=== PATIENT | female | born 1950 | race African-American/Black ===

== ENCOUNTER 2024-06-26 08:04 | Inpatient (IN) | payer OTHER ==
[~2024-06-26] VITALS: Ht 157.5 cm; Wt 49.3 kg
[2024-06-26 08:41] VITALS: PULSE 104; RESP 20; O2SAT 100
--- NOTE | 2024-06-26 09:20 | ED.PDOC ---
GI ASSESSMENT HPI Comments 74 year old female accompanied by brother presents to the ED with chief complaint of nausea and vomiting. Patient reports that she has been experiencing nausea and vomiting for the past 2-3 weeks, noticing associated weight loss, lips being drying, and stomach grumbling. Patient relays that she is unable to keep anything down, even ice chips. Patient states this all started after she had tasted food at a restaurant about 2-3 weeks ago. Patient denies any abdominal pain, body ache, fever, chills, dizziness, headache, or diarrhea, Chief Complaint: Nausea/Vomiting Time Seen by MD: 09:14 Primary Care Provider: NONE Reviewed Notes: Nurses Notes, Medications, Allergies Allergies: Coded Allergies: NO KNOWN ALLERGIES (Unverified , 06/26/24) Information Source: Patient Mode of Arrival: Ambulatory Timing: Weeks Duration: Since onset Prehospital treatment: None Vomitus: Watery Stool: Normal Severity: Moderate Recent: None Recent Hx of: None Pain Location: None Modifying Factors: Nothing Associated sign and symptoms: Nausea, Vomiting Past Medical History PAST MEDICAL HISTORY: HTN Surgical History: Hysterectomy [employer] History: Denies all [employer] Hx Family History Family History: Reviewed,noncontributory to illness Social History Smoker: Non-Smoker Alcohol: Denies ETOH Use Drugs: Denies Drug Use Lives In: Home Constitutional: denies: chills, diaphoresis, fatigue, fever, malaise, sweats, weakness, others EENTM: reports: voice changes (dry lips); denies: blurred vision, double vision, ear bleeding, ear discharge, ear drainage, ear pain, ear ringing, eye pain, eye redness, hearing loss, mouth pain, mouth swelling, nasal discharge, nose bleeding, nose congestion, nose pain, photophobia, tearing, throat pain, throat swelling, others Respiratory: denies: cough, hemoptysis, orthopnea, SOB at rest, shortness of br eath, SOB with excertion, stridor, wheezing, others Cardiovascular: denies: chest pain, dizzy spells, diaphoresis, Dyspnea on exertion, edema, irregular heart beat, left arm pain, lightheadedness, palpitations, PND, syncope, others Gastrointestinal: reports: nausea, vomiting, others (weight loss); denies: abdomen distended, abdominal pain, blood streaked bowels, constipated, diarrhea, dysphagia, difficulty swallowing, hematemesis, melena, poor appetite, poor fluid intake, rectal bleeding, rectal pain Genitourinary: denies: abnormal vagina bleeding, burning, dyspareunia, dysuria, flank pain, frequency, hematuria, incontinence, pain, , vagina discharge, urgency, others Neurological: denies: dizziness, fainting, headache, left sided numbness, left sided weakness, numbness, paresthesia, pre-existing deficit, right sided numbness, right sided weakness, seizure, speech problems, tingling, tremors, weakness, others Musculoskeletal: denies: back pain, gout, joint pain, joint swelling, muscle pain, muscle stiffness, neck pain, others Integumetry: denies: bruises, change in color, change in hair/nails, dryness, laceration, lesions, lumps, rash, wounds, others Allergic/Immunocompromised: denies: Difficulty Healing, Frequent Infections, Hives, Itching, others Hematologic/Lymphatic: denies: anemia, blood clots, easy bleeding, easy bruising, swollen glands, others Endocrine: reports: excessive thirst; denies: excessive hunger, excessive sweating, excessive urination, flushing, intolerance to cold, intolerance to heat, unexplained weight gain, unexplained weight loss, others Psychiatric: denies: anxiety, bipolar disorder, depression, hopeless, panic disorder, schizophrenia, sleepless, suicidal, others All Other Systems: Reviewed and Negative Physical Exam General Appearance: No Apparent Distress, Thin, Other (Cachectic) HEENT: Normal ENT Inspection, PERRL/EOMI Neck: Full Range of Motion, Non-Tender, Normal, Normal Inspection Respiratory: Chest Non-Tender, Lungs Clear, No Accessory Muscle Use, No Respiratory Distress, Normal Breath Sounds Cardiovascular: No Edema, No JVD, No Murmur, No Gallop, Normal Peripheral Pulses, Regular Rate/Rhythm Breast Exam: Deferred Gastrointestinal: No Organomegaly, Non Tender, No Pulsatile Mass, Normal Bowel Sounds, Soft Genitalia: Deferred Pelvic: Deferred Rectal: Deferred Extremities: No calf tenderness, Normal capillary refill, Normal inspection, Normal range of motion, Non-tender, Other (2+ pitting edema noted to bilateral lower extremities) Musculoskeletal : Apperance: Normal Neurologic: Alert, No Motor Deficits, Normal Affect, Normal Mood, No Sensory Deficits Cerebellar Function: Normal Reflexes: Normal Skin: Dry, Normal Color, Warm Lymphatic: No Adenopathy Was a procedure done? Was a procedure done?: No GI differential Dx Differential Diagnosis: UTI, Dehydration, Diabetes/ DKA, Food Poisoning, Hypovolemia, Malnutrition, Anemia X-Ray, Labs, Meds, VS Vital Signs Date Time Temp Pulse Resp B/P (MAP) Pulse Ox O2 Delivery O2 Flow Rate FiO2 06/26/24 10:30 74 14 140/47 (78) 100 06/26/24 08:41 104 20 100 Nasal Cannula* 1 24 06/26/24 08:41 97.4 104 20 154/69 (97) 100 97.4 06/26/24 08:28 97.6 111 18 159/93 (115) 98 Lab Test 06/26/24 09:15 Range/Units White Blood Count 5.6 4.4-10.8 10^3/uL Red Blood Count 4.14 4.0-5.20 10^6/uL Hemoglobin 7.7 L 12.2-16.2 g/dL Hematocrit 26.9 L 36.0-46.0 % Mean Corpuscular Volume 64.9 L 80.0-100.0 fL Mean Corpuscular Hemoglobin 18.6 L 28.0-32.0 pg Mean Corpuscular Hemoglobin Concent 28.6 L 32.0-36.0 g/dL Red Cell Distribution Width 26.8 H 11.8-14.3 % Platelet Count 283 140-450 10^3/uL Mean Platelet Volume 8.3 6.9-10.8 fL Neutrophils (%) (Auto) 86.8 H 37.0-80.0 % Lymphocytes (%) (Auto) 6.1 L 10.0-50.0 % Monocytes (%) (Auto) 6.3 0.0-12.0 % Eosinophils (%) (Auto) 0.1 0.0-7.0 % Basophils (%) (Auto) 0.7 0.0-2.0 % Neutrophils # (Auto) 4.8 1.6-8.6 10 ^3/uL Lymphocytes # (Auto) 0.3 L 0.4-5.4 10 ^3/uL Monocytes # (Auto) 0.3 0-1.3 10 ^3/uL Eosinophils # (Auto) 0 0-0.8 10 ^3/uL Basophils # (Auto) 0 0-0.2 10 ^3/uL Nucleated Red Blood Cells 0.6 % Platelet Estimate Adequate Hypochromasia (manual) Moderate Anisocytosis (manual) Slight Microcytosis Moderate Sodium Level 148 H 136-145 mmol/L Potassium Level 3.5 3.5-5.1 mmol/L Chloride Level 108 H 98-107 mmol/L Carbon Dioxide Level 24 20-31 mmol/L Anion Gap 16 H 5-15 Blood Urea Nitrogen 39 H 9-23 mg/dL Creatinine 1.83 H 0.550-1.02 mg/dL Glomerular Filtration Rate Calc 28 >90 mL/min BUN/Creatinine Ratio 21.3 H 10.0-20.0 Serum Glucose 110 H 74-106 mg/dL Calcium Level 11.2 H 8.7-10.4 mg/dL Total Bilirubin 0.6 0.2-1.0 mg/dL Aspartate Amino Transferase (AST) 22 13-40 U/L Alanine Aminotransferase (ALT) < 9 7-40 U/L Alkaline Phosphatase 73 46-116 U/L Total Protein 8.2 5.7-8.2 g/dL Albumin 4.4 3.2-4.8 g/dL Current Medications Medications (Trade) Dose Ordered Sig/Mayela Route Start Time Stop Time Status Last Admin Sodium Chloride 1,000 ml @ 1,000 mls/hr Q1H ONCE IV 06/26/24 08:45 06/26/24 09:44 DC 06/26/24 09:51 Ondansetron HCl (Zofran) 4 mg ONCE ONCE IV 06/26/24 08:45 06/26/24 08:46 DC 06/26/24 09:51 CT Abd/Pel: FINDINGS: Evaluation of the abdominal viscera is limited without intravenous contrast. There is a small atrophic left kidney with several renal cysts. There is compensatory hypertrophy of the right kidney which demonstrates no evidence of nephrolithiasis or hydronephrosis. There is a thickened left adrenal gland likely related to hyperplasia. The right adrenal gland appears within normal limits. There is a subcentimeter cyst in the dome of the liver. The gallbladder, pancreas, and spleen appear within normal limits. There is no gross evidence of abdominal lymphadenopathy. There is no free fluid or free air. The stomach grossly appears unremarkable. The small bowel loops demonstrate no rmal caliber. There is moderate air distention of the proximal colon to the level of the distal left transverse colon. There is hyperdense barium contents intermixed with stool and air seen throughout the colon to the level of the rectum. Calcified atherosclerotic changes in the abdominal aorta. The IVC appears within normal limits. The bladder appears unremarkable. The uterus is surgically absent. There is no gross evidence of a pelvic mass or lymphadenopathy. There is no free fluid collection. Lung bases are clear. There is no acute osseous abnormality. IMPRESSION: 1. There is moderate air distention of the proximal colon to the level of the distal left transverse colon. There are no dilated small bowel loops. There is hyperdense barium contents intermixed with stool and air seen throughout the colon to the level of the rectum. The bowel gas pattern is nonspecific. If there is concern for colonic obstruction consider further evaluation with barium enema. 2. Small atrophic left kidney. 3. Thickened left adrenal gland likely related to hyperplasia. 74-year-old female presents here with vomiting. She states she has been unable to keep anything down and has had a significant weight loss for the last few weeks. She states previously were of size 16 now wears a size 12. Patient was immediately evaluated by myself in triage. She was found to be tachycardic at 113 .. At this time blood work has been done which demonstrates significant abnormalities including severe anemia of 7.7, hypernatremia at 1:48 a.m. and evidence of acute kidney injury. Suspect likely dehydration from the vomiting. Source of vomiting still unclear. CT abdomen pelvis has been done which demonstrates some air distention in the colon however no acute pathology was found. Patient has been given Zofran in the ER. As well as IV fluids. At this time I have consulted medical team for admission. Images Reviewed?: Images reviewed and evaluated by me Time of 1ST Reevaluation: 10:14 Reevaluation 1ST: Improved Patient Education/Counseling: Diagnosis, Treatment Family Education/Counseling: Diagnosis, Treatment Departure 1 Departure Time of Disposition: 11:00 Impression: Primary Impression: Severe anemia Additional Impressions: Hypernatremia ROZINA (acute kidney injury) Vomiting Qualified Codes: R11.2 - Nausea with vomiting, unspecified Dehydration Disposition: ADMITTED INPATIENT Admit to: [facility] Condition: Fair Critical Care Note Critical Care Time?: No Stability Stability form required: No Heart Score Heart Score: Heart Score Response (Comments) Value History N/A 0 EKG N/A 0 Age N/A 0 Risk Factors N/A 0 Troponin N/A 0 Total 0 I personally scribed for TAMMI KELLEY MD ([email or web address]) on 06/26/24 at 09:20. Electronically submitted by Lico Jones ([email or web address]). I personally scribed for TAMMI KELLEY MD ([email or web address]) on 06/26/24 at 10:55. Electronically submitted by Lico Jones ([email or web address]). TAMMI KELLEY MD Jun 26, 2024 09:20
--- NOTE | 2024-06-26 09:23 | DVH ---
CT ABDOMEN AND PELVIS WITHOUT CONTRAST CLINICAL HISTORY: vomiting, ro mass TECHNIQUE: Multidetector CT of the abdomen was performed from lung bases to pubic symphysis. Imaging was performed without IV contrast. Axial, coronal and sagittal multiplanar reformats were obtained fr om the axial data set by the technologist. Radiation optimization: All CT scans at this facility use at least one of these dose optimization jennifer hniques: automated exposure control mA and/or kV adjustment per patient size (includes targeted exam s where dose is matched to clinical indication) or iterative reconstruction. Radiation Dose Information: CT Dose: CTDI volume is 5 mGy. Dose-length product is 215 mGy*cm Comparison: None FINDINGS: Evaluation of the abdominal viscera is limited without intravenous contrast. There is a small atrophic left kidney with several renal cysts. There is compensatory hypertrophy of the right kidney which demonstrates no evidence of nephrolithiasis or hydronephrosis. There is a thickened left adrenal gland likely related to hyperplasia. The right adrenal gland appear s within normal limits. There is a subcentimeter cyst in the dome of the liver. The gallbladder, pancreas, and spleen appear within normal limits. There is no gross evidence of abdominal lymphadenopathy. There is no free fluid or free air. The stomach grossly appears unremarkable. The small bowel loops demonstrate normal caliber. There is moderate air distention of the proximal colon to the level of the distal left transverse colon. There is hyperdense barium contents intermixed with stool and air seen throughout the colon to the level o f the rectum. Calcified atherosclerotic changes in the abdominal aorta. The IVC appears within normal limits. The bladder appears unremarkable. The uterus is surgically absent. There is no gross evidence of a p elvic mass or lymphadenopathy. There is no free fluid collection. Lung bases are clear. There is no acute osseous abnormality. IMPRESSION: 1. There is moderate air distention of the proximal colon to the level of the distal left transverse colon. There are no dilated small bowel loops. There is hyperdense barium contents intermixed with st ool and air seen throughout the colon to the level of the rectum. The bowel gas pattern is nonspecifi c. If there is concern for colonic obstruction consider further evaluation with barium enema. 2. Small atrophic left kidney. 3. Thickened left adrenal gland likely related to hyperplasia. HS:Y
[2024-06-26 09:37] LABS: Basophils # (auto) 0 10 ^3/uL (0-0.2); Basophils % (auto) 0.7 % (0.0-2.0); Eosinophils # (auto) 0 10 ^3/uL (0-0.8); Eosinophils % (auto) 0.1 % (0.0-7.0); Hematocrit 26.9 % (36.0-46.0); Hemoglobin 7.7 g/dL (12.2-16.2); Lymphocytes # (auto) 0.3 10 ^3/uL (0.4-5.4); Lymphocytes % (auto) 6.1 % (10.0-50.0); Mean Corpuscular Hemoglobin 18.6 pg (28.0-32.0); Mean Corpuscular Hgb Conc. 28.6 g/dL (32.0-36.0); Mean Corpuscular Volume 64.9 fL (80.0-100.0); Monocytes # (auto) 0.3 10 ^3/uL (0-1.3); Monocytes % (auto) 6.3 % (0.0-12.0); Neutrophils # (auto) 4.8 10 ^3/uL (1.6-8.6); Neutrophils % (auto) 86.8 % (37.0-80.0); Nucleated Red Blood Cells % 0.6 %; Platelet Count (auto) 283 10^3/uL (140-450); Red Blood Cells 4.14 10^6/uL (4.0-5.20); Red Cell Distribution Width 26.8 % (11.8-14.3); White Blood Cell 5.6 10^3/uL (4.4-10.8)
[2024-06-26 09:45] LABS: Albumin 4.4 g/dL (3.2-4.8); Alkaline Phosphatase 73 U/L (46-116); Anion Gap 16 (5-15); Aspartate Aminotransferase 22 U/L (13-40); BUN/Creatinine Ratio 21.3 (10.0-20.0); Blood Urea Nitrogen 39 mg/dL (9-23); Calcium 11.2 mg/dL (8.7-10.4); Carbon Dioxide 24 mmol/L (20-31); Chloride 108 mmol/L (98-107); Glucose 110 mg/dL (74-106); Potassium 3.5 mmol/L (3.5-5.1); Sodium 148 mmol/L (136-145)
[2024-06-26 09:46] LABS: Bilirubin, Total 0.6 mg/dL (0.2-1.0); Total Protein 8.2 g/dL (5.7-8.2)
[2024-06-26 09:51] LABS: Alanine Aminotransferase < 9 U/L (7-40)
[2024-06-26] MEDS: SODIUM CHLORIDE 0.9% 1,000 ML IV ONE (09:51)
[2024-06-26] MEDS: ONDANSETRON HCL 4 MG/2 ML VIAL IV ONE (09:51)
[2024-06-26 10:46] LABS: Anisocytosis Slight; Hypochromia Moderate; Platelet Estimate Adequate
--- NOTE | 2024-06-26 13:05 | DVHHP2 ---
History of Present Illness Reason for Visit: Nausea vomiting History of Present Illness 74-year-old female accompanied by brother presented to the ED with chief complaint nausea and vomiting. She reports having nausea and vomiting almost 2- 3 weeks, with associated weight, patient does not know how much. Patient states that she has not been able to keep any fluids or food down in the last week, and yesterday she was not even able to tolerate ice chips without having nausea, when she was vomiting she reports that it was bilious, no hematemesis. Patient states her symptoms started after she had taste did a spoon full of food at a restaurant about 2-3 weeks ago. Patient's last bowel movement was yesterday, she states it was soft and somewhat loose, no report of blood in stool. We will hydrate patient, keep her NPO and consult GI. Patient states she just moved to this area recently and has just chosen her new primary care provider, patient is a poor historian, uncertain what other medication she takes besides carvedilol. Patient does not have abdominal tenderness, no body aches or fever, chills, dizziness, headache, diarrhea. Past Medical History Hypertension Past Surgical History Hysterectomy Family History Reviewed noncontributory to the management of this case Smoke: No ALCOHOL: none Drugs: None Lives: with Family Review of Systems Constitutional: Yes: Malaise; No: Fever, Chills, Sweats, Weakness, Other Eyes: No: Pain, Vision change, Conjunctivae inflammation, Eyelid inflammation, Other, Redness ENT: No: Ear pain, Ear discharge, Nose pain, Nose discharge, Nose congestion, Mouth pain, Mouth swelling, Throat pain, Throat swelling, Other Respiratory: No: Cough, Dry, Shortness of breath, SOB with excertion, Wheezing, Hemoptysis, Pleuritic Pain, Sputum, Wheezing, Other Cardiovascular: No: Chest Pain, Palpitations, Orthopnea, Paroxysmal Noc. Dyspnea, Edema, Lt Headedness, Other Gastrointestinal: Nausea, Vomiting; No: Abdominal Pain, Diarrhea, Constipation, Melena, Hematochezia, Other Genitourinary: No Dysuria, No Frequency, No Incontinence, No Hematuria, No Retention, No Other Musculoskeletal: No: other, neck pain, shoulder pain, arm pain, back pain, hand pain, leg pain, foot pain Skin: No: Rash, Lesions, Jaundice, Bruising, Other Neurological: No: Weakness, Numbness, Incoordination, Change in speech, Confusion, Seizures, Other Allergies: Coded Allergies: NO KNOWN ALLERGIES (Unverified , 06/26/24) Medications Current Medications Medications Dose Ordered Sig/Mayela Route Start Time Stop Time Status Last Admin Dose Admin Metoclopramide HCl 5 mg Q6HP PRN IV 06/26/24 12:00 Morphine Sulfate 1 mg Q4HPRN PRN IV 06/26/24 12:00 Sodium Chloride 1,000 ml @ 125 mls/hr Q8H IV 06/26/24 12:00 Exam Vital Signs Vital Signs Date Time Temp Pulse Resp B/P (MAP) Pulse Ox O2 Delivery O2 Flow Rate FiO2 06/26/24 10:30 74 14 140/47 (78) 100 06/26/24 08:41 Nasal Cannula* 09 1106/26/24 08:41 97.4 97.4 General Appearance: Alert, Oriented X3, Cooperative, No acute distress HEENT: Atraumatic, PERRLA, EOMI, Mucous membr. moist/pink Respiratory: Clear to auscultation, Normal air movement Cardiovascular: Regular rate, Normal S1, Normal S2, No murmurs Abdominal: Normal bowel sounds, Soft, No tenderness, No hepatospenomegaly, No masses Extremities: No clubbing, No cyanosis, No edema, Normal pulses, No tenderness/swelling Skin: No rashes, No breakdown, No significant lesion Neuro: Normal gait, Normal speech, Strength at 5/5 X4 ext, Normal tone, Sensation intact, Cranial nerves 3-12 NL, Reflexes 2+ Psych/Mental Status: Mental status NL, Mood NL Labs/Xrays Labs, imaging and ED notes reviewed Labs Test 06/26/24 09:15 Range/Units White Blood Count 5.6 4.4-10.8 10^3/uL Red Blood Count 4.14 4.0-5.20 10^6/uL Hemoglobin 7.7 L 12.2-16.2 g/dL Hematocrit 26.9 L 36.0-46.0 % Mean Corpuscular Volume 64.9 L 80.0-100.0 fL Mean Corpuscular Hemoglobin 18.6 L 28.0-32.0 pg Mean Corpuscular Hemoglobin Concent 28.6 L 32.0-36.0 g/dL Red Cell Distribution Width 26.8 H 11.8-14.3 % Platelet Count 283 140-450 10^3/uL Mean Platelet Volume 8.3 6.9-10.8 fL Neutrophils (%) (Auto) 86.8 H 37.0-80.0 % Lymphocytes (%) (Auto) 6.1 L 10.0-50.0 % Monocytes (%) (Auto) 6.3 0.0-12.0 % Eosinophils (%) (Auto) 0.1 0.0-7.0 % Basophils (%) (Auto) 0.7 0.0-2.0 % Neutrophils # (Auto) 4.8 1.6-8.6 10 ^3/uL Lymphocytes # (Auto) 0.3 L 0.4-5.4 10 ^3/uL Monocytes # (Auto) 0.3 0-1.3 10 ^3/uL Eosinophils # (Auto) 0 0-0.8 10 ^3/uL Basophils # (Auto) 0 0-0.2 10 ^3/uL Nucleated Red Blood Cells 0.6 % Platelet Estimate Adequate Hypochromasia (manual) Moderate Anisocytosis (manual) Slight Microcytosis Moderate Sodium Level 148 H 136-145 mmol/L Potassium Level 3.5 3.5-5.1 mmol/L Chloride Level 108 H 98-107 mmol/L Carbon Dioxide Level 24 20-31 mmol/L Anion Gap 16 H 5-15 Blood Urea Nitrogen 39 H 9-23 mg/dL Creatinine 1.83 H 0.550-1.02 mg/dL Glomerular Filtration Rate Calc 28 >90 mL/min BUN/Creatinine Ratio 21.3 H 10.0-20.0 Serum Glucose 110 H 74-106 mg/dL Calcium Level 11.2 H 8.7-10.4 mg/dL Total Bilirubin 0.6 0.2-1.0 mg/dL Aspartate Amino Transferase (AST) 22 13-40 U/L Alanine Aminotransferase (ALT) < 9 7-40 U/L Alkaline Phosphatase 73 46-116 U/L Total Protein 8.2 5.7-8.2 g/dL Albumin 4.4 3.2-4.8 g/dL Assessment/Plan Assessment/Plan Nausea/vomiting, secondary to possible bowel obstruction Admit to medical/surgical CT abdomen/pelvis completed Consult GI IV fluids NPO Pain medications p.r.n. Reglan p.r.n.- patient states Zofran did not help ROZINA/small atrophic left kidney w/ renal cysts Consult nephrology for input/management Patient states no history of kidney disease Chronic hypertension Continue home medication FEN/PPX GI prophylaxis-Protonix VTE prophylaxis not indicated NPO for now IV fluids Plan discussed with: Patient My Orders Orders - CHELSEA BRONSON Procedure Category Date Status Time Covid19 Antigen Jennie LAB 06/26/24 Logged Rapid Influenza A&B LAB 06/26/24 Logged 11:28 * Gi Dvh Results Technician CONS 06/26/24 Transmitted 11:47 Admit ADMIT 06/26/24 Transmitted 11:49 Code Status CODE 06/26/24 Transmitted 11:49 Vital Signs ROLAND 06/26/24 In Process 11:49 Review Orders With ROLAND 06/26/24 In Process Adm. 11:49 Maintain Bed Rest ROLAND 06/26/24 In Process 11:49 Npo (Nothing By DIET 06/26/24 Transmitted Mouth) Diet Lunch Metoclopramide PHA 06/26/24 In Process Injection (Reglan 12:00 Notify Md Of Changes ROLAND 06/26/24 In Process From Base 11:49 Advance Directive ROLAND 06/26/24 In Process 11:49 Basic Metabolic Panel LAB 06/27/24 Verified 04:00 Complete Blood Count LAB 06/27/24 Verified 04:00 Patient Condition ORDERS 06/26/24 Transmitted 11:49 Allergies ROLAND 06/26/24 In Process 11:49 Morphine Sulfate PHA 06/26/24 In Process Injection 12:00 Sodium Chloride 0.9% PHA 06/26/24 In Process 12:00 Date of Service: Jun 26, 2024 Billing Provider: CHELSEA BRONSON Common Visit Codes: [id number] INP/OBS CARE (HIGH) CHELSEA BRONSON Jun 26, 2024 13:05
[2024-06-26] MEDS: SODIUM CHLORIDE 0.9% 1,000 ML IV SCH (13:34)
[2024-06-26 14:30] LABS: COVID19 ANTIGEN SOFIA FIA NEGATIVE (NEGATIVE); Rapid Influenza A Negative (Negative); Rapid Influenza B Negative (Negative)
--- NOTE | 2024-06-26 16:36 | DVHINCON2 ---
Date of service: Jun 26, 2024 Referring Physician CHELSEA BRONSON Reason for Consultation Acute kidney injury History of Present Illness Patient is 74-year-old female with past medical history significant for hypertension is admitted for nausea and vomiting and abdominal pain for two three weeks. On admission patient found to have elevated BUN and creatinine nephrology is consulted for acute kidney injury Past Medical History Hypertension Past Surgical History Hysterectomy Allergies: Coded Allergies: NO KNOWN ALLERGIES (Unverified , 06/26/24) Current Medications Current Medications Medications (Trade) Dose Ordered Sig/Mayela Route PRN Reason Start Time Stop Time Status Last Admin Metoclopramide HCl (Reglan Injection) 5 mg Q6HP PRN IV NAUSEA / VOMITING 06/26/24 12:00 Morphine Sulfate 1 mg Q4HPRN PRN IV SEVERE PAIN (7-10 PAIN SCALE) 06/26/24 12:00 06/27/24 05:48 Sodium Chloride 1,000 ml @ 125 mls/hr Q8H IV 06/26/24 12:00 06/27/24 03:20 Hydralazine HCl (Apresoline Injection) 10 mg Q6HP PRN IV SBP>150 06/26/24 13:15 Review of Systems All 12 item review of systems reviewed with the patient nonsignificant except what is mentioned in the history of present illness H&P Exam Vital Signs/I&O Vital Sign Date Time Temp Pulse Resp B/P (MAP) Pulse Ox O2 Delivery O2 Flow Rate FiO2 06/27/24 08:35 98.0 80 17 145/71 (95) 100 98.0 06/26/24 20:00 Nasal Cannula* 1 24 Intake and Output 06/26/24 06/27/24 19:00 07:00 Intake Total 1437.5 ml Output Total 450 ml Balance 1437.5 ml -450 ml Intake IV Total 1437.5 ml Output Urine Total 450 ml Physical Exam Patient is awake appear ill Lungs clear to auscultation bilaterally Cardiac exam regular rate and rhythm Lab abdomen epigastric guarding normal Extremities no clubbing cyanosis or edema Neuro nonfocal Labs/Diagnostic Data Labs/Diagnostic Data Laboratory Tests Test 06/27/24 05:42 06/26/24 19:12 06/26/24 17:11 06/26/24 13:25 Range/Units White Blood Count 7.7 # 4.4-10.8 10^3/uL Red Blood Count 3.41 L 4.0-5.20 10^6/uL Hemoglobin 6.2 #*L 12.2-16.2 g/dL Hematocrit 22.7 #L 36.0-46.0 % Mean Corpuscular Volume 66.4 L 80.0-100.0 fL Mean Corpuscular Hemoglobin 18.3 L 28.0-32.0 pg Mean Corpuscular Hemoglobin Concent 27.5 L 32.0-36.0 g/dL Red Cell Distribution Width 27.1 H 11.8-14.3 % Platelet Count 215 140-450 10^3/uL Mean Platelet Volume 8.7 6.9-10.8 fL Neutrophils (%) (Auto) 87.5 H 37.0-80.0 % Lymphocytes (%) (Auto) 5.7 L 10.0-50.0 % Monocytes (%) (Auto) 6.1 0.0-12.0 % Eosinophils (%) (Auto) 0.3 0.0-7.0 % Basophils (%) (Auto) 0.4 0.0-2.0 % Neutrophils # (Auto) 6.7 1.6-8.6 10 ^3/uL Lymphocytes # (Auto) 0.4 0.4-5.4 10 ^3/uL Monocytes # (Auto) 0.5 0-1.3 10 ^3/uL Eosinophils # (Auto) 0 0-0.8 10 ^3/uL Basophils # (Auto) 0 0-0.2 10 ^3/uL Nucleated Red Blood Cells 0.3 % Sodium Level 152 H 136-145 mmol/L Potassium Level 3.2 L 3.5-5.1 mmol/L Chloride Level 119 #H 98-107 mmol/L Carbon Dioxide Level 21 20-31 mmol/L Anion Gap 12 5-15 Blood Urea Nitrogen 28 #H 9-23 mg/dL Creatinine 1.39 H 0.550-1.02 mg/dL Glomerular Filtration Rate Calc 40 >90 mL/min BUN/Creatinine Ratio 20.1 H 10.0-20.0 Serum Glucose 83 74-106 mg/dL Calcium Level 9.4 8.7-10.4 mg/dL Urine Color Yellow Yellow Urine Clarity Clear Clear Urine pH 5.0 5.0-9.0 Urine Specific [place] 1.020 1.001-1.035 Urine Protein 1+ H Negative Urine Ketones 1+ H Negative Urine Blood Negative Negative /uL Urine Nitrite Negative Negative Urine Bilirubin Negative Negative Urine Urobilinogen Normal Negative mg/dL Urine Leukocyte Esterase Negative Negative /uL Urine RBC 4 0 - 4 /hpf Urine WBC 1 0 - 5 /hpf Urine Squamous Epithelial Cells Few <5 /hpf Urine Bacteria None seen None Seen /hpf Urine Hyaline Casts Few 0 - 2 /lpf Urine Mucus Few None Seen Urine Creatinine 127.99 H 30.0-125.0 mg/dL Urine Protein/Creatinine Ratio 0.62 Urine Sodium 31 L 40-220 mmol/L Urine Glucose Normal Normal mg/dL Urine Total Protein 78.8 H 1-14 mg/dL Parathyroid Hormone (Intact) 58.3 18.4-80.1 pg/mL Influenza Type A Antigen Negative Negative Influenza Type B Antigen Negative Negative SARS-CoV-2 Antigen (Rapid) Negative NEGATIVE Test 06/26/24 09:15 Range/Units White Blood Count 5.6 4.4-10.8 10^3/uL Red Blood Count 4.14 4.0-5.20 10^6/uL Hemoglobin 7.7 L 12.2-16.2 g/dL Hematocrit 26.9 L 36.0-46.0 % Mean Corpuscular Volume 64.9 L 80.0-100.0 fL Mean Corpuscular Hemoglobin 18.6 L 28.0-32.0 pg Mean Corpuscular Hemoglobin Concent 28.6 L 32.0-36.0 g/dL Red Cell Distribution Width 26.8 H 11.8-14.3 % Platelet Count 283 140-450 10^3/uL Mean Platelet Volume 8.3 6.9-10.8 fL Neutrophils (%) (Auto) 86.8 H 37.0-80.0 % Lymphocytes (%) (Auto) 6.1 L 10.0-50.0 % Monocytes (%) (Auto) 6.3 0.0-12.0 % Eosinophils (%) (Auto) 0.1 0.0-7.0 % Basophils (%) (Auto) 0.7 0.0-2.0 % Neutrophils # (Auto) 4.8 1.6-8.6 10 ^3/uL Lymphocytes # (Auto) 0.3 L 0.4-5.4 10 ^3/uL Monocytes # (Auto) 0.3 0-1.3 10 ^3/uL Eosinophils # (Auto) 0 0-0.8 10 ^3/uL Basophils # (Auto) 0 0-0.2 10 ^3/uL Nucleated Red Blood Cells 0.6 % Platelet Estimate Adequate Hypochromasia (manual) Moderate Anisocytosis (manual) Slight Microcytosis Moderate Sodium Level 148 H 136-145 mmol/L Potassium Level 3.5 3.5-5.1 mmol/L Chloride Level 108 H 98-107 mmol/L Carbon Dioxide Level 24 20-31 mmol/L Anion Gap 16 H 5-15 Blood Urea Nitrogen 39 H 9-23 mg/dL Creatinine 1.83 H 0.550-1.02 mg/dL Glomerular Filtration Rate Calc 28 >90 mL/min BUN/Creatinine Ratio 21.3 H 10.0-20.0 Serum Glucose 110 H 74-106 mg/dL Uric Acid 19.3 H 3.1-7.8 mg/dL Calcium Level 11.2 H 8.7-10.4 mg/dL Phosphorus Level 4.2 2.4-5.1 mg/dL Magnesium Level 2.7 H 1.6-2.6 mg/dL Total Bilirubin 0.6 0.2-1.0 mg/dL Aspartate Amino Transferase (AST) 22 13-40 U/L Alanine Aminotransferase (ALT) < 9 7-40 U/L Alkaline Phosphatase 73 46-116 U/L B-Type Natriuretic Peptide 133.21 0-100 pg/mL Total Protein 8.2 5.7-8.2 g/dL Albumin 4.4 3.2-4.8 g/dL Amylase Level 110 30-118 U/L Vitamin D 25-Hydroxy 64.7 30.0-100 ng/mL Assessment Acute kidney injury superimposed Chronic Kidney Disease secondary hemodynamic mediated Abdominal pain Dehydration Hypertension Hypercalcemia, rule out malignant Hypernatremia microcytic anemia Recommendations Closely monitor fluid and electrolytes Avoid nephrotoxic medications Guerra catheter Strict I&Os Check urine electrolytes and urine protein excretion Check kidney ultrasound I agree with IV fluid hydration check P, PTH, vitamin D, ferritin and iron studies Blood pressure control GI consult We will continue to follow Patient seen and examined by myself. I discussed my plan of care with the patient and the primary nurse at the bedside I would like to thank Dr. Burris for the consult, will follow up Plan discussed with: Patient NETTIE GOODWIN MD Jun 26, 2024 16:36
--- NOTE | 2024-06-26 17:11 | DVH ---
EXAM: US KIDNEY INDICATION: 74 years old, Female; danial. TECHNIQUE: Multiple real-time sonographic images of the kidneys and bladder were obtained. COMPARISON: None Findings: Right kidney measures 9.7 cm with normal contours, increased echotexture, and normal cortical thickne ss. No evidence of hydronephrosis, calculi, cystic or solid lesions. Left kidney measures 6.6 cm with normal contours, increased echotexture, and normal cortical thicknes s. No evidence of hydronephrosis, calculi, cystic or solid lesions. Urinary bladder is unremarkable without evidence of abnormal wall thickening, mass, or calculi. Prevo id volume 181 mL. Postvoid volume was not obtained due to patient's inability to void. Impression: 1. Increased echogenicity of bilateral kidneys. Correlate for medical renal disease. 2. Left renal atrophy. 3. Unremarkable sonographic study of the urinary bladder.
[2024-06-26 17:27] LABS: Uric Acid 19.3 mg/dL (3.1-7.8)
[2024-06-26 18:04] VITALS: BP 142/67; PULSE 83; RESP 16; TEMP 98.1; O2SAT 98
[2024-06-26 18:24] LABS: Magnesium 2.7 mg/dL (1.6-2.6)
[2024-06-26 18:26] LABS: Phosphorus 4.2 mg/dL (2.4-5.1)
[2024-06-26 18:40] VITALS: PULSE 88; RESP 18; O2SAT 100
[2024-06-26 19:24] LABS: Urine Bacteria None Seen /hpf (None Seen)
[2024-06-26 19:51] LABS: Urine Blood Negative /uL (Negative); Urine Clarity Clear (Clear); Urine Color Yellow (Yellow); Urine Hyaline Cast FEW /lpf (0 - 2); Urine Mucus FEW (None Seen); Urine Protein, UAD 1+ (Negative); Urine Urobilinogen Normal (Negative); Urine WBC 1 /hpf (0 - 5)
[2024-06-26 19:55] LABS: Protein, Urine 78.8 mg/dL (1-14)
[2024-06-26 19:58] LABS: Creatinine, Urine 127.99 mg/dL (30.0-125.0); Urine Protein/Creatinine Ratio 0.62
[2024-06-26 20:00] LABS: Creatinine, Urine 125.34 mg/dL (30.0-125.0)
[2024-06-26 21:00] VITALS: BP 134/59; PULSE 89; RESP 18; TEMP 98; O2SAT 99
[2024-06-26] MEDS: MORPHINE SULFATE INJ 2 MG/ml SYRG IV PRN (22:04)
[2024-06-27] VITALS (11 sets, daily range): BP systolic 135–152; BP diastolic 52–78; PULSE 79–89; RESP 14–18; TEMP 97.5–98.5; O2SAT 99–100
[2024-06-27 06:34] LABS: Anion Gap 12 (5-15); Carbon Dioxide 21 mmol/L (20-31); Chloride 119 mmol/L (98-107); Potassium 3.2 mmol/L (3.5-5.1); Sodium 152 mmol/L (136-145)
[2024-06-27 06:35] LABS: Calcium 9.4 mg/dL (8.7-10.4)
[2024-06-27 06:39] LABS: Glucose 83 mg/dL (74-106)
[2024-06-27 06:40] LABS: BUN/Creatinine Ratio 20.1 (10.0-20.0)
[2024-06-27 06:42] LABS: Blood Urea Nitrogen 28 mg/dL (9-23)
[2024-06-27 07:31] LABS: Basophils # (auto) 0 10 ^3/uL (0-0.2); Basophils % (auto) 0.4 % (0.0-2.0); Eosinophils # (auto) 0 10 ^3/uL (0-0.8); Eosinophils % (auto) 0.3 % (0.0-7.0); Hematocrit 22.7 % (36.0-46.0); Lymphocytes # (auto) 0.4 10 ^3/uL (0.4-5.4); Lymphocytes % (auto) 5.7 % (10.0-50.0); Mean Corpuscular Hemoglobin 18.3 pg (28.0-32.0); Mean Corpuscular Hgb Conc. 27.5 g/dL (32.0-36.0); Mean Corpuscular Volume 66.4 fL (80.0-100.0); Monocytes # (auto) 0.5 10 ^3/uL (0-1.3); Monocytes % (auto) 6.1 % (0.0-12.0); Neutrophils # (auto) 6.7 10 ^3/uL (1.6-8.6); Neutrophils % (auto) 87.5 % (37.0-80.0); Nucleated Red Blood Cells % 0.3 %; Platelet Count (auto) 215 10^3/uL (140-450); Red Blood Cells 3.41 10^6/uL (4.0-5.20); Red Cell Distribution Width 27.1 % (11.8-14.3); White Blood Cell 7.7 10^3/uL (4.4-10.8)
[2024-06-27 07:39] LABS: Hemoglobin 6.2 g/dL (12.2-16.2)
[2024-06-27] MEDS ORDERED: POTASSIUM CHLORIDE 20 MEQ in D5W 5% 1,000 ML IV SCH (09:45)
--- NOTE | 2024-06-27 09:54 | DVHPN2 ---
Progress Note Date Seen: Jun 27, 2024 Medical Necessity Reason Pt with a Central, PICC or Fol: No Subjective Review of Systems: :Abnormal Other Systems: Patient seen and examined by myself today in follow-up Objective vital signs Vital Sign Date Time Temp Pulse Resp B/P (MAP) Pulse Ox O2 Delivery O2 Flow Rate FiO2 06/27/24 08:35 98.0 80 17 145/71 (95) 100 98.0 06/26/24 20:00 Nasal Cannula* 1 24 Total Intake and Output 06/26/24 06/26/24 06/27/24 15:00 23:00 07:00 Intake Total 1187.5 ml 250 ml Output Total 450 ml Balance 1187.5 ml 250 ml -450 ml medications Current Medications Medications Dose Ordered Sig/Mayela Route Start Time Stop Time Status Last Admin Dose Admin Metoclopramide HCl 5 mg Q6HP PRN IV 06/26/24 12:00 Morphine Sulfate 1 mg Q4HPRN PRN IV 06/26/24 12:00 06/27/24 05:48 Sodium Chloride 1,000 ml @ 125 mls/hr Q8H IV 06/26/24 12:00 06/27/24 03:20 Hydralazine HCl 10 mg Q6HP PRN IV 06/26/24 13:15 Examination: LUNGS:Normal, ABDOMEN:Abnormal, MSK:Normal laboratory and microbiology Laboratory Tests 06/27/24 05:42 Test 06/27/24 05:42 Range/Units Serum Glucose 83 74-106 mg/dL Problem List/Assessment/Plan Problem List/Assessment/Plan Acute kidney injury superimposed Chronic Kidney Disease secondary hemodynamic mediated Abdominal pain Dehydration Hypertension Hypercalcemia due to dehydration Hypernatremia due to dehydration Hypokalemia microcytic anemia Dropping hemoglobin GI bleeding Recommendations Kidney function is improving Increased urine output Guerra catheter Strict I&Os kidney ultrasound reported atrophic left kidney IVF D5W with 20 milliequivalent/liters of KCl at 100 cc/hour n Packed red blood cell transfusion p.r.n. Blood pressure control GI consult We will continue to follow Plan discussed with: Patient My Orders My Orders Orders - NETTIE GOODWIN MD Procedure Category Date Status Time Guerra Catheters ED NURSING 06/26/24 Transmitted Kidney US 06/26/24 Resulted 16:31 D5w 5% (Dextrose 5%) PHA 06/27/24 In Process W/Potassium Chlorid 09:45 NETTIE GOODWIN MD Jun 27, 2024 09:54
[2024-06-27] MEDS: POTASSIUM CHLORIDE 20 MEQ in D5W 5% 1,000 ML IV SCH (10:00)
[2024-06-27 10:34] LABS: Anisocytosis Slight; Hypochromia Marked; Platelet Estimate Adequate
[2024-06-27 10:35] LABS: Ovalocytes FEW
--- NOTE | 2024-06-27 16:08 | DVHPN2 ---
Subjective I am assuming the care of the patient from today onwards who was under the care of the hospitalist team. Patient is here for nausea and vomiting abdominal pain could not keep anything down for last 2-3 weeks. Reviewed: Care Plan Changes from previous H/P or p: No Changes Eyes: No Pain, No Vision change, No Conjunctivae inflammation, No Eyelid inflammation, No Other, No Redness ENT: No Ear pain, No Ear discharge, No Nose pain, No Nose discharge, No Nose congestion, No Mouth pain, No Mouth swelling, No Throat pain, No Throat swelling, No Other Cardiovascular: No Chest Pain, No Palpitations, No Orthopnea, No Paroxysmal Noc. Dyspnea, No Edema, No Lt Headedness, No Other Respiratory: No Cough, No Dry, No Shortness of breath, No SOB with excertion, No Wheezing, No Hemoptysis, No Pleuritic Pain, No Sputum, No Other Gastrointestinal: Nausea, Vomiting; No Abdominal Pain, No Diarrhea, No Constipation, No Melena, No Hematochezia, No Other Genitourinary: No Dysuria, No Frequency, No Incontinence, No Hematuria, No Retention, No Other Musculoskeletal: No other, No neck pain, No shoulder pain, No arm pain, No back pain, No hand pain, No leg pain, No foot pain Skin: No Rash, No Lesions, No Jaundice, No Bruising, No Other Objective Vitals Vital Signs Date Time Temp Pulse Resp B/P (MAP) Pulse Ox O2 Delivery O2 Flow Rate FiO2 06/27/24 11:55 98.5 80 16 141/65 (90) 100 98.5 06/26/24 20:00 Nasal Cannula* 1 24 Intake/Output Intake and Output 06/27/24 07:00 Intake Total 1437.5 ml Output Total 450 ml Balance 987.5 ml Intake IV Total 1437.5 ml Output Urine Total 450 ml Exam HEENT pupils are reactive Neck is supple CV is S1-S2 regular rate and rhythm Respiratory are clear GI positive bowel sound Extremity no edema [employer]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 Medications Current Medications Medications Dose Ordered Sig/Mayela Route Start Time Stop Time Status Last Admin Dose Admin Metoclopramide HCl 5 mg Q6HP PRN IV 06/26/24 12:00 Morphine Sulfate 1 mg Q4HPRN PRN IV 06/26/24 12:00 06/27/24 05:48 1 MG Hydralazine HCl 10 mg Q6HP PRN IV 06/26/24 13:15 Potassium Chloride 20 meq/ Dextrose 1,010 ml @ 100 mls/hr Q10H6M IV 06/27/24 10:00 Laboratory Results Laboratory Tests 06/27/24 05:42 Chemistry Test 06/27/24 05:42 Calcium Level 9.4 mg/dL (8.7-10.4) Urinalysis Test 06/26/24 19:12 Urine Color Yellow (Yellow) Urine Clarity Clear (Clear) Urine pH 5.0 (5.0-9.0) Urine Specific [place] 1.020 (1.001-1.035) Urine Protein 1+ (Negative) H Urine Ketones 1+ (Negative) H Urine Blood Negative /uL (Negative) Urine Nitrite Negative (Negative) Urine Bilirubin Negative (Negative) Urine Urobilinogen Normal mg/dL (Negative) Urine Leukocyte Esterase Negative /uL (Negative) Urine RBC 4 /hpf (0 - 4) Urine WBC 1 /hpf (0 - 5) Urine Squamous Epithelial Cells Few /hpf (<5) Urine Bacteria None seen /hpf (None Seen) Urine Hyaline Casts Few /lpf (0 - 2) Urine Mucus Few (None Seen) Urine Creatinine 127.99 mg/dL (30.0-125.0) H Urine Protein/Creatinine Ratio 0.62 Urine Sodium 31 mmol/L (40-220) L Urine Glucose Normal mg/dL (Normal) Urine Total Protein 78.8 mg/dL (1-14) H Assessment/Plan Assessment/Plan 74-year-old female who initially presented to the hospital with the abdominal pain nausea and vomiting, could not keep anything down for last 2-3 weeks found to have 1. Nausea and vomiting rule out colonic obstruction 2. Distention of the proximal colon to the level of distal transverse colon ileus versus obstruction 3. Microcytic anemia, -transfuse 1 unit of packed RBC -NPO, GI consultation Plan discussed with: Patient My Orders Orders - RACHEL ZELAYA MD Procedure Category Date Status Time Type And Screen BBK 06/27/24 In Process 10:32 Heparin Sodium PHA 06/27/24 Transmitted (Porcine) 22:00 Date of Service: Jun 27, 2024 Billing Provider: RACHEL ZELAYA MD Common Visit Codes: [id number] INP/OBS CARE(MOD) RACHEL ZELAYA MD Jun 27, 2024 16:08
[2024-06-27] MEDS: METOCLOPRAMIDE HCL 5MG/ml INJ 2ml VIAL IV PRN (20:37)
[2024-06-27] MEDS: HEPARIN SODIUM (PORCINE) 5000 UNITS/ML 1ML VIAL SC SCH (22:39)
[2024-06-28] MEDS: hydrALAZINE HCL 20 MG/ML VL IV PRN (00:54)
[2024-06-28 01:00] VITALS: BP 160/74; PULSE 91; RESP 17; TEMP 97.8; O2SAT 100
[2024-06-28 02:57] LABS: Hemoglobin 8.9 g/dL (12.2-16.2)
[2024-06-28 02:59] LABS: Hematocrit 29.7 % (36.0-46.0)
[2024-06-28 05:00] VITALS: BP 144/68; PULSE 83; RESP 17; TEMP 97.8; O2SAT 100
[2024-06-28 08:00] VITALS: BP 149/63; PULSE 84; RESP 18; TEMP 98.2; O2SAT 99
--- NOTE | 2024-06-28 10:02 | DVHPN2 ---
Progress Note Date Seen: Jun 28, 2024 Medical Necessity Reason Pt with a Central, PICC or Fol: No Subjective Patient reports: No new complaints Review of Systems: :Abnormal Other Systems: Patient seen and examined by myself in follow-up today patient remained with poor appetite unable to keep food down Objective vital signs Vital Sign Date Time Temp Pulse Resp B/P (MAP) Pulse Ox O2 Delivery O2 Flow Rate FiO2 06/28/24 08:30 Nasal Cannula* 09 1106/28/24 08:00 98.2 84 18 149/63 (91) 99 98.2 Total Intake and Output 06/27/24 06/27/24 06/28/24 15:00 23:00 07:00 Intake Total 600 ml 0 ml Output Total 550 ml 300 ml Balance 50 ml -300 ml medications Current Medications Medications Dose Ordered Sig/Mayela Route Start Time Stop Time Status Last Admin Dose Admin Metoclopramide HCl 5 mg Q6HP PRN IV 06/26/24 12:00 06/27/24 20:37 5 MG Morphine Sulfate 1 mg Q4HPRN PRN IV 06/26/24 12:00 06/27/24 05:48 1 MG Hydralazine HCl 10 mg Q6HP PRN IV 06/26/24 13:15 06/28/24 00:54 10 MG Potassium Chloride 20 meq/ Dextrose 1,010 ml @ 100 mls/hr Q10H6M IV 06/27/24 10:00 06/27/24 22:45 100 MLS/HR Heparin Sodium (Porcine) 5,000 units Q12HR SC 06/27/24 22:00 06/27/24 22:39 5,000 UNITS Examination: LUNGS:Normal, CVS:Normal, MSK:Normal laboratory and microbiology Laboratory Tests 06/28/24 02:28 06/27/24 05:42 Test 06/27/24 05:42 Range/Units Serum Glucose 83 74-106 mg/dL Problem List/Assessment/Plan Problem List/Assessment/Plan Acute kidney injury superimposed Chronic Kidney Disease secondary hemodynamic mediated Abdominal pain Dehydration Hypertension Hypercalcemia due to dehydration, resolved Hypernatremia due to dehydration Hypokalemia microcytic anemia Dropping hemoglobin GI bleeding Recommendations Kidney function is improving Increased urine output Guerra catheter Strict I&Os kidney ultrasound reported atrophic left kidney IVF D5W with 20 mEq/L of KCl at 100 cc/hour Packed red blood cell transfusion p.r.n. Blood pressure control GI consult We will continue to follow Plan discussed with: Patient My Orders My Orders Orders - NETTIE GOODWIN MD Procedure Category Date Status Time Comprehensive LAB 06/28/24 Transmitted Metabolic Panel 09:58 NETTIE GOODWIN MD Jun 28, 2024 10:02
[2024-06-28 11:55] LABS: Albumin 3.3 g/dL (3.2-4.8); Alkaline Phosphatase 63 U/L (46-116); Anion Gap 7 (5-15); Aspartate Aminotransferase 19 U/L (13-40); Bilirubin, Total 0.9 mg/dL (0.2-1.0); Blood Urea Nitrogen 23 mg/dL (9-23); Calcium 9.5 mg/dL (8.7-10.4); Carbon Dioxide 25 mmol/L (20-31); Chloride 117 mmol/L (98-107); Glucose 156 mg/dL (74-106); Potassium 3.2 mmol/L (3.5-5.1); Sodium 149 mmol/L (136-145); Total Protein 6.2 g/dL (5.7-8.2)
[2024-06-28 11:57] LABS: Alanine Aminotransferase < 9 U/L (7-40)
[2024-06-28 13:00] VITALS: BP 154/67; PULSE 77; RESP 18; TEMP 97.9; O2SAT 100
[2024-06-28] MEDS: FLEET ENEMA(ADULT) 135 ML PR ONE ×2 (14:15→17:05)
--- NOTE | 2024-06-28 15:25 | DVHPN2 ---
Subjective Patient is currently tolerating on ice chips and some clear liquid. Reviewed: Care Plan Changes from previous H/P or p: No Changes Eyes: No Pain, No Vision change, No Conjunctivae inflammation, No Eyelid inflammation, No Other, No Redness ENT: No Ear pain, No Ear discharge, No Nose pain, No Nose discharge, No Nose congestion, No Mouth pain, No Mouth swelling, No Throat pain, No Throat swelling, No Other Cardiovascular: No Chest Pain, No Palpitations, No Orthopnea, No Paroxysmal Noc. Dyspnea, No Edema, No Lt Headedness, No Other Respiratory: No Cough, No Dry, No Shortness of breath, No SOB with excertion, No Wheezing, No Hemoptysis, No Pleuritic Pain, No Sputum, No Other Gastrointestinal: Nausea, Vomiting; No Abdominal Pain, No Diarrhea, No Constipation, No Melena, No Hematochezia, No Other Genitourinary: No Dysuria, No Frequency, No Incontinence, No Hematuria, No Retention, No Other Musculoskeletal: No other, No neck pain, No shoulder pain, No arm pain, No back pain, No hand pain, No leg pain, No foot pain Skin: No Rash, No Lesions, No Jaundice, No Bruising, No Other Objective Vitals Vital Signs Date Time Temp Pulse Resp B/P (MAP) Pulse Ox O2 Delivery O2 Flow Rate FiO2 06/28/24 13:00 97.9 77 18 154/67 (96) 100 97.9 06/28/24 08:30 Nasal Cannula* 1 24 Intake/Output Intake and Output 06/28/24 07:00 Intake Total 600 ml Output Total 850 ml Balance -250 ml Intake Oral 0 ml Blood Product 300 ml Other 300 ml Output Urine Total 850 ml Exam HEENT pupils are reactive Neck is supple CV is S1-S2 regular rate and rhythm Respiratory are clear GI positive bowel sound 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 Medications Current Medications Medications Dose Ordered Sig/Mayela Route Start Time Stop Time Status Last Admin Dose Admin Metoclopramide HCl 5 mg Q6HP PRN IV 06/26/24 12:00 06/28/24 13:57 5 MG Morphine Sulfate 1 mg Q4HPRN PRN IV 06/26/24 12:00 06/27/24 05:48 1 MG Hydralazine HCl 10 mg Q6HP PRN IV 06/26/24 13:15 06/28/24 00:54 10 MG Potassium Chloride 20 meq/ Dextrose 1,010 ml @ 100 mls/hr Q10H6M IV 06/27/24 10:00 06/27/24 22:45 100 MLS/HR Heparin Sodium (Porcine) 5,000 units Q12HR SC 06/27/24 22:00 06/28/24 14:02 5,000 UNITS Laboratory Results Laboratory Tests 06/27/24 05:42 06/28/24 02:28 06/28/24 11:12 Chemistry Test 06/28/24 11:12 Albumin 3.3 g/dL (3.2-4.8) Calcium Level 9.5 mg/dL (8.7-10.4) Total Protein 6.2 g/dL (5.7-8.2) LFT Test 06/28/24 11:12 Alanine Aminotransferase (ALT) < 9 U/L (7-40) Alkaline Phosphatase 63 U/L (46-116) Aspartate Amino Transferase (AST) 19 U/L (13-40) Total Bilirubin 0.9 mg/dL (0.2-1.0) Urinalysis Test 06/26/24 19:12 Urine Color Yellow (Yellow) Urine Clarity Clear (Clear) Urine pH 5.0 (5.0-9.0) Urine Specific [place] 1.020 (1.001-1.035) Urine Protein 1+ (Negative) H Urine Ketones 1+ (Negative) H Urine Blood Negative /uL (Negative) Urine Nitrite Negative (Negative) Urine Bilirubin Negative (Negative) Urine Urobilinogen Normal mg/dL (Negative) Urine Leukocyte Esterase Negative /uL (Negative) Urine RBC 4 /hpf (0 - 4) Urine WBC 1 /hpf (0 - 5) Urine Squamous Epithelial Cells Few /hpf (<5) Urine Bacteria None seen /hpf (None Seen) Urine Hyaline Casts Few /lpf (0 - 2) Urine Mucus Few (None Seen) Urine Creatinine 127.99 mg/dL (30.0-125.0) H Urine Protein/Creatinine Ratio 0.62 Urine Sodium 31 mmol/L (40-220) L Urine Glucose Normal mg/dL (Normal) Urine Total Protein 78.8 mg/dL (1-14) H Assessment/Plan Assessment/Plan 74-year-old female who initially presented to the hospital with the abdominal pain nausea and vomiting, could not keep anything down for last 2-3 weeks found to have 1. Nausea and vomiting rule out colonic obstruction 2. Distention of the proximal colon to the level of distal transverse colon ileus versus obstruction 3. Microcytic anemia, 4. Hypokalemia -Gastrografin enema study pending, may start clear liquid if tolerates Follow up GI general surgery recommendation Replace potassium Plan discussed with: Patient My Orders Orders - RACHEL ZELAYA MD Procedure Category Date Status Time Heparin Sodium PHA 06/27/24 In Process (Porcine) 22:00 Clear Liq Diet DIET 06/27/24 Transmitted Dinner Date of Service: Jun 28, 2024 Billing Provider: RACHEL ZELAYA MD Common Visit Codes: [id number] INP/OBS CARE(MOD) RACHEL ZELAYA MD Jun 28, 2024 15:25
--- NOTE | 2024-06-28 15:45 | DVHINCON2 ---
Date of service: Jun 28, 2024 Referring Physician Cheyanne Villanueva Reason for Consultation N/V Abnormal finding GI Tract imaging History of Present Illness 74-year-old female accompanied by brother presented to the ED with chief complaint nausea and vomiting. She reports having nausea and vomiting almost 2- 3 weeks, with associated weight loss, patient does not know how much. Patient states that she has not been able to keep any fluids or food down in the last week, and yesterday she was not even able to tolerate ice chips without having nausea, when she was vomiting she reports that it was bilious, no hematemesis. Patient states her symptoms started after she had taste did a spoon full of food at a restaurant about 2-3 weeks ago. Patient's last bowel movement was yesterday, she states it was soft and somewhat loose, no report of blood in stool. We will hydrate patient, keep her NPO and consult GI. Patient states she just moved to this area recently and has just chosen her new primary care provider, patient is a poor historian, uncertain what other medication she takes besides carvedilol. Patient does not have abdominal tenderness, no body aches or fever, chills, dizziness, headache, diarrhea. Past Medical History Past Medical History Hypertension Past Surgical History Past Surgical History Hysterectomy Family History: Arthritis G8 MOTHER Diabetes mellitus G8 FATHER FH: breast cancer G8 MOTHER FHx: alcoholism G8 FATHER Hypertension G8 MOTHER Allergies: Coded Allergies: NO KNOWN ALLERGIES (Unverified , 06/26/24) Current Medications Current Medications Medications (Trade) Dose Ordered Sig/Mayela Route PRN Reason Start Time Stop Time Status Last Admin Heparin Sodium (Porcine) 5,000 units Q12HR SC 06/27/24 22:00 06/28/24 14:02 Potassium Chloride 100 ml @ 50 mls/hr Q2H IV 06/28/24 15:30 06/28/24 19:29 Vital Signs Vital Signs Date Time Temp Pulse Resp B/P (MAP) Pulse Ox O2 Delivery O2 Flow Rate FiO2 06/28/24 13:00 97.9 77 18 154/67 (96) 100 97.9 06/28/24 08:30 Nasal Cannula* 24 Physical Exam General Appearance: Alert, Oriented X3, Cooperative, No acute distress HEENT: Atraumatic, PERRLA, EOMI, Mucous membr. moist/pink Respiratory: Clear to auscultation, Normal air movement Cardiovascular: Regular rate, Normal S1, Normal S2, No murmurs Abdominal: Normal bowel sounds, Soft, No tenderness, No hepatospenomegaly, No masses Extremities: No clubbing, No cyanosis, No edema, Normal pulses, No tenderness/swelling Skin: No rashes, No breakdown, No significant lesion Neuro: Normal gait, Normal speech, Strength at 5/5 X4 ext, Normal tone, Sensation intact, Psych/Mental Status: Mental status NL, Mood NL Labs/Diagnostic Data Labs Test 06/28/24 11:12 06/28/24 02:28 06/27/24 05:42 06/26/24 19:12 Range/Units Sodium Level 149 H 136-145 mmol/L Potassium Level 3.2 L 3.5-5.1 mmol/L Chloride Level 117 H 98-107 mmol/L Carbon Dioxide Level 25 20-31 mmol/L Anion Gap 7 5-15 Blood Urea Nitrogen 23 9-23 mg/dL Creatinine 1.35 H 0.550-1.02 mg/dL Glomerular Filtration Rate Calc 41 >90 mL/min BUN/Creatinine Ratio 17.0 10.0-20.0 Serum Glucose 156 H 74-106 mg/dL Calcium Level 9.5 8.7-10.4 mg/dL Total Bilirubin 0.9 0.2-1.0 mg/dL Aspartate Amino Transferase (AST) 19 13-40 U/L Alanine Aminotransferase (ALT) < 9 7-40 U/L Alkaline Phosphatase 63 46-116 U/L Total Protein 6.2 5.7-8.2 g/dL Albumin 3.3 3.2-4.8 g/dL Hemoglobin 8.9 #L 12.2-16.2 g/dL Hematocrit 29.7 #L 36.0-46.0 % White Blood Count 7.7 # 4.4-10.8 10^3/uL Red Blood Count 3.41 L 4.0-5.20 10^6/uL Mean Corpuscular Volume 66.4 L 80.0-100.0 fL Mean Corpuscular Hemoglobin 18.3 L 28.0-32.0 pg Mean Corpuscular Hemoglobin Concent 27.5 L 32.0-36.0 g/dL Red Cell Distribution Width 27.1 H 11.8-14.3 % Platelet Count 215 140-450 10^3/uL Mean Platelet Volume 8.7 6.9-10.8 fL Neutrophils (%) (Auto) 87.5 H 37.0-80.0 % Lymphocytes (%) (Auto) 5.7 L 10.0-50.0 % Monocytes (%) (Auto) 6.1 0.0-12.0 % Eosinophils (%) (Auto) 0.3 0.0-7.0 % Basophils (%) (Auto) 0.4 0.0-2.0 % Neutrophils # (Auto) 6.7 1.6-8.6 10 ^3/uL Lymphocytes # (Auto) 0.4 0.4-5.4 10 ^3/uL Monocytes # (Auto) 0.5 0-1.3 10 ^3/uL Eosinophils # (Auto) 0 0-0.8 10 ^3/uL Basophils # (Auto) 0 0-0.2 10 ^3/uL Nucleated Red Blood Cells 0.3 % Platelet Estimate Adequate Hypochromasia (manual) Marked Anisocytosis (manual) Slight Microcytosis Moderate Ovalocytes Few Urine Color Yellow Yellow Urine Clarity Clear Clear Urine pH 5.0 5.0-9.0 Urine Specific [place] 1.020 1.001-1.035 Urine Protein 1+ H Negative Urine Ketones 1+ H Negative Urine Blood Negative Negative /uL Urine Nitrite Negative Negative Urine Bilirubin Negative Negative Urine Urobilinogen Normal Negative mg/dL Urine Leukocyte Esterase Negative Negative /uL Urine RBC 4 0 - 4 /hpf Urine WBC 1 0 - 5 /hpf Urine Squamous Epithelial Cells Few <5 /hpf Urine Bacteria None seen None Seen /hpf Urine Hyaline Casts Few 0 - 2 /lpf Urine Mucus Few None Seen Urine Creatinine 127.99 H 30.0-125.0 mg/dL Urine Protein/Creatinine Ratio 0.62 Urine Sodium 31 L 40-220 mmol/L Urine Glucose Normal Normal mg/dL Urine Total Protein 78.8 H 1-14 mg/dL Test 06/26/24 17:11 06/26/24 13:25 06/26/24 09:15 Range/Units Parathyroid Hormone (Intact) 58.3 18.4-80.1 pg/mL Influenza Type A Antigen Negative Negative Influenza Type B Antigen Negative Negative SARS-CoV-2 Antigen (Rapid) Negative NEGATIVE Uric Acid 19.3 H 3.1-7.8 mg/dL Phosphorus Level 4.2 2.4-5.1 mg/dL Magnesium Level 2.7 H 1.6-2.6 mg/dL B-Type Natriuretic Peptide 133.21 0-100 pg/mL Amylase Level 110 30-118 U/L Vitamin D 25-Hydroxy 64.7 30.0-100 ng/mL CT ABD PELVIS Impression: 1. Increased echogenicity of bilateral kidneys. Correlate for medical renal disease. 2. Left renal atrophy. 3. Unremarkable sonographic study of the urinary bladder. Problems(with codes): (1) Ileus (2) Obstipation (3) Severe anemia (4) Vomiting (5) Dehydration (6) Hypernatremia (7) ROZINA (acute kidney injury) Plan/Recommendation PLAN Fleets enema x1 Small-bowel Gastrografin series I suspect patient has constipation obstipation with some concrete barium like material which is subsequently leading to ileus However the patient does have iron-deficiency anemia and she has not had any pr ior colonoscopy or endoscopy Once the patient is able to move her bowels I will be able to bowel prep her and schedule her for the same Plan discussed with: Patient, Other (Nurse) ALMA BRYSON MD Jun 28, 2024 15:45
[2024-06-28 16:57] VITALS: BP 158/74; PULSE 76; RESP 20; TEMP 98.1; O2SAT 99
[2024-06-28] MEDS: POTASSIUM CHL 20MEQ/100ML 100 ML IV SCH (17:06)
[2024-06-28 21:00] VITALS: BP 152/74; PULSE 87; RESP 17; TEMP 97.8; O2SAT 100
[2024-06-29 01:00] VITALS: BP 161/79; PULSE 85; RESP 18; TEMP 98; O2SAT 100
[2024-06-29 05:00] VITALS: BP 167/78; PULSE 80; RESP 18; TEMP 98.2; O2SAT 100
[2024-06-29 05:23] LABS: Chloride 115 mmol/L (98-107); Potassium 3.2 mmol/L (3.5-5.1); Sodium 148 mmol/L (136-145)
[2024-06-29 05:24] LABS: Anion Gap 10 (5-15); Calcium 9.6 mg/dL (8.7-10.4); Carbon Dioxide 23 mmol/L (20-31); Hemoglobin 8.6 g/dL (12.2-16.2); White Blood Cell 8.6 10^3/uL (4.4-10.8)
[2024-06-29 05:27] LABS: Hematocrit 28.2 % (36.0-46.0); Mean Corpuscular Hemoglobin 20.4 pg (28.0-32.0); Mean Corpuscular Hgb Conc. 30.6 g/dL (32.0-36.0); Mean Corpuscular Volume 66.8 fL (80.0-100.0); Platelet Count (auto) 182 10^3/uL (140-450); Red Blood Cells 4.22 10^6/uL (4.0-5.20)
[2024-06-29 05:29] LABS: BUN/Creatinine Ratio 18.3 (10.0-20.0); Blood Urea Nitrogen 23 mg/dL (9-23); Glucose 121 mg/dL (74-106)
[2024-06-29 05:30] LABS: Magnesium 1.9 mg/dL (1.6-2.6)
[2024-06-29 05:31] LABS: Phosphorus 2.2 mg/dL (2.4-5.1)
[2024-06-29 05:41] LABS: Red Cell Distribution Width 27.2 % (11.8-14.3)
[2024-06-29 05:43] LABS: Band Neutrophils % (manual) 0; Basophils % (manual) 0 (0.0-2.0); Blast Cells 0; Eosinophils % (manual) 0 (0-7); Metamyelocytes % 0; Myelocytes % 0; Promyelocytes % 0; Reactive Lymphocytes 0
[2024-06-29 07:38] LABS: Anisocytosis Moderate; Lymphocytes % (manual) 6 (10.0-50.0); Monocytes % (manual) 3 (0-12); Ovalocytes FEW; Platelet Estimate Adequate; Target Cell FEW
[2024-06-29 07:39] LABS: Hypochromia Marked
[2024-06-29 08:54] VITALS: BP 158/83; PULSE 92; RESP 20; TEMP 97.6; O2SAT 98
[2024-06-29] MEDS: GASTROGRAFIN 120 ML SOL ONE (10:08)
[2024-06-29] MEDS: POTASSIUM CHLORIDE 20 MEQ in D5W 5% 1,000 ML IV SCH (11:30)
--- NOTE | 2024-06-29 11:34 | DVHPN2 ---
Progress Note - Dictate Date Seen: Jun 29, 2024 Medical Necessity Reason Pt with a Central, PICC or Fol: No The following are medically ne: Guerra Catheter vital signs Vital Sign Date Time Temp Pulse Resp B/P (MAP) Pulse Ox O2 Delivery O2 Flow Rate FiO2 06/29/24 08:54 97.6 92 20 158/83 (108) 98 97.6 06/28/24 20:00 Nasal Cannula* 1 24 Total Intake and Output 06/28/24 06/28/24 06/29/24 15:00 23:00 07:00 Intake Total 240 ml 150 ml Output Total 330 ml 300 ml Balance -90 ml -150 ml medications Current Medications Medications Dose Ordered Sig/Mayela Route Start Time Stop Time Status Last Admin Dose Admin Metoclopramide HCl 5 mg Q6HP PRN IV 06/26/24 12:00 06/28/24 13:57 5 MG Morphine Sulfate 1 mg Q4HPRN PRN IV 06/26/24 12:00 06/27/24 05:48 1 MG Hydralazine HCl 10 mg Q6HP PRN IV 06/26/24 13:15 06/28/24 00:54 10 MG Potassium Chloride 20 meq/ Dextrose 1,010 ml @ 100 mls/hr Q10H6M IV 06/27/24 10:00 06/28/24 21:27 100 MLS/HR Heparin Sodium (Porcine) 5,000 units Q12HR SC 06/27/24 22:00 06/28/24 21:12 5,000 UNITS laboratory and microbiology Laboratory Tests 06/29/24 04:47 Test 06/29/24 04:47 Range/Units Serum Glucose 121 H 74-106 mg/dL Assessment/Plan Acute kidney injury superimposed Chronic Kidney Disease secondary hemodynamic mediated Abdominal pain Dehydration Hypertension Hypercalcemia due to dehydration, resolved Hypernatremia due to dehydration Hypokalemia microcytic anemia Dropping hemoglobin GI bleeding Kidney function is improving Guerra catheter Strict I&Os kidney ultrasound reported atrophic left kidney IVF D5W with 20 mEq/L of KCl at 100 cc/hour --> reduce rate to 60cc/hr Blood pressure control GI consult Plan discussed with: Patient IQRA STEPHENS MD Jun 29, 2024 11:34
--- NOTE | 2024-06-29 16:23 | DVH ---
Procedure: XY SMALL BOWEL SERIES-W GASTROGRA Reason for study/Clinical History: r/o bowel obstruction Comparison Study: None available at time of dictation. Technique: Single contrast small bowel series performed. FINDINGS/IMPRESSION: Initial wire stretcher view of the abdomen and pelvis appears demonstrates no acute process. Contrast is not identified within the colon by 3 hours. Findings suggest small bowel obstruction.
--- NOTE | 2024-06-29 16:23 | DVHPN2 ---
Subjective Patient was currently NPO, small-bowel series is being done. Reviewed: Care Plan Changes from previous H/P or p: No Changes Eyes: No Pain, No Vision change, No Conjunctivae inflammation, No Eyelid inflammation, No Other, No Redness ENT: No Ear pain, No Ear discharge, No Nose pain, No Nose discharge, No Nose congestion, No Mouth pain, No Mouth swelling, No Throat pain, No Throat swelling, No Other Cardiovascular: No Chest Pain, No Palpitations, No Orthopnea, No Paroxysmal Noc. Dyspnea, No Edema, No Lt Headedness, No Other Respiratory: No Cough, No Dry, No Shortness of breath, No SOB with excertion, No Wheezing, No Hemoptysis, No Pleuritic Pain, No Sputum, No Other Gastrointestinal: Nausea, Vomiting; No Abdominal Pain, No Diarrhea, No Constipation, No Melena, No Hematochezia, No Other Genitourinary: No Dysuria, No Frequency, No Incontinence, No Hematuria, No Retention, No Other Musculoskeletal: No other, No neck pain, No shoulder pain, No arm pain, No back pain, No hand pain, No leg pain, No foot pain Skin: No Rash, No Lesions, No Jaundice, No Bruising, No Other Objective Vitals Vital Signs Date Time Temp Pulse Resp B/P (MAP) Pulse Ox O2 Delivery O2 Flow Rate FiO2 06/29/24 08:54 97.6 92 20 158/83 (108) 98 97.6 06/29/24 08:30 Nasal Cannula* 1 24 Intake/Output Intake and Output 06/29/24 07:00 Intake Total 390 ml Output Total 630 ml Balance -240 ml Intake Oral 390 ml Output Urine Total 600 ml Oral Regurgitation 30 ml Exam HEENT pupils are reactive Neck is supple CV is S1-S2 regular rate and rhythm Respiratory are clear GI positive bowel sound Extremity no edema FIG WASHER no motor deficit Medications Current Medications Medications Dose Ordered Sig/Mayela Route Start Time Stop Time Status Last Admin Dose Admin Metoclopramide HCl 5 mg Q6HP PRN IV 06/26/24 12:00 06/28/24 13:57 5 MG Morphine Sulfate 1 mg Q4HPRN PRN IV 06/26/24 12:00 06/27/24 05:48 1 MG Hydralazine HCl 10 mg Q6HP PRN IV 06/26/24 13:15 06/28/24 00:54 10 MG Heparin Sodium (Porcine) 5,000 units Q12HR SC 06/27/24 22:00 06/28/24 21:12 5,000 UNITS Potassium Chloride 20 meq/ Dextrose 1,010 ml @ 60 mls/hr [id number] IV 06/29/24 11:30 Laboratory Results Laboratory Tests 06/29/24 04:47 Chemistry Test 06/29/24 04:47 Calcium Level 9.6 mg/dL (8.7-10.4) Magnesium Level 1.9 mg/dL (1.6-2.6) Phosphorus Level 2.2 mg/dL (2.4-5.1) L Urinalysis Test 06/26/24 19:12 Urine Color Yellow (Yellow) Urine Clarity Clear (Clear) Urine pH 5.0 (5.0-9.0) Urine Specific [place] 1.020 (1.001-1.035) Urine Protein 1+ (Negative) H Urine Ketones 1+ (Negative) H Urine Blood Negative /uL (Negative) Urine Nitrite Negative (Negative) Urine Bilirubin Negative (Negative) Urine Urobilinogen Normal mg/dL (Negative) Urine Leukocyte Esterase Negative /uL (Negative) Urine RBC 4 /hpf (0 - 4) Urine WBC 1 /hpf (0 - 5) Urine Squamous Epithelial Cells Few /hpf (<5) Urine Bacteria None seen /hpf (None Seen) Urine Hyaline Casts Few /lpf (0 - 2) Urine Mucus Few (None Seen) Urine Creatinine 127.99 mg/dL (30.0-125.0) H Urine Protein/Creatinine Ratio 0.62 Urine Sodium 31 mmol/L (40-220) L Urine Glucose Normal mg/dL (Normal) Urine Total Protein 78.8 mg/dL (1-14) H Assessment/Plan Assessment/Plan 74-year-old female who initially presented to the hospital with the abdominal pain nausea and vomiting, could not keep anything down for last 2-3 weeks found to have 1. Nausea and vomiting rule out colonic obstruction 2. Distention of the proximal colon to the level of distal transverse colon ileus versus obstruction 3. Microcytic anemia, 4. Hypokalemia -Gastrografin enema study pending, keep NPO until then Follow up GI general surgery recommendation Replace potassium Plan discussed with: Patient Date of Service: Jun 29, 2024 Billing Provider: RACHEL ZELAYA MD Common Visit Codes: NOT BILLABLE RACHEL ZELAYA MD Jun 29, 2024 16:23
[2024-06-29 17:00] VITALS: BP 179/91; PULSE 85; RESP 18; TEMP 97.7; O2SAT 100
[2024-06-29] MEDS ORDERED: CLINIMIX PER PHARMACY 0 ML IV SCH (18:15)
--- NOTE | 2024-06-29 18:21 | DVHPN2 ---
Progress Note - Dictate Date Seen: Jun 29, 2024 Medical Necessity Reason Pt with a Central, PICC or Fol: No The following are medically ne: Guerra Catheter Subjective Pt has not had a bowel movement She is unable to tolerate clear liquids Recurrent N/V SBFT X ray possible SBO Elevated CEA level possible colonic malignancy vital signs Vital Sign Date Time Temp Pulse Resp B/P (MAP) Pulse Ox O2 Delivery O2 Flow Rate FiO2 06/29/24 17:00 97.7 85 18 179/91 (120) 100 97.7 06/29/24 08:30 Nasal Cannula* 1 24 Total Intake and Output 06/28/24 06/28/24 06/29/24 15:00 23:00 07:00 Intake Total 240 ml 150 ml Output Total 330 ml 300 ml Balance -90 ml -150 ml medications Current Medications Medications Dose Ordered Sig/Mayela Route Start Time Stop Time Status Last Admin Dose Admin Metoclopramide HCl 5 mg Q6HP PRN IV 06/26/24 12:00 06/28/24 13:57 5 MG Morphine Sulfate 1 mg Q4HPRN PRN IV 06/26/24 12:00 06/27/24 05:48 1 MG Hydralazine HCl 10 mg Q6HP PRN IV 06/26/24 13:15 06/28/24 00:54 10 MG Heparin Sodium (Porcine) 5,000 units Q12HR SC 06/27/24 22:00 06/28/24 21:12 5,000 UNITS Potassium Chloride 20 meq/ Dextrose 1,010 ml @ 60 mls/hr [id number] IV 06/29/24 11:30 objective General Appearance: Alert, Oriented X3, Cooperative, No acute distress HEENT: Atraumatic, PERRLA, EOMI, Mucous membr. moist/pink Respiratory: Clear to auscultation, Normal air movement Cardiovascular: Regular rate, Normal S1, Normal S2, No murmurs Abdominal: Normal bowel sounds, Soft, No tenderness, No hepatospenomegaly, No masses Extremities: No clubbing, No cyanosis, No edema, Normal pulses, No tenderness/swelling Skin: No rashes, No breakdown, No significant lesion Neuro: Normal gait, Normal speech, Strength at 5/5 X4 ext, Normal tone, Sensation intact, Psych/Mental Status: Mental status NL, Mood NL laboratory and microbiology Laboratory Tests 06/29/24 04:47 Test 06/29/24 04:47 Range/Units Serum Glucose 121 H 74-106 mg/dL Problems(with codes): (1) Bowel obstruction (2) Ileus (3) Obstipation (4) Severe anemia (5) ROZINA (acute kidney injury) (6) Vomiting (7) Dehydration Prognosis PLAN Pt does not have IV access Get midline IVF; IV Clinimix NGT to LIS Surgical consult Suspect possible malignancy; elevated CEA level;anemia May not be able to do colonoscopy due to obstruction; unable to drink prep at this time; no response to Fleets enema Plan discussed with: Other (Nurse) ALMA BRYSON MD Jun 29, 2024 18:21
[2024-06-29] MEDS ORDERED: DEXTROSE (50%) 50ML SYRG IV SCH (19:15)
[2024-06-29 20:00] VITALS: PULSE 96; RESP 17; O2SAT 100
[2024-06-29] MEDS ORDERED: AMINO ACID INFUSION IN D5W 1,000 ML IV SCH (20:00)
--- NOTE | 2024-06-29 21:09 | DVH ---
EXAM: XY CHEST XRAY 1 VIEW CLINICAL HISTORY: NG tube placement TECHNIQUE: Single AP view of the chest WID: COMPARISON: CT abdomen and pelvis from 06/26/2024 FINDINGS: Lines and tubes: NG tube in place with the tip projecting over the body of the stomach Chest: The heart size and pulmonary vasculature is within normal limits. Calcified plaque projects over the aortic arch. No pleural effusion, pneumothorax, or consolidation. The osseous structures are grossly intact. Contrast is seen in the stomach. Gas distention of upper a bdominal bowel loops IMPRESSION: 1. No acute cardiopulmonary abnormality. 2. NG tube in place with the tip projecting over the body of the stomach.
[2024-06-29 22:00] VITALS: BP 163/91; PULSE 96; RESP 17; TEMP 97.3; O2SAT 100
[2024-06-29] MEDS: POTASSIUM PHOSP 22MEQ(15MMOLE) in NS 100 ML IV ONE (22:06)
[2024-06-29] MEDS: AMINO ACID INFUSION IN D5W 1,000 ML IV SCH (22:06)
[2024-06-30] VITALS (8 sets, daily range): BP systolic 134–158; BP diastolic 78–93; PULSE 95–116; RESP 17–18; TEMP 96.5–98.5; O2SAT 95–100
[2024-06-30] MEDS: InsuLIN REG 1unit/0.01ml Soln (100units/ml) SC SCH
[2024-06-30] MEDS: ACCU-CHEK COMFORT CURVE STRIP VI SCH (00:11)
[2024-06-30 06:40] LABS: Hemoglobin 9.5 g/dL (12.2-16.2); White Blood Cell 9.6 10^3/uL (4.4-10.8)
[2024-06-30 06:43] LABS: Hematocrit 31.1 % (36.0-46.0); Mean Corpuscular Hemoglobin 20.6 pg (28.0-32.0); Mean Corpuscular Hgb Conc. 30.7 g/dL (32.0-36.0); Platelet Count (auto) 181 10^3/uL (140-450); Red Blood Cells 4.63 10^6/uL (4.0-5.20)
[2024-06-30 06:45] LABS: Anion Gap 10 (5-15); Calcium 9.8 mg/dL (8.7-10.4); Carbon Dioxide 21 mmol/L (20-31); Chloride 115 mmol/L (98-107); Potassium 3.8 mmol/L (3.5-5.1); Sodium 146 mmol/L (136-145)
[2024-06-30 06:50] LABS: Glucose 162 mg/dL (74-106)
[2024-06-30 06:51] LABS: BUN/Creatinine Ratio 21.8 (10.0-20.0); Blood Urea Nitrogen 29 mg/dL (9-23); Magnesium 1.9 mg/dL (1.6-2.6)
[2024-06-30 06:52] LABS: Red Cell Distribution Width 27.6 % (11.8-14.3)
[2024-06-30 06:53] LABS: Basophils % (manual) 0 (0.0-2.0); Blast Cells 0; Eosinophils % (manual) 0 (0-7); Metamyelocytes % 0; Monocytes % (manual) 0 (0-12); Myelocytes % 0; Phosphorus 3.2 mg/dL (2.4-5.1); Promyelocytes % 0; Reactive Lymphocytes 0
[2024-06-30 08:05] LABS: Anisocytosis Moderate; Band Neutrophils % (manual) 1; Hypochromia Marked; Lymphocytes % (manual) 14 (10.0-50.0); Platelet Estimate Adequate
[2024-06-30 08:06] LABS: Target Cell FEW
--- NOTE | 2024-06-30 10:27 | DVHPN2 ---
Progress Note - Dictate Date Seen: Jun 30, 2024 Medical Necessity Reason Pt with a Central, PICC or Fol: No The following are medically ne: Guerra Catheter vital signs Vital Sign Date Time Temp Pulse Resp B/P (MAP) Pulse Ox O2 Delivery O2 Flow Rate FiO2 06/30/24 05:00 97.3 113 17 150/81 (104) 100 97.3 06/29/24 20:00 Nasal Cannula* 1 24 Total Intake and Output 06/29/24 06/29/24 06/30/24 15:00 23:00 07:00 Intake Total 0 ml 1483 ml Output Total 200 ml 150 ml Balance -200 ml 1333 ml medications Current Medications Medications Dose Ordered Sig/Mayela Route Start Time Stop Time Status Last Admin Dose Admin Metoclopramide HCl 5 mg Q6HP PRN IV 06/26/24 12:00 06/28/24 13:57 5 MG Morphine Sulfate 1 mg Q4HPRN PRN IV 06/26/24 12:00 06/27/24 05:48 1 MG Hydralazine HCl 10 mg Q6HP PRN IV 06/26/24 13:15 06/30/24 01:24 10 MG Heparin Sodium (Porcine) 5,000 units Q12HR SC 06/27/24 22:00 06/29/24 22:09 5,000 UNITS Potassium Chloride 20 meq/ Dextrose 1,010 ml @ 60 mls/hr [id number] IV 06/29/24 11:30 06/30/24 06:31 60 MLS/HR Amino Acids 0 ml @ 0 mls/hr PER PHARMACY IV 06/29/24 18:15 Amino Acids 1,000 ml @ 42 mls/hr [id number] IV 06/29/24 20:00 Cancel Diagnostic Test (Pha) 1 strip Q6HR 06/30/24 00:00 06/30/24 06:21 1 STRIP Insulin Human Regular FOLLOW SLIDING SCALE Q6HR SC 06/30/24 00:00 06/30/24 06:22 2 UNITS Dextrose 50 ml UD IV 06/29/24 19:15 Amino Acids 1,000 ml @ 42 mls/hr [id number] IV 06/29/24 22:00 06/29/24 22:06 42 MLS/HR laboratory and microbiology Laboratory Tests 06/30/24 05:50 Test 06/30/24 05:50 Range/Units Serum Glucose 162 H 74-106 mg/dL Assessment/Plan Acute kidney injury superimposed Chronic Kidney Disease secondary hemodynamic mediated Abdominal pain Dehydration Hypertension Hypercalcemia due to dehydration, resolved Hypernatremia due to dehydration Hypokalemia microcytic anemia Dropping hemoglobin GI bleeding Kidney function is improving Guerra catheter Strict I&Os kidney ultrasound reported atrophic left kidney IVF D5W with 20 mEq/L of KCl at 100 cc/hour --> reduce rate to 60cc/hr Blood pressure control GI consult Plan discussed with: Patient IQRA STEPHENS MD Jun 30, 2024 10:27
--- NOTE | 2024-06-30 18:09 | DVHPN2 ---
Progress Note - Dictate Date Seen: Jun 30, 2024 Medical Necessity Reason Pt with a Central, PICC or Fol: No The following are medically ne: Guerra Catheter Subjective Pt has not had a bowel movement She is unable to tolerate clear liquids SBFT X ray possible SBO Elevated CEA level possible colonic malignancy NG tube was inserted last night and about two or 300 mL of bilious material came out. Patient still has not had a bowel movement vital signs Vital Sign Date Time Temp Pulse Resp B/P (MAP) Pulse Ox O2 Delivery O2 Flow Rate FiO2 06/30/24 13:00 98.0 112 17 150/86 (107) 95 98.0 06/30/24 08:00 Nasal Cannula* 2 28 Total Intake and Output 06/29/24 06/29/24 06/30/24 15:00 23:00 07:00 Intake Total 0 ml 1483 ml Output Total 200 ml 150 ml Balance -200 ml 1333 ml medications Current Medications Medications Dose Ordered Sig/Mayela Route Start Time Stop Time Status Last Admin Dose Admin Metoclopramide HCl 5 mg Q6HP PRN IV 06/26/24 12:00 06/28/24 13:57 5 MG Morphine Sulfate 1 mg Q4HPRN PRN IV 06/26/24 12:00 06/27/24 05:48 1 MG Hydralazine HCl 10 mg Q6HP PRN IV 06/26/24 13:15 06/30/24 01:24 10 MG Heparin Sodium (Porcine) 5,000 units Q12HR SC 06/27/24 22:00 06/30/24 10:30 5,000 UNITS Potassium Chloride 20 meq/ Dextrose 1,010 ml @ 60 mls/hr [id number] IV 06/29/24 11:30 06/30/24 06:31 60 MLS/HR Amino Acids 0 ml @ 0 mls/hr PER PHARMACY IV 06/29/24 18:15 Amino Acids 1,000 ml @ 42 mls/hr [id number] IV 06/29/24 20:00 Cancel Diagnostic Test (Pha) 1 strip Q6HR 06/30/24 00:00 06/30/24 12:18 1 STRIP Insulin Human Regular FOLLOW SLIDING SCALE Q6HR SC 06/30/24 00:00 06/30/24 12:18 2 UNITS Dextrose 50 ml UD IV 06/29/24 19:15 Amino Acids 1,000 ml @ 42 mls/hr [id number] IV 06/29/24 22:00 06/29/24 22:06 42 MLS/HR objective General Appearance: Alert, Oriented X3, Cooperative, No acute distress HEENT: Atraumatic, PERRLA, EOMI, Mucous membr. moist/pink Respiratory: Clear to auscultation, Normal air movement Cardiovascular: Regular rate, Normal S1, Normal S2, No murmurs Abdominal: Normal bowel sounds, Soft, No tenderness, No hepatospenomegaly, No masses Extremities: No clubbing, No cyanosis, No edema, Normal pulses, No tenderness/swelling Skin: No rashes, No breakdown, No significant lesion Neuro: Normal gait, Normal speech, Strength at 5/5 X4 ext, Normal tone, Sensation intact, Psych/Mental Status: Mental status NL, Mood NL laboratory and microbiology Laboratory Tests 06/30/24 05:50 Test 06/30/24 05:50 Range/Units Serum Glucose 162 H 74-106 mg/dL Problems(with codes): (1) Bowel obstruction (2) Ileus (3) Obstipation (4) Severe anemia (5) ROZINA (acute kidney injury) (6) Vomiting (7) Dehydration Prognosis PLAN PICC line IVF; IV Clinimix NGT to LIS Surgical consult pending; discussed with Dr Samuel Suspect possible malignancy; elevated CEA level;anemia May not be able to do colonoscopy due to obstruction; unable to drink prep at this time Patient will be given 2-3 tap water enemas over the next few hours I will schedule her for a sigmoidoscopy with possible biopsy to see if I could evaluate the distal transverse colon lesion as noted on CT scan Plan discussed with: Patient, Other (Nurse and Dr Samuel) ALMA BRYSON MD Jun 30, 2024 18:09
--- NOTE | 2024-06-30 19:03 | DVHPN2 ---
Subjective Patient was currently NPO, small-bowel series is consistent with small-bowel obstruction, elevated CEA highly suspicious for malignancy. Patient will be given tap water enemas and currently scheduled for sigmoidoscopy with biopsy tomorrow. Reviewed: Care Plan Changes from previous H/P or p: No Changes Eyes: No Pain, No Vision change, No Conjunctivae inflammation, No Eyelid inflammation, No Other, No Redness ENT: No Ear pain, No Ear discharge, No Nose pain, No Nose discharge, No Nose congestion, No Mouth pain, No Mouth swelling, No Throat pain, No Throat swelling, No Other Cardiovascular: No Chest Pain, No Palpitations, No Orthopnea, No Paroxysmal Noc. Dyspnea, No Edema, No Lt Headedness, No Other Respiratory: No Cough, No Dry, No Shortness of breath, No SOB with excertion, No Wheezing, No Hemoptysis, No Pleuritic Pain, No Sputum, No Other Gastrointestinal: Nausea, Vomiting; No Abdominal Pain, No Diarrhea, No Constipation, No Melena, No Hematochezia, No Other Genitourinary: No Dysuria, No Frequency, No Incontinence, No Hematuria, No Retention, No Other Musculoskeletal: No other, No neck pain, No shoulder pain, No arm pain, No back pain, No hand pain, No leg pain, No foot pain Skin: No Rash, No Lesions, No Jaundice, No Bruising, No Other Objective Vitals Vital Signs Date Time Temp Pulse Resp B/P (MAP) Pulse Ox O2 Delivery O2 Flow Rate FiO2 06/30/24 17:00 97.8 111 17 157/93 (114) 100 97.8 06/30/24 08:00 Nasal Cannula* 2 28 Intake/Output Intake and Output 06/30/24 07:00 Intake Total 1483 ml Output Total 350 ml Balance 1133 ml Intake Oral 0 ml IV Total 1483 ml Output Urine Total 350 ml Exam HEENT pupils are reactive Neck is supple CV is S1-S2 regular rate and rhythm Respiratory are clear GI positive bowel sound 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 Medications Current Medications Medications Dose Ordered Sig/Mayela Route Start Time Stop Time Status Last Admin Dose Admin Metoclopramide HCl 5 mg Q6HP PRN IV 06/26/24 12:00 06/28/24 13:57 5 MG Morphine Sulfate 1 mg Q4HPRN PRN IV 06/26/24 12:00 06/27/24 05:48 1 MG Hydralazine HCl 10 mg Q6HP PRN IV 06/26/24 13:15 06/30/24 01:24 10 MG Heparin Sodium (Porcine) 5,000 units Q12HR SC 06/27/24 22:00 06/30/24 10:30 5,000 UNITS Potassium Chloride 20 meq/ Dextrose 1,010 ml @ 60 mls/hr [id number] IV 06/29/24 11:30 06/30/24 06:31 60 MLS/HR Amino Acids 0 ml @ 0 mls/hr PER PHARMACY IV 06/29/24 18:15 Amino Acids 1,000 ml @ 42 mls/hr [id number] IV 06/29/24 20:00 Cancel Diagnostic Test (Pha) 1 strip Q6HR 06/30/24 00:00 06/30/24 18:14 1 STRIP Insulin Human Regular FOLLOW SLIDING SCALE Q6HR SC 06/30/24 00:00 06/30/24 18:15 2 UNITS Dextrose 50 ml UD IV 06/29/24 19:15 Amino Acids 1,000 ml @ 42 mls/hr [id number] IV 06/29/24 22:00 06/29/24 22:06 42 MLS/HR Laboratory Results Laboratory Tests 06/30/24 05:50 Chemistry Test 06/30/24 05:50 Calcium Level 9.8 mg/dL (8.7-10.4) Magnesium Level 1.9 mg/dL (1.6-2.6) Phosphorus Level 3.2 mg/dL (2.4-5.1) Urinalysis Test 06/26/24 19:12 Urine Color Yellow (Yellow) Urine Clarity Clear (Clear) Urine pH 5.0 (5.0-9.0) Urine Specific [place] 1.020 (1.001-1.035) Urine Protein 1+ (Negative) H Urine Ketones 1+ (Negative) H Urine Blood Negative /uL (Negative) Urine Nitrite Negative (Negative) Urine Bilirubin Negative (Negative) Urine Urobilinogen Normal mg/dL (Negative) Urine Leukocyte Esterase Negative /uL (Negative) Urine RBC 4 /hpf (0 - 4) Urine WBC 1 /hpf (0 - 5) Urine Squamous Epithelial Cells Few /hpf (<5) Urine Bacteria None seen /hpf (None Seen) Urine Hyaline Casts Few /lpf (0 - 2) Urine Mucus Few (None Seen) Urine Creatinine 127.99 mg/dL (30.0-125.0) H Urine Protein/Creatinine Ratio 0.62 Urine Sodium 31 mmol/L (40-220) L Urine Glucose Normal mg/dL (Normal) Urine Total Protein 78.8 mg/dL (1-14) H Assessment/Plan Assessment/Plan 74-year-old female who initially presented to the hospital with the abdominal pain nausea and vomiting, could not keep anything down for last 2-3 weeks found to have 1. Small-bowel obstruction 2. Distention of the proximal colon to the level of distal transverse colon ileus versus obstruction ruled out colon malignancy in the setting of elevated CEA level 3. Microcytic anemia, 4. Hypokalemia -Gastrografin series is consistent with bowel obstruction, scheduled for sigmoidoscopy with a biopsy tomorrow, keep NPO until then Follow up GI general surgery recommendation Plan discussed with: Patient Date of Service: Jun 30, 2024 Billing Provider: RACHEL ZELAYA MD Common Visit Codes: NOT BILLABLE RACHEL ZELAYA MD Jun 30, 2024 19:02
[2024-07-01] VITALS (8 sets, daily range): BP systolic 134–150; BP diastolic 74–91; PULSE 108–126; RESP 17–21; TEMP 97.4–98.4; O2SAT 100
[2024-07-01 06:49] LABS: Anion Gap 12 (5-15); Carbon Dioxide 20 mmol/L (20-31); Chloride 108 mmol/L (98-107); Potassium 4.8 mmol/L (3.5-5.1); Sodium 140 mmol/L (136-145)
[2024-07-01 06:51] LABS: Calcium 9.4 mg/dL (8.7-10.4)
[2024-07-01 06:56] LABS: BUN/Creatinine Ratio 31.6 (10.0-20.0); Glucose 144 mg/dL (74-106)
[2024-07-01 07:00] LABS: Blood Urea Nitrogen 42 mg/dL (9-23)
[2024-07-01 07:01] LABS: Magnesium 1.8 mg/dL (1.6-2.6)
[2024-07-01 07:03] LABS: Phosphorus 2.3 mg/dL (2.4-5.1)
[2024-07-01 08:26] LABS: INR 1.05 (0.9-1.15); Partial Thromboplastin Time 27.3 SEC (24.5-34.5); Prothrombin Time 11.1 sec (9.3-11.8)
[2024-07-01] MEDS: LIDOCAINE 1% (LOCAL ANESTH.) PF 5ml SDV ID ONE (11:22)
[2024-07-01] MEDS: SODIUM PHOSPHATES 24 MEQ in SODIUM CHL 0.9% 100 ML IV ONE (12:45)
[2024-07-01] MEDS ORDERED: PROPOFOL 10 MG/ML 20 ML IV ONE (12:49)
[2024-07-01] MEDS ORDERED: LIDOCAINE 1% INJ PF 5ML AMP ONE (12:49)
--- NOTE | 2024-07-01 12:52 | DVHINCON2 ---
Date of service: Jul 01, 2024 Family History: Arthritis G8 MOTHER Diabetes mellitus G8 FATHER FH: breast cancer G8 MOTHER FHx: alcoholism G8 FATHER Hypertension G8 MOTHER Allergies: Coded Allergies: NO KNOWN ALLERGIES (Unverified , 06/26/24) Current Medications Current Medications Medications (Trade) Dose Ordered Sig/Mayela Route PRN Reason Start Time Stop Time Status Last Admin Amino Acids 0 ml @ 0 mls/hr PER PHARMACY IV 07/01/24 22:00 Sodium Chloride (Saline Lock Ns) 10 ml QSHIFT@10,22 IV 07/01/24 22:00 Fat Emulsion Intravenous 50 ml/ Sodium Acetate 20 meq/Sodium Phosphate 20 meq/ Magnesium Sulfate 4 meq/ Multivitamins 10 ml/Chromium/ Copper/Manganese/ Zinc 1 ml/Amino Acids/Dextrose/ Purified Water 927 ml @ 38 mls/hr [id number] IV 07/01/24 22:00 07/02/24 22:23 Vital Signs Vital Signs Date Time Temp Pulse Resp B/P (MAP) Pulse Ox O2 Delivery O2 Flow Rate FiO2 07/01/24 09:00 98.2 114 18 142/88 (106) 100 98.2 07/01/24 08:00 Nasal Cannula* 2 28 Labs/Diagnostic Data Labs Test 07/01/24 06:09 07/01/24 05:54 06/30/24 05:50 06/29/24 04:47 Range/Units POC Glucose 135 H 70-106 mg/dl Prothrombin Time 11.1 9.3-11.8 sec Prothrombin Time INR 1.05 0.9-1.15 Activated Partial Thromboplast Time 27.3 24.5-34.5 SEC Sodium Level 140 # 136-145 mmol/L Potassium Level 4.8 3.5-5.1 mmol/L Chloride Level 108 H 98-107 mmol/L Carbon Dioxide Level 20 20-31 mmol/L Anion Gap 12 5-15 Blood Urea Nitrogen 42 #H 9-23 mg/dL Creatinine 1.33 H 0.550-1.02 mg/dL Glomerular Filtration Rate Calc 42 >90 mL/min BUN/Creatinine Ratio 31.6 H 10.0-20.0 Serum Glucose 144 H 74-106 mg/dL Calcium Level 9.4 8.7-10.4 mg/dL Phosphorus Level 2.3 L 2.4-5.1 mg/dL Magnesium Level 1.8 1.6-2.6 mg/dL White Blood Count 9.6 4.4-10.8 10^3/uL Red Blood Count 4.63 4.0-5.20 10^6/uL Hemoglobin 9.5 L 12.2-16.2 g/dL Hematocrit 31.1 #L 36.0-46.0 % Mean Corpuscular Volume 67.0 L 80.0-100.0 fL Mean Corpuscular Hemoglobin 20.6 L 28.0-32.0 pg Mean Corpuscular Hemoglobin Concent 30.7 L 32.0-36.0 g/dL Red Cell Distribution Width 27.6 H 11.8-14.3 % Platelet Count 181 140-450 10^3/uL Mean Platelet Volume 8.5 6.9-10.8 fL Neutrophils (%) (Auto) 37.0-80.0 % Lymphocytes (%) (Auto) 10.0-50.0 % Monocytes (%) (Auto) 0.0-12.0 % Basophils (%) (Auto) 0.0-2.0 % Neutrophils # (Auto) 1.6-8.6 10 ^3/uL Lymphocytes # (Auto) 0.4-5.4 10 ^3/uL Monocytes # (Auto) 0-1.3 10 ^3/uL Differential Total Cells Counted 100.0 100 Neutrophils % (Manual) 85 H 37.0-80.0 Band Neutrophils % (Manual) 1 Lymphocytes % (Manual) 14 10.0-50.0 Monocytes % (Manual) 0 0-12 Eosinophils % (Manual) 0 0-7 Basophils % (Manual) 0 0.0-2.0 Metamyelocytes % (manual) 0 Myelocytes % (Manual) 0 Promyelocytes % (Manual) 0 Blast Cells % (Manual) 0 Reactive Lymphocytes 0 Platelet Estimate Adequate Hypochromasia (manual) Marked Anisocytosis (manual) Moderate Microcytosis Marked Target Cells Few Ovalocytes Few Carcinoembryonic Antigen 67.24 <=5.0 ng/mL Test 06/28/24 11:12 06/27/24 05:42 06/26/24 19:12 06/26/24 17:11 Range/Units Total Bilirubin 0.9 0.2-1.0 mg/dL Aspartate Amino Transferase (AST) 19 13-40 U/L Alanine Aminotransferase (ALT) < 9 7-40 U/L Alkaline Phosphatase 63 46-116 U/L Total Protein 6.2 5.7-8.2 g/dL Albumin 3.3 3.2-4.8 g/dL Eosinophils (%) (Auto) 0.3 0.0-7.0 % Eosinophils # (Auto) 0 0-0.8 10 ^3/uL Basophils # (Auto) 0 0-0.2 10 ^3/uL Nucleated Red Blood Cells 0.3 % Urine Color Yellow Yellow Urine Clarity Clear Clear Urine pH 5.0 5.0-9.0 Urine Specific [place] 1.020 1.001-1.035 Urine Protein 1+ H Negative Urine Ketones 1+ H Negative Urine Blood Negative Negative /uL Urine Nitrite Negative Negative Urine Bilirubin Negative Negative Urine Urobilinogen Normal Negative mg/dL Urine Leukocyte Esterase Negative Negative /uL Urine RBC 4 0 - 4 /hpf Urine WBC 1 0 - 5 /hpf Urine Squamous Epithelial Cells Few <5 /hpf Urine Bacteria None seen None Seen /hpf Urine Hyaline Casts Few 0 - 2 /lpf Urine Mucus Few None Seen Urine Creatinine 127.99 H 30.0-125.0 mg/dL Urine Protein/Creatinine Ratio 0.62 Urine Sodium 31 L 40-220 mmol/L Urine Glucose Normal Normal mg/dL Urine Total Protein 78.8 H 1-14 mg/dL Parathyroid Hormone (Intact) 58.3 18.4-80.1 pg/mL Test 06/26/24 13:25 06/26/24 09:15 Range/Units Influenza Type A Antigen Negative Negative Influenza Type B Antigen Negative Negative SARS-CoV-2 Antigen (Rapid) Negative NEGATIVE Uric Acid 19.3 H 3.1-7.8 mg/dL B-Type Natriuretic Peptide 133.21 0-100 pg/mL Amylase Level 110 30-118 U/L Vitamin D 25-Hydroxy 64.7 30.0-100 ng/mL Assessment EVALUATED YESTERDAY, APPEARS TO HAVE A LARGE BOWEL OBSTRUCTION, ELEVATED CEA, AWAITING COLONOSCOPY Plan discussed with: Patient MELVIN MARTIN MD Jul 01, 2024 12:52
--- NOTE | 2024-07-01 13:14 | DVHPN2 ---
Subjective Patient was going for sigmoidoscopy today. Reviewed: Care Plan Changes from previous H/P or p: No Changes Eyes: No Pain, No Vision change, No Conjunctivae inflammation, No Eyelid inflammation, No Other, No Redness ENT: No Ear pain, No Ear discharge, No Nose pain, No Nose discharge, No Nose congestion, No Mouth pain, No Mouth swelling, No Throat pain, No Throat swelling, No Other Cardiovascular: No Chest Pain, No Palpitations, No Orthopnea, No Paroxysmal Noc. Dyspnea, No Edema, No Lt Headedness, No Other Respiratory: No Cough, No Dry, No Shortness of breath, No SOB with excertion, No Wheezing, No Hemoptysis, No Pleuritic Pain, No Sputum, No Other Gastrointestinal: Nausea, Vomiting; No Abdominal Pain, No Diarrhea, No Constipation, No Melena, No Hematochezia, No Other Genitourinary: No Dysuria, No Frequency, No Incontinence, No Hematuria, No Retention, No Other Musculoskeletal: No other, No neck pain, No shoulder pain, No arm pain, No back pain, No hand pain, No leg pain, No foot pain Skin: No Rash, No Lesions, No Jaundice, No Bruising, No Other Objective Vitals Vital Signs Date Time Temp Pulse Resp B/P (MAP) Pulse Ox O2 Delivery O2 Flow Rate FiO2 07/01/24 09:00 98.2 114 18 142/88 (106) 100 98.2 07/01/24 08:00 Nasal Cannula* 2 28 Intake/Output Intake and Output 07/01/24 07:00 Intake Total 1572 ml Output Total 501 ml Balance 1071 ml Intake Oral 0 ml IV Total 1572 ml Output Urine Total 500 ml Stool Total 1 ml # Bowel Movements 1 Exam HEENT pupils are reactive Neck is supple CV is S1-S2 regular rate and rhythm Respiratory are clear GI positive bowel sound 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 Medications Current Medications Medications Dose Ordered Sig/Mayela Route Start Time Stop Time Status Last Admin Dose Admin Metoclopramide HCl 5 mg Q6HP PRN IV 06/26/24 12:00 06/28/24 13:57 5 MG Morphine Sulfate 1 mg Q4HPRN PRN IV 06/26/24 12:00 06/27/24 05:48 1 MG Hydralazine HCl 10 mg Q6HP PRN IV 06/26/24 13:15 06/30/24 01:24 10 MG Heparin Sodium (Porcine) 5,000 units Q12HR SC 06/27/24 22:00 06/30/24 22:36 5,000 UNITS Potassium Chloride 20 meq/ Dextrose 1,010 ml @ 60 mls/hr [id number] IV 06/29/24 11:30 06/30/24 22:32 60 MLS/HR Amino Acids 1,000 ml @ 42 mls/hr [id number] IV 06/29/24 20:00 Cancel Diagnostic Test (Pha) 1 strip Q6HR 06/30/24 00:00 07/01/24 06:14 1 STRIP Insulin Human Regular FOLLOW SLIDING SCALE Q6HR SC 06/30/24 00:00 06/30/24 18:15 2 UNITS Dextrose 50 ml UD IV 06/29/24 19:15 Amino Acids 0 ml @ 0 mls/hr PER PHARMACY IV 07/01/24 22:00 Sodium Chloride 10 ml QSHIFT@10,22 IV 07/01/24 22:00 Fat Emulsion Intravenous 50 ml/ Sodium Acetate 20 meq/Sodium Phosphate 20 meq/ Magnesium Sulfate 4 meq/ Multivitamins 10 ml/Chromium/ Copper/Manganese/ Zinc 1 ml/Amino Acids/Dextrose/ Purified Water 927 ml @ 38 mls/hr [id number] IV 07/01/24 22:00 07/02/24 22:23 Laboratory Results Laboratory Tests 06/30/24 05:50 07/01/24 05:54 Chemistry Test 07/01/24 05:54 Calcium Level 9.4 mg/dL (8.7-10.4) Magnesium Level 1.8 mg/dL (1.6-2.6) Phosphorus Level 2.3 mg/dL (2.4-5.1) L Coagulation Test 07/01/24 05:54 Prothrombin Time 11.1 sec (9.3-11.8) Prothrombin Time INR 1.05 (0.9-1.15) Activated Partial Thromboplast Time 27.3 SEC (24.5-34.5) Urinalysis Test 06/26/24 19:12 Urine Color Yellow (Yellow) Urine Clarity Clear (Clear) Urine pH 5.0 (5.0-9.0) Urine Specific [place] 1.020 (1.001-1.035) Urine Protein 1+ (Negative) H Urine Ketones 1+ (Negative) H Urine Blood Negative /uL (Negative) Urine Nitrite Negative (Negative) Urine Bilirubin Negative (Negative) Urine Urobilinogen Normal mg/dL (Negative) Urine Leukocyte Esterase Negative /uL (Negative) Urine RBC 4 /hpf (0 - 4) Urine WBC 1 /hpf (0 - 5) Urine Squamous Epithelial Cells Few /hpf (<5) Urine Bacteria None seen /hpf (None Seen) Urine Hyaline Casts Few /lpf (0 - 2) Urine Mucus Few (None Seen) Urine Creatinine 127.99 mg/dL (30.0-125.0) H Urine Protein/Creatinine Ratio 0.62 Urine Sodium 31 mmol/L (40-220) L Urine Glucose Normal mg/dL (Normal) Urine Total Protein 78.8 mg/dL (1-14) H Assessment/Plan Assessment/Plan 74-year-old female who initially presented to the hospital with the abdominal pain nausea and vomiting, could not keep anything down for last 2-3 weeks found to have 1. Small-bowel obstruction, scheduled for sigmoidoscopy 2. Distention of the proximal colon to the level of distal transverse colon ileus versus obstruction ruled out colon malignancy in the setting of elevated CEA level 3. Microcytic anemia, status post 1 unit of packed RBC 4. Acute kidney injury suspected secondary to vasomotor nephropathy -sigmoidoscopy today, follow up GI recommendations Plan discussed with: Other Date of Service: Jul 01, 2024 Billing Provider: RACHEL ZELAYA MD Common Visit Codes: NOT BILLABLE RACHEL ZELAYA MD Jul 01, 2024 13:14
--- NOTE | 2024-07-01 13:44 | DVHOP2 ---
Operative Report DATE OF OPERATION: 07/01/24 PROCEDURE: Colonoscopy with biopsy. PREOPERATIVE INDICATION: The patient is a 74 -year-old female undergoing colonoscopy for abnormal finding GI tract imaging suspicious for bowel obstruction rule out colonic malignancy POSTOPERATIVE DIAGNOSES: 1. Patient had a circumferential mass in the distal transverse colon close to the splenic flexure which was causing near-complete obstruction of the colon bey ond which the colonoscope could not be advanced 2. Multiple biopsies were obtained in the distal end of the tumor was marked w ith Siobhan ink 3. The remaining left colon appeared to be grossly normal although it was a limited study due to poor prep with some residual brown stool PROCEDURE PERFORMED BY: Alma Carrion M.D. SCOPE: Olympus videocolonoscope. ASA CLASS:3 PREOPERATIVE MEDICATIONS: Mac sedation, Abdoul Mcmahon PROCEDURE IN DETAIL: After obtaining an informed consent, the patient was placed on left lateral decubitus position. She was then sedated with the above medications. A rectal examination was performed that was normal. The colonoscope was then passed through the anus into the rectosigmoid and through the descending, and splenic flexure up to the distal transverse colon at 70 cm above the anal verge. There was a large circumferential polypoid mass causing near complete obstruction the colon. The colonoscope could not be advanced beyond this area. Multiple biopsies were obtained The distal margin was marked with 4 cc of Siobhan ink. The colonoscope was then withdrawn The remaining left colon was grossly normal but somewhat limited study due to moderate residual stool The patient tolerated the procedure well without difficulty. WITHDRAWAL TIME: Not applicable QUALITY OF THE PREP: [place] Bowel Prep score: Poor prep and not applicable COMPLICATIONS : None SPECIMENS: Distal transverse colon mass biopsies DISPOSITION: Transfer back to the floor Stable PLAN: 1. Keep NPO, NG tube to low intermittent suction 2. Surgical follow up as the patient will likely need laparotomy with resection or colostomy 3. IV fluid hydration, start IV TPN, patient awaiting PICC line 4. Discussed with ALMA Andrew MD Jul 01, 2024 13:44
--- NOTE | 2024-07-01 15:42 | DVHPN2 ---
Progress Note - Dictate Date Seen: Jul 01, 2024 Medical Necessity Reason Pt with a Central, PICC or Fol: No The following are medically ne: PICC Line, Guerra Catheter vital signs Vital Sign Date Time Temp Pulse Resp B/P (MAP) Pulse Ox O2 Delivery O2 Flow Rate FiO2 07/01/24 14:10 105 20 135/86 (102) 100 07/01/24 13:25 97.7 97.7 07/01/24 13:25 Mask 10.0 07/01/24 08:00 28 Total Intake and Output 06/30/24 06/30/24 07/01/24 15:00 23:00 07:00 Intake Total 1122 ml 450 ml Output Total 201 ml 300 ml Balance 921 ml 150 ml medications Current Medications Medications Dose Ordered Sig/Mayela Route Start Time Stop Time Status Last Admin Dose Admin Metoclopramide HCl 5 mg Q6HP PRN IV 06/26/24 12:00 06/28/24 13:57 5 MG Morphine Sulfate 1 mg Q4HPRN PRN IV 06/26/24 12:00 06/27/24 05:48 1 MG Hydralazine HCl 10 mg Q6HP PRN IV 06/26/24 13:15 06/30/24 01:24 10 MG Heparin Sodium (Porcine) 5,000 units Q12HR SC 06/27/24 22:00 06/30/24 22:36 5,000 UNITS Amino Acids 1,000 ml @ 42 mls/hr [id number] IV 06/29/24 20:00 Cancel Diagnostic Test (Pha) 1 strip Q6HR 06/30/24 00:00 07/01/24 12:00 1 STRIP Insulin Human Regular FOLLOW SLIDING SCALE Q6HR SC 06/30/24 00:00 06/30/24 18:15 2 UNITS Dextrose 50 ml UD IV 06/29/24 19:15 Amino Acids 0 ml @ 0 mls/hr PER PHARMACY IV 07/01/24 22:00 Sodium Chloride 10 ml QSHIFT@10,22 IV 07/01/24 22:00 Fat Emulsion Intravenous 50 ml/ Sodium Phosphate 20 meq/Magnesium Sulfate 4 meq/ Multivitamins 10 ml/Chromium/ Copper/Manganese/ Zinc 1 ml/Amino Acids/Dextrose/ Purified Water 917 ml @ 38 mls/hr Q24H8M IV 07/01/24 22:00 07/02/24 22:07 Metronidazole 100 ml @ 100 mls/hr Q8H IV 07/01/24 15:00 Cefazolin Sodium 50 ml @ 100 mls/hr Q8HR IV 07/01/24 14:00 laboratory and microbiology Laboratory Tests 07/01/24 05:54 06/30/24 05:50 Test 07/01/24 05:54 Range/Units Serum Glucose 144 H 74-106 mg/dL Assessment/Plan Acute kidney injury superimposed Chronic Kidney Disease secondary hemodynamic mediated Abdominal pain Dehydration Hypertension Hypercalcemia due to dehydration, resolved Hypernatremia due to dehydration Hypokalemia microcytic anemia Dropping hemoglobin GI bleeding Kidney function is improving Guerra catheter Strict I&Os kidney ultrasound reported atrophic left kidney IVF D5W with 20 mEq/L of KCl at 100 cc/hour --> reduce rate to 60cc/hr Blood pressure control GI consult Surgery consulted PICC line placed Dietary Evaluation Review Comments: 1) Increased TPN to meet at least 75% of estimated needs 2) Advance pt diet when medically feasible to a 2gm Sodium diet 3) Continue current plan of care Expected Outcomes/Goals: 1) Pt to receive adequate nutrition 2) Pt diet to advance 3) F/U in 2-3 days Plan discussed with: Patient IQRA STEPHENS MD Jul 01, 2024 15:42
--- NOTE | 2024-07-01 15:43 | DVHSR ---
APPROVED REPORT EXAM: Two-dimensional and M-mode echocardiogram with Doppler and color Doppler. Blood Pressure: 137/91 mmHg INDICATION Pre-Op RISK FACTORS Height: 5'2", Weight: 94 DIMENSIONS LVDd3.5 (3.8-5.7cm)LA (2D)3.1 (1.9-4.0cm)Aortic Root2.5 (2.0-3.7cm) LVDs2.5 (2.5-4.0cm)LA (MM) (1.9-4.0cm)Aortic Cusp Exc1.4 (1.5-2.0cm) EF (%) 56.0 (55-70%)Rt. Atrium2.4 (1.9-4.0cm)Asc. Aorta2.8 cm IVSd1.3 (0.7-1.1cm)RV (D) (1.8-2.4cm) PWd1.0 (0.7-1.1cm) Mitral Valve MitralMitral Stenosis E/A ratio0.02D MVAcm2 Aortic Valve Aortic ValveAortic Stenosis V10.79m/Isabelle Mean GR.3mmHg V21.05m/Isabelle Peak GR.4mmHg LVOT Diameter1.8 (1.8-2.4cm)Doppler AVA1.91cm2 Pulmonic Valve V20.94m/s Conclusion Normal left ventricular size and dimension. Normal left ventricular systolic function estimated ejec tion fraction 55%. There is a grade 1 diastolic dysfunction. Normal right ventricular size and dimension. Normal left ventricular systolic function. Normal biatrial size and dimension. Normal aortic valve structure and function. Normal mitral valve structure function. Normal tricuspid structure and function. The pulmonary valve is grossly normal. No pericardial effusion.
[2024-07-01] MEDS: metroNIDAZOLE 500MG/100ML 100 ML IV SCH (16:05)
[2024-07-01] MEDS: ceFAZolin 1GM/50ML 50 ML IV SCH (16:06)
[2024-07-01] MEDS: SODIUM CHLOR 0.9% PF (SALINE LOCK) 10ML VIAL/SYR IV SCH (21:57)
[2024-07-01] MEDS: PPN PER PHARMACY IV NR (21:59)
[2024-07-01] MEDS ORDERED: TPN PER PHARMACY 0 ML IV SCH (22:00)
[2024-07-02] VITALS (63 sets, daily range): BP systolic 86–151; BP diastolic 45–84; PULSE 60–122; RESP 15–25; TEMP 91.4–99.3; O2SAT 99–100
[2024-07-02 07:10] LABS: Basophils # (auto) 0.1 10 ^3/uL (0-0.2); Eosinophils # (auto) 0 10 ^3/uL (0-0.8); Eosinophils % (auto) 0.3 % (0.0-7.0); Hemoglobin 9.2 g/dL (12.2-16.2); Neutrophils # (auto) 3.7 10 ^3/uL (1.6-8.6); White Blood Cell 4.3 10^3/uL (4.4-10.8)
[2024-07-02 07:13] LABS: Alkaline Phosphatase 76 U/L (46-116); Anion Gap 14 (5-15); BUN/Creatinine Ratio 33.1 (10.0-20.0); Blood Urea Nitrogen 39 mg/dL (9-23); Calcium 8.6 mg/dL (8.7-10.4); Carbon Dioxide 18 mmol/L (20-31); Chloride 109 mmol/L (98-107); Glucose 140 mg/dL (74-106); Potassium 3.7 mmol/L (3.5-5.1); Sodium 141 mmol/L (136-145)
[2024-07-02 07:14] LABS: Albumin 2.9 g/dL (3.2-4.8); Aspartate Aminotransferase 22 U/L (13-40); Basophils % (auto) 1.4 % (0.0-2.0); Hematocrit 31.1 % (36.0-46.0); Lymphocytes # (auto) 0.3 10 ^3/uL (0.4-5.4); Lymphocytes % (auto) 5.9 % (10.0-50.0); Mean Corpuscular Hemoglobin 20.4 pg (28.0-32.0); Mean Corpuscular Hgb Conc. 29.6 g/dL (32.0-36.0); Mean Corpuscular Volume 69.1 fL (80.0-100.0); Monocytes # (auto) 0.3 10 ^3/uL (0-1.3); Monocytes % (auto) 7.8 % (0.0-12.0); Neutrophils % (auto) 84.6 % (37.0-80.0); Nucleated Red Blood Cells % 2.1 %; Platelet Count (auto) 122 10^3/uL (140-450); Red Blood Cells 4.51 10^6/uL (4.0-5.20)
[2024-07-02 07:15] LABS: Bilirubin, Total 0.7 mg/dL (0.2-1.0); Phosphorus 4.3 mg/dL (2.4-5.1); Total Protein 5.3 g/dL (5.7-8.2)
[2024-07-02 07:20] LABS: Alanine Aminotransferase < 9 U/L (7-40)
[2024-07-02 07:37] LABS: Triglycerides 148 mg/dL (< 150)
[2024-07-02] MEDS ORDERED: HYDROmorphone HCL 2 MG/ML VL/or syr ONE (08:07)
[2024-07-02] MEDS ORDERED: MIDAZOLAM HCL 2MG/2ML 2ml VIAL (1mg/ml) ONE (08:07)
[2024-07-02] MEDS ORDERED: KETAMINE 50mg/ML 1ml syringe ONE (08:07)
[2024-07-02] MEDS ORDERED: fentaNYL CITRATE 100 MCG/2 ML VL ONE (08:07)
[2024-07-02] MEDS ORDERED: ONDANSETRON HCL 4 MG/2 ML VIAL ONE (08:08)
[2024-07-02] MEDS ORDERED: DexAMETHasone SOD PHOS 10MG/1ML VIAL INJ ONE (08:08)
[2024-07-02] MEDS ORDERED: GLYCOPYRROLATE 0.2 MG/ML 1ML VIAL ONE (08:08)
[2024-07-02] MEDS ORDERED: ePHEDrine SULFATE 50 MG/ML AMP ONE (08:08)
[2024-07-02] MEDS ORDERED: LIDOCAINE 2% (LOCAL ANESTH.) PF 5ml SDV ONE (08:08)
[2024-07-02] MEDS ORDERED: PHENYLEPHRINE HCL 10 MG/ML VL ONE (08:08)
[2024-07-02] MEDS ORDERED: ROCURONIUM 10MG/ML 10ML VIAL IV ONE (08:10)
[2024-07-02] MEDS ORDERED: ETOMIDATE (2MG/ML) 20ML VIAL IV ONE (08:10)
[2024-07-02] MEDS: ceFAZolin 2 GM/D5W100ml 100 ML IV ONE (08:19)
[2024-07-02 08:52] LABS: Platelet Estimate Decreased
[2024-07-02 08:53] LABS: Anisocytosis Moderate; Hypochromia Moderate
[2024-07-02 08:54] LABS: Target Cell MODERATE
--- NOTE | 2024-07-02 08:54 | DVHPN2 ---
Progress Note Date Seen: Jul 02, 2024 Medical Necessity Reason Pt with a Central, PICC or Fol: No The following are medically ne: PICC Line, Guerra Catheter Objective vital signs Vital Sign Date Time Temp Pulse Resp B/P (MAP) Pulse Ox O2 Delivery O2 Flow Rate FiO2 07/02/24 05:00 97.8 109 17 134/69 (90) 100 97.8 07/01/24 19:55 Nasal Cannula* 2 28 Total Intake and Output 07/01/24 07/01/24 07/02/24 15:00 23:00 07:00 Intake Total 0 ml 306 ml 250 ml Output Total 250 ml 350 ml Balance 0 ml 56 ml -100 ml medications Current Medications Medications Dose Ordered Sig/Mayela Route Start Time Stop Time Status Last Admin Dose Admin Metoclopramide HCl 5 mg Q6HP PRN IV 06/26/24 12:00 06/28/24 13:57 5 MG Morphine Sulfate 1 mg Q4HPRN PRN IV 06/26/24 12:00 07/01/24 19:13 1 MG Hydralazine HCl 10 mg Q6HP PRN IV 06/26/24 13:15 06/30/24 01:24 10 MG Heparin Sodium (Porcine) 5,000 units Q12HR SC 06/27/24 22:00 07/01/24 22:00 5,000 UNITS Amino Acids 1,000 ml @ 42 mls/hr [id number] IV 06/29/24 20:00 Cancel Diagnostic Test (Pha) 1 strip Q6HR 06/30/24 00:00 07/02/24 05:05 1 STRIP Insulin Human Regular FOLLOW SLIDING SCALE Q6HR SC 06/30/24 00:00 06/30/24 18:15 2 UNITS Dextrose 50 ml UD IV 06/29/24 19:15 Amino Acids 0 ml @ 0 mls/hr PER PHARMACY IV 07/01/24 22:00 Sodium Chloride 10 ml QSHIFT@10,22 IV 07/01/24 22:00 07/01/24 21:57 10 ML Fat Emulsion Intravenous 50 ml/ Sodium Phosphate 20 meq/Magnesium Sulfate 4 meq/ Multivitamins 10 ml/Chromium/ Copper/Manganese/ Zinc 1 ml/Amino Acids/Dextrose/ Purified Water 917 ml @ 38 mls/hr Q24H8M IV 07/01/24 22:00 07/02/24 22:07 07/01/24 21:59 38 MLS/HR Metronidazole 100 ml @ 100 mls/hr Q8H IV 07/01/24 15:00 07/02/24 05:05 100 MLS/HR Cefazolin Sodium 50 ml @ 100 mls/hr Q8HR IV 07/01/24 14:00 07/02/24 05:05 100 MLS/HR laboratory and microbiology Laboratory Tests 07/02/24 06:07 Test 07/02/24 06:07 Range/Units Serum Glucose 140 H 74-106 mg/dL Problem List/Assessment/Plan Problem List/Assessment/Plan 07/02/24 OBSTRUCTING TUMOR IN DISTAL TRANSVERSE COLON, RESECTION, POSSIBLE OSTOMY RISKS AND COMPLICATIONS EXPLAINED IN DETAIL.ALL QUESTIONS ANSWERED Plan discussed with: Patient, Other Dietary Evaluation Review Comments: 1) Increased TPN to meet at least 75% of estimated needs 2) Advance pt diet when medically feasible to a 2gm Sodium diet 3) Continue current plan of care Expected Outcomes/Goals: 1) Pt to receive adequate nutrition 2) Pt diet to advance 3) F/U in 2-3 days MELVIN MARTIN MD Jul 02, 2024 08:54
[2024-07-02] MEDS: VASOPRESSIN 20 UNIT/ML ONE (09:21)
[2024-07-02] MEDS: NOREPINEPHRINE 8 MG/250ML KIT 250 ML IV ONE (09:30)
[2024-07-02] MEDS: MIDAZOLAM DRIP 50 mg/50mL 50 ML IV SCH (10:15)
[2024-07-02] MEDS: fentaNYL Drip 2500mCg/250mlNS 250 ML IV ONE (10:21)
[2024-07-02] MEDS: MIDAZOLAM DRIP 50 mg/50mL 50 ML IV ONE (10:22)
[2024-07-02] MEDS ORDERED: MIDAZOLAM DRIP 50 mg/50mL 50 ML IV SCH (10:30)
--- NOTE | 2024-07-02 10:47 | DVHOP ---
DATE OF SURGERY: 07/02/2024 PREOPERATIVE DIAGNOSIS: Transverse colon tumor. POSTOPERATIVE DIAGNOSIS: Transverse colon tumor. SURGEON: Ruslan Samuel MD SUPERVISOR [employer]: Antonio Og NP ANESTHESIA: General endotracheal. ANESTHESIOLOGIST: Dr. Rice. PROCEDURES: Exploratory laparotomy, transverse colon resection, colonic anastomosis. DESCRIPTION OF PROCEDURE: Under general endotracheal anesthesia, with the patient's skin prepped and draped, a midline incision was made and the transverse colon was delivered into the wound, there was a tattooing done by the toolroom machinist indicating the presence of the tumor. The tumor was clearly visible and palpable was constricting apple core lesion, which was completely obstructing the colon. The proximal and distal colon was secured with bowel clamps and the segment of the colon was resected with the mesentery resected and ligated. The patient's omentum was also resected and submitted. The specimen submitted for histopathologic examination contained in resection of the transverse colon the mesentery and the omentum attached en bloc. The wound was then irrigated, irrigant was aspirated. The 2 ends of the colon was swabbed with Betadine and anastomosed by a handsewn technique utilizing 3-0 Monocryl and 3-0 Prolene for the inner and outer layer respectively. The abdomen was profusely irrigated, irrigant was aspirated. Hemostasis was assured and the mesenteric defect approximated using 2-0 Monocryl sutures. The patient's abdomen was then drained by means of a 10 mm Lincoln-Ramírez drain, which was exteriorized separately and secured with a 2-0 nylon suture. Fascia was approximated using #1 double stranded PDS suture. Skin approximated using metallic skin jerrod. The patient remained stable throughout the procedure, left the operating room following an accurate needle and sponge count, intubated on a ventilator. The patient was reported by the anesthesiologist to have several episodes of hypotension, which was treated by the anesthesiologist. The patient left the operating room following an accurate needle and sponge count, intubated on a ventilator. An attempt at communicating to the family on the phone number given was not successful due to lack of answer. Ruslan Samuel MD PF TID: [id number] RECEIPT: [id number]
[2024-07-02] MEDS: fentaNYL Drip 2500mCg/250mlNS 250 ML IV SCH (10:53)
--- NOTE | 2024-07-02 12:11 | DVH ---
Exam: US US GUIDED VASCULAR ACCESS Clinical History: PICC LINE PLACEMENT Comparison: None Findings: Targeted sonographic evaluation of the upper extremitywas obtained utilizing grayscale and color Dopp ler imaging. IMPRESSION: Sonographic assistance for central line placement. Please refer to procedural report for detailed fin dings.
--- NOTE | 2024-07-02 12:12 | DVH ---
CHEST RADIOGRAPH Indication:s/p OR intubation Technique: Single frontal view of the chest was obtained COMPARISON: XY CHEST XRAY 1 VIEW on DOS: 06/29/24 FINDINGS: Lines and Tubes: Endotracheal tube, enteric catheter and right PICC in satisfactory position. Lungs: Clear Pleura: No effusion. No pneumothorax. Cardiomediastinal contours: Unremarkable Bones: Unremarkable IMPRESSION: Lines and tubes in satisfactory position.
[2024-07-02 12:54] LABS: Base Excess -1.8 mmol/L (-2.0-3.0)
--- NOTE | 2024-07-02 14:25 | DVHPN2 ---
Subjective Patient underwent sigmoidoscopy yesterday which shows evidence of circumferential mass in the distal transverse colon. Biopsies were taken. Patient underwent exploratory laparotomy with transverse colon mass resection with end-to-end anastomosis. Currently remains intubated and sedated. Reviewed: Care Plan Changes from previous H/P or p: Changes (Patient underwent exploratory laparotomy with transverse colon resection with end-to-end anastomosis.) Eyes: No Pain, No Vision change, No Conjunctivae inflammation, No Eyelid inflammation, No Other, No Redness ENT: No Ear pain, No Ear discharge, No Nose pain, No Nose discharge, No Nose congestion, No Mouth pain, No Mouth swelling, No Throat pain, No Throat swelling, No Other Cardiovascular: No Chest Pain, No Palpitations, No Orthopnea, No Paroxysmal Noc. Dyspnea, No Edema, No Lt Headedness, No Other Respiratory: No Cough, No Dry, No Shortness of breath, No SOB with excertion, No Wheezing, No Hemoptysis, No Pleuritic Pain, No Sputum, No Other Gastrointestinal: Nausea, Vomiting; No Abdominal Pain, No Diarrhea, No Constipation, No Melena, No Hematochezia, No Other Genitourinary: No Dysuria, No Frequency, No Incontinence, No Hematuria, No Retention, No Other Musculoskeletal: No other, No neck pain, No shoulder pain, No arm pain, No back pain, No hand pain, No leg pain, No foot pain Skin: No Rash, No Lesions, No Jaundice, No Bruising, No Other Objective Vitals Vital Signs Date Time Temp Pulse Resp B/P (MAP) Pulse Ox O2 Delivery O2 Flow Rate FiO2 07/02/24 12:00 95.4 91 16 117/66 (83) 100 203.7 07/02/24 10:50 100 07/02/24 10:46 Mechanical Ventilator+ 07/01/24 19:55 2 Intake/Output Intake and Output 07/02/24 07:00 Intake Total 556 ml Output Total 600 ml Balance -44 ml Intake Oral 0 ml IV Total 556 ml Output Urine Total 600 ml Exam HEENT pupils are reactive Neck is supple CV is S1-S2 regular rate and rhythm Respiratory diminished breath sound at lung bases GI sluggish bowel sounds 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 Medications Current Medications Medications Dose Ordered Sig/Mayela Route Start Time Stop Time Status Last Admin Dose Admin Metoclopramide HCl 5 mg Q6HP PRN IV 06/26/24 12:00 06/28/24 13:57 5 MG Morphine Sulfate 1 mg Q4HPRN PRN IV 06/26/24 12:00 07/01/24 19:13 1 MG Hydralazine HCl 10 mg Q6HP PRN IV 06/26/24 13:15 06/30/24 01:24 10 MG Heparin Sodium (Porcine) 5,000 units Q12HR SC 06/27/24 22:00 07/01/24 22:00 5,000 UNITS Amino Acids 1,000 ml @ 42 mls/hr [id number] IV 06/29/24 20:00 Cancel Diagnostic Test (Pha) 1 strip Q6HR 06/30/24 00:00 07/02/24 12:00 1 STRIP Insulin Human Regular FOLLOW SLIDING SCALE Q6HR [place] 06/30/24 00:00 06/30/24 18:15 2 UNITS Dextrose 50 ml UD IV 06/29/24 19:15 Amino Acids 0 ml @ 0 mls/hr PER PHARMACY IV 07/01/24 22:00 Sodium Chloride 10 ml QSHIFT@10,22 IV 07/01/24 22:00 07/02/24 13:37 10 ML Fat Emulsion Intravenous 50 ml/ Sodium Phosphate 20 meq/Magnesium Sulfate 4 meq/ Multivitamins 10 ml/Chromium/ Copper/Manganese/ Zinc 1 ml/Amino Acids/Dextrose/ Purified Water 917 ml @ 38 mls/hr Q24H8M IV 07/01/24 22:00 07/02/24 22:07 07/01/24 21:59 38 MLS/HR Metronidazole 100 ml @ 100 mls/hr Q8H IV 07/01/24 15:00 07/02/24 05:05 100 MLS/HR Cefazolin Sodium 50 ml @ 100 mls/hr Q8HR IV 07/01/24 14:00 07/02/24 13:36 100 MLS/HR Fentanyl Citrate 250 ml @ 2.5 mls/hr Q24H IV 07/02/24 10:30 07/02/24 10:53 2.5 MLS/HR Midazolam HCl 50 ml @ 1 mls/hr Q24H IV 07/02/24 10:15 Fat Emulsion Intravenous 50 ml/ Potassium Acetate 40 meq/Magnesium Sulfate 8 meq/ Multivitamins 10 ml/Chromium/ Copper/Manganese/ Zinc 1 ml/Amino Acids/Dextrose/ Purified Water 933 ml @ 39 mls/hr [id number] IV 07/02/24 22:00 07/03/24 21:59 Laboratory Results Laboratory Tests 07/02/24 06:07 Chemistry Test 07/02/24 06:07 Albumin 2.9 g/dL (3.2-4.8) L Calcium Level 8.6 mg/dL (8.7-10.4) L Magnesium Level 2.0 mg/dL (1.6-2.6) Phosphorus Level 4.3 mg/dL (2.4-5.1) Total Protein 5.3 g/dL (5.7-8.2) L Lipid panel Test 07/02/24 06:07 Triglycerides Level 148 mg/dL (< 150) LFT Test 07/02/24 06:07 Alanine Aminotransferase (ALT) < 9 U/L (7-40) Alkaline Phosphatase 76 U/L (46-116) Aspartate Amino Transferase (AST) 22 U/L (13-40) Total Bilirubin 0.7 mg/dL (0.2-1.0) Urinalysis Test 06/26/24 19:12 Urine Color Yellow (Yellow) Urine Clarity Clear (Clear) Urine pH 5.0 (5.0-9.0) Urine Specific [place] 1.020 (1.001-1.035) Urine Protein 1+ (Negative) H Urine Ketones 1+ (Negative) H Urine Blood Negative /uL (Negative) Urine Nitrite Negative (Negative) Urine Bilirubin Negative (Negative) Urine Urobilinogen Normal mg/dL (Negative) Urine Leukocyte Esterase Negative /uL (Negative) Urine RBC 4 /hpf (0 - 4) Urine WBC 1 /hpf (0 - 5) Urine Squamous Epithelial Cells Few /hpf (<5) Urine Bacteria None seen /hpf (None Seen) Urine Hyaline Casts Few /lpf (0 - 2) Urine Mucus Few (None Seen) Urine Creatinine 127.99 mg/dL (30.0-125.0) H Urine Protein/Creatinine Ratio 0.62 Urine Sodium 31 mmol/L (40-220) L Urine Glucose Normal mg/dL (Normal) Urine Total Protein 78.8 mg/dL (1-14) H Blood Gas Results Test 07/02/24 12:37 Arterial Blood pH 7.459 (7.350-7.450) FiO2 % 100.0 Assessment/Plan Assessment/Plan 74-year-old female who initially presented to the hospital with the abdominal pain nausea and vomiting, could not keep anything down for last 2-3 weeks found to have bowel obstruction with a colonoscopy obstruction. Patient underwent sigmoidoscopy which showed hospice: Circumferential mass status post exploratory laparotomy , transverse colon resection with end-to-end anastomosis. 1. Abdominal pain with nausea vomiting suspected secondary to large bowel obstruction 2. Elevated CEA suspect intestinal malignancy 3. Status post sigmoidoscopy showed evidence of circumferential distal transverse colon loss, status post exploratory laparotomy with transverse colon resection with end-to-end anastomosis 4. Microcytic anemia, status post 1 unit of packed RBC 5. Acute hypoxic respiratory failure status post intubation, mechanical ventilation , after the surgery -sigmoidoscopy today, follow up GI recommendations 6 acute kidney injury suspected secondary to vasomotor nephropathy. -continue vent support, daily ABG chest x-ray, pulmonary consultation -broad-spectrum IV antibiotics, NG tube on low wall intermittent suctioning -follow up General surgery recommendations -hematology oncology consultation. Plan discussed with: Other My Orders Orders - RACHEL ZELAYA MD Procedure Category Date Status Time Mrsa Screen BRIAN 07/02/24 In Process 12:23 Date of Service: Jul 02, 2024 Billing Provider: RACHEL ZELAYA MD Common Visit Codes: [id number] INP/OBS CARE(HIGH) RACHEL ZELAYA MD Jul 02, 2024 14:25
--- NOTE | 2024-07-02 15:18 | DVHPN2 ---
Progress Note - Dictate Date Seen: Jul 02, 2024 Medical Necessity Reason Pt with a Central, PICC or Fol: No The following are medically ne: PICC Line, Guerra Catheter vital signs Vital Sign Date Time Temp Pulse Resp B/P (MAP) Pulse Ox O2 Delivery O2 Flow Rate FiO2 07/02/24 14:45 98.2 103 16 91/47 (62) 100 208.8 07/02/24 14:00 50 07/02/24 10:46 Mechanical Ventilator+ 07/02/24 08:00 2 Total Intake and Output 07/01/24 07/01/24 07/02/24 15:00 23:00 07:00 Intake Total 0 ml 306 ml 250 ml Output Total 250 ml 350 ml Balance 0 ml 56 ml -100 ml medications Current Medications Medications Dose Ordered Sig/Mayela Route Start Time Stop Time Status Last Admin Dose Admin Metoclopramide HCl 5 mg Q6HP PRN IV 06/26/24 12:00 06/28/24 13:57 5 MG Morphine Sulfate 1 mg Q4HPRN PRN IV 06/26/24 12:00 07/01/24 19:13 1 MG Hydralazine HCl 10 mg Q6HP PRN IV 06/26/24 13:15 06/30/24 01:24 10 MG Heparin Sodium (Porcine) 5,000 units Q12HR SC 06/27/24 22:00 07/01/24 22:00 5,000 UNITS Amino Acids 1,000 ml @ 42 mls/hr [id number] IV 06/29/24 20:00 Cancel Diagnostic Test (Pha) 1 strip Q6HR 06/30/24 00:00 07/02/24 12:00 1 STRIP Insulin Human Regular FOLLOW SLIDING SCALE Q6HR SC 06/30/24 00:00 06/30/24 18:15 2 UNITS Dextrose 50 ml UD IV 06/29/24 19:15 Amino Acids 0 ml @ 0 mls/hr PER PHARMACY IV 07/01/24 22:00 Sodium Chloride 10 ml QSHIFT@10,22 IV 07/01/24 22:00 07/02/24 13:37 10 ML Fat Emulsion Intravenous 50 ml/ Sodium Phosphate 20 meq/Magnesium Sulfate 4 meq/ Multivitamins 10 ml/Chromium/ Copper/Manganese/ Zinc 1 ml/Amino Acids/Dextrose/ Purified Water 917 ml @ 38 mls/hr Q24H8M IV 07/01/24 22:00 07/02/24 22:07 07/01/24 21:59 38 MLS/HR Metronidazole 100 ml @ 100 mls/hr Q8H IV 07/01/24 15:00 07/02/24 14:50 100 MLS/HR Cefazolin Sodium 50 ml @ 100 mls/hr Q8HR IV 07/01/24 14:00 07/02/24 13:36 100 MLS/HR Fentanyl Citrate 250 ml @ 2.5 mls/hr Q24H IV 07/02/24 10:30 07/02/24 10:53 2.5 MLS/HR Midazolam HCl 50 ml @ 1 mls/hr Q24H IV 07/02/24 10:15 Fat Emulsion Intravenous 50 ml/ Potassium Acetate 40 meq/Magnesium Sulfate 8 meq/ Multivitamins 10 ml/Chromium/ Copper/Manganese/ Zinc 1 ml/Amino Acids/Dextrose/ Purified Water 933 ml @ 39 mls/hr [id number] IV 07/02/24 22:00 07/03/24 21:59 Norepinephrine Bitartrate 250 ml @ 3.75 mls/hr Q24H IV 07/02/24 15:15 objective HEENT pupils are reactive Neck is supple CV is S1-S2 regular rate and rhythm Respiratory diminished breath sound at lung bases GI sluggish bowel sounds Extremity no edema [employer] intubated sedated laboratory and microbiology Laboratory Tests 07/02/24 06:07 Test 07/02/24 06:07 Range/Units Serum Glucose 140 H 74-106 mg/dL Assessment/Plan Acute kidney injury superimposed Chronic Kidney Disease secondary hemodynamic mediated Abdominal pain colonic Ca s/p surgery intubated on ventilator GI bleeding Kidney function is improving TPN nutrition vent per critical care Guerra catheter Strict I&Os kidney ultrasound reported atrophic left kidney Blood pressure control GI consult Surgery procedure noted Dietary Evaluation Review Comments: 1) Increased TPN to meet at least 75% of estimated needs 2) Advance pt diet when medically feasible to a 2gm Sodium diet 3) Continue current plan of care Expected Outcomes/Goals: 1) Pt to receive adequate nutrition 2) Pt diet to advance 3) F/U in 2-3 days Plan discussed with: IQRA Painter MD Jul 02, 2024 15:18
[2024-07-02] MEDS: NOREPINEPHRINE 8 MG/250ML KIT 250 ML IV SCH (15:32)
--- NOTE | 2024-07-02 21:03 | DVHPN2 ---
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 vital signs Vital Sign Date Time Temp Pulse Resp B/P (MAP) Pulse Ox O2 Delivery O2 Flow Rate FiO2 07/02/24 20:30 98.2 80 16 132/67 (88) 100 208.8 07/02/24 20:20 40 07/02/24 20:00 Mechanical Ventilator+ 07/02/24 08:00 2 Total Intake and Output 07/01/24 07/01/24 07/02/24 15:00 23:00 07:00 Intake Total 0 ml 306 ml 250 ml Output Total 250 ml 350 ml Balance 0 ml 56 ml -100 ml medications Current Medications Medications Dose Ordered Sig/Mayela Route Start Time Stop Time Status Last Admin Dose Admin Metoclopramide HCl 5 mg Q6HP PRN IV 06/26/24 12:00 06/28/24 13:57 5 MG Morphine Sulfate 1 mg Q4HPRN PRN IV 06/26/24 12:00 07/01/24 19:13 1 MG Hydralazine HCl 10 mg Q6HP PRN IV 06/26/24 13:15 06/30/24 01:24 10 MG Heparin Sodium (Porcine) 5,000 units Q12HR SC 06/27/24 22:00 07/01/24 22:00 5,000 UNITS Amino Acids 1,000 ml @ 42 mls/hr [id number] IV 06/29/24 20:00 Cancel Diagnostic Test (Pha) 1 strip Q6HR 06/30/24 00:00 07/02/24 17:39 1 STRIP Insulin Human Regular FOLLOW SLIDING SCALE Q6HR SC 06/30/24 00:00 07/02/24 17:43 2 UNITS Dextrose 50 ml UD IV 06/29/24 19:15 Amino Acids 0 ml @ 0 mls/hr PER PHARMACY IV 07/01/24 22:00 Sodium Chloride 10 ml QSHIFT@10,22 IV 07/01/24 22:00 07/02/24 13:37 10 ML Fat Emulsion Intravenous 50 ml/ Sodium Phosphate 20 meq/Magnesium Sulfate 4 meq/ Multivitamins 10 ml/Chromium/ Copper/Manganese/ Zinc 1 ml/Amino Acids/Dextrose/ Purified Water 917 ml @ 38 mls/hr Q24H8M IV 07/01/24 22:00 07/02/24 22:07 07/01/24 21:59 38 MLS/HR Metronidazole 100 ml @ 100 mls/hr Q8H IV 07/01/24 15:00 07/02/24 14:50 100 MLS/HR Cefazolin Sodium 50 ml @ 100 mls/hr Q8HR IV 07/01/24 14:00 07/02/24 13:36 100 MLS/HR Fentanyl Citrate 250 ml @ 2.5 mls/hr Q24H IV 07/02/24 10:30 07/02/24 10:53 2.5 MLS/HR Midazolam HCl 50 ml @ 1 mls/hr Q24H IV 07/02/24 10:15 Fat Emulsion Intravenous 50 ml/ Potassium Acetate 40 meq/Magnesium Sulfate 8 meq/ Multivitamins 10 ml/Chromium/ Copper/Manganese/ Zinc 1 ml/Amino Acids/Dextrose/ Purified Water 933 ml @ 39 mls/hr [id number] IV 07/02/24 22:00 07/03/24 21:59 Norepinephrine Bitartrate 250 ml @ 3.75 mls/hr Q24H IV 07/02/24 15:15 07/02/24 15:32 3.75 MLS/HR objective General Appearance: Alert, Oriented X3, Cooperative, No acute distress HEENT: Atraumatic, PERRLA, EOMI, Mucous membr. moist/pink Respiratory: Clear to auscultation, Normal air movement Cardiovascular: Regular rate, Normal S1, Normal S2, No murmurs Abdominal: Normal bowel sounds, Soft, No tenderness, No hepatospenomegaly, No masses Extremities: No clubbing, No cyanosis, No edema, Normal pulses, No tenderness/swelling Skin: No rashes, No breakdown, No significant lesion Neuro: Normal gait, Normal speech, Strength at 5/5 X4 ext, Normal tone, Sensation intact, Psych/Mental Status: Mental status NL, Mood NL laboratory and microbiology Laboratory Tests 07/02/24 06:07 Test 07/02/24 06:07 Range/Units Serum Glucose 140 H 74-106 mg/dL Problems(with codes): (1) Adenocarcinoma of transverse colon (2) Bowel obstruction (3) Ileus (4) Obstipation (5) Severe anemia (6) ROZINA (acute kidney injury) Prognosis Plan Keep NPO IV fluid hydration IV TPN NG tube to low intermittent suction Ventilatory support ICU care ongoing Dietary Evaluation Review Comments: 1) Increased TPN to meet at least 75% of estimated needs 2) Advance pt diet when medically feasible to a 2gm Sodium diet 3) Continue current plan of care Expected Outcomes/Goals: 1) Pt to receive adequate nutrition 2) Pt diet to advance 3) F/U in 2-3 days Plan discussed with: Other (Dr Samuel) ALMA BRYSON MD Jul 02, 2024 21:03
[2024-07-02] MEDS: PPN PER PHARMACY IV NR (21:36)
[2024-07-03] VITALS (95 sets, daily range): BP systolic 88–153; BP diastolic 42–73; PULSE 40–99; RESP 11–22; TEMP 97.3–99; O2SAT 99–100
[2024-07-03 05:31] LABS: Albumin 2.7 g/dL (3.2-4.8); Alkaline Phosphatase 61 U/L (46-116); Anion Gap 10 (5-15); Aspartate Aminotransferase 16 U/L (13-40); BUN/Creatinine Ratio 33.6 (10.0-20.0); Bilirubin, Total 0.6 mg/dL (0.2-1.0); Blood Urea Nitrogen 45 mg/dL (9-23); Calcium 8.6 mg/dL (8.7-10.4); Carbon Dioxide 24 mmol/L (20-31); Chloride 110 mmol/L (98-107); Glucose 137 mg/dL (74-106); Magnesium 1.8 mg/dL (1.6-2.6); Phosphorus 2.9 mg/dL (2.4-5.1); Potassium 3.5 mmol/L (3.5-5.1); Sodium 144 mmol/L (136-145)
[2024-07-03 05:34] LABS: Alanine Aminotransferase < 9 U/L (7-40)
[2024-07-03 06:02] LABS: Base Excess -0.6 mmol/L (-2.0-3.0)
--- NOTE | 2024-07-03 11:15 | DVHPN2 ---
Progress Note Date Seen: Jul 03, 2024 Medical Necessity Reason Pt with a Central, PICC or Fol: No The following are medically ne: PICC Line, Guerra Catheter Objective vital signs Vital Sign Date Time Temp Pulse Resp B/P (MAP) Pulse Ox O2 Delivery O2 Flow Rate FiO2 07/03/24 10:52 87/41 07/03/24 09:12 63 16 100 30 07/03/24 08:00 Mechanical Ventilator+ 07/03/24 06:30 97.5 207.5 07/02/24 20:52 60.0 Total Intake and Output 07/02/24 07/02/24 07/03/24 15:00 23:00 07:00 Intake Total 162.5 ml 275.25 ml 676.50 ml Output Total 575 ml 520 ml Balance 162.5 ml -299.75 ml 156.50 ml medications Current Medications Medications Dose Ordered Sig/Mayela Route Start Time Stop Time Status Last Admin Dose Admin Metoclopramide HCl 5 mg Q6HP PRN IV 06/26/24 12:00 06/28/24 13:57 5 MG Morphine Sulfate 1 mg Q4HPRN PRN IV 06/26/24 12:00 07/01/24 19:13 1 MG Hydralazine HCl 10 mg Q6HP PRN IV 06/26/24 13:15 06/30/24 01:24 10 MG Heparin Sodium (Porcine) 5,000 units Q12HR SC 06/27/24 22:00 07/03/24 09:20 5,000 UNITS Amino Acids 1,000 ml @ 42 mls/hr [id number] IV 06/29/24 20:00 Cancel Diagnostic Test (Pha) 1 strip Q6HR 06/30/24 00:00 07/03/24 05:51 1 STRIP Insulin Human Regular FOLLOW SLIDING SCALE Q6HR SC 06/30/24 00:00 07/03/24 05:59 4 UNITS Dextrose 50 ml UD IV 06/29/24 19:15 Amino Acids 0 ml @ 0 mls/hr PER PHARMACY IV 07/01/24 22:00 Sodium Chloride 10 ml QSHIFT@10,22 IV 07/01/24 22:00 07/03/24 09:20 10 ML Metronidazole 100 ml @ 100 mls/hr Q8H IV 07/01/24 15:00 07/03/24 06:38 100 MLS/HR Cefazolin Sodium 50 ml @ 100 mls/hr Q8HR IV 07/01/24 14:00 07/03/24 05:58 100 MLS/HR Fentanyl Citrate 250 ml @ 2.5 mls/hr Q24H IV 07/02/24 10:30 07/02/24 10:53 2.5 MLS/HR Midazolam HCl 50 ml @ 1 mls/hr Q24H IV 07/02/24 10:15 07/03/24 05:58 1 MLS/HR Fat Emulsion Intravenous 50 ml/ Potassium Acetate 40 meq/Magnesium Sulfate 8 meq/ Multivitamins 10 ml/Chromium/ Copper/Manganese/ Zinc 1 ml/Amino Acids/Dextrose/ Purified Water 933 ml @ 39 mls/hr [id number] IV 07/02/24 22:00 07/03/24 21:59 07/02/24 21:36 39 MLS/HR Norepinephrine Bitartrate 250 ml @ 3.75 mls/hr Q24H IV 07/02/24 15:15 07/03/24 10:52 3.75 MLS/HR Fat Emulsion Intravenous 50 ml/ Potassium Phosphate 44 meq/ Magnesium Sulfate 16 meq/ Multivitamins 10 ml/Chromium/ Copper/Manganese/ Zinc 1 ml/Amino Acids/Dextrose/ Purified Water 1,075 ml @ 45 mls/hr [id number] IV 07/03/24 22:00 07/04/24 21:59 laboratory and microbiology Laboratory Tests 07/03/24 04:50 07/02/24 06:07 Test 07/03/24 04:50 Range/Units Serum Glucose 137 H 74-106 mg/dL Problem List/Assessment/Plan Problem List/Assessment/Plan 07/02/24 OBSTRUCTING TUMOR IN DISTAL TRANSVERSE COLON, RESECTION, POSSIBLE OSTOMY RISKS AND COMPLICATIONS EXPLAINED IN DETAIL.ALL QUESTIONS ANSWERED 07/03/24 hemodynamically stable, intubated, sedated, OK to CPAP Plan discussed with: Patient Dietary Evaluation Review Comments: 1) Increased TPN to meet at least 75% of estimated needs 2) Advance pt diet when medically feasible to a 2gm Sodium diet 3) Continue current plan of care Expected Outcomes/Goals: 1) Pt to receive adequate nutrition 2) Pt diet to advance 3) F/U in 2-3 days MELVIN MARTIN MD Jul 03, 2024 11:15
--- NOTE | 2024-07-03 12:15 | DVHPN2 ---
Subjective Patient chemically sedated Reviewed: Care Plan, H&P, Labs, Medications Changes from previous H/P or p: No Changes General: Per HPI Eyes: No Pain, No Vision change, No Conjunctivae inflammation, No Eyelid inflammation, No Other, No Redness ENT: No Ear pain, No Ear discharge, No Nose pain, No Nose discharge, No Nose congestion, No Mouth pain, No Mouth swelling, No Throat pain, No Throat swelling, No Other Cardiovascular: No Chest Pain, No Palpitations, No Orthopnea, No Paroxysmal Noc. Dyspnea, No Edema, No Lt Headedness, No Other Respiratory: No Cough, No Dry, No Shortness of breath, No SOB with excertion, No Wheezing, No Hemoptysis, No Pleuritic Pain, No Sputum, No Other Gastrointestinal: Nausea, Vomiting; No Abdominal Pain, No Diarrhea, No Constipation, No Melena, No Hematochezia, No Other Genitourinary: No Dysuria, No Frequency, No Incontinence, No Hematuria, No Retention, No Other Musculoskeletal: No other, No neck pain, No shoulder pain, No arm pain, No back pain, No hand pain, No leg pain, No foot pain Skin: No Rash, No Lesions, No Jaundice, No Bruising, No Other Objective Vitals Vital Signs Date Time Temp Pulse Resp B/P (MAP) Pulse Ox O2 Delivery O2 Flow Rate FiO2 07/03/24 11:31 51 16 153/63 (93) 100 30 07/03/24 10:00 Mechanical Ventilator+ 07/03/24 06:30 97.5 207.5 07/02/24 20:52 60.0 Intake/Output Intake and Output 07/03/24 07:00 Intake Total 1114.25 ml Output Total 1095 ml Balance 19.25 ml Intake Oral 0 ml IV Total 1114.25 ml Output Urine Total 550 ml Gastric Drainage Total 400 ml Drainage Total 145 ml General Appearance: Other (Sedated) HEENT: Atraumatic, PERRLA Lungs: Clear to auscultation, Normal air movement, Other (Mechanical ventilation) Cardiovascular: Normal S1, Normal S2 Abdomen: Other (Absent bowel sounds) Genitourinary: No Apparent Abnormalities (Guerra catheter) Neuro: Other (Unable to assess due to sedation) Skin: Dry, Intact Psych/Mental Status: Other (Unable to assess due to sedated) Medications Current Medications Medications Dose Ordered Sig/Mayela Route Start Time Stop Time Status Last Admin Dose Admin Metoclopramide HCl 5 mg Q6HP PRN IV 06/26/24 12:00 06/28/24 13:57 5 MG Morphine Sulfate 1 mg Q4HPRN PRN IV 06/26/24 12:00 07/01/24 19:13 1 MG Hydralazine HCl 10 mg Q6HP PRN IV 06/26/24 13:15 06/30/24 01:24 10 MG Heparin Sodium (Porcine) 5,000 units Q12HR SC 06/27/24 22:00 07/03/24 09:20 5,000 UNITS Amino Acids 1,000 ml @ 42 mls/hr [id number] IV 06/29/24 20:00 Cancel Diagnostic Test (Pha) 1 strip Q6HR 06/30/24 00:00 07/03/24 05:51 1 STRIP Insulin Human Regular FOLLOW SLIDING SCALE Q6HR NM 06/30/24 00:00 07/03/24 05:59 4 UNITS Dextrose 50 ml UD IV 06/29/24 19:15 Amino Acids 0 ml @ 0 mls/hr PER PHARMACY IV 07/01/24 22:00 Sodium Chloride 10 ml QSHIFT@10,22 IV 07/01/24 22:00 07/03/24 09:20 10 ML Metronidazole 100 ml @ 100 mls/hr Q8H IV 07/01/24 15:00 07/03/24 06:38 100 MLS/HR Cefazolin Sodium 50 ml @ 100 mls/hr Q8HR IV 07/01/24 14:00 07/03/24 05:58 100 MLS/HR Fentanyl Citrate 250 ml @ 2.5 mls/hr Q24H IV 07/02/24 10:30 07/02/24 10:53 2.5 MLS/HR Midazolam HCl 50 ml @ 1 mls/hr Q24H IV 07/02/24 10:15 07/03/24 05:58 1 MLS/HR Fat Emulsion Intravenous 50 ml/ Potassium Acetate 40 meq/Magnesium Sulfate 8 meq/ Multivitamins 10 ml/Chromium/ Copper/Manganese/ Zinc 1 ml/Amino Acids/Dextrose/ Purified Water 933 ml @ 39 mls/hr [id number] IV 07/02/24 22:00 07/03/24 21:59 07/02/24 21:36 39 MLS/HR Norepinephrine Bitartrate 250 ml @ 3.75 mls/hr Q24H IV 07/02/24 15:15 07/03/24 10:52 3.75 MLS/HR Fat Emulsion Intravenous 50 ml/ Potassium Phosphate 44 meq/ Magnesium Sulfate 16 meq/ Multivitamins 10 ml/Chromium/ Copper/Manganese/ Zinc 1 ml/Amino Acids/Dextrose/ Purified Water 1,075 ml @ 45 mls/hr [id number] IV 07/03/24 22:00 07/04/24 21:59 Laboratory Results Laboratory Tests 07/02/24 06:07 07/03/24 04:50 Chemistry Test 07/03/24 04:50 Albumin 2.7 g/dL (3.2-4.8) L Calcium Level 8.6 mg/dL (8.7-10.4) L Magnesium Level 1.8 mg/dL (1.6-2.6) Phosphorus Level 2.9 mg/dL (2.4-5.1) Total Protein 5.0 g/dL (5.7-8.2) L LFT Test 07/03/24 04:50 Alanine Aminotransferase (ALT) < 9 U/L (7-40) Alkaline Phosphatase 61 U/L (46-116) Aspartate Amino Transferase (AST) 16 U/L (13-40) Total Bilirubin 0.6 mg/dL (0.2-1.0) Urinalysis Test 06/26/24 19:12 Urine Color Yellow (Yellow) Urine Clarity Clear (Clear) Urine pH 5.0 (5.0-9.0) Urine Specific [place] 1.020 (1.001-1.035) Urine Protein 1+ (Negative) H Urine Ketones 1+ (Negative) H Urine Blood Negative /uL (Negative) Urine Nitrite Negative (Negative) Urine Bilirubin Negative (Negative) Urine Urobilinogen Normal mg/dL (Negative) Urine Leukocyte Esterase Negative /uL (Negative) Urine RBC 4 /hpf (0 - 4) Urine WBC 1 /hpf (0 - 5) Urine Squamous Epithelial Cells Few /hpf (<5) Urine Bacteria None seen /hpf (None Seen) Urine Hyaline Casts Few /lpf (0 - 2) Urine Mucus Few (None Seen) Urine Creatinine 127.99 mg/dL (30.0-125.0) H Urine Protein/Creatinine Ratio 0.62 Urine Sodium 31 mmol/L (40-220) L Urine Glucose Normal mg/dL (Normal) Urine Total Protein 78.8 mg/dL (1-14) H Blood Gas Results Test 07/02/24 12:37 07/03/24 05:58 Arterial Blood pH 7.459 (7.350-7.450) 7.480 (7.350-7.450) FiO2 % 100.0 40.0 Microbiology Microbiology Date/Time Source Procedure Growth Status 07/02/24 12:36 Sputum Gram Stain - Final Resulted 07/02/24 12:36 Sputum Respiratory Culture - Preliminary Resulted Labs and/or images reviewed: Labs reviewed by me, Image(s) reviewed by me Assessment/Plan Assessment/Plan Impression: -colon cancer -colonic bowel obstruction -chronic kidney disease stage IIIB -microcytic anemia -acute respiratory failure with mechanical ventilation postoperatively Plan: -CPAP trial once patient was awake -weaned sedation -weaned off vasopressor therapy -continue TPN -PUD prophylaxis -DVT prophylaxis -nephrology consultation: Recommendations reviewed -repeat labs and chest x-ray in a.m. Critical care time spent with patient discussing and formulating plan of care: 40 minutes. This does not include time spent performing procedures. This medical document was created using an electronic medical record system with [employer] dictation system. Although this document has been carefully reviewed, there may still be some phonetic and typographical errors. These areas are purely typographical due to imperfections of the software programs, and do not reflect any compromise in the patient's medical care. Plan discussed with: Patient, Other (RN) My Orders Orders - MATT DEUTSCH NP Procedure Category Date Status Time Cpap/Sed Vacation Med ORDERS 07/03/24 Transmitted Weaning 11:36 Hemoglobin & LAB 07/04/24 Verified Hematocrit 04:00 Chest Portable XY 07/03/24 Logged 12:00 Date of Service: Jul 03, 2024 Billing Provider: MATT DEUTSCH NP Common Visit Codes: [id number] CARE 30-74 MIN MATT DEUTSCH NP Jul 03, 2024 12:15
--- NOTE | 2024-07-03 14:07 | DVH ---
EXAM: XY CHEST PORTABLE Indication:Tube placement Technique: Single frontal view of the chest was obtained Comparison: XY CHEST PORTABLE on DOS: 07/02/24, XY CHEST XRAY 1 VIEW on DOS: 06/29/24, XY CHEST SHERIE BLE on DOS: 07/02/24 FINDINGS: Lines and Tubes: Endotracheal tube, enteric catheter and right PICC in satisfactory position. Contras t opacifies stomach. Lungs: Clear Pleura: No effusion. No pneumothorax. Cardiomediastinal contours: Unremarkable Bones: Unremarkable IMPRESSION: Lines and tubes in satisfactory position.
--- NOTE | 2024-07-03 15:33 | DVHPN2 ---
Progress Note - Dictate Date Seen: Jul 03, 2024 Medical Necessity Reason Pt with a Central, PICC or Fol: No The following are medically ne: PICC Line, Guerra Catheter Subjective still intubated today but going to CPAP on TPN vital signs Vital Sign Date Time Temp Pulse Resp B/P (MAP) Pulse Ox O2 Delivery O2 Flow Rate FiO2 07/03/24 13:25 82 16 105/48 (67) 100 30 07/03/24 12:45 97.9 208.2 07/03/24 12:00 Mechanical Ventilator+ 07/02/24 20:52 60.0 Total Intake and Output 07/02/24 07/02/24 07/03/24 15:00 23:00 07:00 Intake Total 162.5 ml 275.25 ml 676.50 ml Output Total 575 ml 520 ml Balance 162.5 ml -299.75 ml 156.50 ml medications Current Medications Medications Dose Ordered Sig/Mayela Route Start Time Stop Time Status Last Admin Dose Admin Metoclopramide HCl 5 mg Q6HP PRN IV 06/26/24 12:00 06/28/24 13:57 5 MG Morphine Sulfate 1 mg Q4HPRN PRN IV 06/26/24 12:00 07/01/24 19:13 1 MG Hydralazine HCl 10 mg Q6HP PRN IV 06/26/24 13:15 06/30/24 01:24 10 MG Heparin Sodium (Porcine) 5,000 units Q12HR SC 06/27/24 22:00 07/03/24 09:20 5,000 UNITS Amino Acids 1,000 ml @ 42 mls/hr [id number] IV 06/29/24 20:00 Cancel Diagnostic Test (Pha) 1 strip Q6HR 06/30/24 00:00 07/03/24 12:00 1 STRIP Insulin Human Regular FOLLOW SLIDING SCALE Q6HR SC 06/30/24 00:00 07/03/24 05:59 4 UNITS Dextrose 50 ml UD IV 06/29/24 19:15 Amino Acids 0 ml @ 0 mls/hr PER PHARMACY IV 07/01/24 22:00 Sodium Chloride 10 ml QSHIFT@10,22 IV 07/01/24 22:00 07/03/24 09:20 10 ML Metronidazole 100 ml @ 100 mls/hr Q8H IV 07/01/24 15:00 11/15/24 06:38 100 MLS/HR Cefazolin Sodium 50 ml @ 100 mls/hr Q8HR IV 07/01/24 14:00 07/03/24 14:07 100 MLS/HR Fentanyl Citrate 250 ml @ 2.5 mls/hr Q24H IV 07/02/24 10:30 07/02/24 10:53 2.5 MLS/HR Midazolam HCl 50 ml @ 1 mls/hr Q24H IV 07/02/24 10:15 07/03/24 05:58 1 MLS/HR Fat Emulsion Intravenous 50 ml/ Potassium Acetate 40 meq/Magnesium Sulfate 8 meq/ Multivitamins 10 ml/Chromium/ Copper/Manganese/ Zinc 1 ml/Amino Acids/Dextrose/ Purified Water 933 ml @ 39 mls/hr [id number] IV 07/02/24 22:00 07/03/24 21:59 07/02/24 21:36 39 MLS/HR Norepinephrine Bitartrate 250 ml @ 3.75 mls/hr Q24H IV 07/02/24 15:15 07/03/24 10:52 3.75 MLS/HR Fat Emulsion Intravenous 50 ml/ Potassium Phosphate 44 meq/ Magnesium Sulfate 16 meq/ Multivitamins 10 ml/Chromium/ Copper/Manganese/ Zinc 1 ml/Amino Acids/Dextrose/ Purified Water 1,075 ml @ 45 mls/hr [id number] IV 07/03/24 22:00 07/04/24 21:59 objective HEENT pupils are reactive Neck is supple CV is S1-S2 regular rate and rhythm Respiratory diminished breath sound at lung bases GI sluggish bowel sounds Extremity no edema PREP PERSON intubated sedated laboratory and microbiology Laboratory Tests 07/03/24 04:50 07/02/24 06:07 Test 07/03/24 04:50 Range/Units Serum Glucose 137 H 74-106 mg/dL Assessment/Plan Acute kidney injury superimposed Chronic Kidney Disease secondary hemodynamic mediated Abdominal pain colonic Ca s/p surgery intubated on ventilator GI bleeding Kidney function is improving TPN nutrition vent per critical care Guerra catheter Strict I&Os kidney ultrasound reported atrophic left kidney Blood pressure control GI consult Surgery stable from renal standpoint will sign off. reconsult if further medical concerns Dietary Evaluation Review Comments: 1) Increased TPN to meet at least 75% of estimated needs 2) Advance pt diet when medically feasible to a 2gm Sodium diet 3) Continue current plan of care Expected Outcomes/Goals: 1) Pt to receive adequate nutrition 2) Pt diet to advance 3) F/U in 2-3 days Plan discussed with: IQRA Painter MD Jul 03, 2024 15:33
--- NOTE | 2024-07-03 18:28 | DVHPN2 ---
Progress Note - Dictate Date Seen: Jul 03, 2024 Medical Necessity Reason Pt with a Central, PICC or Fol: No The following are medically ne: PICC Line, Guerra Catheter Subjective POD # 1 S/P exploratory laparotomy with transverse colon tumor resection with a colonic anastomosis Patient is intubated in ALINE on 30% FiO2 Initial pathology of tumor showed adenocarcinoma DIO drain output 145 mL NG tube output about 400 mL Hemoglobin stable at 9.2 vital signs Vital Sign Date Time Temp Pulse Resp B/P (MAP) Pulse Ox O2 Delivery O2 Flow Rate FiO2 07/03/24 16:17 67 16 99/50 (66) 100 30 07/03/24 15:30 98.1 208.6 07/03/24 14:00 Mechanical Ventilator+ 07/02/24 20:52 60.0 Total Intake and Output 07/02/24 07/02/24 07/03/24 15:00 23:00 07:00 Intake Total 162.5 ml 275.25 ml 676.50 ml Output Total 575 ml 520 ml Balance 162.5 ml -299.75 ml 156.50 ml medications Current Medications Medications Dose Ordered Sig/Mayela Route Start Time Stop Time Status Last Admin Dose Admin Metoclopramide HCl 5 mg Q6HP PRN IV 06/26/24 12:00 06/28/24 13:57 5 MG Morphine Sulfate 1 mg Q4HPRN PRN IV 06/26/24 12:00 07/01/24 19:13 1 MG Hydralazine HCl 10 mg Q6HP PRN IV 06/26/24 13:15 06/30/24 01:24 10 MG Heparin Sodium (Porcine) 5,000 units Q12HR SC 06/27/24 22:00 07/03/24 09:20 5,000 UNITS Amino Acids 1,000 ml @ 42 mls/hr [id number] IV 06/29/24 20:00 Cancel Diagnostic Test (Pha) 1 strip Q6HR 06/30/24 00:00 07/03/24 12:00 1 STRIP Insulin Human Regular FOLLOW SLIDING SCALE Q6HR SC 06/30/24 00:00 07/03/24 05:59 4 UNITS Dextrose 50 ml UD IV 06/29/24 19:15 Amino Acids 0 ml @ 0 mls/hr PER PHARMACY IV 07/01/24 22:00 Sodium Chloride 10 ml QSHIFT@10,22 IV 07/01/24 22:00 07/03/24 09:20 10 ML Metronidazole 100 ml @ 100 mls/hr Q8H IV 07/01/24 15:00 07/03/24 15:00 100 MLS/HR Cefazolin Sodium 50 ml @ 100 mls/hr Q8HR IV 07/01/24 14:00 07/03/24 14:07 100 MLS/HR Fentanyl Citrate 250 ml @ 2.5 mls/hr Q24H IV 07/02/24 10:30 07/02/24 10:53 2.5 MLS/HR Midazolam HCl 50 ml @ 1 mls/hr Q24H IV 07/02/24 10:15 07/03/24 05:58 1 MLS/HR Fat Emulsion Intravenous 50 ml/ Potassium Acetate 40 meq/Magnesium Sulfate 8 meq/ Multivitamins 10 ml/Chromium/ Copper/Manganese/ Zinc 1 ml/Amino Acids/Dextrose/ Purified Water 933 ml @ 39 mls/hr [id number] IV 07/02/24 22:00 07/03/24 21:59 07/02/24 21:36 39 MLS/HR Norepinephrine Bitartrate 250 ml @ 3.75 mls/hr Q24H IV 07/02/24 15:15 07/03/24 10:52 3.75 MLS/HR Fat Emulsion Intravenous 50 ml/ Potassium Phosphate 44 meq/ Magnesium Sulfate 16 meq/ Multivitamins 10 ml/Chromium/ Copper/Manganese/ Zinc 1 ml/Amino Acids/Dextrose/ Purified Water 1,075 ml @ 45 mls/hr [id number] IV 07/03/24 22:00 07/04/24 21:59 objective General Appearance: Intubated and sedated HEENT: Atraumatic, PERRLA, EOMI, Mucous membr. moist/pink Respiratory: Clear to auscultation, Normal air movement Cardiovascular: Regular rate, Normal S1, Normal S2, No murmurs Abdominal: Dressing dry, no bowel activity yet Extremities: No clubbing, No cyanosis, No edema, Normal pulses, No tenderness/swelling Skin: No rashes, No breakdown, No significant lesion Neuro: Normal gait, Normal speech, Strength at 5/5 X4 ext, Normal tone, Sensation intact, Psych/Mental Status: Mental status NL, Mood NL laboratory and microbiology Laboratory Tests 07/03/24 04:50 07/02/24 06:07 Test 07/03/24 04:50 Range/Units Serum Glucose 137 H 74-106 mg/dL Problems(with codes): (1) Adenocarcinoma of transverse colon (2) Bowel obstruction (3) Ileus (4) Obstipation (5) Severe anemia Prognosis Plan Keep NPO IV fluid hydration IV TPN; IV antibiotics NG tube to low intermittent suction Ventilatory support ICU care ongoing CPAP trial after weaning off sedation when patient is more awake Dietary Evaluation Review Comments: 1) Increased TPN to meet at least 75% of estimated needs 2) Advance pt diet when medically feasible to a 2gm Sodium diet 3) Continue current plan of care Expected Outcomes/Goals: 1) Pt to receive adequate nutrition 2) Pt diet to advance 3) F/U in 2-3 days Plan discussed with: Patient (None), Spouse, Other ALMA BRYSON MD Jul 03, 2024 18:28
[2024-07-03] MEDS: TPN PER PHARMACY IV NR (22:06)
[2024-07-04] VITALS (105 sets, daily range): BP systolic 110–157; BP diastolic 47–92; PULSE 69–124; RESP 14–36; TEMP 98.6–100.2; O2SAT 99–100
[2024-07-04 05:24] LABS: Hematocrit 27.9 % (36.0-46.0)
[2024-07-04 05:35] LABS: Alanine Aminotransferase < 9 U/L (7-40); Albumin 2.8 g/dL (3.2-4.8); Alkaline Phosphatase 76 U/L (46-116); Anion Gap 8 (5-15); Aspartate Aminotransferase 15 U/L (13-40); BUN/Creatinine Ratio 34.1 (10.0-20.0); Bilirubin, Total 0.4 mg/dL (0.2-1.0); Blood Urea Nitrogen 42 mg/dL (9-23); Carbon Dioxide 27 mmol/L (20-31); Chloride 108 mmol/L (98-107); Glucose 150 mg/dL (74-106); Magnesium 2.1 mg/dL (1.6-2.6); Phosphorus 2.1 mg/dL (2.4-5.1); Potassium 3.6 mmol/L (3.5-5.1); Sodium 143 mmol/L (136-145); Total Protein 5.2 g/dL (5.7-8.2)
--- NOTE | 2024-07-04 06:30 | DVH ---
CHEST RADIOGRAPH Indication:VENTILATED Technique: Single frontal view of the chest was obtained COMPARISON: XY CHEST PORTABLE on DOS: 07/03/24, XY CHEST PORTABLE on DOS: 07/02/24, XY CHEST XRAY 1 V IEW on DOS: 06/29/24, XY CHEST PORTABLE on DOS: 07/03/24 FINDINGS: Lines and Tubes: Endotracheal tube, enteric catheter and right PICC in satisfactory position. Contras t opacifies stomach. Lungs: Clear Pleura: No effusion. No pneumothorax. Cardiomediastinal contours: Unremarkable Bones: Unremarkable IMPRESSION: Lines and tubes in satisfactory position.
--- NOTE | 2024-07-04 11:02 | DVHPN2 ---
Subjective Patient chemically sedated Reviewed: Care Plan, H&P, Labs, Medications Changes from previous H/P or p: No Changes General: Per HPI Eyes: No Pain, No Vision change, No Conjunctivae inflammation, No Eyelid inflammation, No Other, No Redness ENT: No Ear pain, No Ear discharge, No Nose pain, No Nose discharge, No Nose congestion, No Mouth pain, No Mouth swelling, No Throat pain, No Throat swelling, No Other Cardiovascular: No Chest Pain, No Palpitations, No Orthopnea, No Paroxysmal Noc. Dyspnea, No Edema, No Lt Headedness, No Other Respiratory: No Cough, No Dry, No Shortness of breath, No SOB with excertion, No Wheezing, No Hemoptysis, No Pleuritic Pain, No Sputum, No Other Gastrointestinal: Nausea, Vomiting; No Abdominal Pain, No Diarrhea, No Constipation, No Melena, No Hematochezia, No Other Genitourinary: No Dysuria, No Frequency, No Incontinence, No Hematuria, No Retention, No Other Musculoskeletal: No other, No neck pain, No shoulder pain, No arm pain, No back pain, No hand pain, No leg pain, No foot pain Skin: No Rash, No Lesions, No Jaundice, No Bruising, No Other Objective Vitals Vital Signs Date Time Temp Pulse Resp B/P (MAP) Pulse Ox O2 Delivery O2 Flow Rate FiO2 07/04/24 10:45 99.5 96 17 117/59 (78) 100 211.1 07/04/24 10:39 30 07/04/24 10:00 Mechanical Ventilator+ 07/02/24 20:52 60.0 Intake/Output Intake and Output 07/04/24 07:00 Intake Total 1331.25 ml Output Total 1110 ml Balance 221.25 ml Intake Oral 0 ml IV Total 1331.25 ml Output Urine Total 650 ml Gastric Drainage Total 350 ml Drainage Total 110 ml General Appearance: Alert, Other (Sedated) HEENT: Atraumatic, PERRLA Lungs: Clear to auscultation, Normal air movement, Other (Mechanical ventilation) Cardiovascular: Normal S1, Normal S2 Abdomen: Other (Absent bowel sounds) Genitourinary: No Apparent Abnormalities (Guerra catheter) Neuro: Other (Unable to assess due to sedation) Skin: Dry, Intact Psych/Mental Status: Other (Unable to assess due to sedated) Medications Current Medications Medications Dose Ordered Sig/Mayela Route Start Time Stop Time Status Last Admin Dose Admin Metoclopramide HCl 5 mg Q6HP PRN IV 06/26/24 12:00 06/28/24 13:57 5 MG Morphine Sulfate 1 mg Q4HPRN PRN IV 06/26/24 12:00 07/04/24 10:34 1 MG Hydralazine HCl 10 mg Q6HP PRN IV 06/26/24 13:15 06/30/24 01:24 10 MG Heparin Sodium (Porcine) 5,000 units Q12HR SC 06/27/24 22:00 07/03/24 21:17 5,000 UNITS Amino Acids 1,000 ml @ 42 mls/hr [id number] IV 06/29/24 20:00 Cancel Diagnostic Test (Pha) 1 strip Q6HR 06/30/24 00:00 07/04/24 05:40 1 STRIP Insulin Human Regular FOLLOW SLIDING SCALE Q6HR SC 06/30/24 00:00 07/04/24 05:41 2 UNITS Dextrose 50 ml UD IV 06/29/24 19:15 Amino Acids 0 ml @ 0 mls/hr PER PHARMACY IV 07/01/24 22:00 Sodium Chloride 10 ml QSHIFT@10,22 IV 07/01/24 22:00 07/04/24 09:47 10 ML Metronidazole 100 ml @ 100 mls/hr Q8H IV 07/01/24 15:00 07/04/24 06:06 100 MLS/HR Cefazolin Sodium 50 ml @ 100 mls/hr Q8HR IV 07/01/24 14:00 07/04/24 05:18 100 MLS/HR Fentanyl Citrate 250 ml @ 2.5 mls/hr Q24H IV 07/02/24 10:30 07/04/24 03:22 2.5 MLS/HR Midazolam HCl 50 ml @ 1 mls/hr Q24H IV 07/02/24 10:15 07/03/24 05:58 1 MLS/HR Norepinephrine Bitartrate 250 ml @ 3.75 mls/hr Q24H IV 07/02/24 15:15 07/03/24 10:52 3.75 MLS/HR Fat Emulsion Intravenous 50 ml/ Potassium Phosphate 44 meq/ Magnesium Sulfate 16 meq/ Multivitamins 10 ml/Chromium/ Copper/Manganese/ Zinc 1 ml/Amino Acids/Dextrose/ Purified Water 1,075 ml @ 45 mls/hr [id number] IV 07/03/24 22:00 07/04/24 21:59 07/03/24 22:06 45 MLS/HR Laboratory Results Laboratory Tests 07/02/24 06:07 07/04/24 04:32 Chemistry Test 07/04/24 04:32 Albumin 2.8 g/dL (3.2-4.8) L Calcium Level 9.0 mg/dL (8.7-10.4) Magnesium Level 2.1 mg/dL (1.6-2.6) Phosphorus Level 2.1 mg/dL (2.4-5.1) L Total Protein 5.2 g/dL (5.7-8.2) L LFT Test 07/04/24 04:32 Alanine Aminotransferase (ALT) < 9 U/L (7-40) Alkaline Phosphatase 76 U/L (46-116) Aspartate Amino Transferase (AST) 15 U/L (13-40) Total Bilirubin 0.4 mg/dL (0.2-1.0) Urinalysis Test 06/26/24 19:12 Urine Color Yellow (Yellow) Urine Clarity Clear (Clear) Urine pH 5.0 (5.0-9.0) Urine Specific [place] 1.020 (1.001-1.035) Urine Protein 1+ (Negative) H Urine Ketones 1+ (Negative) H Urine Blood Negative /uL (Negative) Urine Nitrite Negative (Negative) Urine Bilirubin Negative (Negative) Urine Urobilinogen Normal mg/dL (Negative) Urine Leukocyte Esterase Negative /uL (Negative) Urine RBC 4 /hpf (0 - 4) Urine WBC 1 /hpf (0 - 5) Urine Squamous Epithelial Cells Few /hpf (<5) Urine Bacteria None seen /hpf (None Seen) Urine Hyaline Casts Few /lpf (0 - 2) Urine Mucus Few (None Seen) Urine Creatinine 127.99 mg/dL (30.0-125.0) H Urine Protein/Creatinine Ratio 0.62 Urine Sodium 31 mmol/L (40-220) L Urine Glucose Normal mg/dL (Normal) Urine Total Protein 78.8 mg/dL (1-14) H Microbiology Microbiology Date/Time Source Procedure Growth Status 07/02/24 12:36 Sputum Gram Stain - Final Resulted 07/02/24 12:36 Sputum Respiratory Culture - Preliminary Resulted 07/02/24 11:41 Nose MRSA Screen - Final Complete Labs and/or images reviewed: Labs reviewed by me, Image(s) reviewed by me Assessment/Plan Assessment/Plan Impression: -colon cancer -colonic bowel obstruction -chronic kidney disease stage IIIB -microcytic anemia -acute respiratory failure with mechanical ventilation postoperatively Plan: -events: No events overnight. -patient off sedation. CPAP trial once awake -weaned off vasopressor therapy -continue TPN -PUD prophylaxis -DVT prophylaxis -nephrology consultation: Recommendations reviewed -repeat labs and chest x-ray in a.m. Critical care time spent with patient discussing and formulating plan of care: 40 minutes. This does not include time spent performing procedures. This medical document was created using an electronic medical record system with [employer] dictation system. Although this document has been carefully reviewed, there may still be some phonetic and typographical errors. These areas are purely typographical due to imperfections of the software programs, and do not reflect any compromise in the patient's medical care. Plan discussed with: Patient, Other (RN) My Orders Orders - MATT DEUTSCH NP Procedure Category Date Status Time Cpap/Sed Vacation Med ORDERS 07/03/24 Transmitted Weaning 11:36 Chest Portable XY 07/03/24 Resulted 12:00 Chest Portable XY 07/04/24 Resulted 04:00 Abg W/ Co-Ox RT 07/04/24 Logged 05:29 Cpap Trial For Am ORDERS 07/04/24 Transmitted 07:31 Date of Service: Jul 04, 2024 Billing Provider: MATT DEUTSCH NP Common Visit Codes: [id number] CARE 30-74 MIN MATT DEUTSCH NP Jul 04, 2024 11:02
[2024-07-04 14:11] LABS: Base Excess 2.4 mmol/L (-2.0-3.0)
[2024-07-04] MEDS: ACETAMINOPHEN IV 1000 MG/100ML (10MG/ML) IV PRN (15:55)
[2024-07-04] MEDS: TPN PER PHARMACY IV NR (20:39)
--- NOTE | 2024-07-04 21:33 | DVHPN2 ---
Progress Note - Dictate Date Seen: Jul 04, 2024 Medical Necessity Reason Pt with a Central, PICC or Fol: No The following are medically ne: PICC Line, Guerra Catheter Subjective POD # 2 S/P exploratory laparotomy with transverse colon tumor resection with a colonic anastomosis Patient underwent CPAP trial this morning and eventually was extubated this afternoon Initial pathology of tumor showed adenocarcinoma DIO drain output 145 mL NG tube output about 400 mL Hemoglobin stable at 9.0 vital signs Vital Sign Date Time Temp Pulse Resp B/P (MAP) Pulse Ox O2 Delivery O2 Flow Rate FiO2 07/04/24 18:45 99.0 78 21 122/50 (74) 100 210.2 07/04/24 18:00 Cool Aerosol 8 40 40 Total Intake and Output 07/03/24 07/03/24 07/04/24 15:00 23:00 07:00 Intake Total 413.25 ml 443.0 ml 475.0 ml Output Total 550 ml 560 ml Balance 413.25 ml -107.0 ml -85.0 ml medications Current Medications Medications Dose Ordered Sig/Mayela Route Start Time Stop Time Status Last Admin Dose Admin Metoclopramide HCl 5 mg Q6HP PRN IV 06/26/24 12:00 06/28/24 13:57 5 MG Morphine Sulfate 1 mg Q4HPRN PRN IV 06/26/24 12:00 07/04/24 14:56 1 MG Hydralazine HCl 10 mg Q6HP PRN IV 06/26/24 13:15 06/30/24 01:24 10 MG Heparin Sodium (Porcine) 5,000 units Q12HR SC 06/27/24 22:00 07/03/24 21:17 5,000 UNITS Amino Acids 1,000 ml @ 42 mls/hr [id number] IV 06/29/24 20:00 Cancel Diagnostic Test (Pha) 1 strip Q6HR 06/30/24 00:00 07/04/24 17:19 1 STRIP Insulin Human Regular FOLLOW SLIDING SCALE Q6HR SC 06/30/24 00:00 07/04/24 17:17 4 UNITS Dextrose 50 ml UD IV 06/29/24 19:15 Amino Acids 0 ml @ 0 mls/hr PER PHARMACY IV 07/01/24 22:00 Sodium Chloride 10 ml QSHIFT@10,22 IV 07/01/24 22:00 07/04/24 09:47 10 ML Metronidazole 100 ml @ 100 mls/hr Q8H IV 07/01/24 15:00 07/04/24 14:41 100 MLS/HR Cefazolin Sodium 50 ml @ 100 mls/hr Q8HR IV 07/01/24 14:00 07/04/24 13:45 100 MLS/HR Fentanyl Citrate 250 ml @ 2.5 mls/hr Q24H IV 07/02/24 10:30 07/04/24 03:22 2.5 MLS/HR Midazolam HCl 50 ml @ 1 mls/hr Q24H IV 07/02/24 10:15 07/03/24 05:58 1 MLS/HR Norepinephrine Bitartrate 250 ml @ 3.75 mls/hr Q24H IV 07/02/24 15:15 07/03/24 10:52 3.75 MLS/HR Fat Emulsion Intravenous 50 ml/ Potassium Phosphate 44 meq/ Magnesium Sulfate 16 meq/ Multivitamins 10 ml/Chromium/ Copper/Manganese/ Zinc 1 ml/Amino Acids/Dextrose/ Purified Water 1,075 ml @ 45 mls/hr [id number] IV 07/03/24 22:00 07/04/24 21:59 07/03/24 22:06 45 MLS/HR Fat Emulsion Intravenous 100 ml/Potassium Phosphate 66 meq/ Magnesium Sulfate 12 meq/ Multivitamins 10 ml/Chromium/ Copper/Manganese/ Zinc 1 ml/Amino Acids/Dextrose/ Purified Water 1,129 ml @ 47 mls/hr Q24H2M IV 07/04/24 22:00 07/05/24 19:59 07/04/24 20:39 47 MLS/HR objective General Appearance: Intubated and sedated HEENT: Atraumatic, PERRLA, EOMI, Mucous membr. moist/pink Respiratory: Clear to auscultation, Normal air movement Cardiovascular: Regular rate, Normal S1, Normal S2, No murmurs Abdominal: Dressing dry, no bowel activity yet Extremities: No clubbing, No cyanosis, No edema, Normal pulses, No tenderness/swelling Skin: No rashes, No breakdown, No significant lesion Neuro: Normal gait, Normal speech, Strength at 5/5 X4 ext, Normal tone, Sensation intact, Psych/Mental Status: Mental status NL, Mood NL laboratory and microbiology Laboratory Tests 07/04/24 04:32 07/02/24 06:07 Test 07/04/24 04:32 Range/Units Serum Glucose 150 H 74-106 mg/dL Problems(with codes): (1) Adenocarcinoma of transverse colon (2) Bowel obstruction (3) Ileus (4) Obstipation (5) Severe anemia (6) Dehydration (7) Vomiting Prognosis Plan Continue IV fluid hydration Currently patient is on IV TPN Patient should undergo swallow evaluation in the next 24-48 hours If the patient is able to swallow we will advance diet and taper down IV TPN once cleared by surgical consult IV antibiotics, supportive care Dietary Evaluation Review Comments: 1) Increased TPN to meet at least 75% of estimated needs 2) Advance pt diet when medically feasible to a 2gm Sodium diet 3) Continue current plan of care Expected Outcomes/Goals: 1) Pt to receive adequate nutrition 2) Pt diet to advance 3) F/U in 2-3 days Plan discussed with: Patient, Other (ALINE Nurse) ALMA BRYSON MD Jul 04, 2024 21:33
--- NOTE | 2024-07-04 22:11 | DVHINCON2 ---
Date of service: Jul 04, 2024 Referring Physician Cheyanne Villanueva NP Reason for Consultation Acute hypoxic respiratory failure requiring vent support History of Present Illness A 74-year-old woman with PMHx of hypertension presented to the ED on 06/26/24 with c/o nausea and vomiting. She reports having nausea and vomiting almost 2-3 weeks, with associated weight loss - unable to quantify. Patient reported being unable to keep any fluids or food down in the past week. Admits to having bilious emesis, no hematemesis. Patient states her symptoms started after she tasted a spoonful of food at a restaurant about 2-3 weeks prior to presentation. Patient is a poor historian, uncertain what other medication she takes besides carvedilol. She denied abdominal tenderness, body aches or fever, or any other associated sx. Patient was admitted for further care. Pulmonary consultation is requested for evaluation and management of acute hypoxic respiratory failure requiring vent support. Review of Systems: 14-point review of systems negative unless otherwise noted above. Past Medical History: Hypertension Past Surgical History: Hysterectomy Medications: Reviewed. Allergies: No known drug allergies. Family History: Mother w/ hypertension, arthritis, breast cancer Father with diabetes mellitus, alcoholism Social History: Nonsmoker. No alcohol or illicit drug use. Family History: Arthritis G8 MOTHER Diabetes mellitus G8 FATHER FH: breast cancer G8 MOTHER FHx: alcoholism G8 FATHER Hypertension G8 MOTHER Allergies: Coded Allergies: NO KNOWN ALLERGIES (Unverified , 06/26/24) Current Medications Current Medications Medications (Trade) Dose Ordered Sig/Mayela Route PRN Reason Start Time Stop Time Status Last Admin Fat Emulsion Intravenous 100 ml/Potassium Phosphate 66 meq/ Magnesium Sulfate 12 meq/ Multivitamins 10 ml/Chromium/ Copper/Manganese/ Zinc 1 ml/Amino Acids/Dextrose/ Purified Water 1,129 ml @ 47 mls/hr Q24H2M IV 07/04/24 22:00 07/05/24 19:59 07/04/24 20:39 Acetaminophen (Ofirmev) 1,000 mg [id number] PRN IV PAIN SCALE 1-3 OR TEMP>100.4 07/04/24 15:15 07/04/24 15:27 DC 07/04/24 16:01 Vital Signs Vital Signs Date Time Temp Pulse Resp B/P (MAP) Pulse Ox O2 Delivery O2 Flow Rate FiO2 07/04/24 18:45 99.0 78 21 122/50 (74) 100 210.2 07/04/24 18:00 Cool Aerosol 8 40 40 Physical Exam Gen.: Patient lying in bed in no apparent distress. On supplemental oxygen. Head: Normocephalic, atraumatic. Eyes: EOMI/PERRLA. Ears: Normal hearing. Normal anatomy. Neck/trachea: Trachea midline, supple. Nose: Normal external anatomy. Mouth: Moist mucous membranes. Chest: Decreased air entry bilaterally. No wheezing or rhonchi. Cardiovascular: Positive S1, positive S2. Regular rate and rhythm. Abdomen: Positive bowel sounds in all 4 quadrants. Soft, non-tender, non- distended. : Deferred. Rectal: Deferred. Skin: Warm, dry. Intact. Extremities: 2+ radial pulses bilaterally. No lower extremity edema. Neuro: Awake, alert, oriented x3. No gross motor or sensory deficits. Cranial nerves II through XII intact. Gait not assessed. Labs/Diagnostic Data Labs Test 07/04/24 17:11 07/04/24 14:05 07/04/24 04:32 07/03/24 05:58 Range/Units POC Glucose 181 H 70-106 mg/dl Blood Gas Specimen Type Arterial Blood Gas Sample Site Right radial Blood Gas Patient Temperature 37.0 Arterial Blood Date Drawn [id number] Arterial Blood pH 7.470 H 7.350-7.450 Arterial Blood Partial Pressure CO2 36.5 32.0-45.0 mmHg Arterial Blood Partial Pressure O2 106.9 83.0-108.0 mmHg Arterial Blood HCO3 26.0 21.0-28.0 mmol/L Arterial Blood Oxygen Saturation 97.9 94.0-98.0 % Arterial Blood Base Excess 2.4 -2.0-3.0 mmol/L Arterial Blood Oxyhemoglobin 96.8 94.0-98.0 % Arterial Blood Carboxyhemoglobin 0.8 0.5-1.5 % Arterial Blood Methemoglobin 0.3 0.0-1.5 % Angelo Test Modified Blood Gas Total Hemoglobin 10.90 L 12.0-16.0 g/dL Blood Gas Modality Vent - cpap Blood Gas Spontaneous Rate 22 FiO2 % 30.0 Blood Gas Pressure Support 8 Blood Gas PEEP or CPAP 5.0 Hemoglobin 9.0 L 12.2-16.2 g/dL Hematocrit 27.9 #L 36.0-46.0 % Sodium Level 143 136-145 mmol/L Potassium Level 3.6 3.5-5.1 mmol/L Chloride Level 108 H 98-107 mmol/L Carbon Dioxide Level 27 20-31 mmol/L Anion Gap 8 5-15 Blood Urea Nitrogen 42 H 9-23 mg/dL Creatinine 1.23 H 0.550-1.02 mg/dL Glomerular Filtration Rate Calc 46 >90 mL/min BUN/Creatinine Ratio 34.1 H 10.0-20.0 Serum Glucose 150 H 74-106 mg/dL Calcium Level 9.0 8.7-10.4 mg/dL Phosphorus Level 2.1 L 2.4-5.1 mg/dL Magnesium Level 2.1 1.6-2.6 mg/dL Total Bilirubin 0.4 0.2-1.0 mg/dL Aspartate Amino Transferase (AST) 15 13-40 U/L Alanine Aminotransferase (ALT) < 9 7-40 U/L Alkaline Phosphatase 76 46-116 U/L Total Protein 5.2 L 5.7-8.2 g/dL Albumin 2.8 L 3.2-4.8 g/dL Blood Gas Set Respiration Rate 16.0 Blood Gas Tidal Volume 450.0 Test 07/02/24 12:37 07/02/24 06:07 07/01/24 05:54 06/30/24 05:50 Range/Units Blood Gas Critical Value Read Back Yes Blood Gas Notified Whom Dr. luz hicks Blood Gas Notified Time [id number] Blood Gas Notified By White Blood Count 4.3 #L 4.4-10.8 10^3/uL Red Blood Count 4.51 4.0-5.20 10^6/uL Mean Corpuscular Volume 69.1 L 80.0-100.0 fL Mean Corpuscular Hemoglobin 20.4 L 28.0-32.0 pg Mean Corpuscular Hemoglobin Concent 29.6 L 32.0-36.0 g/dL Red Cell Distribution Width 28.0 H 11.8-14.3 % Platelet Count 122 L 140-450 10^3/uL Mean Platelet Volume 8.8 6.9-10.8 fL Neutrophils (%) (Auto) 84.6 H 37.0-80.0 % Lymphocytes (%) (Auto) 5.9 L 10.0-50.0 % Monocytes (%) (Auto) 7.8 0.0-12.0 % Eosinophils (%) (Auto) 0.3 0.0-7.0 % Basophils (%) (Auto) 1.4 0.0-2.0 % Neutrophils # (Auto) 3.7 1.6-8.6 10 ^3/uL Lymphocytes # (Auto) 0.3 L 0.4-5.4 10 ^3/uL Monocytes # (Auto) 0.3 0-1.3 10 ^3/uL Eosinophils # (Auto) 0 0-0.8 10 ^3/uL Basophils # (Auto) 0.1 0-0.2 10 ^3/uL Nucleated Red Blood Cells 2.1 % Platelet Estimate Decreased Hypochromasia (manual) Moderate Anisocytosis (manual) Moderate Microcytosis Moderate Target Cells Moderate [place] Cells Moderate Triglycerides Level 148 < 150 mg/dL Prothrombin Time 11.1 9.3-11.8 sec Prothrombin Time INR 1.05 0.9-1.15 Activated Partial Thromboplast Time 27.3 24.5-34.5 SEC Differential Total Cells Counted 100.0 100 Neutrophils % (Manual) 85 H 37.0-80.0 Band Neutrophils % (Manual) 1 Lymphocytes % (Manual) 14 10.0-50.0 Monocytes % (Manual) 0 0-12 Eosinophils % (Manual) 0 0-7 Basophils % (Manual) 0 0.0-2.0 Metamyelocytes % (manual) 0 Myelocytes % (Manual) 0 Promyelocytes % (Manual) 0 Blast Cells % (Manual) 0 Reactive Lymphocytes 0 Test 06/29/24 04:47 06/26/24 19:12 06/26/24 17:11 06/26/24 13:25 Range/Units Ovalocytes Few Carcinoembryonic Antigen 67.24 <=5.0 ng/mL Urine Color Yellow Yellow Urine Clarity Clear Clear Urine pH 5.0 5.0-9.0 Urine Specific [place] 1.020 1.001-1.035 Urine Protein 1+ H Negative Urine Ketones 1+ H Negative Urine Blood Negative Negative /uL Urine Nitrite Negative Negative Urine Bilirubin Negative Negative Urine Urobilinogen Normal Negative mg/dL Urine Leukocyte Esterase Negative Negative /uL Urine RBC 4 0 - 4 /hpf Urine WBC 1 0 - 5 /hpf Urine Squamous Epithelial Cells Few <5 /hpf Urine Bacteria None seen None Seen /hpf Urine Hyaline Casts Few 0 - 2 /lpf Urine Mucus Few None Seen Urine Creatinine 127.99 H 30.0-125.0 mg/dL Urine Protein/Creatinine Ratio 0.62 Urine Sodium 31 L 40-220 mmol/L Urine Glucose Normal Normal mg/dL Urine Total Protein 78.8 H 1-14 mg/dL Parathyroid Hormone (Intact) 58.3 18.4-80.1 pg/mL Influenza Type A Antigen Negative Negative Influenza Type B Antigen Negative Negative SARS-CoV-2 Antigen (Rapid) Negative NEGATIVE Test 06/26/24 09:15 Range/Units Uric Acid 19.3 H 3.1-7.8 mg/dL B-Type Natriuretic Peptide 133.21 0-100 pg/mL Amylase Level 110 30-118 U/L Vitamin D 25-Hydroxy 64.7 30.0-100 ng/mL Microbiology Date/Time Source Procedure Growth Status 07/02/24 12:36 Sputum Gram Stain - Final Resulted 07/02/24 12:36 Sputum Respiratory Culture - Preliminary Resulted 07/02/24 11:41 Nose MRSA Screen - Final Complete Assessment Impression: Acute hypoxic respiratory failure On mechanical ventilator Colon cancer Colonic bowel obstruction Chronic kidney disease Plan: Patient underwent CPAP this PM, tolerated. She was extubated uneventfully, placed on 8 LPM aerosol Titrate to keep O2 sats 90% or above. Taper O2 as tolerated. Continue antibiotics Pain control Avoid oversedation TPN for nutritional support NG tube to low intermittent suction. Monitor output. Surgery recs appreciated. Obtain labs including CBC, CMP, mag, phos for AM. Monitor renal function. Monitor electrolytes. Supplement as necessary. Monitor ins and outs. DVT prophylaxis. Prognosis: Poor given patient's multiple co-morbidities. Condition: Critical Rest of plan per hospitalist and other consultants. A total of 35 minutes of critical care time was spent reviewing the patient record, examining the patient, making a diagnostic and therapeutic plan, discussing this plan with the medical personnel, following up on diagnostic studies and following the patient for clinical stability excluding any and all p rocedures. At least 50% of this time was spent in direct, [id number] contact. Thank you Cheyanne Villanueva NP, for allowing me to participate in this patient's care. Further recommendations will depend on the patient's clinical course. Please do not hesitate to contact me if you have any questions or concerns. This medical document was created using an electronic medical record system with [email or web address] computerized dictation system. Although these documentations are being carefully reviewed, there may still be some phonetic and typographical changes. The errors are purely typographical, due to imperfection on the software program, and do not reflect any compromise in the patient's medical care. Plan discussed with: Other (YUE Valles, MILLY Villanueva MD) AMANDA TREJO MD Jul 04, 2024 22:11
[2024-07-05] VITALS (49 sets, daily range): BP systolic 130–159; BP diastolic 58–74; PULSE 81–108; RESP 12–28; TEMP 98.1–99.7; O2SAT 93–100
[2024-07-05 05:21] LABS: Hemoglobin 9.7 g/dL (12.2-16.2); White Blood Cell 15.8 10^3/uL (4.4-10.8)
[2024-07-05 05:23] LABS: Hematocrit 30.5 % (36.0-46.0); Mean Corpuscular Hemoglobin 22.7 pg (28.0-32.0); Mean Corpuscular Hgb Conc. 31.7 g/dL (32.0-36.0); Mean Corpuscular Volume 71.6 fL (80.0-100.0); Platelet Count (auto) 154 10^3/uL (140-450); Red Blood Cells 4.26 10^6/uL (4.0-5.20); Red Cell Distribution Width 27.3 % (11.8-14.3)
[2024-07-05 05:26] LABS: Basophils % (manual) 0 (0.0-2.0); Blast Cells 0; Metamyelocytes % 0; Myelocytes % 0; Promyelocytes % 0; Reactive Lymphocytes 0
[2024-07-05 06:01] LABS: Alanine Aminotransferase < 9 U/L (7-40); Albumin 2.9 g/dL (3.2-4.8); Alkaline Phosphatase 96 U/L (46-116); Anion Gap 8 (5-15); Aspartate Aminotransferase 19 U/L (13-40); BUN/Creatinine Ratio 36.3 (10.0-20.0); Blood Urea Nitrogen 41 mg/dL (9-23); Carbon Dioxide 27 mmol/L (20-31); Chloride 107 mmol/L (98-107); Glucose 140 mg/dL (74-106); Magnesium 2.3 mg/dL (1.6-2.6); Phosphorus 3.6 mg/dL (2.4-5.1); Potassium 3.8 mmol/L (3.5-5.1); Sodium 142 mmol/L (136-145); Triglycerides 88 mg/dL (< 150)
[2024-07-05 06:02] LABS: Bilirubin, Total 0.4 mg/dL (0.2-1.0); Total Protein 5.5 g/dL (5.7-8.2)
[2024-07-05 06:23] LABS: Anisocytosis Moderate; Band Neutrophils % (manual) 1; Eosinophils % (manual) 1 (0-7); Lymphocytes % (manual) 11 (10.0-50.0); Monocytes % (manual) 6 (0-12); Platelet Estimate Adequate; Target Cell FEW
[2024-07-05 06:24] LABS: Hypochromia Moderate
--- NOTE | 2024-07-05 07:38 | DVHPN2 ---
Progress Note Date Seen: Jul 05, 2024 Medical Necessity Reason Pt with a Central, PICC or Fol: No The following are medically ne: PICC Line, Guerra Catheter Objective vital signs Vital Sign Date Time Temp Pulse Resp B/P (MAP) Pulse Ox O2 Delivery O2 Flow Rate FiO2 07/05/24 07:00 99.1 82 19 136/65 (88) 100 210.4 07/05/24 06:00 Nasal Cannula* 2 28 Total Intake and Output 07/04/24 07/04/24 07/05/24 15:00 23:00 07:00 Intake Total 610 ml 414 ml 551 ml Output Total 710 ml 640 ml Balance 610 ml -296 ml -89 ml medications Current Medications Medications Dose Ordered Sig/Mayela Route Start Time Stop Time Status Last Admin Dose Admin Metoclopramide HCl 5 mg Q6HP PRN IV 06/26/24 12:00 06/28/24 13:57 5 MG Morphine Sulfate 1 mg Q4HPRN PRN IV 06/26/24 12:00 07/05/24 04:50 1 MG Hydralazine HCl 10 mg Q6HP PRN IV 06/26/24 13:15 06/30/24 01:24 10 MG Heparin Sodium (Porcine) 5,000 units Q12HR SC 06/27/24 22:00 07/04/24 22:01 5,000 UNITS Amino Acids 1,000 ml @ 42 mls/hr [id number] IV 06/29/24 20:00 Cancel Diagnostic Test (Pha) 1 strip Q6HR 06/30/24 00:00 07/05/24 06:10 1 STRIP Insulin Human Regular FOLLOW SLIDING SCALE Q6HR SC 06/30/24 00:00 07/04/24 23:59 2 UNITS Dextrose 50 ml UD IV 06/29/24 19:15 Amino Acids 0 ml @ 0 mls/hr PER PHARMACY IV 07/01/24 22:00 Sodium Chloride 10 ml QSHIFT@10,22 IV 07/01/24 22:00 07/04/24 22:01 10 ML Metronidazole 100 ml @ 100 mls/hr Q8H IV 07/01/24 15:00 07/05/24 06:45 100 MLS/HR Cefazolin Sodium 50 ml @ 100 mls/hr Q8HR IV 07/01/24 14:00 07/05/24 06:10 100 MLS/HR Fentanyl Citrate 250 ml @ 2.5 mls/hr Q24H IV 07/02/24 10:30 07/04/24 03:22 2.5 MLS/HR Midazolam HCl 50 ml @ 1 mls/hr Q24H IV 07/02/24 10:15 07/03/24 05:58 1 MLS/HR Norepinephrine Bitartrate 250 ml @ 3.75 mls/hr Q24H IV 07/02/24 15:15 07/03/24 10:52 3.75 MLS/HR Fat Emulsion Intravenous 100 ml/Potassium Phosphate 66 meq/ Magnesium Sulfate 12 meq/ Multivitamins 10 ml/Chromium/ Copper/Manganese/ Zinc 1 ml/Amino Acids/Dextrose/ Purified Water 1,129 ml @ 47 mls/hr Q24H2M IV 07/04/24 22:00 07/05/24 19:59 07/04/24 20:39 47 MLS/HR laboratory and microbiology Laboratory Tests 07/05/24 04:36 Test 07/05/24 04:36 Range/Units Serum Glucose 140 H 74-106 mg/dL Problem List/Assessment/Plan Problem List/Assessment/Plan 07/02/24 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 NPO TILL RESUMPTION OF BOWEL ACTIVITY Plan discussed with: Patient Dietary Evaluation Review Comments: 1) Increased TPN to meet at least 75% of estimated needs 2) Advance pt diet when medically feasible to a 2gm Sodium diet 3) Continue current plan of care Expected Outcomes/Goals: 1) Pt to receive adequate nutrition 2) Pt diet to advance 3) F/U in 2-3 days MELVIN MARTIN MD Jul 05, 2024 07:38
--- NOTE | 2024-07-05 09:15 | DVHPN2 ---
Progress Note - Dictate Date Seen: Jul 05, 2024 Medical Necessity Reason Pt with a Central, PICC or Fol: No The following are medically ne: PICC Line, Guerra Catheter Subjective POD # 3 S/P exploratory laparotomy with transverse colon tumor resection with a colonic anastomosis Patient was extubated yesterday NG tube output is somewhat dark but minimal about 350 mL per shift Patient is hemodynamically stable and saturating well on nasal cannula Initial pathology of tumor showed adenocarcinoma DIO drain output 145 mL Hemoglobin stable at 9.7 vital signs Vital Sign Date Time Temp Pulse Resp B/P (MAP) Pulse Ox O2 Delivery O2 Flow Rate FiO2 07/05/24 08:00 83 07/05/24 08:00 19 100 Nasal Cannula* 2 28 07/05/24 08:00 99.1 136/60 (85) 210.4 Total Intake and Output 07/04/24 07/04/24 07/05/24 15:00 23:00 07:00 Intake Total 610 ml 414 ml 551 ml Output Total 710 ml 640 ml Balance 610 ml -296 ml -89 ml medications Current Medications Medications Dose Ordered Sig/Mayela Route Start Time Stop Time Status Last Admin Dose Admin Metoclopramide HCl 5 mg Q6HP PRN IV 06/26/24 12:00 06/28/24 13:57 5 MG Morphine Sulfate 1 mg Q4HPRN PRN IV 06/26/24 12:00 07/05/24 04:50 1 MG Hydralazine HCl 10 mg Q6HP PRN IV 06/26/24 13:15 06/30/24 01:24 10 MG Heparin Sodium (Porcine) 5,000 units Q12HR SC 06/27/24 22:00 07/04/24 22:01 5,000 UNITS Amino Acids 1,000 ml @ 42 mls/hr [id number] IV 06/29/24 20:00 Cancel Diagnostic Test (Pha) 1 strip Q6HR 06/30/24 00:00 07/05/24 06:10 1 STRIP Insulin Human Regular FOLLOW SLIDING SCALE Q6HR SC 06/30/24 00:00 07/04/24 23:59 2 UNITS Dextrose 50 ml UD IV 06/29/24 19:15 Amino Acids 0 ml @ 0 mls/hr PER PHARMACY IV 07/01/24 22:00 Sodium Chloride 10 ml QSHIFT@10,22 IV 07/01/24 22:00 07/04/24 22:01 10 ML Metronidazole 100 ml @ 100 mls/hr Q8H IV 07/01/24 15:00 07/05/24 06:45 100 MLS/HR Cefazolin Sodium 50 ml @ 100 mls/hr Q8HR IV 07/01/24 14:00 07/05/24 06:10 100 MLS/HR Fentanyl Citrate 250 ml @ 2.5 mls/hr Q24H IV 07/02/24 10:30 07/04/24 03:22 2.5 MLS/HR Midazolam HCl 50 ml @ 1 mls/hr Q24H IV 07/02/24 10:15 07/03/24 05:58 1 MLS/HR Norepinephrine Bitartrate 250 ml @ 3.75 mls/hr Q24H IV 07/02/24 15:15 07/03/24 10:52 3.75 MLS/HR Fat Emulsion Intravenous 100 ml/Potassium Phosphate 66 meq/ Magnesium Sulfate 12 meq/ Multivitamins 10 ml/Chromium/ Copper/Manganese/ Zinc 1 ml/Amino Acids/Dextrose/ Purified Water 1,129 ml @ 47 mls/hr Q24H2M IV 07/04/24 22:00 07/05/24 19:59 07/04/24 20:39 47 MLS/HR Pantoprazole Sodium 40 mg DAILY IV 07/05/24 10:00 UNV objective General Appearance: Intubated and sedated HEENT: Atraumatic, PERRLA, EOMI, Mucous membr. moist/pink Respiratory: Clear to auscultation, Normal air movement Cardiovascular: Regular rate, Normal S1, Normal S2, No murmurs Abdominal: Dressing dry, no bowel activity yet Extremities: No clubbing, No cyanosis, No edema, Normal pulses, No tenderness/swelling Skin: No rashes, No breakdown, No significant lesion Neuro: Normal gait, Normal speech, Strength at 5/5 X4 ext, Normal tone, Sensation intact, Psych/Mental Status: Mental status NL, Mood NL laboratory and microbiology Laboratory Tests 07/05/24 04:36 Test 07/05/24 04:36 Range/Units Serum Glucose 140 H 74-106 mg/dL Problems(with codes): (1) Adenocarcinoma of transverse colon (2) Bowel obstruction (3) Ileus (4) Obstipation (5) Severe anemia (6) ROZINA (acute kidney injury) (7) Vomiting Prognosis Plan Continue IV antibiotics Continue IV TPN Surgical consult recommended keep NPO until patient has some bowel activity There was no passage of gas or bowel movement yet Physical therapy Cut back on narcotics and sedation Dietary Evaluation Review Comments: 1) Increased TPN to meet at least 75% of estimated needs 2) Advance pt diet when medically feasible to a 2gm Sodium diet 3) Continue current plan of care Expected Outcomes/Goals: 1) Pt to receive adequate nutrition 2) Pt diet to advance 3) F/U in 2-3 days Plan discussed with: Patient, Other (ICU Nurse) ALMA BRYSON MD Jul 05, 2024 09:15
[2024-07-05] MEDS: PANTOPRAZOLE 40 MG/10 ML VIAL INJ IV SCH (09:26)
--- NOTE | 2024-07-05 10:39 | DVHPN2 ---
Subjective Patient alert and oriented x4. Denies any symptoms. Patient denies having any bowel sounds/flatus. Reviewed: Care Plan, H&P, Labs, Medications Changes from previous H/P or p: No Changes General: Per HPI Eyes: No Pain, No Vision change, No Conjunctivae inflammation, No Eyelid inflammation, No Other, No Redness ENT: No Ear pain, No Ear discharge, No Nose pain, No Nose discharge, No Nose congestion, No Mouth pain, No Mouth swelling, No Throat pain, No Throat swelling, No Other Cardiovascular: No Chest Pain, No Palpitations, No Orthopnea, No Paroxysmal Noc. Dyspnea, No Edema, No Lt Headedness, No Other Respiratory: No Cough, No Dry, No Shortness of breath, No SOB with excertion, No Wheezing, No Hemoptysis, No Pleuritic Pain, No Sputum, No Other Gastrointestinal: Nausea, Vomiting; No Abdominal Pain, No Diarrhea, No Constipation, No Melena, No Hematochezia, No Other Genitourinary: No Dysuria, No Frequency, No Incontinence, No Hematuria, No Retention, No Other Musculoskeletal: No other, No neck pain, No shoulder pain, No arm pain, No back pain, No hand pain, No leg pain, No foot pain Skin: No Rash, No Lesions, No Jaundice, No Bruising, No Other Objective Vitals Vital Signs Date Time Temp Pulse Resp B/P (MAP) Pulse Ox O2 Delivery O2 Flow Rate FiO2 07/05/24 10:00 83 07/05/24 10:00 19 100 Nasal Cannula* 2 28 07/05/24 08:00 99.1 136/60 (85) 210.4 Intake/Output Intake and Output 07/05/24 07:00 Intake Total 1575 ml Output Total 1350 ml Balance 225 ml Intake Oral 0 ml IV Total 1575 ml Output Urine Total 900 ml Gastric Drainage Total 350 ml Drainage Total 100 ml General Appearance: Alert, Oriented X3, Cooperative, No acute distress HEENT: Atraumatic, PERRLA Lungs: Clear to auscultation, Normal air movement, Other (Mechanical ventilation) Cardiovascular: Normal S1, Normal S2 Abdomen: Other (Absent bowel sounds) Genitourinary: No Apparent Abnormalities (Guerra catheter) Neuro: Normal speech, Other (Unable to assess due to sedation) Skin: Dry, Intact Psych/Mental Status: Other (Unable to assess due to sedated) Medications Current Medications Medications Dose Ordered Sig/Mayela Route Start Time Stop Time Status Last Admin Dose Admin Metoclopramide HCl 5 mg Q6HP PRN IV 06/26/24 12:00 06/28/24 13:57 5 MG Morphine Sulfate 1 mg Q4HPRN PRN IV 06/26/24 12:00 07/05/24 04:50 1 MG Hydralazine HCl 10 mg Q6HP PRN IV 06/26/24 13:15 06/30/24 01:24 10 MG Heparin Sodium (Porcine) 5,000 units Q12HR SC 06/27/24 22:00 07/05/24 09:27 5,000 UNITS Amino Acids 1,000 ml @ 42 mls/hr [id number] IV 06/29/24 20:00 Cancel Diagnostic Test (Pha) 1 strip Q6HR 06/30/24 00:00 07/05/24 06:10 1 STRIP Insulin Human Regular FOLLOW SLIDING SCALE Q6HR MT 06/30/24 00:00 07/04/24 23:59 2 UNITS Dextrose 50 ml UD IV 06/29/24 19:15 Amino Acids 0 ml @ 0 mls/hr PER PHARMACY IV 07/01/24 22:00 Sodium Chloride 10 ml QSHIFT@10,22 IV 07/01/24 22:00 07/05/24 09:26 10 ML Metronidazole 100 ml @ 100 mls/hr Q8H IV 07/01/24 15:00 07/05/24 06:45 100 MLS/HR Cefazolin Sodium 50 ml @ 100 mls/hr Q8HR IV 07/01/24 14:00 07/05/24 06:10 100 MLS/HR Fentanyl Citrate 250 ml @ 2.5 mls/hr Q24H IV 07/02/24 10:30 07/04/24 03:22 2.5 MLS/HR Midazolam HCl 50 ml @ 1 mls/hr Q24H IV 07/02/24 10:15 07/03/24 05:58 1 MLS/HR Norepinephrine Bitartrate 250 ml @ 3.75 mls/hr Q24H IV 07/02/24 15:15 07/03/24 10:52 3.75 MLS/HR Fat Emulsion Intravenous 100 ml/Potassium Phosphate 66 meq/ Magnesium Sulfate 12 meq/ Multivitamins 10 ml/Chromium/ Copper/Manganese/ Zinc 1 ml/Amino Acids/Dextrose/ Purified Water 1,129 ml @ 47 mls/hr Q24H2M IV 07/04/24 22:00 07/05/24 19:59 07/04/24 20:39 47 MLS/HR Pantoprazole Sodium 40 mg DAILY IV 07/05/24 10:00 07/05/24 09:26 40 MG Laboratory Results Laboratory Tests 07/05/24 04:36 Chemistry Test 07/05/24 04:36 Albumin 2.9 g/dL (3.2-4.8) L Calcium Level 9.0 mg/dL (8.7-10.4) Magnesium Level 2.3 mg/dL (1.6-2.6) Phosphorus Level 3.6 mg/dL (2.4-5.1) Total Protein 5.5 g/dL (5.7-8.2) L Lipid panel Test 07/05/24 04:36 Triglycerides Level 88 mg/dL (< 150) LFT Test 07/05/24 04:36 Alanine Aminotransferase (ALT) < 9 U/L (7-40) Alkaline Phosphatase 96 U/L (46-116) Aspartate Amino Transferase (AST) 19 U/L (13-40) Total Bilirubin 0.4 mg/dL (0.2-1.0) Urinalysis Test 06/26/24 19:12 Urine Color Yellow (Yellow) Urine Clarity Clear (Clear) Urine pH 5.0 (5.0-9.0) Urine Specific [place] 1.020 (1.001-1.035) Urine Protein 1+ (Negative) H Urine Ketones 1+ (Negative) H Urine Blood Negative /uL (Negative) Urine Nitrite Negative (Negative) Urine Bilirubin Negative (Negative) Urine Urobilinogen Normal mg/dL (Negative) Urine Leukocyte Esterase Negative /uL (Negative) Urine RBC 4 /hpf (0 - 4) Urine WBC 1 /hpf (0 - 5) Urine Squamous Epithelial Cells Few /hpf (<5) Urine Bacteria None seen /hpf (None Seen) Urine Hyaline Casts Few /lpf (0 - 2) Urine Mucus Few (None Seen) Urine Creatinine 127.99 mg/dL (30.0-125.0) H Urine Protein/Creatinine Ratio 0.62 Urine Sodium 31 mmol/L (40-220) L Urine Glucose Normal mg/dL (Normal) Urine Total Protein 78.8 mg/dL (1-14) H Blood Gas Results Test 07/04/24 14:05 Arterial Blood pH 7.470 (7.350-7.450) FiO2 % 30.0 Microbiology Microbiology Date/Time Source Procedure Growth Status 07/02/24 12:36 Sputum Gram Stain - Final Complete 07/02/24 12:36 Respiratory Culture - Final Escherichia coli Complete 07/02/24 11:41 Nose MRSA Screen - Final Complete Labs and/or images reviewed: Labs reviewed by me, Image(s) reviewed by me Assessment/Plan Assessment/Plan Impression: -colon cancer -colonic bowel obstruction -chronic kidney disease stage IIIB -microcytic anemia -acute respiratory failure with mechanical ventilation postoperatively Plan: -events: No events overnight. Patient was successfully extubated yesterday. Leukocytosis noted. -continue antibiotic therapy with Ancef and Flagyl -absent bowel sounds. Continue TPN -physical therapy -PUD prophylaxis -DVT prophylaxis -nephrology consultation: Recommendations reviewed -repeat labs and chest x-ray in a.m. Critical care time spent with patient discussing and formulating plan of care: 40 minutes. This does not include time spent performing procedures. This medical document was created using an electronic medical record system with [employer] dictation system. Although this document has been carefully reviewed, there may still be some phonetic and typographical errors. These areas are purely typographical due to imperfections of the software programs, and do not reflect any compromise in the patient's medical care. Plan discussed with: Patient, Other (RN) My Orders Orders - MATT DEUTSCH NP Procedure Category Date Status Time Basic Metabolic Panel LAB 07/06/24 Verified 05:00 Basic Metabolic Panel LAB 07/07/24 Verified 05:00 Complete Blood Count LAB 07/06/24 Verified 05:00 Complete Blood Count LAB 07/07/24 Verified 05:00 Extubate ROLAND 07/04/24 In Process 14:18 Pt Request For Service PT 07/05/24 Logged 07:26 Date of Service: Jul 05, 2024 Billing Provider: MATT DEUTSCH NP Common Visit Codes: [id number] INP/OBS CARE(HIGH) MATT DEUTSCH NP Jul 05, 2024 10:39
[2024-07-05] MEDS: TPN PER PHARMACY IV NR (21:26)
--- NOTE | 2024-07-05 21:34 | DVHPN2 ---
Progress Note - Dictate Date Seen: Jul 05, 2024 Medical Necessity Reason Pt with a Central, PICC or Fol: Yes The following are medically ne: PICC Line, Morin Catheter Reason for morin catheter: Strict I&O Subjective Patient seen and examined at bedside. Remains on supplemental oxygen Overnight events reviewed. vital signs Vital Sign Date Time Temp Pulse Resp B/P (MAP) Pulse Ox O2 Delivery O2 Flow Rate FiO2 07/05/24 20:00 91 20 93 Nasal Cannula* 2 28 07/05/24 17:00 98.3 133/72 (92) 98.3 Total Intake and Output 07/04/24 07/04/24 07/05/24 15:00 23:00 07:00 Intake Total 610 ml 414 ml 551 ml Output Total 710 ml 640 ml Balance 610 ml -296 ml -89 ml medications Current Medications Medications Dose Ordered Sig/Mayela Route Start Time Stop Time Status Last Admin Dose Admin Metoclopramide HCl 5 mg Q6HP PRN IV 06/26/24 12:00 06/28/24 13:57 5 MG Morphine Sulfate 1 mg Q4HPRN PRN IV 06/26/24 12:00 07/05/24 15:29 1 MG Hydralazine HCl 10 mg Q6HP PRN IV 06/26/24 13:15 06/30/24 01:24 10 MG Heparin Sodium (Porcine) 5,000 units Q12HR SC 06/27/24 22:00 07/05/24 09:27 5,000 UNITS Amino Acids 1,000 ml @ 42 mls/hr [id number] IV 06/29/24 20:00 Cancel Diagnostic Test (Pha) 1 strip Q6HR 06/30/24 00:00 07/05/24 18:14 1 STRIP Insulin Human Regular FOLLOW SLIDING SCALE Q6HR SC 06/30/24 00:00 07/05/24 12:21 4 UNITS Dextrose 50 ml UD IV 06/29/24 19:15 Amino Acids 0 ml @ 0 mls/hr PER PHARMACY IV 07/01/24 22:00 Sodium Chloride 10 ml QSHIFT@10,22 IV 07/01/24 22:00 07/05/24 09:26 10 ML Metronidazole 100 ml @ 100 mls/hr Q8H IV 07/01/24 15:00 07/05/24 13:44 100 MLS/HR Cefazolin Sodium 50 ml @ 100 mls/hr Q8HR IV 07/01/24 14:00 07/05/24 12:21 100 MLS/HR Fentanyl Citrate 250 ml @ 2.5 mls/hr Q24H IV 07/02/24 10:30 07/04/24 03:22 2.5 MLS/HR Midazolam HCl 50 ml @ 1 mls/hr Q24H IV 07/02/24 10:15 07/03/24 05:58 1 MLS/HR Norepinephrine Bitartrate 250 ml @ 3.75 mls/hr Q24H IV 07/02/24 15:15 07/03/24 10:52 3.75 MLS/HR Pantoprazole Sodium 40 mg DAILY IV 07/05/24 10:00 07/05/24 09:26 40 MG Fat Emulsion Intravenous 100 ml/Potassium Acetate 20 meq/ Potassium Phosphate 22 meq/ Magnesium Sulfate 4 meq/ Multivitamins 10 ml/Chromium/ Copper/Manganese/ Zinc 1 ml/Amino Acids/Dextrose/ Purified Water 1,127 ml @ 47 mls/hr [id number] IV 07/05/24 22:00 07/06/24 19:59 objective Gen.: Patient lying in bed in no apparent distress. On supplemental oxygen. Head: Normocephalic, atraumatic. Eyes: EOMI/PERRLA. Ears: Normal hearing. Normal anatomy. Neck/trachea: Trachea midline, supple. Nose: Normal external anatomy. Mouth: Moist mucous membranes. Chest: Decreased air entry bilaterally. No wheezing or rhonchi. Cardiovascular: Positive S1, positive S2. Regular rate and rhythm. Abdomen: Positive bowel sounds in all 4 quadrants. Soft, non-tender, non- distended. : Deferred. Rectal: Deferred. Skin: Warm, dry. Intact. Extremities: 2+ radial pulses bilaterally. No lower extremity edema. Neuro: Awake, alert, oriented x3. No gross motor or sensory deficits. Cranial nerves II through XII intact. Gait not assessed. laboratory and microbiology Laboratory Tests 07/05/24 04:36 Test 07/05/24 04:36 Range/Units Serum Glucose 140 H 74-106 mg/dL Assessment/Plan Impression: Acute hypoxic respiratory failure On mechanical ventilator Colon cancer Colonic bowel obstruction Chronic kidney disease Events: On supplemental O2 at 2 LPM NC Taper O2 as tolerated Head of bed elevation Aspiration precautions Patient is stable for downgrade from the pulmonary standpoint. Continue antibiotics Surgery recs appreciated. Labs and imaging reviewed. Rest of plan as noted below. Plan: S/p extubation on 07/04/24 Supplemental O2 at 2 LPM NC Titrate to keep O2 sats above 92% Taper O2 as tolerated. Continue antibiotics Pain control Avoid oversedation TPN for nutritional support NG tube to low intermittent suction. Monitor output. Surgery recs appreciated. Obtain labs including CBC, CMP, mag, phos. Monitor renal function. Monitor electrolytes. Supplement as necessary. Monitor ins and outs. DVT prophylaxis. Prognosis: Poor given patient's multiple co-morbidities. Rest of plan per hospitalist and other consultants. Thank you Cheyanne Villanueva NP, for allowing me to participate in this patient's care. Further recommendations will depend on the patient's clinical course. Please do not hesitate to contact me if you have any questions or concerns. This medical document was created using an electronic medical record system with [employer] computerized dictation system. Although these documentations are being carefully reviewed, there may still be some phonetic and typographical changes. The errors are purely typographical, due to imperfection on the software program, and do not reflect any compromise in the patient's medical care. Dietary Evaluation Review Comments: 1) Increased TPN to meet at least 75% of estimated needs 2) Advance pt diet when medically feasible to a 2gm Sodium diet 3) Continue current plan of care Expected Outcomes/Goals: 1) Pt to receive adequate nutrition 2) Pt diet to advance 3) F/U in 2-3 days Plan discussed with: Patient, Other (YUE Veliz) AMANDA TREJO MD Jul 05, 2024 21:34
[2024-07-06] VITALS (8 sets, daily range): BP systolic 117–156; BP diastolic 60–77; PULSE 93–106; RESP 16–20; TEMP 98–98.9; O2SAT 95–100
[2024-07-06 06:32] LABS: Hemoglobin 8.6 g/dL (12.2-16.2)
[2024-07-06 06:42] LABS: Hematocrit 26.9 % (36.0-46.0); Mean Corpuscular Hgb Conc. 31.8 g/dL (32.0-36.0); Mean Corpuscular Volume 72.4 fL (80.0-100.0); Platelet Count (auto) 165 10^3/uL (140-450); Red Blood Cells 3.72 10^6/uL (4.0-5.20)
[2024-07-06 06:50] LABS: Red Cell Distribution Width 27.7 % (11.8-14.3)
[2024-07-06 06:52] LABS: Basophils % (manual) 0 (0.0-2.0); Blast Cells 0; Metamyelocytes % 0; Myelocytes % 0; Promyelocytes % 0; Reactive Lymphocytes 0
[2024-07-06 06:55] LABS: Alanine Aminotransferase < 9 U/L (7-40); Alkaline Phosphatase 83 U/L (46-116); Anion Gap 8 (5-15); BUN/Creatinine Ratio 31.4 (10.0-20.0); Blood Urea Nitrogen 32 mg/dL (9-23); Calcium 8.7 mg/dL (8.7-10.4); Carbon Dioxide 25 mmol/L (20-31); Chloride 107 mmol/L (98-107); Glucose 174 mg/dL (74-106); Magnesium 2.1 mg/dL (1.6-2.6); Potassium 3.7 mmol/L (3.5-5.1); Sodium 140 mmol/L (136-145)
[2024-07-06 06:56] LABS: Albumin 2.7 g/dL (3.2-4.8); Aspartate Aminotransferase 24 U/L (13-40); Bilirubin, Total 0.3 mg/dL (0.2-1.0)
[2024-07-06 08:08] LABS: Band Neutrophils % (manual) 3; Eosinophils % (manual) 1 (0-7); Lymphocytes % (manual) 14 (10.0-50.0); Monocytes % (manual) 7 (0-12); Smudge Cells 1 /100 WBC
[2024-07-06 08:09] LABS: Anisocytosis Moderate; Hypochromia Moderate; Large Platelets FEW; Ovalocytes FEW; Platelet Estimate Adequa; Target Cell FEW
--- NOTE | 2024-07-06 13:25 | DVHPN2 ---
Subjective Patient alert and oriented x4. Denies any symptoms. Patient denies having any bowel sounds/flatus. Reviewed: Care Plan, H&P, Labs, Medications Changes from previous H/P or p: No Changes General: Per HPI Eyes: No Pain, No Vision change, No Conjunctivae inflammation, No Eyelid inflammation, No Other, No Redness ENT: No Ear pain, No Ear discharge, No Nose pain, No Nose discharge, No Nose congestion, No Mouth pain, No Mouth swelling, No Throat pain, No Throat swelling, No Other Cardiovascular: No Chest Pain, No Palpitations, No Orthopnea, No Paroxysmal Noc. Dyspnea, No Edema, No Lt Headedness, No Other Respiratory: No Cough, No Dry, No Shortness of breath, No SOB with excertion, No Wheezing, No Hemoptysis, No Pleuritic Pain, No Sputum, No Other Gastrointestinal: Nausea, Vomiting; No Abdominal Pain, No Diarrhea, No Constipation, No Melena, No Hematochezia, No Other Genitourinary: No Dysuria, No Frequency, No Incontinence, No Hematuria, No Retention, No Other Musculoskeletal: No other, No neck pain, No shoulder pain, No arm pain, No back pain, No hand pain, No leg pain, No foot pain Skin: No Rash, No Lesions, No Jaundice, No Bruising, No Other Objective Vitals Vital Signs Date Time Temp Pulse Resp B/P (MAP) Pulse Ox O2 Delivery O2 Flow Rate FiO2 07/06/24 09:00 98.1 95 17 145/73 (97) 98 98.1 07/05/24 20:00 Nasal Cannula* 2 28 Intake/Output Intake and Output 07/06/24 07:00 Intake Total 2518.5 ml Output Total 1090 ml Balance 1428.5 ml Intake Oral 0 ml IV Total 2518.5 ml Output Urine Total 850 ml Gastric Drainage Total 175 ml Drainage Total 65 ml General Appearance: Alert, Oriented X3, Cooperative, No acute distress HEENT: Atraumatic, PERRLA Lungs: Clear to auscultation, Normal air movement, Other (Mechanical ventilation) Cardiovascular: Normal S1, Normal S2 Abdomen: Other (Absent bowel sounds) Genitourinary: No Apparent Abnormalities (Guerra catheter) Neuro: Normal speech, Other (Unable to assess due to sedation) Skin: Dry, Intact Psych/Mental Status: Other (Unable to assess due to sedated) Medications Current Medications Medications Dose Ordered Sig/Mayela Route Start Time Stop Time Status Last Admin Dose Admin Metoclopramide HCl 5 mg Q6HP PRN IV 06/26/24 12:00 06/28/24 13:57 5 MG Morphine Sulfate 1 mg Q4HPRN PRN IV 06/26/24 12:00 07/05/24 15:29 1 MG Hydralazine HCl 10 mg Q6HP PRN IV 06/26/24 13:15 06/30/24 01:24 10 MG Heparin Sodium (Porcine) 5,000 units Q12HR SC 06/27/24 22:00 07/06/24 10:05 5,000 UNITS Amino Acids 1,000 ml @ 42 mls/hr [id number] IV 06/29/24 20:00 Cancel Diagnostic Test (Pha) 1 strip Q6HR 06/30/24 00:00 07/06/24 12:50 1 STRIP Insulin Human Regular FOLLOW SLIDING SCALE Q6HR SC 06/30/24 00:00 07/06/24 12:52 2 UNITS Dextrose 50 ml UD IV 06/29/24 19:15 Amino Acids 0 ml @ 0 mls/hr PER PHARMACY IV 07/01/24 22:00 Sodium Chloride 10 ml QSHIFT@10,22 IV 07/01/24 22:00 07/06/24 10:00 10 ML Metronidazole 100 ml @ 100 mls/hr Q8H IV 07/01/24 15:00 07/06/24 06:34 100 MLS/HR Cefazolin Sodium 50 ml @ 100 mls/hr Q8HR IV 07/01/24 14:00 07/06/24 05:31 100 MLS/HR Fentanyl Citrate 250 ml @ 2.5 mls/hr Q24H IV 07/02/24 10:30 07/04/24 03:22 2.5 MLS/HR Midazolam HCl 50 ml @ 1 mls/hr Q24H IV 07/02/24 10:15 07/03/24 05:58 1 MLS/HR Norepinephrine Bitartrate 250 ml @ 3.75 mls/hr Q24H IV 07/02/24 15:15 07/03/24 10:52 3.75 MLS/HR Pantoprazole Sodium 40 mg DAILY IV 07/05/24 10:00 07/06/24 09:48 40 MG Fat Emulsion Intravenous 100 ml/Potassium Acetate 20 meq/ Potassium Phosphate 22 meq/ Magnesium Sulfate 4 meq/ Multivitamins 10 ml/Chromium/ Copper/Manganese/ Zinc 1 ml/Amino Acids/Dextrose/ Purified Water 1,127 ml @ 47 mls/hr [id number] IV 07/05/24 22:00 07/06/24 19:59 07/05/24 21:26 47 MLS/HR Fat Emulsion Intravenous 100 ml/Sodium Acetate 20 meq/Potassium Acetate 20 meq/ Potassium Phosphate 44 meq/ Magnesium Sulfate 8 meq/ Multivitamins 10 ml/Chromium/ Copper/Manganese/ Zinc 1 ml/Insulin Human Regular 4 units/Amino Acids/ Dextrose/Purified Water 1,143.04 ml @ 48 mls/hr [id number] IV 07/06/24 22:00 07/07/24 21:59 Laboratory Results Laboratory Tests 07/06/24 06:01 Chemistry Test 07/06/24 06:01 Albumin 2.7 g/dL (3.2-4.8) L Calcium Level 8.7 mg/dL (8.7-10.4) Magnesium Level 2.1 mg/dL (1.6-2.6) Phosphorus Level 3.0 mg/dL (2.4-5.1) Total Protein 5.0 g/dL (5.7-8.2) L LFT Test 07/06/24 06:01 Alanine Aminotransferase (ALT) < 9 U/L (7-40) Alkaline Phosphatase 83 U/L (46-116) Aspartate Amino Transferase (AST) 24 U/L (13-40) Total Bilirubin 0.3 mg/dL (0.2-1.0) Urinalysis Test 06/26/24 19:12 Urine Color Yellow (Yellow) Urine Clarity Clear (Clear) Urine pH 5.0 (5.0-9.0) Urine Specific [place] 1.020 (1.001-1.035) Urine Protein 1+ (Negative) H Urine Ketones 1+ (Negative) H Urine Blood Negative /uL (Negative) Urine Nitrite Negative (Negative) Urine Bilirubin Negative (Negative) Urine Urobilinogen Normal mg/dL (Negative) Urine Leukocyte Esterase Negative /uL (Negative) Urine RBC 4 /hpf (0 - 4) Urine WBC 1 /hpf (0 - 5) Urine Squamous Epithelial Cells Few /hpf (<5) Urine Bacteria None seen /hpf (None Seen) Urine Hyaline Casts Few /lpf (0 - 2) Urine Mucus Few (None Seen) Urine Creatinine 127.99 mg/dL (30.0-125.0) H Urine Protein/Creatinine Ratio 0.62 Urine Sodium 31 mmol/L (40-220) L Urine Glucose Normal mg/dL (Normal) Urine Total Protein 78.8 mg/dL (1-14) H Microbiology Microbiology Date/Time Source Procedure Growth Status 07/02/24 12:36 Sputum Gram Stain - Final Complete 07/02/24 12:36 Respiratory Culture - Final Escherichia coli Complete 07/02/24 11:41 Nose MRSA Screen - Final Complete Labs and/or images reviewed: Labs reviewed by me, Image(s) reviewed by me Assessment/Plan Assessment/Plan Impression: -colon cancer -colonic bowel obstruction -chronic kidney disease stage IIIB -microcytic anemia -acute respiratory failure with mechanical ventilation postoperatively Plan: -events: No events overnight. Patient was transferred to telemetry floor. Patient now reporting having positive flatus. Bowel sounds auscultated with hypoactive bowel sounds. -change antibiotic therapy to Rocephin and Flagyl -TPN, electrolyte replacement per pharmacy -physical therapy -incentive spirometer q.1 hour while awake -PUD prophylaxis -DVT prophylaxis -repeat labs in a.m. Total time spent with patient discussing and formulating plan of care: 35 minutes. This medical document was created using an electronic medical record system with [employer] dictation system. Although this document has been carefully reviewed, there may still be some phonetic and typographical errors. These areas are purely typographical due to imperfections of the software programs, and do not reflect any compromise in the patient's medical care. Plan discussed with: Patient, Other (RN) My Orders Orders - MATT DEUTSCH NP Procedure Category Date Status Time Transfer Orders XFER 07/05/24 Transmitted 14:54 Iron Ivpb PHA 07/07/24 Verified 12:00 Date of Service: Jul 06, 2024 Billing Provider: MATT DEUTSCH NP Common Visit Codes: [id number] INP/OBS CARE(HIGH) MATT DEUTSCH NP Jul 06, 2024 13:25
--- NOTE | 2024-07-06 17:41 | DVHPN2 ---
Progress Note - Dictate Date Seen: Jul 06, 2024 Medical Necessity Reason Pt with a Central, PICC or Fol: Yes The following are medically ne: PICC Line, Morin Catheter Reason for morin catheter: Strict I&O Subjective POD # 4 S/P exploratory laparotomy with transverse colon tumor resection with a colonic anastomosis Patient was downgraded to telemetry NG tube output down to 175 mL an decreasing Patient is passing flatus Patient is hemodynamically stable and saturating well on nasal cannula Initial pathology of tumor showed adenocarcinoma DIO drain output 65 mL Hemoglobin stable at 8.6 vital signs Vital Sign Date Time Temp Pulse Resp B/P (MAP) Pulse Ox O2 Delivery O2 Flow Rate FiO2 07/06/24 13:00 98.7 94 16 145/69 (94) 100 98.7 07/05/24 20:00 Nasal Cannula* 2 28 Total Intake and Output 07/05/24 07/05/24 07/06/24 15:00 23:00 07:00 Intake Total 651 ml 1294.5 ml 573 ml Output Total 540 ml 550 ml Balance 651 ml 754.5 ml 23 ml medications Current Medications Medications Dose Ordered Sig/Mayela Route Start Time Stop Time Status Last Admin Dose Admin Metoclopramide HCl 5 mg Q6HP PRN IV 06/26/24 12:00 06/28/24 13:57 5 MG Morphine Sulfate 1 mg Q4HPRN PRN IV 06/26/24 12:00 07/05/24 15:29 1 MG Hydralazine HCl 10 mg Q6HP PRN IV 06/26/24 13:15 06/30/24 01:24 10 MG Heparin Sodium (Porcine) 5,000 units Q12HR SC 06/27/24 22:00 07/06/24 10:05 5,000 UNITS Amino Acids 1,000 ml @ 42 mls/hr [id number] IV 06/29/24 20:00 Cancel Diagnostic Test (Pha) 1 strip Q6HR 06/30/24 00:00 07/06/24 12:50 1 STRIP Insulin Human Regular FOLLOW SLIDING SCALE Q6HR SC 06/30/24 00:00 07/06/24 12:52 2 UNITS Dextrose 50 ml UD IV 06/29/24 19:15 Amino Acids 0 ml @ 0 mls/hr PER PHARMACY IV 07/01/24 22:00 Sodium Chloride 10 ml QSHIFT@10,22 IV 07/01/24 22:00 07/06/24 10:00 10 ML Metronidazole 100 ml @ 100 mls/hr Q8H IV 07/01/24 15:00 07/06/24 15:17 100 MLS/HR Pantoprazole Sodium 40 mg DAILY IV 07/05/24 10:00 07/06/24 09:48 40 MG Fat Emulsion Intravenous 100 ml/Potassium Acetate 20 meq/ Potassium Phosphate 22 meq/ Magnesium Sulfate 4 meq/ Multivitamins 10 ml/Chromium/ Copper/Manganese/ Zinc 1 ml/Amino Acids/Dextrose/ Purified Water 1,127 ml @ 47 mls/hr [id number] IV 07/05/24 22:00 07/06/24 19:59 07/05/24 21:26 47 MLS/HR Fat Emulsion Intravenous 100 ml/Sodium Acetate 20 meq/Potassium Acetate 20 meq/ Potassium Phosphate 44 meq/ Magnesium Sulfate 8 meq/ Multivitamins 10 ml/Chromium/ Copper/Manganese/ Zinc 1 ml/Insulin Human Regular 4 units/Amino Acids/ Dextrose/Purified Water 1,143.04 ml @ 48 mls/hr [id number] IV 07/06/24 22:00 07/07/24 21:59 Iron Sucrose 110 ml @ 110 mls/hr DAILY@1200 IV 07/07/24 12:00 07/11/24 12:59 objective General Appearance: Intubated and sedated HEENT: Atraumatic, PERRLA, EOMI, Mucous membr. moist/pink Respiratory: Clear to auscultation, Normal air movement Cardiovascular: Regular rate, Normal S1, Normal S2, No murmurs Abdominal: Dressing dry, no bowel activity yet Extremities: No clubbing, No cyanosis, No edema, Normal pulses, No tenderness/swelling Skin: No rashes, No breakdown, No significant lesion Neuro: Normal gait, Normal speech, Strength at 5/5 X4 ext, Normal tone, Sensation intact, Psych/Mental Status: Mental status NL, Mood NL laboratory and microbiology Laboratory Tests 07/06/24 06:01 Test 07/06/24 06:01 Range/Units Serum Glucose 174 H 74-106 mg/dL Problems(with codes): (1) Adenocarcinoma of transverse colon (2) Bowel obstruction (3) Ileus (4) Obstipation (5) Severe anemia (6) ROZINA (acute kidney injury) Prognosis Plan If the patient continues to pass gas and they NG tube output is minimal then we can consider clamping the NG tube and starting or an ice chips Surgical follow up I will sign off on this case at this time If any further GI intervention is required please contact [facility] on-call Outpatient follow up with me for repeat colonoscopy in six months Awaiting final pathology results, Oncology consultation Dietary Evaluation Review Comments: 1) Increased TPN to meet at least 75% of estimated needs 2) Advance pt diet when medically feasible to a 2gm Sodium diet 3) Continue current plan of care Expected Outcomes/Goals: 1) Pt to receive adequate nutrition 2) Pt diet to advance 3) F/U in 2-3 days Plan discussed with: Patient ALMA BRYSON MD Jul 06, 2024 17:41
[2024-07-06] MEDS: TPN PER PHARMACY IV NR (21:38)
--- NOTE | 2024-07-06 23:46 | DVHPN2 ---
Progress Note - Dictate Date Seen: Jul 06, 2024 Medical Necessity Reason Pt with a Central, PICC or Fol: Yes The following are medically ne: PICC Line, Morin Catheter Reason for morin catheter: Strict I&O Subjective Patient seen and examined at bedside. Remains on supplemental oxygen Overnight events reviewed. vital signs Vital Sign Date Time Temp Pulse Resp B/P (MAP) Pulse Ox O2 Delivery O2 Flow Rate FiO2 07/06/24 21:00 98.3 93 19 156/74 (101) 100 98.3 07/06/24 08:00 Nasal Cannula* 2 28 Total Intake and Output 07/05/24 07/05/24 07/06/24 15:00 23:00 07:00 Intake Total 651 ml 1294.5 ml 573 ml Output Total 540 ml 550 ml Balance 651 ml 754.5 ml 23 ml medications Current Medications Medications Dose Ordered Sig/Mayela Route Start Time Stop Time Status Last Admin Dose Admin Metoclopramide HCl 5 mg Q6HP PRN IV 06/26/24 12:00 06/28/24 13:57 5 MG Morphine Sulfate 1 mg Q4HPRN PRN IV 06/26/24 12:00 07/06/24 20:01 1 MG Hydralazine HCl 10 mg Q6HP PRN IV 06/26/24 13:15 06/30/24 01:24 10 MG Heparin Sodium (Porcine) 5,000 units Q12HR SC 06/27/24 22:00 07/06/24 21:18 5,000 UNITS Amino Acids 1,000 ml @ 42 mls/hr [id number] IV 06/29/24 20:00 Cancel Diagnostic Test (Pha) 1 strip Q6HR 06/30/24 00:00 07/06/24 18:35 1 STRIP Insulin Human Regular FOLLOW SLIDING SCALE Q6HR SC 06/30/24 00:00 07/06/24 18:35 2 UNITS Dextrose 50 ml UD IV 06/29/24 19:15 Amino Acids 0 ml @ 0 mls/hr PER PHARMACY IV 07/01/24 22:00 Sodium Chloride 10 ml QSHIFT@10,22 IV 07/01/24 22:00 07/06/24 21:38 10 ML Metronidazole 100 ml @ 100 mls/hr Q8H IV 07/01/24 15:00 07/06/24 23:07 100 MLS/HR Pantoprazole Sodium 40 mg DAILY IV 07/05/24 10:00 07/06/24 09:48 40 MG Fat Emulsion Intravenous 100 ml/Sodium Acetate 20 meq/Potassium Acetate 20 meq/ Potassium Phosphate 44 meq/ Magnesium Sulfate 8 meq/ Multivitamins 10 ml/Chromium/ Copper/Manganese/ Zinc 1 ml/Insulin Human Regular 4 units/Amino Acids/ Dextrose/Purified Water 1,143.04 ml @ 48 mls/hr [id number] IV 07/06/24 22:00 07/07/24 21:59 07/06/24 21:38 48 MLS/HR Iron Sucrose 110 ml @ 110 mls/hr DAILY@1200 IV 07/07/24 12:00 07/11/24 12:59 objective Gen.: Patient lying in bed in no apparent distress. On supplemental oxygen. Head: Normocephalic, atraumatic. Eyes: EOMI/PERRLA. Ears: Normal hearing. Normal anatomy. Neck/trachea: Trachea midline, supple. Nose: Normal external anatomy. Mouth: Moist mucous membranes. Chest: Decreased air entry bilaterally. No wheezing or rhonchi. Cardiovascular: Positive S1, positive S2. Regular rate and rhythm. Abdomen: Positive bowel sounds in all 4 quadrants. Soft, non-tender, non- distended. : Deferred. Rectal: Deferred. Skin: Warm, dry. Intact. Extremities: 2+ radial pulses bilaterally. No lower extremity edema. Neuro: Awake, alert, oriented x3. No gross motor or sensory deficits. Cranial nerves II through XII intact. Gait not assessed. laboratory and microbiology Laboratory Tests 07/06/24 06:01 Test 07/06/24 06:01 Range/Units Serum Glucose 174 H 74-106 mg/dL Assessment/Plan Impression: Acute hypoxic respiratory failure Colon cancer Colonic bowel obstruction Chronic kidney disease Events: On supplemental O2 at 2 LPM NC Taper O2 as tolerated Head of bed elevation Aspiration precautions Continue antibiotics. Leucocytosis, improving. Surgery recs appreciated. Monitor Hgb, trending down to 8.6 g/dL. Labs and imaging reviewed. Rest of plan as noted below. Plan: S/p extubation on 07/04/24 Supplemental O2 at 2 LPM NC Titrate to keep O2 sats above 92% Taper O2 as tolerated. Continue antibiotics Pain control Avoid oversedation TPN for nutritional support NG tube to low intermittent suction. Monitor output. Surgery recs appreciated. Obtain labs including CBC, CMP, mag, phos. Monitor renal function. Monitor electrolytes. Supplement as necessary. Monitor ins and outs. DVT prophylaxis. Prognosis: Poor given patient's multiple co-morbidities. Rest of plan per hospitalist and other consultants. Thank you Cheyanne Villanueva NP, for allowing me to participate in this patient's care. Further recommendations will depend on the patient's clinical course. Please do not hesitate to contact me if you have any questions or concerns. This medical document was created using an electronic medical record system with [employer] dictation system. Although these documentations are being carefully reviewed, there may still be some phonetic and typographical changes. The errors are purely typographical, due to imperfection on the software program, and do not reflect any compromise in the patient's medical care. Dietary Evaluation Review Comments: 1) Increased TPN to meet at least 75% of estimated needs 2) Advance pt diet when medically feasible to a 2gm Sodium diet 3) Continue current plan of care Expected Outcomes/Goals: 1) Pt to receive adequate nutrition 2) Pt diet to advance 3) F/U in 2-3 days Plan discussed with: Other (YUE Duque, INTERNAL COMMUNICATIONS MANAGER) AMANDA TREJO MD Jul 06, 2024 23:46
[2024-07-07] VITALS (7 sets, daily range): BP systolic 150–163; BP diastolic 70–84; PULSE 81–100; RESP 15–20; TEMP 97.9–98.5; O2SAT 95–100
[2024-07-07 06:57] LABS: Basophils # (auto) 0 10 ^3/uL (0-0.2); Basophils % (auto) 0.2 % (0.0-2.0); Eosinophils # (auto) 0.1 10 ^3/uL (0-0.8); Eosinophils % (auto) 0.7 % (0.0-7.0); Hematocrit 25.1 % (36.0-46.0); Lymphocytes # (auto) 1.9 10 ^3/uL (0.4-5.4); White Blood Cell 12.4 10^3/uL (4.4-10.8)
[2024-07-07 06:59] LABS: Hemoglobin 7.9 g/dL (12.2-16.2); Lymphocytes % (auto) 15.5 % (10.0-50.0); Mean Corpuscular Hemoglobin 22.8 pg (28.0-32.0); Mean Corpuscular Hgb Conc. 31.5 g/dL (32.0-36.0); Mean Corpuscular Volume 72.3 fL (80.0-100.0); Monocytes # (auto) 0.7 10 ^3/uL (0-1.3); Monocytes % (auto) 5.5 % (0.0-12.0); Neutrophils # (auto) 9.7 10 ^3/uL (1.6-8.6); Neutrophils % (auto) 78.1 % (37.0-80.0); Nucleated Red Blood Cells % 0.1 %; Platelet Count (auto) 212 10^3/uL (140-450); Red Blood Cells 3.47 10^6/uL (4.0-5.20)
[2024-07-07 07:10] LABS: Albumin 2.3 g/dL (3.2-4.8); Alkaline Phosphatase 86 U/L (46-116); Anion Gap 9 (5-15); Aspartate Aminotransferase 27 U/L (13-40); Blood Urea Nitrogen 35 mg/dL (9-23); Calcium 7.9 mg/dL (8.7-10.4); Carbon Dioxide 26 mmol/L (20-31); Chloride 106 mmol/L (98-107); Glucose 159 mg/dL (74-106); Magnesium 1.9 mg/dL (1.6-2.6); Sodium 141 mmol/L (136-145)
[2024-07-07 07:11] LABS: Bilirubin, Total 0.4 mg/dL (0.2-1.0); Total Protein 4.1 g/dL (5.7-8.2)
[2024-07-07 07:12] LABS: Alanine Aminotransferase < 9 U/L (7-40)
[2024-07-07 07:31] LABS: Red Cell Distribution Width 27.6 % (11.8-14.3)
[2024-07-07 08:56] LABS: Anisocytosis Moderate; Hypochromia Moderate; Platelet Estimate Adequate
[2024-07-07 08:57] LABS: Target Cell FEW
--- NOTE | 2024-07-07 11:49 | DVHPN2 ---
Subjective Patient alert and oriented x4. Denies any symptoms. Patient denies having any bowel sounds/flatus. Reviewed: Care Plan, H&P, Labs, Medications Changes from previous H/P or p: No Changes General: Per HPI Eyes: No Pain, No Vision change, No Conjunctivae inflammation, No Eyelid inflammation, No Other, No Redness ENT: No Ear pain, No Ear discharge, No Nose pain, No Nose discharge, No Nose congestion, No Mouth pain, No Mouth swelling, No Throat pain, No Throat swelling, No Other Cardiovascular: No Chest Pain, No Palpitations, No Orthopnea, No Paroxysmal Noc. Dyspnea, No Edema, No Lt Headedness, No Other Respiratory: No Cough, No Dry, No Shortness of breath, No SOB with excertion, No Wheezing, No Hemoptysis, No Pleuritic Pain, No Sputum, No Other Gastrointestinal: Nausea, Vomiting; No Abdominal Pain, No Diarrhea, No Constipation, No Melena, No Hematochezia, No Other Genitourinary: No Dysuria, No Frequency, No Incontinence, No Hematuria, No Retention, No Other Musculoskeletal: No other, No neck pain, No shoulder pain, No arm pain, No back pain, No hand pain, No leg pain, No foot pain Skin: No Rash, No Lesions, No Jaundice, No Bruising, No Other Objective Vitals Vital Signs Date Time Temp Pulse Resp B/P (MAP) Pulse Ox O2 Delivery O2 Flow Rate FiO2 07/07/24 05:35 93 16 140/84 07/07/24 05:00 98.2 100 98.2 07/06/24 20:00 Nasal Cannula* 2 28 Intake/Output Intake and Output 07/07/24 07:00 Intake Total 1064 ml Output Total 1530 ml Balance -466 ml Intake Oral 200 ml IV Total 864 ml Output Urine Total 1300 ml Gastric Drainage Total 135 ml Drainage Total 95 ml General Appearance: Alert, Oriented X3, Cooperative, No acute distress HEENT: Atraumatic, PERRLA Lungs: Clear to auscultation, Normal air movement, Other (Mechanical ventilation) Cardiovascular: Normal S1, Normal S2 Abdomen: Other (Absent bowel sounds) Genitourinary: No Apparent Abnormalities (Guerra catheter) Neuro: Normal speech, Other (Unable to assess due to sedation) Skin: Dry, Intact Psych/Mental Status: Other (Unable to assess due to sedated) Medications Current Medications Medications Dose Ordered Sig/Mayela Route Start Time Stop Time Status Last Admin Dose Admin Metoclopramide HCl 5 mg Q6HP PRN IV 06/26/24 12:00 06/28/24 13:57 5 MG Morphine Sulfate 1 mg Q4HPRN PRN IV 06/26/24 12:00 07/07/24 04:41 1 MG Hydralazine HCl 10 mg Q6HP PRN IV 06/26/24 13:15 06/30/24 01:24 10 MG Heparin Sodium (Porcine) 5,000 units Q12HR SC 06/27/24 22:00 07/07/24 10:12 5,000 UNITS Amino Acids 1,000 ml @ 42 mls/hr [id number] IV 06/29/24 20:00 Cancel Diagnostic Test (Pha) 1 strip Q6HR 06/30/24 00:00 07/07/24 05:39 1 STRIP Insulin Human Regular FOLLOW SLIDING SCALE Q6HR [place] 06/30/24 00:00 07/07/24 05:39 4 UNITS Dextrose 50 ml UD IV 06/29/24 19:15 Amino Acids 0 ml @ 0 mls/hr PER PHARMACY IV 07/01/24 22:00 Sodium Chloride 10 ml QSHIFT@10,22 IV 07/01/24 22:00 07/07/24 10:12 10 ML Metronidazole 100 ml @ 100 mls/hr Q8H IV 07/01/24 15:00 07/07/24 06:00 100 MLS/HR Pantoprazole Sodium 40 mg DAILY IV 07/05/24 10:00 07/07/24 10:13 40 MG Fat Emulsion Intravenous 100 ml/Sodium Acetate 20 meq/Potassium Acetate 20 meq/ Potassium Phosphate 44 meq/ Magnesium Sulfate 8 meq/ Multivitamins 10 ml/Chromium/ Copper/Manganese/ Zinc 1 ml/Insulin Human Regular 4 units/Amino Acids/ Dextrose/Purified Water 1,143.04 ml @ 48 mls/hr [id number] IV 07/06/24 22:00 07/07/24 21:59 07/06/24 21:38 48 MLS/HR Iron Sucrose 110 ml @ 110 mls/hr DAILY@1200 IV 07/07/24 12:00 07/11/24 12:59 Fat Emulsion Intravenous 100 ml/Sodium Acetate 20 meq/Potassium Acetate 20 meq/ Potassium Phosphate 22 meq/ Magnesium Sulfate 12 meq/ Multivitamins 10 ml/Chromium/ Copper/Manganese/ Zinc 1 ml/Amino Acids/Dextrose/ Purified Water 1,139 ml @ 47 mls/hr [id number] IV 07/07/24 22:00 07/08/24 21:59 Ceftriaxone Sodium 50 ml @ 100 mls/hr DAILY@09 IV 07/07/24 11:00 Laboratory Results Laboratory Tests 07/07/24 05:34 Chemistry Test 07/07/24 05:34 Albumin 2.3 g/dL (3.2-4.8) L Calcium Level 7.9 mg/dL (8.7-10.4) L Magnesium Level 1.9 mg/dL (1.6-2.6) Phosphorus Level 3.0 mg/dL (2.4-5.1) Total Protein 4.1 g/dL (5.7-8.2) L LFT Test 07/07/24 05:34 Alanine Aminotransferase (ALT) < 9 U/L (7-40) Alkaline Phosphatase 86 U/L (46-116) Aspartate Amino Transferase (AST) 27 U/L (13-40) Total Bilirubin 0.4 mg/dL (0.2-1.0) Urinalysis Test 06/26/24 19:12 Urine Color Yellow (Yellow) Urine Clarity Clear (Clear) Urine pH 5.0 (5.0-9.0) Urine Specific [place] 1.020 (1.001-1.035) Urine Protein 1+ (Negative) H Urine Ketones 1+ (Negative) H Urine Blood Negative /uL (Negative) Urine Nitrite Negative (Negative) Urine Bilirubin Negative (Negative) Urine Urobilinogen Normal mg/dL (Negative) Urine Leukocyte Esterase Negative /uL (Negative) Urine RBC 4 /hpf (0 - 4) Urine WBC 1 /hpf (0 - 5) Urine Squamous Epithelial Cells Few /hpf (<5) Urine Bacteria None seen /hpf (None Seen) Urine Hyaline Casts Few /lpf (0 - 2) Urine Mucus Few (None Seen) Urine Creatinine 127.99 mg/dL (30.0-125.0) H Urine Protein/Creatinine Ratio 0.62 Urine Sodium 31 mmol/L (40-220) L Urine Glucose Normal mg/dL (Normal) Urine Total Protein 78.8 mg/dL (1-14) H Microbiology Microbiology Date/Time Source Procedure Growth Status 07/02/24 12:36 Sputum Gram Stain - Final Complete 07/02/24 12:36 Respiratory Culture - Final Escherichia coli Complete 07/02/24 11:41 Nose MRSA Screen - Final Complete Labs and/or images reviewed: Labs reviewed by me, Image(s) reviewed by me Assessment/Plan Assessment/Plan Impression: -colon cancer -colonic bowel obstruction -chronic kidney disease stage IIIB -microcytic anemia -acute respiratory failure with mechanical ventilation postoperatively Plan: -events: No events overnight. Patient out of bed with physical therapy. Respiratory culture positive for E coli -change antibiotic therapy to Rocephin and Flagyl -TPN, electrolyte replacement per pharmacy -physical therapy -incentive spirometer q.1 hour while awake -PUD prophylaxis -DVT prophylaxis -repeat labs in a.m. Total time spent with patient discussing and formulating plan of care: 35 minutes. This medical document was created using an electronic medical record system with [employer] dictation system. Although this document has been carefully reviewed, there may still be some phonetic and typographical errors. These areas are purely typographical due to imperfections of the software programs, and do not reflect any compromise in the patient's medical care. Plan discussed with: Patient, Other (RN) My Orders Orders - MATT DEUTSCH NP Procedure Category Date Status Time Iron Sucrose Complex PHA 07/07/24 In Process (Venofer) 12:00 Incentive Spirometry ORDERS 07/06/24 Transmitted Q 1hr 13:23 Ceftriaxone 1gm/50ml PHA 07/07/24 In Process D5w (Rocephin) 11:00 Date of Service: Jul 07, 2024 Billing Provider: MATT DEUTSCH NP Common Visit Codes: [id number] INP/OBS CARE(HIGH) MATT DEUTSCH NP Jul 07, 2024 11:49
--- NOTE | 2024-07-07 12:23 | DVHPN2 ---
Progress Note Date Seen: Jul 07, 2024 Medical Necessity Reason Pt with a Central, PICC or Fol: Yes The following are medically ne: PICC Line, Morin Catheter Reason for morin catheter: Strict I&O Objective vital signs Vital Sign Date Time Temp Pulse Resp B/P (MAP) Pulse Ox O2 Delivery O2 Flow Rate FiO2 07/07/24 05:35 93 16 140/84 07/07/24 05:00 98.2 100 98.2 07/06/24 20:00 Nasal Cannula* 2 28 Total Intake and Output 07/06/24 07/06/24 07/07/24 15:00 23:00 07:00 Intake Total 100 ml 664 ml 300 ml Output Total 755 ml 775 ml Balance 100 ml -91 ml -475 ml medications Current Medications Medications Dose Ordered Sig/Mayela Route Start Time Stop Time Status Last Admin Dose Admin Metoclopramide HCl 5 mg Q6HP PRN IV 06/26/24 12:00 06/28/24 13:57 5 MG Morphine Sulfate 1 mg Q4HPRN PRN IV 06/26/24 12:00 07/07/24 04:41 1 MG Hydralazine HCl 10 mg Q6HP PRN IV 06/26/24 13:15 06/30/24 01:24 10 MG Heparin Sodium (Porcine) 5,000 units Q12HR SC 06/27/24 22:00 07/07/24 10:12 5,000 UNITS Amino Acids 1,000 ml @ 42 mls/hr [id number] IV 06/29/24 20:00 Cancel Diagnostic Test (Pha) 1 strip Q6HR 06/30/24 00:00 07/07/24 05:39 1 STRIP Insulin Human Regular FOLLOW SLIDING SCALE Q6HR SC 06/30/24 00:00 07/07/24 05:39 4 UNITS Dextrose 50 ml UD IV 06/29/24 19:15 Amino Acids 0 ml @ 0 mls/hr PER PHARMACY IV 07/01/24 22:00 Sodium Chloride 10 ml QSHIFT@10,22 IV 07/01/24 22:00 07/07/24 10:12 10 ML Metronidazole 100 ml @ 100 mls/hr Q8H IV 07/01/24 15:00 07/07/24 06:00 100 MLS/HR Pantoprazole Sodium 40 mg DAILY IV 07/05/24 10:00 07/07/24 10:13 40 MG Fat Emulsion Intravenous 100 ml/Sodium Acetate 20 meq/Potassium Acetate 20 meq/ Potassium Phosphate 44 meq/ Magnesium Sulfate 8 meq/ Multivitamins 10 ml/Chromium/ Copper/Manganese/ Zinc 1 ml/Insulin Human Regular 4 units/Amino Acids/ Dextrose/Purified Water 1,143.04 ml @ 48 mls/hr [id number] IV 07/06/24 22:00 07/07/24 21:59 07/06/24 21:38 48 MLS/HR Iron Sucrose 110 ml @ 110 mls/hr DAILY@1200 IV 07/07/24 12:00 07/11/24 12:59 Fat Emulsion Intravenous 100 ml/Sodium Acetate 20 meq/Potassium Acetate 20 meq/ Potassium Phosphate 22 meq/ Magnesium Sulfate 12 meq/ Multivitamins 10 ml/Chromium/ Copper/Manganese/ Zinc 1 ml/Amino Acids/Dextrose/ Purified Water 1,139 ml @ 47 mls/hr [id number] IV 07/07/24 22:00 07/08/24 21:59 Ceftriaxone Sodium 50 ml @ 100 mls/hr DAILY@09 IV 07/07/24 11:00 laboratory and microbiology Laboratory Tests 07/07/24 05:34 Test 07/07/24 05:34 Range/Units Serum Glucose 159 H 74-106 mg/dL Problem List/Assessment/Plan Problem List/Assessment/Plan 07/02/24 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 NPO TILL RESUMPTION OF BOWEL ACTIVITY 07/07/24 SURGICALLY. STABLE, WOUND CLEAN AND WELL APPROXIMATED, PASSING FLATUS WILL DC NGT ,LIMIT PO INTAKE TO ICE CHIPS ONLY Plan discussed with: Patient Dietary Evaluation Review Comments: 1) Increased TPN to meet at least 75% of estimated needs 2) Advance pt diet when medically feasible to a 2gm Sodium diet 3) Continue current plan of care Expected Outcomes/Goals: 1) Pt to receive adequate nutrition 2) Pt diet to advance 3) F/U in 2-3 days MELVIN MRATIN MD Jul 07, 2024 12:23
[2024-07-07] MEDS: IRON SUCROSE COMPLEX 110 ML IV SCH (13:21)
[2024-07-07] MEDS: cefTRIAXone 1GM/50ML D5W 50 ML IV SCH (17:29)
--- NOTE | 2024-07-07 20:52 | DVHPN2 ---
Progress Note - Dictate Date Seen: Jul 07, 2024 Medical Necessity Reason Pt with a Central, PICC or Fol: Yes The following are medically ne: PICC Line, Morin Catheter Reason for morin catheter: Strict I&O Subjective Patient seen and examined at bedside. Remains on supplemental oxygen Overnight events reviewed. vital signs Vital Sign Date Time Temp Pulse Resp B/P (MAP) Pulse Ox O2 Delivery O2 Flow Rate FiO2 07/07/24 17:00 98.2 95 15 159/84 (109) 100 98.2 07/07/24 08:00 Nasal Cannula* 2 28 Total Intake and Output 07/06/24 07/06/24 07/07/24 15:00 23:00 07:00 Intake Total 100 ml 664 ml 400 ml Output Total 755 ml 775 ml Balance 100 ml -91 ml -375 ml medications Current Medications Medications Dose Ordered Sig/Mayela Route Start Time Stop Time Status Last Admin Dose Admin Metoclopramide HCl 5 mg Q6HP PRN IV 06/26/24 12:00 06/28/24 13:57 5 MG Morphine Sulfate 1 mg Q4HPRN PRN IV 06/26/24 12:00 07/07/24 04:41 1 MG Hydralazine HCl 10 mg Q6HP PRN IV 06/26/24 13:15 06/30/24 01:24 10 MG Heparin Sodium (Porcine) 5,000 units Q12HR SC 06/27/24 22:00 07/07/24 10:12 5,000 UNITS Amino Acids 1,000 ml @ 42 mls/hr [id number] IV 06/29/24 20:00 Cancel Diagnostic Test (Pha) 1 strip Q6HR 06/30/24 00:00 07/07/24 17:52 1 STRIP Insulin Human Regular FOLLOW SLIDING SCALE Q6HR SC 06/30/24 00:00 07/07/24 17:53 2 UNITS Dextrose 50 ml UD IV 06/29/24 19:15 Amino Acids 0 ml @ 0 mls/hr PER PHARMACY IV 07/01/24 22:00 Sodium Chloride 10 ml QSHIFT@10,22 IV 07/01/24 22:00 07/07/24 10:12 10 ML Metronidazole 100 ml @ 100 mls/hr Q8H IV 07/01/24 15:00 07/07/24 15:54 100 MLS/HR Pantoprazole Sodium 40 mg DAILY IV 07/05/24 10:00 07/07/24 10:13 40 MG Fat Emulsion Intravenous 100 ml/Sodium Acetate 20 meq/Potassium Acetate 20 meq/ Potassium Phosphate 44 meq/ Magnesium Sulfate 8 meq/ Multivitamins 10 ml/Chromium/ Copper/Manganese/ Zinc 1 ml/Insulin Human Regular 4 units/Amino Acids/ Dextrose/Purified Water 1,143.04 ml @ 48 mls/hr [id number] IV 07/06/24 22:00 07/07/24 21:59 07/06/24 21:38 48 MLS/HR Iron Sucrose 110 ml @ 110 mls/hr DAILY@1200 IV 07/07/24 12:00 07/11/24 12:59 07/07/24 13:21 110 MLS/HR Fat Emulsion Intravenous 100 ml/Sodium Acetate 20 meq/Potassium Acetate 20 meq/ Potassium Phosphate 44 meq/ Magnesium Sulfate 12 meq/ Multivitamins 10 ml/Chromium/ Copper/Manganese/ Zinc 1 ml/Insulin Human Regular 4 units/Amino Acids/ Dextrose/Purified Water 1,144.04 ml @ 47 mls/hr [id number] IV 07/07/24 22:00 07/08/24 21:59 Ceftriaxone Sodium 50 ml @ 100 mls/hr DAILY@09 IV 07/07/24 11:00 07/07/24 17:29 100 MLS/HR objective Gen.: Patient lying in bed in no apparent distress. On supplemental oxygen. Head: Normocephalic, atraumatic. Eyes: EOMI/PERRLA. Ears: Normal hearing. Normal anatomy. Neck/trachea: Trachea midline, supple. Nose: Normal external anatomy. Mouth: Moist mucous membranes. Chest: Decreased air entry bilaterally. No wheezing or rhonchi. Cardiovascular: Positive S1, positive S2. Regular rate and rhythm. Abdomen: Positive bowel sounds in all 4 quadrants. Soft, non-tender, non- distended. : Deferred. Rectal: Deferred. Skin: Warm, dry. Intact. Extremities: 2+ radial pulses bilaterally. No lower extremity edema. Neuro: Awake, alert, oriented x3. No gross motor or sensory deficits. Cranial nerves II through XII intact. Gait not assessed. laboratory and microbiology Laboratory Tests 07/07/24 05:34 Test 07/07/24 05:34 Range/Units Serum Glucose 159 H 74-106 mg/dL Assessment/Plan Impression: Acute hypoxic respiratory failure Colon cancer Colonic bowel obstruction Chronic kidney disease Events: On supplemental O2 at 2 LPM NC Taper O2 as tolerated Head of bed elevation Aspiration precautions Continue antibiotics. IS. Surgery recs appreciated. NG tube removed. Monitor Hgb, trending down to 7.9 g/dL. Labs and imaging reviewed. Rest of plan as noted below. Plan: S/p extubation on 07/04/24 Supplemental O2 at 2 LPM NC Titrate to keep O2 sats above 92% Taper O2 as tolerated. Continue antibiotics Pain control Avoid oversedation TPN for nutritional support NG tube to low intermittent suction. Monitor output. Surgery recs appreciated. Obtain labs including CBC, CMP, mag, phos. Monitor renal function. Monitor electrolytes. Supplement as necessary. Monitor ins and outs. DVT prophylaxis. Prognosis: Poor given patient's multiple co-morbidities. Rest of plan per hospitalist and other consultants. A total of 51 minutes of clinical care time was spent reviewing the patient record, examining the patient, making a diagnostic and therapeutic plan, discussing this plan with the medical personnel, following up on diagnostic studies and following the patient for clinical stability excluding any and all procedures. At least 50% of this time was spent in direct, [id number] contact. Thank you Cheyanne Villanueva NP, for allowing me to participate in this patient's care. Further recommendations will depend on the patient's clinical course. Please do not hesitate to contact me if you have any questions or concerns. This medical document was created using an electronic medical record system with [employer] computerized dictation system. Although these documentations are being carefully reviewed, there may still be some phonetic and typographical changes. The errors are purely typographical, due to imperfection on the software program, and do not reflect any compromise in the patient's medical care. Dietary Evaluation Review Comments: 1) Increased TPN to meet at least 75% of estimated needs 2) Advance pt diet when medically feasible to a 2gm Sodium diet 3) Continue current plan of care Expected Outcomes/Goals: 1) Pt to receive adequate nutrition 2) Pt diet to advance 3) F/U in 2-3 days Plan discussed with: Patient, Other (YUE Duque) AMANDA TREJO MD Jul 07, 2024 20:51
[2024-07-07] MEDS: TPN PER PHARMACY IV NR (21:26)
[2024-07-08] VITALS (8 sets, daily range): BP systolic 123–147; BP diastolic 71–77; PULSE 77–116; RESP 16–20; TEMP 97.9–98.9; O2SAT 95–100
[2024-07-08 07:16] LABS: Albumin 2.8 g/dL (3.2-4.8); Alkaline Phosphatase 104 U/L (46-116); Anion Gap 8 (5-15); Aspartate Aminotransferase 21 U/L (13-40); BUN/Creatinine Ratio 33.7 (10.0-20.0); Blood Urea Nitrogen 31 mg/dL (9-23); Calcium 8.7 mg/dL (8.7-10.4); Carbon Dioxide 28 mmol/L (20-31); Chloride 106 mmol/L (98-107); Glucose 138 mg/dL (74-106); Magnesium 1.9 mg/dL (1.6-2.6); Phosphorus 3.3 mg/dL (2.4-5.1); Potassium 3.9 mmol/L (3.5-5.1); Sodium 142 mmol/L (136-145)
[2024-07-08 07:17] LABS: Bilirubin, Total 0.4 mg/dL (0.2-1.0); Total Protein 5.2 g/dL (5.7-8.2)
[2024-07-08 07:18] LABS: Alanine Aminotransferase < 9 U/L (7-40)
--- NOTE | 2024-07-08 10:03 | DVHPN2 ---
Subjective Patient alert and oriented x4. Denies any symptoms. Patient denies having any bowel sounds/flatus. Reviewed: Care Plan, H&P, Labs, Medications Changes from previous H/P or p: No Changes General: Per HPI Eyes: No Pain, No Vision change, No Conjunctivae inflammation, No Eyelid inflammation, No Other, No Redness ENT: No Ear pain, No Ear discharge, No Nose pain, No Nose discharge, No Nose congestion, No Mouth pain, No Mouth swelling, No Throat pain, No Throat swelling, No Other Cardiovascular: No Chest Pain, No Palpitations, No Orthopnea, No Paroxysmal Noc. Dyspnea, No Edema, No Lt Headedness, No Other Respiratory: No Cough, No Dry, No Shortness of breath, No SOB with excertion, No Wheezing, No Hemoptysis, No Pleuritic Pain, No Sputum, No Other Gastrointestinal: Nausea, Vomiting; No Abdominal Pain, No Diarrhea, No Constipation, No Melena, No Hematochezia, No Other Genitourinary: No Dysuria, No Frequency, No Incontinence, No Hematuria, No Retention, No Other Musculoskeletal: No other, No neck pain, No shoulder pain, No arm pain, No back pain, No hand pain, No leg pain, No foot pain Skin: No Rash, No Lesions, No Jaundice, No Bruising, No Other Objective Vitals Vital Signs Date Time Temp Pulse Resp B/P (MAP) Pulse Ox O2 Delivery O2 Flow Rate FiO2 07/08/24 09:00 98.5 104 18 123/72 (89) 99 98.5 07/07/24 20:00 Nasal Cannula* 2 28 Intake/Output Intake and Output 07/08/24 07:00 Intake Total 936 ml Output Total 1450 ml Balance -514 ml Intake Oral 0 ml IV Total 936 ml Output Urine Total 1400 ml Other 50 ml General Appearance: Alert, Oriented X3, Cooperative, No acute distress HEENT: Atraumatic, PERRLA Lungs: Clear to auscultation, Normal air movement, Other (Mechanical ventilation) Cardiovascular: Normal S1, Normal S2 Abdomen: Normal bowel sounds Genitourinary: No Apparent Abnormalities (Guerra catheter) Neuro: Normal speech, Other (Unable to assess due to sedation) Skin: Dry, Intact Psych/Mental Status: Other (Unable to assess due to sedated) Medications Current Medications Medications Dose Ordered Sig/Mayela Route Start Time Stop Time Status Last Admin Dose Admin Metoclopramide HCl 5 mg Q6HP PRN IV 06/26/24 12:00 06/28/24 13:57 5 MG Morphine Sulfate 1 mg Q4HPRN PRN IV 06/26/24 12:00 07/07/24 04:41 1 MG Hydralazine HCl 10 mg Q6HP PRN IV 06/26/24 13:15 07/07/24 21:36 10 MG Heparin Sodium (Porcine) 5,000 units Q12HR SC 06/27/24 22:00 07/08/24 09:17 5,000 UNITS Amino Acids 1,000 ml @ 42 mls/hr [id number] IV 06/29/24 20:00 Cancel Diagnostic Test (Pha) 1 strip Q6HR 06/30/24 00:00 07/08/24 06:13 1 STRIP Insulin Human Regular FOLLOW SLIDING SCALE Q6HR SC 06/30/24 00:00 07/08/24 06:13 2 UNITS Dextrose 50 ml UD IV 06/29/24 19:15 Amino Acids 0 ml @ 0 mls/hr PER PHARMACY IV 07/01/24 22:00 Sodium Chloride 10 ml QSHIFT@10,22 IV 07/01/24 22:00 07/08/24 09:14 10 ML Metronidazole 100 ml @ 100 mls/hr Q8H IV 07/01/24 15:00 07/08/24 06:13 100 MLS/HR Pantoprazole Sodium 40 mg DAILY IV 07/05/24 10:00 07/08/24 09:14 40 MG Iron Sucrose 110 ml @ 110 mls/hr DAILY@1200 IV 07/07/24 12:00 07/11/24 12:59 07/07/24 13:21 110 MLS/HR Fat Emulsion Intravenous 100 ml/Sodium Acetate 20 meq/Potassium Acetate 20 meq/ Potassium Phosphate 44 meq/ Magnesium Sulfate 12 meq/ Multivitamins 10 ml/Chromium/ Copper/Manganese/ Zinc 1 ml/Insulin Human Regular 4 units/Amino Acids/ Dextrose/Purified Water 1,144.04 ml @ 47 mls/hr [id number] IV 07/07/24 22:00 07/08/24 21:59 07/07/24 21:26 47 MLS/HR Ceftriaxone Sodium 50 ml @ 100 mls/hr DAILY@09 IV 07/07/24 11:00 07/08/24 09:14 100 MLS/HR Fat Emulsion Intravenous 150 ml/Sodium Acetate 20 meq/Potassium Acetate 20 meq/ Potassium Phosphate 44 meq/ Magnesium Sulfate 14 meq/ Multivitamins 10 ml/Chromium/ Copper/Manganese/ Zinc 1 ml/Insulin Human Regular 5 units/Amino Acids/ Dextrose/Purified Water 1,244.55 ml @ 52 mls/hr [id number] IV 07/08/24 22:00 07/09/24 21:59 Laboratory Results Laboratory Tests 07/07/24 05:34 07/08/24 06:18 Chemistry Test 07/08/24 06:18 Albumin 2.8 g/dL (3.2-4.8) L Calcium Level 8.7 mg/dL (8.7-10.4) Magnesium Level 1.9 mg/dL (1.6-2.6) Phosphorus Level 3.3 mg/dL (2.4-5.1) Total Protein 5.2 g/dL (5.7-8.2) L LFT Test 07/08/24 06:18 Alanine Aminotransferase (ALT) < 9 U/L (7-40) Alkaline Phosphatase 104 U/L (46-116) Aspartate Amino Transferase (AST) 21 U/L (13-40) Total Bilirubin 0.4 mg/dL (0.2-1.0) Urinalysis Test 06/26/24 19:12 Urine Color Yellow (Yellow) Urine Clarity Clear (Clear) Urine pH 5.0 (5.0-9.0) Urine Specific [place] 1.020 (1.001-1.035) Urine Protein 1+ (Negative) H Urine Ketones 1+ (Negative) H Urine Blood Negative /uL (Negative) Urine Nitrite Negative (Negative) Urine Bilirubin Negative (Negative) Urine Urobilinogen Normal mg/dL (Negative) Urine Leukocyte Esterase Negative /uL (Negative) Urine RBC 4 /hpf (0 - 4) Urine WBC 1 /hpf (0 - 5) Urine Squamous Epithelial Cells Few /hpf (<5) Urine Bacteria None seen /hpf (None Seen) Urine Hyaline Casts Few /lpf (0 - 2) Urine Mucus Few (None Seen) Urine Creatinine 127.99 mg/dL (30.0-125.0) H Urine Protein/Creatinine Ratio 0.62 Urine Sodium 31 mmol/L (40-220) L Urine Glucose Normal mg/dL (Normal) Urine Total Protein 78.8 mg/dL (1-14) H Microbiology Microbiology Date/Time Source Procedure Growth Status 07/02/24 12:36 Sputum Gram Stain - Final Complete 07/02/24 12:36 Respiratory Culture - Final Escherichia coli Complete 07/02/24 11:41 Nose MRSA Screen - Final Complete Labs and/or images reviewed: Labs reviewed by me, Image(s) reviewed by me Assessment/Plan Assessment/Plan Impression: -colon cancer -colonic bowel obstruction -chronic kidney disease stage IIIB -microcytic anemia -acute respiratory failure with mechanical ventilation postoperatively Plan: -events: Patient has improved bowel sounds. Progressing with physical therapy. Tolerating ice chips. -weaned off of O2 -advance diet per surgery -continue iron supplementation -change antibiotic therapy to Rocephin and Flagyl -TPN, electrolyte replacement per pharmacy -physical therapy -incentive spirometer q.1 hour while awake -PUD prophylaxis -DVT prophylaxis -repeat labs in a.m. Total time spent with patient discussing and formulating plan of care: 35 minutes. This medical document was created using an electronic medical record system with [employer] dictation system. Although this document has been carefully reviewed, there may still be some phonetic and typographical errors. These areas are purely typographical due to imperfections of the software programs, and do not reflect any compromise in the patient's medical care. Plan discussed with: Patient, Other (RN) My Orders Orders - MATT DEUTSCH NP Procedure Category Date Status Time Ceftriaxone 1gm/50ml PHA 07/07/24 In Process D5w (Rocephin) 11:00 Basic Metabolic Panel LAB 07/09/24 Verified 04:00 Complete Blood Count LAB 07/09/24 Verified 04:00 Transfer Orders XFER 07/08/24 Transmitted 09:52 Date of Service: Jul 08, 2024 Billing Provider: MATT DEUTSCH NP Common Visit Codes: [id number] INP/OBS CARE(MOD) MATT DEUTSCH NP Jul 08, 2024 10:03
--- NOTE | 2024-07-08 13:38 | DVHPN2 ---
Progress Note Date Seen: Jul 08, 2024 Medical Necessity Reason Pt with a Central, PICC or Fol: Yes The following are medically ne: PICC Line, Morin Catheter Reason for morin catheter: Strict I&O Objective vital signs Vital Sign Date Time Temp Pulse Resp B/P (MAP) Pulse Ox O2 Delivery O2 Flow Rate FiO2 07/08/24 13:00 97.9 103 18 137/72 (93) 98 97.9 07/08/24 08:00 Nasal Cannula* 2 28 Total Intake and Output 07/07/24 07/07/24 07/08/24 15:00 23:00 07:00 Intake Total 110 ml 726 ml 100 ml Output Total 700 ml 750 ml Balance 110 ml 26 ml -650 ml medications Current Medications Medications Dose Ordered Sig/Mayela Route Start Time Stop Time Status Last Admin Dose Admin Metoclopramide HCl 5 mg Q6HP PRN IV 06/26/24 12:00 06/28/24 13:57 5 MG Morphine Sulfate 1 mg Q4HPRN PRN IV 06/26/24 12:00 07/07/24 04:41 1 MG Hydralazine HCl 10 mg Q6HP PRN IV 06/26/24 13:15 07/07/24 21:36 10 MG Heparin Sodium (Porcine) 5,000 units Q12HR SC 06/27/24 22:00 07/08/24 09:17 5,000 UNITS Amino Acids 1,000 ml @ 42 mls/hr [id number] IV 06/29/24 20:00 Cancel Diagnostic Test (Pha) 1 strip Q6HR 06/30/24 00:00 07/08/24 11:42 1 STRIP Insulin Human Regular FOLLOW SLIDING SCALE Q6HR SC 06/30/24 00:00 07/08/24 06:13 2 UNITS Dextrose 50 ml UD IV 06/29/24 19:15 Amino Acids 0 ml @ 0 mls/hr PER PHARMACY IV 07/01/24 22:00 Sodium Chloride 10 ml QSHIFT@10,22 IV 07/01/24 22:00 07/08/24 09:14 10 ML Metronidazole 100 ml @ 100 mls/hr Q8H IV 07/01/24 15:00 07/08/24 06:13 100 MLS/HR Pantoprazole Sodium 40 mg DAILY IV 07/05/24 10:00 07/08/24 09:14 40 MG Iron Sucrose 110 ml @ 110 mls/hr DAILY@1200 IV 07/07/24 12:00 07/11/24 12:59 07/08/24 12:44 110 MLS/HR Fat Emulsion Intravenous 100 ml/Sodium Acetate 20 meq/Potassium Acetate 20 meq/ Potassium Phosphate 44 meq/ Magnesium Sulfate 12 meq/ Multivitamins 10 ml/Chromium/ Copper/Manganese/ Zinc 1 ml/Insulin Human Regular 4 units/Amino Acids/ Dextrose/Purified Water 1,144.04 ml @ 47 mls/hr [id number] IV 07/07/24 22:00 07/08/24 21:59 07/07/24 21:26 47 MLS/HR Ceftriaxone Sodium 50 ml @ 100 mls/hr DAILY@09 IV 07/07/24 11:00 07/08/24 09:14 100 MLS/HR Fat Emulsion Intravenous 150 ml/Sodium Acetate 20 meq/Potassium Acetate 20 meq/ Potassium Phosphate 44 meq/ Magnesium Sulfate 14 meq/ Multivitamins 10 ml/Chromium/ Copper/Manganese/ Zinc 1 ml/Insulin Human Regular 5 units/Amino Acids/ Dextrose/Purified Water 1,244.55 ml @ 52 mls/hr [id number] IV 07/08/24 22:00 07/09/24 21:59 laboratory and microbiology Laboratory Tests 07/08/24 06:18 07/07/24 05:34 Test 07/08/24 06:18 Range/Units Serum Glucose 138 H 74-106 mg/dL Problem List/Assessment/Plan Problem List/Assessment/Plan 07/02/24 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 NPO TILL RESUMPTION OF BOWEL ACTIVITY 07/07/24 SURGICALLY. STABLE, WOUND CLEAN AND WELL APPROXIMATED, PASSING FLATUS WILL DC NGT ,LIMIT PO INTAKE TO ICE CHIPS ONLY 07/08/24 abdomen appropriately tender, wound clean and well approximated, labs reviewed, will allow po liquids PASSING FLATUS,NO BM' Plan discussed with: Patient Dietary Evaluation Review Comments: 1) Increased TPN to meet at least 75% of estimated needs 2) Advance pt diet when medically feasible to a 2gm Sodium diet 3) Continue current plan of care Expected Outcomes/Goals: 1) Pt to receive adequate nutrition 2) Pt diet to advance 3) F/U in 2-3 days MELVIN MARTIN MD Jul 08, 2024 13:37
--- NOTE | 2024-07-08 21:35 | DVHPN2 ---
Progress Note - Dictate Date Seen: Jul 08, 2024 Medical Necessity Reason Pt with a Central, PICC or Fol: Yes The following are medically ne: PICC Line, Morin Catheter Reason for morin catheter: Strict I&O Subjective Patient seen and examined at bedside. Remains on supplemental oxygen Overnight events reviewed. vital signs Vital Sign Date Time Temp Pulse Resp B/P (MAP) Pulse Ox O2 Delivery O2 Flow Rate FiO2 07/08/24 17:00 98.0 94 18 133/76 (95) 100 98.0 07/08/24 08:00 Nasal Cannula* 2 28 Total Intake and Output 07/07/24 07/07/24 07/08/24 15:00 23:00 07:00 Intake Total 110 ml 726 ml 100 ml Output Total 700 ml 750 ml Balance 110 ml 26 ml -650 ml medications Current Medications Medications Dose Ordered Sig/Mayela Route Start Time Stop Time Status Last Admin Dose Admin Metoclopramide HCl 5 mg Q6HP PRN IV 06/26/24 12:00 06/28/24 13:57 5 MG Morphine Sulfate 1 mg Q4HPRN PRN IV 06/26/24 12:00 07/07/24 04:41 1 MG Hydralazine HCl 10 mg Q6HP PRN IV 06/26/24 13:15 07/07/24 21:36 10 MG Heparin Sodium (Porcine) 5,000 units Q12HR SC 06/27/24 22:00 07/08/24 09:17 5,000 UNITS Amino Acids 1,000 ml @ 42 mls/hr [id number] IV 06/29/24 20:00 Cancel Diagnostic Test (Pha) 1 strip Q6HR 06/30/24 00:00 07/08/24 18:14 1 STRIP Insulin Human Regular FOLLOW SLIDING SCALE Q6HR SC 06/30/24 00:00 07/08/24 18:14 4 UNITS Dextrose 50 ml UD IV 06/29/24 19:15 Amino Acids 0 ml @ 0 mls/hr PER PHARMACY IV 07/01/24 22:00 Sodium Chloride 10 ml QSHIFT@10,22 IV 07/01/24 22:00 07/08/24 09:14 10 ML Metronidazole 100 ml @ 100 mls/hr Q8H IV 07/01/24 15:00 07/08/24 14:46 100 MLS/HR Pantoprazole Sodium 40 mg DAILY IV 07/05/24 10:00 07/08/24 09:14 40 MG Iron Sucrose 110 ml @ 110 mls/hr DAILY@1200 IV 07/07/24 12:00 07/11/24 12:59 07/08/24 12:44 110 MLS/HR Fat Emulsion Intravenous 100 ml/Sodium Acetate 20 meq/Potassium Acetate 20 meq/ Potassium Phosphate 44 meq/ Magnesium Sulfate 12 meq/ Multivitamins 10 ml/Chromium/ Copper/Manganese/ Zinc 1 ml/Insulin Human Regular 4 units/Amino Acids/ Dextrose/Purified Water 1,144.04 ml @ 47 mls/hr [id number] IV 07/07/24 22:00 07/08/24 21:59 07/07/24 21:26 47 MLS/HR Ceftriaxone Sodium 50 ml @ 100 mls/hr DAILY@09 IV 07/07/24 11:00 07/08/24 09:14 100 MLS/HR Fat Emulsion Intravenous 150 ml/Sodium Acetate 20 meq/Potassium Acetate 20 meq/ Potassium Phosphate 44 meq/ Magnesium Sulfate 14 meq/ Multivitamins 10 ml/Chromium/ Copper/Manganese/ Zinc 1 ml/Insulin Human Regular 5 units/Amino Acids/ Dextrose/Purified Water 1,244.55 ml @ 52 mls/hr [id number] IV 07/08/24 22:00 07/09/24 21:59 objective Gen.: Patient lying in bed in no apparent distress. On supplemental oxygen. Head: Normocephalic, atraumatic. Eyes: EOMI/PERRLA. Ears: Normal hearing. Normal anatomy. Neck/trachea: Trachea midline, supple. Nose: Normal external anatomy. Mouth: Moist mucous membranes. Chest: Decreased air entry bilaterally. No wheezing or rhonchi. Cardiovascular: Positive S1, positive S2. Regular rate and rhythm. Abdomen: Positive bowel sounds in all 4 quadrants. Soft, non-tender, non- distended. : Deferred. Rectal: Deferred. Skin: Warm, dry. Intact. Extremities: 2+ radial pulses bilaterally. No lower extremity edema. Neuro: Awake, alert, oriented x3. No gross motor or sensory deficits. Cranial nerves II through XII intact. Gait not assessed. laboratory and microbiology Laboratory Tests 07/08/24 06:18 07/07/24 05:34 Test 07/08/24 06:18 Range/Units Serum Glucose 138 H 74-106 mg/dL Assessment/Plan Impression: Acute hypoxic respiratory failure Colon cancer Colonic bowel obstruction Chronic kidney disease Events: On supplemental O2 at 2 LPM NC Taper O2 as tolerated Plan for biopsy of colon mass. Surgery recs appreciated. TPN for nutritional support Head of bed elevation Aspiration precautions Continue antibiotics. IS. Monitor Hgb Transfuse if less than 7.0 g/dL. Labs and imaging reviewed. Rest of plan as noted below. Plan: S/p extubation on 07/04/24 Supplemental O2 at 2 LPM NC Titrate to keep O2 sats above 92% Taper O2 as tolerated. Continue antibiotics Pain control Avoid oversedation TPN for nutritional support NG tube to low intermittent suction. Monitor output. Surgery recs appreciated. Obtain labs including CBC, CMP, mag, phos. Monitor renal function. Monitor electrolytes. Supplement as necessary. Monitor ins and outs. DVT prophylaxis. Prognosis: Poor given patient's multiple co-morbidities. Rest of plan per hospitalist and other consultants. A total of 51 minutes of clinical care time was spent reviewing the patient record, examining the patient, making a diagnostic and therapeutic plan, discussing this plan with the medical personnel, following up on diagnostic studies and following the patient for clinical stability excluding any and all procedures. At least 50% of this time was spent in direct, [id number] contact. Thank you Cheyanne Villanueva NP, for allowing me to participate in this patient's care. Further recommendations will depend on the patient's clinical course. Please do not hesitate to contact me if you have any questions or concerns. This medical document was created using an electronic medical record system with [employer] dictation system. Although these documentations are being carefully reviewed, there may still be some phonetic and typographical changes. The errors are purely typographical, due to imperfection on the software program, and do not reflect any compromise in the patient's medical care. Dietary Evaluation Review Comments: 1) Increased TPN to meet at least 75% of estimated needs 2) Advance pt diet when medically feasible to a 2gm Sodium diet 3) Continue current plan of care Expected Outcomes/Goals: 1) Pt to receive adequate nutrition 2) Pt diet to advance 3) F/U in 2-3 days Plan discussed with: Patient, Other (YUE Alba) AMANDA TREJO MD Jul 08, 2024 21:35
[2024-07-08] MEDS: TPN PER PHARMACY IV NR (22:42)
[2024-07-09] VITALS (8 sets, daily range): BP systolic 119–139; BP diastolic 50–72; PULSE 94–115; RESP 16–20; TEMP 97.9–99.1; O2SAT 95–100
[2024-07-09 07:23] LABS: Basophils # (auto) 0 10 ^3/uL (0-0.2); Basophils % (auto) 0.2 % (0.0-2.0); Eosinophils # (auto) 0.1 10 ^3/uL (0-0.8); Eosinophils % (auto) 0.8 % (0.0-7.0); Hematocrit 22.3 % (36.0-46.0); Hemoglobin 7.3 g/dL (12.2-16.2); Lymphocytes # (auto) 1.1 10 ^3/uL (0.4-5.4); Lymphocytes % (auto) 7.3 % (10.0-50.0); Mean Corpuscular Hemoglobin 23.4 pg (28.0-32.0); Mean Corpuscular Hgb Conc. 32.8 g/dL (32.0-36.0); Mean Corpuscular Volume 71.6 fL (80.0-100.0); Monocytes # (auto) 0.5 10 ^3/uL (0-1.3); Monocytes % (auto) 3.5 % (0.0-12.0); Neutrophils # (auto) 13.8 10 ^3/uL (1.6-8.6); Neutrophils % (auto) 88.2 % (37.0-80.0); Nucleated Red Blood Cells % 0.1 %; Platelet Count (auto) 314 10^3/uL (140-450); Red Blood Cells 3.11 10^6/uL (4.0-5.20); White Blood Cell 15.6 10^3/uL (4.4-10.8)
[2024-07-09 07:27] LABS: Red Cell Distribution Width 27.6 % (11.8-14.3)
[2024-07-09 07:29] LABS: Alkaline Phosphatase 76 U/L (46-116); Anion Gap 8 (5-15); BUN/Creatinine Ratio 36.3 (10.0-20.0); Blood Urea Nitrogen 29 mg/dL (9-23); Calcium 8.4 mg/dL (8.7-10.4); Carbon Dioxide 27 mmol/L (20-31); Chloride 108 mmol/L (98-107); Glucose 128 mg/dL (74-106); Potassium 3.7 mmol/L (3.5-5.1); Sodium 143 mmol/L (136-145)
[2024-07-09 07:31] LABS: Albumin 2.4 g/dL (3.2-4.8); Aspartate Aminotransferase 18 U/L (13-40); Bilirubin, Total 0.3 mg/dL (0.2-1.0); Phosphorus 3.6 mg/dL (2.4-5.1); Total Protein 4.5 g/dL (5.7-8.2)
[2024-07-09 07:32] LABS: Alanine Aminotransferase < 9 U/L (7-40)
[2024-07-09 08:18] LABS: Anisocytosis Moderate; Hypochromia Moderate; Platelet Estimate Adequate
[2024-07-09 08:20] LABS: Target Cell MODERATE
--- NOTE | 2024-07-09 11:34 | DVHPN2 ---
Progress Note Date Seen: Jul 09, 2024 Medical Necessity Reason Pt with a Central, PICC or Fol: Yes The following are medically ne: PICC Line, Morin Catheter Reason for morin catheter: Strict I&O Objective vital signs Vital Sign Date Time Temp Pulse Resp B/P (MAP) Pulse Ox O2 Delivery O2 Flow Rate FiO2 07/09/24 09:00 97.9 99 18 129/63 (85) 97 97.9 07/08/24 20:00 Nasal Cannula* 2 28 Total Intake and Output 07/08/24 07/08/24 07/09/24 15:00 23:00 07:00 Intake Total 680 ml 250 ml 300 ml Output Total 400 ml 450 ml Balance 680 ml -150 ml -150 ml medications Current Medications Medications Dose Ordered Sig/Mayela Route Start Time Stop Time Status Last Admin Dose Admin Metoclopramide HCl 5 mg Q6HP PRN IV 06/26/24 12:00 06/28/24 13:57 5 MG Morphine Sulfate 1 mg Q4HPRN PRN IV 06/26/24 12:00 07/07/24 04:41 1 MG Hydralazine HCl 10 mg Q6HP PRN IV 06/26/24 13:15 07/07/24 21:36 10 MG Heparin Sodium (Porcine) 5,000 units Q12HR SC 06/27/24 22:00 07/09/24 09:16 5,000 UNITS Amino Acids 1,000 ml @ 42 mls/hr [id number] IV 06/29/24 20:00 Cancel Diagnostic Test (Pha) 1 strip Q6HR 06/30/24 00:00 07/09/24 05:01 1 STRIP Insulin Human Regular FOLLOW SLIDING SCALE Q6HR SC 06/30/24 00:00 07/09/24 05:09 4 UNITS Dextrose 50 ml UD IV 06/29/24 19:15 Amino Acids 0 ml @ 0 mls/hr PER PHARMACY IV 07/01/24 22:00 Sodium Chloride 10 ml QSHIFT@10,22 IV 07/01/24 22:00 07/09/24 09:16 10 ML Metronidazole 100 ml @ 100 mls/hr Q8H IV 07/01/24 15:00 07/09/24 06:23 100 MLS/HR Pantoprazole Sodium 40 mg DAILY IV 07/05/24 10:00 07/09/24 09:14 40 MG Iron Sucrose 110 ml @ 110 mls/hr DAILY@1200 IV 07/07/24 12:00 07/11/24 12:59 07/08/24 12:44 110 MLS/HR Ceftriaxone Sodium 50 ml @ 100 mls/hr DAILY@09 IV 07/07/24 11:00 07/09/24 09:14 100 MLS/HR Fat Emulsion Intravenous 150 ml/Sodium Acetate 20 meq/Potassium Acetate 20 meq/ Potassium Phosphate 44 meq/ Magnesium Sulfate 14 meq/ Multivitamins 10 ml/Chromium/ Copper/Manganese/ Zinc 1 ml/Insulin Human Regular 5 units/Amino Acids/ Dextrose/Purified Water 1,244.55 ml @ 52 mls/hr [id number] IV 07/08/24 22:00 07/09/24 21:59 07/08/24 22:42 52 MLS/HR Fat Emulsion Intravenous 100 ml/Sodium Acetate 10 meq/Potassium Acetate 30 meq/ Potassium Phosphate 40 meq/ Magnesium Sulfate 14 meq/ Multivitamins 10 ml/Chromium/ Copper/Manganese/ Zinc 1 ml/Amino Acids/Dextrose/ Purified Water 1,243.5909 ml @ 52 mls/hr [id number] IV 07/09/24 22:00 07/10/24 21:59 laboratory and microbiology Laboratory Tests 07/09/24 06:50 Test 07/09/24 06:50 Range/Units Serum Glucose 128 H 74-106 mg/dL Problem List/Assessment/Plan Problem List/Assessment/Plan 07/02/24 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 NPO TILL RESUMPTION OF BOWEL ACTIVITY 07/07/24 SURGICALLY. STABLE, WOUND CLEAN AND WELL APPROXIMATED, PASSING FLATUS WILL DC NGT ,LIMIT PO INTAKE TO ICE CHIPS ONLY 07/08/24 abdomen appropriately tender, wound clean and well approximated, labs reviewed, will allow po liquids PASSING FLATUS,NO BM' 07/09/24 had a bowel movement, abdomen non distended, will advance po, Plan discussed with: Patient Dietary Evaluation Review Comments: 1) Increased TPN to meet at least 75% of estimated needs 2) Advance pt diet when medically feasible to a 2gm Sodium diet 3) Continue current plan of care Expected Outcomes/Goals: 1) Pt to receive adequate nutrition 2) Pt diet to advance 3) F/U in 2-3 days MELVIN MARTIN MD Jul 09, 2024 11:34
--- NOTE | 2024-07-09 13:27 | DVHPN2 ---
Subjective Patient denies any symptoms. Reviewed: Care Plan, H&P, Labs, Medications Changes from previous H/P or p: No Changes General: Per HPI Eyes: No Pain, No Vision change, No Conjunctivae inflammation, No Eyelid inflammation, No Other, No Redness ENT: No Ear pain, No Ear discharge, No Nose pain, No Nose discharge, No Nose congestion, No Mouth pain, No Mouth swelling, No Throat pain, No Throat swelling, No Other Cardiovascular: No Chest Pain, No Palpitations, No Orthopnea, No Paroxysmal Noc. Dyspnea, No Edema, No Lt Headedness, No Other Respiratory: No Cough, No Dry, No Shortness of breath, No SOB with excertion, No Wheezing, No Hemoptysis, No Pleuritic Pain, No Sputum, No Other Gastrointestinal: Nausea, Vomiting; No Abdominal Pain, No Diarrhea, No Constipation, No Melena, No Hematochezia, No Other Genitourinary: No Dysuria, No Frequency, No Incontinence, No Hematuria, No Retention, No Other Musculoskeletal: No other, No neck pain, No shoulder pain, No arm pain, No back pain, No hand pain, No leg pain, No foot pain Skin: No Rash, No Lesions, No Jaundice, No Bruising, No Other Objective Vitals Vital Signs Date Time Temp Pulse Resp B/P (MAP) Pulse Ox O2 Delivery O2 Flow Rate FiO2 07/09/24 09:00 97.9 99 18 129/63 (85) 97 97.9 07/09/24 08:00 Nasal Cannula* 2 28 Intake/Output Intake and Output 07/09/24 07:00 Intake Total 1230 ml Output Total 850 ml Balance 380 ml Intake Oral 350 ml IV Total 880 ml Output Urine Total 850 ml # Bowel Movements 3 General Appearance: Alert, Oriented X3, Cooperative, No acute distress HEENT: Atraumatic, PERRLA Lungs: Clear to auscultation, Normal air movement, Other (Mechanical ventilation) Cardiovascular: Normal S1, Normal S2 Abdomen: Normal bowel sounds Genitourinary: No Apparent Abnormalities (Guerar catheter) Neuro: Normal speech, Other (Unable to assess due to sedation) Skin: Dry, Intact Psych/Mental Status: Other (Unable to assess due to sedated) Medications Current Medications Medications Dose Ordered Sig/Mayela Route Start Time Stop Time Status Last Admin Dose Admin Metoclopramide HCl 5 mg Q6HP PRN IV 06/26/24 12:00 06/28/24 13:57 5 MG Morphine Sulfate 1 mg Q4HPRN PRN IV 06/26/24 12:00 07/07/24 04:41 1 MG Hydralazine HCl 10 mg Q6HP PRN IV 06/26/24 13:15 07/07/24 21:36 10 MG Heparin Sodium (Porcine) 5,000 units Q12HR SC 06/27/24 22:00 07/09/24 09:16 5,000 UNITS Amino Acids 1,000 ml @ 42 mls/hr [id number] IV 06/29/24 20:00 Cancel Diagnostic Test (Pha) 1 strip Q6HR 06/30/24 00:00 07/09/24 12:09 1 STRIP Insulin Human Regular FOLLOW SLIDING SCALE Q6HR SC 06/30/24 00:00 07/09/24 12:11 2 UNITS Dextrose 50 ml UD IV 06/29/24 19:15 Amino Acids 0 ml @ 0 mls/hr PER PHARMACY IV 07/01/24 22:00 Sodium Chloride 10 ml QSHIFT@10,22 IV 07/01/24 22:00 07/09/24 09:16 10 ML Metronidazole 100 ml @ 100 mls/hr Q8H IV 07/01/24 15:00 07/09/24 06:23 100 MLS/HR Pantoprazole Sodium 40 mg DAILY IV 07/05/24 10:00 07/09/24 09:14 40 MG Iron Sucrose 110 ml @ 110 mls/hr DAILY@1200 IV 07/07/24 12:00 07/11/24 12:59 07/09/24 12:09 110 MLS/HR Ceftriaxone Sodium 50 ml @ 100 mls/hr DAILY@09 IV 07/07/24 11:00 07/09/24 09:14 100 MLS/HR Fat Emulsion Intravenous 150 ml/Sodium Acetate 20 meq/Potassium Acetate 20 meq/ Potassium Phosphate 44 meq/ Magnesium Sulfate 14 meq/ Multivitamins 10 ml/Chromium/ Copper/Manganese/ Zinc 1 ml/Insulin Human Regular 5 units/Amino Acids/ Dextrose/Purified Water 1,244.55 ml @ 52 mls/hr [id number] IV 07/08/24 22:00 07/09/24 21:59 07/08/24 22:42 52 MLS/HR Fat Emulsion Intravenous 100 ml/Sodium Acetate 10 meq/Potassium Acetate 30 meq/ Potassium Phosphate 40 meq/ Magnesium Sulfate 14 meq/ Multivitamins 10 ml/Chromium/ Copper/Manganese/ Zinc 1 ml/Amino Acids/Dextrose/ Purified Water 1,243.5909 ml @ 52 mls/hr [id number] IV 07/09/24 22:00 07/10/24 21:59 Laboratory Results Laboratory Tests 07/09/24 06:50 Chemistry Test 07/09/24 06:50 Albumin 2.4 g/dL (3.2-4.8) L Calcium Level 8.4 mg/dL (8.7-10.4) L Magnesium Level 2.0 mg/dL (1.6-2.6) Phosphorus Level 3.6 mg/dL (2.4-5.1) Total Protein 4.5 g/dL (5.7-8.2) L LFT Test 07/09/24 06:50 Alanine Aminotransferase (ALT) < 9 U/L (7-40) Alkaline Phosphatase 76 U/L (46-116) Aspartate Amino Transferase (AST) 18 U/L (13-40) Total Bilirubin 0.3 mg/dL (0.2-1.0) Urinalysis Test 06/26/24 19:12 Urine Color Yellow (Yellow) Urine Clarity Clear (Clear) Urine pH 5.0 (5.0-9.0) Urine Specific [place] 1.020 (1.001-1.035) Urine Protein 1+ (Negative) H Urine Ketones 1+ (Negative) H Urine Blood Negative /uL (Negative) Urine Nitrite Negative (Negative) Urine Bilirubin Negative (Negative) Urine Urobilinogen Normal mg/dL (Negative) Urine Leukocyte Esterase Negative /uL (Negative) Urine RBC 4 /hpf (0 - 4) Urine WBC 1 /hpf (0 - 5) Urine Squamous Epithelial Cells Few /hpf (<5) Urine Bacteria None seen /hpf (None Seen) Urine Hyaline Casts Few /lpf (0 - 2) Urine Mucus Few (None Seen) Urine Creatinine 127.99 mg/dL (30.0-125.0) H Urine Protein/Creatinine Ratio 0.62 Urine Sodium 31 mmol/L (40-220) L Urine Glucose Normal mg/dL (Normal) Urine Total Protein 78.8 mg/dL (1-14) H Microbiology Microbiology Date/Time Source Procedure Growth Status 07/02/24 12:36 Sputum Gram Stain - Final Complete 07/02/24 12:36 Respiratory Culture - Final Escherichia coli Complete 07/02/24 11:41 Nose MRSA Screen - Final Complete Labs and/or images reviewed: Labs reviewed by me, Image(s) reviewed by me Assessment/Plan Assessment/Plan Impression: -colon cancer -colonic bowel obstruction -chronic kidney disease stage IIIB -microcytic anemia -acute respiratory failure with mechanical ventilation postoperatively -sacral wound Plan: -events: Patient with positive bowel movement today. Advance diet to full liquid. Continue PT. Long discussion made with the patient regarding the need to change her insurance to a local network. -weaned off of O2 -advance diet per surgery -continue iron supplementation -change antibiotic therapy to Rocephin and Flagyl -TPN, electrolyte replacement per pharmacy -physical therapy -incentive spirometer q.1 hour while awake -PUD prophylaxis -DVT prophylaxis -repeat labs in a.m. Total time spent with patient discussing and formulating plan of care: 35 minutes. This medical document was created using an electronic medical record system with [employer] dictation system. Although this document has been carefully reviewed, there may still be some phonetic and typographical errors. These areas are purely typographical due to imperfections of the software programs, and do not reflect any compromise in the patient's medical care. Plan discussed with: Patient, Other (RN) Date of Service: Jul 09, 2024 Billing Provider: MATT DEUTSCH NP Common Visit Codes: [id number] INP/OBS CARE(HIGH) MATT DEUTSCH NP Jul 09, 2024 13:26
--- NOTE | 2024-07-09 21:11 | DVHPN2 ---
Progress Note - Dictate Date Seen: Jul 09, 2024 Medical Necessity Reason Pt with a Central, PICC or Fol: Yes The following are medically ne: PICC Line, Morin Catheter Reason for morin catheter: Strict I&O Subjective Patient seen and examined at bedside. Remains on supplemental oxygen Overnight events reviewed. vital signs Vital Sign Date Time Temp Pulse Resp B/P (MAP) Pulse Ox O2 Delivery O2 Flow Rate FiO2 07/09/24 17:00 98.0 94 18 121/58 (79) 100 98.0 07/09/24 08:00 Nasal Cannula* 2 28 Total Intake and Output 07/08/24 07/08/24 07/09/24 15:00 23:00 07:00 Intake Total 680 ml 250 ml 300 ml Output Total 600 ml 450 ml Balance 680 ml -350 ml -150 ml medications Current Medications Medications Dose Ordered Sig/Mayela Route Start Time Stop Time Status Last Admin Dose Admin Metoclopramide HCl 5 mg Q6HP PRN IV 06/26/24 12:00 06/28/24 13:57 5 MG Morphine Sulfate 1 mg Q4HPRN PRN IV 06/26/24 12:00 07/07/24 04:41 1 MG Hydralazine HCl 10 mg Q6HP PRN IV 06/26/24 13:15 07/07/24 21:36 10 MG Heparin Sodium (Porcine) 5,000 units Q12HR SC 06/27/24 22:00 07/09/24 09:16 5,000 UNITS Amino Acids 1,000 ml @ 42 mls/hr [id number] IV 06/29/24 20:00 Cancel Diagnostic Test (Pha) 1 strip Q6HR 06/30/24 00:00 07/09/24 18:19 1 STRIP Insulin Human Regular FOLLOW SLIDING SCALE Q6HR SC 06/30/24 00:00 07/09/24 12:11 2 UNITS Dextrose 50 ml UD IV 06/29/24 19:15 Amino Acids 0 ml @ 0 mls/hr PER PHARMACY IV 07/01/24 22:00 Sodium Chloride 10 ml QSHIFT@10,22 IV 07/01/24 22:00 07/09/24 09:16 10 ML Metronidazole 100 ml @ 100 mls/hr Q8H IV 07/01/24 15:00 07/09/24 14:49 100 MLS/HR Pantoprazole Sodium 40 mg DAILY IV 07/05/24 10:00 07/09/24 09:14 40 MG Iron Sucrose 110 ml @ 110 mls/hr DAILY@1200 IV 07/07/24 12:00 07/11/24 12:59 07/09/24 12:09 110 MLS/HR Ceftriaxone Sodium 50 ml @ 100 mls/hr DAILY@09 IV 07/07/24 11:00 07/09/24 09:14 100 MLS/HR Fat Emulsion Intravenous 150 ml/Sodium Acetate 20 meq/Potassium Acetate 20 meq/ Potassium Phosphate 44 meq/ Magnesium Sulfate 14 meq/ Multivitamins 10 ml/Chromium/ Copper/Manganese/ Zinc 1 ml/Insulin Human Regular 5 units/Amino Acids/ Dextrose/Purified Water 1,244.55 ml @ 52 mls/hr [id number] IV 07/08/24 22:00 07/09/24 21:59 07/08/24 22:42 52 MLS/HR Fat Emulsion Intravenous 100 ml/Sodium Acetate 10 meq/Potassium Acetate 30 meq/ Potassium Phosphate 40 meq/ Magnesium Sulfate 14 meq/ Multivitamins 10 ml/Chromium/ Copper/Manganese/ Zinc 1 ml/Amino Acids/Dextrose/ Purified Water 1,243.5909 ml @ 52 mls/hr [id number] IV 07/09/24 22:00 07/10/24 21:59 objective Gen.: Patient lying in bed in no apparent distress. On supplemental oxygen. Head: Normocephalic, atraumatic. Eyes: EOMI/PERRLA. Ears: Normal hearing. Normal anatomy. Neck/trachea: Trachea midline, supple. Nose: Normal external anatomy. Mouth: Moist mucous membranes. Chest: Decreased air entry bilaterally. No wheezing or rhonchi. Cardiovascular: Positive S1, positive S2. Regular rate and rhythm. Abdomen: Positive bowel sounds in all 4 quadrants. Soft, non-tender, non- distended. : Deferred. Rectal: Deferred. Skin: Warm, dry. Intact. Extremities: 2+ radial pulses bilaterally. No lower extremity edema. Neuro: Awake, alert, oriented x3. No gross motor or sensory deficits. Cranial nerves II through XII intact. Gait not assessed. laboratory and microbiology Laboratory Tests 07/09/24 06:50 Test 07/09/24 06:50 Range/Units Serum Glucose 128 H 74-106 mg/dL Assessment/Plan Impression: Acute hypoxic respiratory failure Colon cancer Colonic bowel obstruction Chronic kidney disease Events: On supplemental O2 at 2 LPM NC Taper O2 as tolerated TPN for nutritional support Advance diet to soft. Head of bed elevation Aspiration precautions Continue antibiotics. IS. Iron supplementation Monitor hemoglobin. Continue PT. Accu-Cheks, ISS. GI prophylaxis. Labs and imaging reviewed. Rest of plan as noted below. Plan: S/p extubation on 07/04/24 Supplemental O2 at 2 LPM NC Titrate to keep O2 sats above 92% Taper O2 as tolerated. Continue antibiotics Pain control Avoid oversedation TPN for nutritional support NG tube to low intermittent suction. Monitor output. Surgery recs appreciated. Obtain labs including CBC, CMP, mag, phos. Monitor renal function. Monitor electrolytes. Supplement as necessary. Monitor ins and outs. DVT prophylaxis. Prognosis: Poor given patient's multiple co-morbidities. Rest of plan per hospitalist and other consultants. A total of 51 minutes of clinical care time was spent reviewing the patient record, examining the patient, making a diagnostic and therapeutic plan, discussing this plan with the medical personnel, following up on diagnostic studies and following the patient for clinical stability excluding any and all procedures. At least 50% of this time was spent in direct, [id number] contact. Thank you Cheyanne Villanueva NP, for allowing me to participate in this patient's care. Further recommendations will depend on the patient's clinical course. Please do not hesitate to contact me if you have any questions or concerns. This medical document was created using an electronic medical record system with [employer] dictation system. Although these documentations are being carefully reviewed, there may still be some phonetic and typographical changes. The errors are purely typographical, due to imperfection on the software program, and do not reflect any compromise in the patient's medical care. Dietary Evaluation Review Comments: 1) Increased TPN to meet at least 75% of estimated needs 2) Advance pt diet when medically feasible to a 2gm Sodium diet 3) Continue current plan of care Expected Outcomes/Goals: 1) Pt to receive adequate nutrition 2) Pt diet to advance 3) F/U in 2-3 days Plan discussed with: Patient, Other (RN Chris) AMANDA TREJO MD Jul 09, 2024 21:11
[2024-07-09] MEDS: TPN PER PHARMACY IV NR (22:00)
[2024-07-10] VITALS (8 sets, daily range): BP systolic 113–139; BP diastolic 55–77; PULSE 90–107; RESP 16–19; TEMP 97.3–98.9; O2SAT 97–100
[2024-07-10 06:17] LABS: Potassium 3.7 mmol/L (3.5-5.1)
[2024-07-10 06:18] LABS: Calcium 8.2 mg/dL (8.7-10.4)
[2024-07-10 06:23] LABS: Albumin 2.4 g/dL (3.2-4.8)
[2024-07-10 06:25] LABS: Phosphorus 3.5 mg/dL (2.4-5.1)
[2024-07-10 07:27] LABS: BUN/Creatinine Ratio 27.6 (10.0-20.0)
--- NOTE | 2024-07-10 10:29 | DVHPN2 ---
Subjective Patient denies any symptoms. Reviewed: Care Plan, H&P, Labs, Medications Changes from previous H/P or p: No Changes General: Per HPI Eyes: No Pain, No Vision change, No Conjunctivae inflammation, No Eyelid inflammation, No Other, No Redness ENT: No Ear pain, No Ear discharge, No Nose pain, No Nose discharge, No Nose congestion, No Mouth pain, No Mouth swelling, No Throat pain, No Throat swelling, No Other Cardiovascular: No Chest Pain, No Palpitations, No Orthopnea, No Paroxysmal Noc. Dyspnea, No Edema, No Lt Headedness, No Other Respiratory: No Cough, No Dry, No Shortness of breath, No SOB with excertion, No Wheezing, No Hemoptysis, No Pleuritic Pain, No Sputum, No Other Gastrointestinal: Nausea, Vomiting; No Abdominal Pain, No Diarrhea, No Constipation, No Melena, No Hematochezia, No Other Genitourinary: No Dysuria, No Frequency, No Incontinence, No Hematuria, No Retention, No Other Musculoskeletal: No other, No neck pain, No shoulder pain, No arm pain, No back pain, No hand pain, No leg pain, No foot pain Skin: No Rash, No Lesions, No Jaundice, No Bruising, No Other Objective Vitals Vital Signs Date Time Temp Pulse Resp B/P (MAP) Pulse Ox O2 Delivery O2 Flow Rate FiO2 07/10/24 05:00 97.8 91 16 123/57 (79) 100 97.8 07/09/24 20:00 Nasal Cannula* 2 28 Intake/Output Intake and Output 07/10/24 07:00 Intake Total 500 ml Output Total 1250 ml Balance -750 ml Intake Oral 400 ml IV Total 100 ml Output Urine Total 1050 ml Drainage Total 200 ml # Bowel Movements 2 General Appearance: Alert, Oriented X3, Cooperative, No acute distress HEENT: Atraumatic, PERRLA Lungs: Clear to auscultation, Normal air movement, Other (Mechanical ventilation) Cardiovascular: Normal S1, Normal S2 Abdomen: Normal bowel sounds Genitourinary: No Apparent Abnormalities (Guerra catheter) Neuro: Normal speech, Other (Unable to assess due to sedation) Skin: Dry, Intact Psych/Mental Status: Other (Unable to assess due to sedated) Medications Current Medications Medications Dose Ordered Sig/Mayela Route Start Time Stop Time Status Last Admin Dose Admin Metoclopramide HCl 5 mg Q6HP PRN IV 06/26/24 12:00 06/28/24 13:57 5 MG Morphine Sulfate 1 mg Q4HPRN PRN IV 06/26/24 12:00 07/07/24 04:41 1 MG Hydralazine HCl 10 mg Q6HP PRN IV 06/26/24 13:15 07/07/24 21:36 10 MG Heparin Sodium (Porcine) 5,000 units Q12HR SC 06/27/24 22:00 07/10/24 09:36 5,000 UNITS Amino Acids 1,000 ml @ 42 mls/hr [id number] IV 06/29/24 20:00 Cancel Diagnostic Test (Pha) 1 strip Q6HR 06/30/24 00:00 07/09/24 18:19 1 STRIP Insulin Human Regular FOLLOW SLIDING SCALE Q6HR SC 06/30/24 00:00 07/09/24 12:11 2 UNITS Dextrose 50 ml UD IV 06/29/24 19:15 Amino Acids 0 ml @ 0 mls/hr PER PHARMACY IV 07/01/24 22:00 Sodium Chloride 10 ml QSHIFT@10,22 IV 07/01/24 22:00 07/10/24 09:36 10 ML Metronidazole 100 ml @ 100 mls/hr Q8H IV 07/01/24 15:00 07/10/24 06:46 100 MLS/HR Pantoprazole Sodium 40 mg DAILY IV 07/05/24 10:00 07/10/24 09:33 40 MG Iron Sucrose 110 ml @ 110 mls/hr DAILY@1200 IV 07/07/24 12:00 07/11/24 12:59 07/09/24 12:09 110 MLS/HR Ceftriaxone Sodium 50 ml @ 100 mls/hr DAILY@09 IV 07/07/24 11:00 07/10/24 09:36 100 MLS/HR Fat Emulsion Intravenous 100 ml/Sodium Acetate 10 meq/Potassium Acetate 30 meq/ Potassium Phosphate 40 meq/ Magnesium Sulfate 14 meq/ Multivitamins 10 ml/Chromium/ Copper/Manganese/ Zinc 1 ml/Amino Acids/Dextrose/ Purified Water 1,243.5909 ml @ 52 mls/hr [id number] IV 07/09/24 22:00 07/10/24 21:59 Laboratory Results Laboratory Tests 07/09/24 06:50 07/10/24 05:34 Chemistry Test 07/10/24 05:34 Albumin 2.4 g/dL (3.2-4.8) L Calcium Level 8.2 mg/dL (8.7-10.4) L Magnesium Level 2.0 mg/dL (1.6-2.6) Phosphorus Level 3.5 mg/dL (2.4-5.1) Urinalysis Test 06/26/24 19:12 Urine Color Yellow (Yellow) Urine Clarity Clear (Clear) Urine pH 5.0 (5.0-9.0) Urine Specific [place] 1.020 (1.001-1.035) Urine Protein 1+ (Negative) H Urine Ketones 1+ (Negative) H Urine Blood Negative /uL (Negative) Urine Nitrite Negative (Negative) Urine Bilirubin Negative (Negative) Urine Urobilinogen Normal mg/dL (Negative) Urine Leukocyte Esterase Negative /uL (Negative) Urine RBC 4 /hpf (0 - 4) Urine WBC 1 /hpf (0 - 5) Urine Squamous Epithelial Cells Few /hpf (<5) Urine Bacteria None seen /hpf (None Seen) Urine Hyaline Casts Few /lpf (0 - 2) Urine Mucus Few (None Seen) Urine Creatinine 127.99 mg/dL (30.0-125.0) H Urine Protein/Creatinine Ratio 0.62 Urine Sodium 31 mmol/L (40-220) L Urine Glucose Normal mg/dL (Normal) Urine Total Protein 78.8 mg/dL (1-14) H Microbiology Microbiology Date/Time Source Procedure Growth Status 07/02/24 12:36 Sputum Gram Stain - Final Complete 07/02/24 12:36 Respiratory Culture - Final Escherichia coli Complete 07/02/24 11:41 Nose MRSA Screen - Final Complete Labs and/or images reviewed: Labs reviewed by me, Image(s) reviewed by me Assessment/Plan Assessment/Plan Impression: -colon cancer -colonic bowel obstruction -chronic kidney disease stage IIIB -microcytic anemia -acute respiratory failure with mechanical ventilation postoperatively -sacral wound Plan: -events: Patient with positive bowel movement today. Advance diet to full liquid. Continue PT. Long discussion made with the patient regarding the need to change her insurance to a local network. -MRI of the brain -CT scan of the chest with contrast -oncology consultation after assessment for metastatic disease. -advance diet per surgery -continue iron supplementation -change antibiotic therapy to Rocephin and Flagyl -DC TPN -physical therapy -incentive spirometer q.1 hour while awake -PUD prophylaxis -DVT prophylaxis -repeat labs in a.m. Total time spent with patient discussing and formulating plan of care: 35 minutes. This medical document was created using an electronic medical record system with [employer] dictation system. Although this document has been carefully reviewed, there may still be some phonetic and typographical errors. These areas are purely typographical due to imperfections of the software programs, and do not reflect any compromise in the patient's medical care. Plan discussed with: Patient, Other (RN) My Orders Orders - MATT DEUTSCH NP Procedure Category Date Status Time * Wound Consult CONS 07/09/24 Transmitted Date of Service: Jul 10, 2024 Billing Provider: MATT DEUTSCH NP Common Visit Codes: [id number] INP/OBS CARE(HIGH) MATT DEUTSCH NP Jul 10, 2024 10:29
--- NOTE | 2024-07-10 11:44 | DVHPN2 ---
Progress Note Date Seen: Jul 10, 2024 Medical Necessity Reason Pt with a Central, PICC or Fol: Yes The following are medically ne: PICC Line, Morin Catheter Reason for morin catheter: Strict I&O Objective vital signs Vital Sign Date Time Temp Pulse Resp B/P (MAP) Pulse Ox O2 Delivery O2 Flow Rate FiO2 07/10/24 09:00 98.0 90 17 113/59 (77) 100 98.0 07/10/24 08:00 Nasal Cannula* 2 28 Total Intake and Output 07/09/24 07/09/24 07/10/24 15:00 23:00 07:00 Intake Total 200 ml 300 ml Output Total 550 ml 700 ml Balance -350 ml -400 ml medications Current Medications Medications Dose Ordered Sig/Mayela Route Start Time Stop Time Status Last Admin Dose Admin Metoclopramide HCl 5 mg Q6HP PRN IV 06/26/24 12:00 06/28/24 13:57 5 MG Morphine Sulfate 1 mg Q4HPRN PRN IV 06/26/24 12:00 07/07/24 04:41 1 MG Hydralazine HCl 10 mg Q6HP PRN IV 06/26/24 13:15 07/07/24 21:36 10 MG Heparin Sodium (Porcine) 5,000 units Q12HR SC 06/27/24 22:00 07/10/24 09:36 5,000 UNITS Amino Acids 1,000 ml @ 42 mls/hr [id number] IV 06/29/24 20:00 Cancel Amino Acids 0 ml @ 0 mls/hr PER PHARMACY IV 07/01/24 22:00 Cancel Sodium Chloride 10 ml QSHIFT@,22 IV 07/01/24 22:00 07/10/24 09:36 10 ML Metronidazole 100 ml @ 100 mls/hr Q8H IV 07/01/24 15:00 07/10/24 06:46 100 MLS/HR Iron Sucrose 110 ml @ 110 mls/hr DAILY@1200 IV 07/07/24 12:00 07/11/24 12:59 07/09/24 12:09 110 MLS/HR Ceftriaxone Sodium 50 ml @ 100 mls/hr DAILY@09 IV 07/07/24 11:00 07/10/24 09:36 100 MLS/HR Pantoprazole Sodium 40 mg DAILY@0600 PO 07/11/24 06:00 laboratory and microbiology Laboratory Tests 07/10/24 05:34 07/09/24 06:50 Test 07/10/24 05:34 Range/Units Serum Glucose 98 74-106 mg/dL Problem List/Assessment/Plan Problem List/Assessment/Plan 07/02/24 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 NPO TILL RESUMPTION OF BOWEL ACTIVITY 07/07/24 SURGICALLY. STABLE, WOUND CLEAN AND WELL APPROXIMATED, PASSING FLATUS WILL DC NGT ,LIMIT PO INTAKE TO ICE CHIPS ONLY 07/08/24 abdomen appropriately tender, wound clean and well approximated, labs reviewed, will allow po liquids PASSING FLATUS,NO BM' 07/09/24 had a bowel movement, abdomen non distended, will advance po, 07/10/24 having normal bowel activity, needs morin out, diet as tolerated, check CBC in am, if WBC better after morin removed could be discharged tomorrow Plan discussed with: Patient Dietary Evaluation Review Comments: 1) Increased TPN to meet at least 75% of estimated needs 2) Advance pt diet when medically feasible to a 2gm Sodium diet 3) Continue current plan of care Expected Outcomes/Goals: 1) Pt to receive adequate nutrition 2) Pt diet to advance 3) F/U in 2-3 days MELVIN MARTIN MD Jul 10, 2024 11:44
[2024-07-10] MEDS ORDERED: IOHEXOL 350 MG/ML 100ML IJ ONE (12:26)
[2024-07-10] MEDS ORDERED: IOHEXOL 300 MG/ML 100ML BOTTLE IJ ONE ×2 (12:29→12:45)
--- NOTE | 2024-07-10 13:20 | DVH ---
EXAM: CT HEAD W WO CONTRAST INDICATION: METASTATIC DISEASE TECHNIQUE: CT of the head with and without intravenous contrast. 100 cc of omnipaque 300 contrast wa s injected intravenously. Radiation Dose Information: CT Dose: CTDI volume is 51 mGy. Dose-length product is 910 mGy*cm The dose indicators for CT are the volume Computed Tomography (CT) Dose Index (CTDIvol) and the Dose Length Product (DLP), and are measured in units of mGy and mGy-cm, respectively. These indicators are not patient dose, but values generated from the CT scanner acquisition factors. The report includes radiation exposure data for exposures received during this examination. COMPARISON: None FINDINGS: There is no evidence of acute intracranial hemorrhage, mass, mass effect or midline shift. There is no pathologic enhancement. There is no hydrocephalus or extra-axial fluid collection. The molina-white matter differentiation appears maintained. The calvarium is intact. The visualized paranasal sinuses and mastoid air cells are clear. IMPRESSION: 1. No acute intracranial abnormality. There is no evidence of intracranial metastasis. HS:Y
--- NOTE | 2024-07-10 13:32 | DVH ---
Procedure: CT CHEST WITH CONTRAST Reason for study/Clinical History: Comparison Study: None available at time of dictation. Exam Date: 07/10/2024 12:49 PM Radiation Dose Information: CT Dose: CTDI volume is 51.87 mGy. Dose-length product is 1089.99 mGy*cm TECHNIQUE: After the uneventful administration of intravenous contrast intravenously, CT imaging was performed through the chest. Coronal and sagittal reformations were performed by the technologist. 10 0 cc of Omnipaque 300 contrast was injected intravenously. All CT scans at this medical facility are performed using dose modulation techniques as appropriate t o a performed exam including the following:Automated exposure control was utilized; adjustment of the MA and/or KV according to patient size; and use of iterative reconstruction technique. FINDINGS: Aorta and Vasculature: Normal caliber of thoracic aorta. Lymph Nodes: No enlarged thoracic lymph nodes. Mediastinum: Heart size is normal. There is no pericardial effusion. The esophagus is unremarkable. Lungs: There are small bilateral pleural effusions with likely atelectasis in the posterior lung base s, [id number]-left. Airspace disease is not entirely excluded. Musculoskeletal: No acute osseous abnormality. Upper abdomen: The visualized solid abdominal viscera appears within normal limits.. IMPRESSION: 1. Small bilateral pleural effusions with likely atelectasis in the posterior lung bases, right-great [id number]. Airspace disease is not entirely excluded. HS:Y
--- NOTE | 2024-07-10 21:04 | DVHPN2 ---
Progress Note - Dictate Date Seen: Jul 10, 2024 Medical Necessity Reason Pt with a Central, PICC or Fol: Yes The following are medically ne: PICC Line, Morin Catheter Reason for morin catheter: Strict I&O Subjective Patient seen and examined at bedside. Remains on supplemental oxygen Overnight events reviewed. vital signs Vital Sign Date Time Temp Pulse Resp B/P (MAP) Pulse Ox O2 Delivery O2 Flow Rate FiO2 07/10/24 17:00 97.7 91 17 126/57 (80) 100 97.7 07/10/24 08:00 Nasal Cannula* 2 28 Total Intake and Output 07/09/24 07/09/24 07/10/24 15:00 23:00 07:00 Intake Total 200 ml 300 ml Output Total 550 ml 700 ml Balance -350 ml -400 ml medications Current Medications Medications Dose Ordered Sig/Mayela Route Start Time Stop Time Status Last Admin Dose Admin Metoclopramide HCl 5 mg Q6HP PRN IV 06/26/24 12:00 06/28/24 13:57 5 MG Morphine Sulfate 1 mg Q4HPRN PRN IV 06/26/24 12:00 07/07/24 04:41 1 MG Hydralazine HCl 10 mg Q6HP PRN IV 06/26/24 13:15 07/07/24 21:36 10 MG Heparin Sodium (Porcine) 5,000 units Q12HR SC 06/27/24 22:00 07/10/24 09:36 5,000 UNITS Amino Acids 1,000 ml @ 42 mls/hr [id number] IV 06/29/24 20:00 Cancel Amino Acids 0 ml @ 0 mls/hr PER PHARMACY IV 07/01/24 22:00 Cancel Sodium Chloride 10 ml QSHIFT@10,22 IV 07/01/24 22:00 07/10/24 09:36 10 ML Metronidazole 100 ml @ 100 mls/hr Q8H IV 07/01/24 15:00 07/10/24 14:41 100 MLS/HR Iron Sucrose 110 ml @ 110 mls/hr DAILY@1200 IV 07/07/24 12:00 07/11/24 12:59 07/10/24 14:41 110 MLS/HR Ceftriaxone Sodium 50 ml @ 100 mls/hr DAILY@09 IV 07/07/24 11:00 07/10/24 09:36 100 MLS/HR Pantoprazole Sodium 40 mg DAILY@0600 PO 07/11/24 06:00 objective Gen.: Patient lying in bed in no apparent distress. On supplemental oxygen. Head: Normocephalic, atraumatic. Eyes: EOMI/PERRLA. Ears: Normal hearing. Normal anatomy. Neck/trachea: Trachea midline, supple. Nose: Normal external anatomy. Mouth: Moist mucous membranes. Chest: Decreased air entry bilaterally. No wheezing or rhonchi. Cardiovascular: Positive S1, positive S2. Regular rate and rhythm. Abdomen: Positive bowel sounds in all 4 quadrants. Soft, non-tender, non- distended. : Deferred. Rectal: Deferred. Skin: Warm, dry. Intact. Extremities: 2+ radial pulses bilaterally. No lower extremity edema. Neuro: Awake, alert, oriented x3. No gross motor or sensory deficits. Cranial nerves II through XII intact. Gait not assessed. laboratory and microbiology Laboratory Tests 07/10/24 05:34 07/09/24 06:50 Test 07/10/24 05:34 Range/Units Serum Glucose 98 74-106 mg/dL Assessment/Plan Impression: Acute hypoxic respiratory failure Colon cancer Colonic bowel obstruction Chronic kidney disease Events: Remains on supplemental O2 at 2 LPM NC Taper O2 as tolerated TPN for nutritional support Head of bed elevation Aspiration precautions Continue antibiotics. IS. Iron supplementation Monitor hemoglobin. Continue PT. GI prophylaxis w/ Protonix. Labs and imaging reviewed. Rest of plan as noted below. Plan: S/p extubation on 07/04/24 Supplemental O2 at 2 LPM NC Titrate to keep O2 sats above 92% Taper O2 as tolerated. Continue antibiotics Pain control Avoid oversedation TPN for nutritional support NG tube to low intermittent suction. Monitor output. Surgery recs appreciated. Obtain labs including CBC, CMP, mag, phos. Monitor renal function. Monitor electrolytes. Supplement as necessary. Monitor ins and outs. DVT prophylaxis. Prognosis: Poor given patient's multiple co-morbidities. Rest of plan per hospitalist and other consultants. A total of 51 minutes of clinical care time was spent reviewing the patient record, examining the patient, making a diagnostic and therapeutic plan, discussing this plan with the medical personnel, following up on diagnostic studies and following the patient for clinical stability excluding any and all procedures. At least 50% of this time was spent in direct, mich-sk-saan contact. Thank you Cheyanne Villanueva NP, for allowing me to participate in this patient's care. Further recommendations will depend on the patient's clinical course. Please do not hesitate to contact me if you have any questions or concerns. This medical document was created using an electronic medical record system with [employer] dictation system. Although these documentations are being carefully reviewed, there may still be some phonetic and typographical changes. The errors are purely typographical, due to imperfection on the software program, and do not reflect any compromise in the patient's medical care. Dietary Evaluation Review Comments: 1) Increased TPN to meet at least 75% of estimated needs 2) Advance pt diet when medically feasible to a 2gm Sodium diet 3) Continue current plan of care Expected Outcomes/Goals: 1) Pt to receive adequate nutrition 2) Pt diet to advance 3) F/U in 2-3 days Plan discussed with: Patient, Other (RN November) AMANDA TREJO MD Jul 10, 2024 21:04
[2024-07-11] VITALS (8 sets, daily range): BP systolic 119–139; BP diastolic 56–64; PULSE 84–95; RESP 16–18; TEMP 97.6–98.4; O2SAT 98–100
[2024-07-11] MEDS: PANTOPRAZOLE 40 MG TAB PO SCH (06:11)
[2024-07-11 07:33] LABS: Anion Gap 8 (5-15); Carbon Dioxide 25 mmol/L (20-31); Chloride 112 mmol/L (98-107); Potassium 3.3 mmol/L (3.5-5.1); Sodium 145 mmol/L (136-145)
[2024-07-11 07:35] LABS: Calcium 8.3 mg/dL (8.7-10.4)
[2024-07-11 07:37] LABS: Basophils # (auto) 0 10 ^3/uL (0-0.2); Mean Corpuscular Hgb Conc. 31.5 g/dL (32.0-36.0)
[2024-07-11 07:39] LABS: BUN/Creatinine Ratio 19.6 (10.0-20.0); Blood Urea Nitrogen 20 mg/dL (9-23); Glucose 104 mg/dL (74-106)
[2024-07-11 07:40] LABS: Basophils % (auto) 0.1 % (0.0-2.0); Eosinophils # (auto) 0.1 10 ^3/uL (0-0.8); Eosinophils % (auto) 0.8 % (0.0-7.0); Lymphocytes # (auto) 1.3 10 ^3/uL (0.4-5.4); Lymphocytes % (auto) 9.9 % (10.0-50.0); Mean Corpuscular Hemoglobin 23.3 pg (28.0-32.0); Mean Corpuscular Volume 73.9 fL (80.0-100.0); Monocytes # (auto) 0.6 10 ^3/uL (0-1.3); Monocytes % (auto) 4.6 % (0.0-12.0); Neutrophils # (auto) 11.1 10 ^3/uL (1.6-8.6); Neutrophils % (auto) 84.6 % (37.0-80.0); Nucleated Red Blood Cells % 0.1 %; Platelet Count (auto) 410 10^3/uL (140-450); Red Blood Cells 2.84 10^6/uL (4.0-5.20); Red Cell Distribution Width 26.7 % (11.8-14.3); White Blood Cell 13.1 10^3/uL (4.4-10.8)
[2024-07-11 08:01] LABS: Hemoglobin 6.6 g/dL (12.2-16.2)
--- NOTE | 2024-07-11 08:03 | DVHPN2 ---
Progress Note Date Seen: Jul 11, 2024 Medical Necessity Reason Pt with a Central, PICC or Fol: Yes The following are medically ne: PICC Line, Morin Catheter Reason for morin catheter: Strict I&O Objective vital signs Vital Sign Date Time Temp Pulse Resp B/P (MAP) Pulse Ox O2 Delivery O2 Flow Rate FiO2 07/11/24 05:00 98.4 89 16 136/61 (86) 100 98.4 07/10/24 20:00 Nasal Cannula* 2 28 Total Intake and Output 07/10/24 07/10/24 07/11/24 15:00 23:00 07:00 Intake Total 260 ml 400 ml Output Total 425 ml Balance -165 ml 400 ml medications Current Medications Medications Dose Ordered Sig/Mayela Route Start Time Stop Time Status Last Admin Dose Admin Metoclopramide HCl 5 mg Q6HP PRN IV 06/26/24 12:00 06/28/24 13:57 5 MG Morphine Sulfate 1 mg Q4HPRN PRN IV 06/26/24 12:00 07/07/24 04:41 1 MG Hydralazine HCl 10 mg Q6HP PRN IV 06/26/24 13:15 07/07/24 21:36 10 MG Heparin Sodium (Porcine) 5,000 units Q12HR SC 06/27/24 22:00 07/10/24 21:23 5,000 UNITS Amino Acids 1,000 ml @ 42 mls/hr [id number] IV 06/29/24 20:00 Cancel Amino Acids 0 ml @ 0 mls/hr PER PHARMACY IV 07/01/24 22:00 Cancel Sodium Chloride 10 ml QSHIFT@,22 IV 07/01/24 22:00 07/10/24 21:16 10 ML Metronidazole 100 ml @ 100 mls/hr Q8H IV 07/01/24 15:00 07/11/24 06:16 100 MLS/HR Iron Sucrose 110 ml @ 110 mls/hr DAILY@1200 IV 07/07/24 12:00 07/11/24 12:59 07/10/24 14:41 110 MLS/HR Ceftriaxone Sodium 50 ml @ 100 mls/hr DAILY@09 IV 07/07/24 11:00 07/10/24 09:36 100 MLS/HR Pantoprazole Sodium 40 mg DAILY@0600 PO 07/11/24 06:00 07/11/24 06:11 40 MG laboratory and microbiology Laboratory Tests 07/11/24 06:43 Test 07/11/24 06:43 Range/Units Serum Glucose 104 74-106 mg/dL Problem List/Assessment/Plan Problem List/Assessment/Plan 07/02/24 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 NPO TILL RESUMPTION OF BOWEL ACTIVITY 07/07/24 SURGICALLY. STABLE, WOUND CLEAN AND WELL APPROXIMATED, PASSING FLATUS WILL DC NGT ,LIMIT PO INTAKE TO ICE CHIPS ONLY 07/08/24 abdomen appropriately tender, wound clean and well approximated, labs reviewed, will allow po liquids PASSING FLATUS,NO BM' 07/09/24 had a bowel movement, abdomen non distended, will advance po, 07/10/24 having normal bowel activity, needs morin out, diet as tolerated, check CBC in am, if WBC better after morin removed could be discharged tomorrow 07/11/24 awake,comfortable, cooperative, afebrile, normotensive, wound clean and well approximated, cbc pending, if cbc better than yesterday can be discharged, i need to see her in the office in ten days Plan discussed with: Patient Dietary Evaluation Review Comments: 1) Increased TPN to meet at least 75% of estimated needs 2) Advance pt diet when medically feasible to a 2gm Sodium diet 3) Continue current plan of care Expected Outcomes/Goals: 1) Pt to receive adequate nutrition 2) Pt diet to advance 3) F/U in 2-3 days MELVIN MARTIN MD Jul 11, 2024 08:03
[2024-07-11 09:26] LABS: Anisocytosis Slight; Hypochromia Moderate; Platelet Estimate Adequate; Stomatocytes Few
[2024-07-11 09:27] LABS: Eosinophils # (auto) 0.1 10 ^3/uL (0-0.8); Mean Corpuscular Hemoglobin 23.5 pg (28.0-32.0); Monocytes # (auto) 0.5 10 ^3/uL (0-1.3)
[2024-07-11 09:31] LABS: Basophils # (auto) 0.1 10 ^3/uL (0-0.2); Basophils % (auto) 0.4 % (0.0-2.0); Eosinophils % (auto) 0.9 % (0.0-7.0); Hematocrit 21.2 % (36.0-46.0); Lymphocytes # (auto) 1.1 10 ^3/uL (0.4-5.4); Lymphocytes % (auto) 8.6 % (10.0-50.0); Mean Corpuscular Hgb Conc. 31.6 g/dL (32.0-36.0); Mean Corpuscular Volume 74.3 fL (80.0-100.0); Monocytes % (auto) 3.6 % (0.0-12.0); Neutrophils # (auto) 10.9 10 ^3/uL (1.6-8.6); Neutrophils % (auto) 86.5 % (37.0-80.0); Platelet Count (auto) 435 10^3/uL (140-450); Red Blood Cells 2.86 10^6/uL (4.0-5.20); Red Cell Distribution Width 26.7 % (11.8-14.3); White Blood Cell 12.6 10^3/uL (4.4-10.8)
[2024-07-11 09:55] LABS: Hemoglobin 6.7 g/dL (12.2-16.2)
--- NOTE | 2024-07-11 13:49 | DVHPN2 ---
Subjective The patient is seen and examined at bedside. No change overnight. Still complain of abdominal pain. Reviewed: Care Plan, H&P, Labs, Medications Changes from previous H/P or p: No Changes General: Per HPI Eyes: No Pain, No Vision change, No Conjunctivae inflammation, No Eyelid inflammation, No Other, No Redness ENT: No Ear pain, No Ear discharge, No Nose pain, No Nose discharge, No Nose congestion, No Mouth pain, No Mouth swelling, No Throat pain, No Throat swelling, No Other Cardiovascular: No Chest Pain, No Palpitations, No Orthopnea, No Paroxysmal Noc. Dyspnea, No Edema, No Lt Headedness, No Other Respiratory: No Cough, No Dry, No Shortness of breath, No SOB with excertion, No Wheezing, No Hemoptysis, No Pleuritic Pain, No Sputum, No Other Gastrointestinal: Nausea, Vomiting; No Abdominal Pain, No Diarrhea, No Constipation, No Melena, No Hematochezia, No Other Genitourinary: No Dysuria, No Frequency, No Incontinence, No Hematuria, No Retention, No Other Musculoskeletal: No other, No neck pain, No shoulder pain, No arm pain, No back pain, No hand pain, No leg pain, No foot pain Skin: No Rash, No Lesions, No Jaundice, No Bruising, No Other Objective Vitals Vital Signs Date Time Temp Pulse Resp B/P (MAP) Pulse Ox O2 Delivery O2 Flow Rate FiO2 07/11/24 09:00 98.0 84 18 130/61 (84) 99 98.0 07/11/24 08:00 Nasal Cannula* 2 28 Intake/Output Intake and Output 07/11/24 07:00 Intake Total 660 ml Output Total 425 ml Balance 235 ml Intake Oral 400 ml IV Total 260 ml Output Urine Total 425 ml General Appearance: Alert, Oriented X3, Cooperative, No acute distress HEENT: Atraumatic, PERRLA Lungs: Clear to auscultation, Normal air movement, Other (Mechanical ventilation) Cardiovascular: Normal S1, Normal S2 Abdomen: Normal bowel sounds Genitourinary: No Apparent Abnormalities (Guerra catheter) Neuro: Normal speech, Other (Unable to assess due to sedation) Skin: Dry, Intact Psych/Mental Status: Other (Unable to assess due to sedated) Medications Current Medications Medications Dose Ordered Sig/Mayela Route Start Time Stop Time Status Last Admin Dose Admin Metoclopramide HCl 5 mg Q6HP PRN IV 06/26/24 12:00 06/28/24 13:57 5 MG Morphine Sulfate 1 mg Q4HPRN PRN IV 06/26/24 12:00 07/07/24 04:41 1 MG Hydralazine HCl 10 mg Q6HP PRN IV 06/26/24 13:15 07/07/24 21:36 10 MG Heparin Sodium (Porcine) 5,000 units Q12HR SC 06/27/24 22:00 07/10/24 21:23 5,000 UNITS Amino Acids 1,000 ml @ 42 mls/hr [id number] IV 06/29/24 20:00 Cancel Amino Acids 0 ml @ 0 mls/hr PER PHARMACY IV 07/01/24 22:00 Cancel Sodium Chloride 10 ml QSHIFT@ IV 07/01/24 22:00 07/11/24 11:01 10 ML Metronidazole 100 ml @ 100 mls/hr Q8H IV 07/01/24 15:00 07/11/24 06:16 100 MLS/HR Ceftriaxone Sodium 50 ml @ 100 mls/hr DAILY@09 IV 07/07/24 11:00 07/11/24 09:48 100 MLS/HR Pantoprazole Sodium 40 mg DAILY@0600 PO 07/11/24 06:00 07/11/24 06:11 40 MG Laboratory Results Laboratory Tests 07/11/24 06:43 07/11/24 08:50 Chemistry Test 07/11/24 06:43 Calcium Level 8.3 mg/dL (8.7-10.4) L Urinalysis Test 06/26/24 19:12 Urine Color Yellow (Yellow) Urine Clarity Clear (Clear) Urine pH 5.0 (5.0-9.0) Urine Specific Boyle 1.020 (1.001-1.035) Urine Protein 1+ (Negative) H Urine Ketones 1+ (Negative) H Urine Blood Negative /uL (Negative) Urine Nitrite Negative (Negative) Urine Bilirubin Negative (Negative) Urine Urobilinogen Normal mg/dL (Negative) Urine Leukocyte Esterase Negative /uL (Negative) Urine RBC 4 /hpf (0 - 4) Urine WBC 1 /hpf (0 - 5) Urine Squamous Epithelial Cells Few /hpf (<5) Urine Bacteria None seen /hpf (None Seen) Urine Hyaline Casts Few /lpf (0 - 2) Urine Mucus Few (None Seen) Urine Creatinine 127.99 mg/dL (30.0-125.0) H Urine Protein/Creatinine Ratio 0.62 Urine Sodium 31 mmol/L (40-220) L Urine Glucose Normal mg/dL (Normal) Urine Total Protein 78.8 mg/dL (1-14) H Microbiology Microbiology Date/Time Source Procedure Growth Status 07/02/24 12:36 Sputum Gram Stain - Final Complete 07/02/24 12:36 Respiratory Culture - Final Escherichia coli Complete 07/02/24 11:41 Nose MRSA Screen - Final Complete Labs and/or images reviewed: Labs reviewed by me Assessment/Plan Assessment/Plan -colon cancer -colonic bowel obstruction -chronic kidney disease stage IIIB -microcytic anemia -acute respiratory failure with mechanical ventilation postoperatively -sacral wound Plan: -events: Patient with positive bowel movement today. Advance diet to full liquid. Continue PT. Long discussion made with the patient regarding the need to change her insurance to a local network. -MRI of the brain is still pending -CT scan of the chest with contrast show: Small bilateral pleural effusions with likely atelectasis in the posterior lung bases, [id number]-left. Airspace disease is not entirely excluded. -oncology consultation after assessment for metastatic disease. -advance diet per surgery -continue iron supplementation -change antibiotic therapy to Rocephin and Flagyl -DC TPN -physical therapy to get the patient out of bed and ambulate -incentive spirometer q.1 hour while awake -PUD prophylaxis -DVT prophylaxis -repeat labs in a.m. This medical document was created using an electronic medical record system with [employer] dictation system. Although this document has been carefully reviewed, there may still be some phonetic and typographical errors. These areas are purely typographical due to imperfections of the software programs, and do not reflect any compromise in the patient's medical care. Plan discussed with: Patient My Orders Orders - TUNDE LOWRY MD Procedure Category Date Status Time Type And Screen BBK 07/11/24 In Process 11:53 Packedcells -Active BBK 07/11/24 Logged Bleeding 11:53 Date of Service: Jul 11, 2024 Billing Provider: TUNDE LOWRY MD Common Visit Codes: [id number] INP/OBS CARE(HIGH) TUNDE LOWRY MD Jul 11, 2024 13:49
[2024-07-11] MEDS: POTASSIUM CHL 20 Meq TABLET PO ONE (15:06)
--- NOTE | 2024-07-11 22:01 | DVHPN2 ---
Progress Note - Dictate Date Seen: Jul 11, 2024 Medical Necessity Reason Pt with a Central, PICC or Fol: Yes The following are medically ne: PICC Line, Morin Catheter Reason for morin catheter: Strict I&O Subjective Patient seen and examined at bedside. Weaned off supplemental oxygen, breathing comfortably on room air. Overnight events reviewed. vital signs Vital Sign Date Time Temp Pulse Resp B/P (MAP) Pulse Ox O2 Delivery O2 Flow Rate FiO2 07/11/24 21:00 97.8 95 16 119/56 (77) 98 97.8 07/11/24 08:00 Nasal Cannula* 2 28 Total Intake and Output 07/10/24 07/10/24 07/11/24 15:00 23:00 07:00 Intake Total 260 ml 400 ml Output Total 425 ml Balance -165 ml 400 ml medications Current Medications Medications Dose Ordered Sig/Mayela Route Start Time Stop Time Status Last Admin Dose Admin Metoclopramide HCl 5 mg Q6HP PRN IV 06/26/24 12:00 06/28/24 13:57 5 MG Morphine Sulfate 1 mg Q4HPRN PRN IV 06/26/24 12:00 07/07/24 04:41 1 MG Hydralazine HCl 10 mg Q6HP PRN IV 06/26/24 13:15 07/07/24 21:36 10 MG Heparin Sodium (Porcine) 5,000 units Q12HR SC 06/27/24 22:00 07/10/24 21:23 5,000 UNITS Amino Acids 1,000 ml @ 42 mls/hr [id number] IV 06/29/24 20:00 Cancel Amino Acids 0 ml @ 0 mls/hr PER PHARMACY IV 07/01/24 22:00 Cancel Sodium Chloride 10 ml QSHIFT@,22 IV 07/01/24 22:00 07/11/24 11:01 10 ML Metronidazole 100 ml @ 100 mls/hr Q8H IV 07/01/24 15:00 07/11/24 15:09 100 MLS/HR Ceftriaxone Sodium 50 ml @ 100 mls/hr DAILY@09 IV 07/07/24 11:00 07/11/24 09:48 100 MLS/HR Pantoprazole Sodium 40 mg DAILY@0600 PO 07/11/24 06:00 07/11/24 06:11 40 MG objective Gen.: Patient lying in bed in no apparent distress. Breathing on room air. Head: Normocephalic, atraumatic. Eyes: EOMI/PERRLA. Ears: Normal hearing. Normal anatomy. Neck/trachea: Trachea midline, supple. Nose: Normal external anatomy. Mouth: Moist mucous membranes. Chest: Decreased air entry bilaterally. No wheezing or rhonchi. Cardiovascular: Positive S1, positive S2. Regular rate and rhythm. Abdomen: Positive bowel sounds in all 4 quadrants. Soft, non-tender, non- distended. : Deferred. Rectal: Deferred. Skin: Warm, dry. Intact. Extremities: 2+ radial pulses bilaterally. No lower extremity edema. Neuro: Awake, alert, oriented x3. No gross motor or sensory deficits. Cranial nerves II through XII intact. Gait not assessed. laboratory and microbiology Laboratory Tests 07/11/24 08:50 07/11/24 06:43 Test 07/11/24 06:43 Range/Units Serum Glucose 104 74-106 mg/dL Assessment/Plan Impression: Acute hypoxic respiratory failure Colon cancer Colonic bowel obstruction Chronic kidney disease Events: Breathing comfortably on room air No respiratory distress. Head of bed elevation Aspiration precautions Continue antibiotics. IS. Pain control Avoid oversedation TPN for nutritional support Iron supplementation Monitor hemoglobin. Continue PT. GI prophylaxis w/ Protonix. Disposition per hospitalist. Labs and imaging reviewed. Rest of plan as noted below. Plan: S/p extubation on 07/04/24 Supplemental O2 PRN Titrate to keep O2 sats above 92% Continue antibiotics Pain control Avoid oversedation TPN for nutritional support NG tube to low intermittent suction. Monitor output. Surgery recs appreciated. Obtain labs including CBC, CMP, mag, phos. Monitor renal function. Monitor electrolytes. Supplement as necessary. Monitor ins and outs. GI/DVT prophylaxis. Prognosis: Poor given patient's multiple co-morbidities. Rest of plan per hospitalist and other consultants. A total of 51 minutes of clinical care time was spent reviewing the patient record, examining the patient, making a diagnostic and therapeutic plan, discussing this plan with the medical personnel, following up on diagnostic studies and following the patient for clinical stability excluding any and all procedures. At least 50% of this time was spent in direct, [id number] contact. Thank you Cheyanne Villanueva NP, for allowing me to participate in this patient's care. Further recommendations will depend on the patient's clinical course. Please do not hesitate to contact me if you have any questions or concerns. This medical document was created using an electronic medical record system with [employer] dictation system. Although these documentations are being carefully reviewed, there may still be some phonetic and typographical changes. The errors are purely typographical, due to imperfection on the software program, and do not reflect any compromise in the patient's medical care. Dietary Evaluation Review Comments: 1) Increased TPN to meet at least 75% of estimated needs 2) Advance pt diet when medically feasible to a 2gm Sodium diet 3) Continue current plan of care Expected Outcomes/Goals: 1) Pt to receive adequate nutrition 2) Pt diet to advance 3) F/U in 2-3 days Plan discussed with: Patient, Other (RN Josseline) AMANDA TREJO MD Jul 11, 2024 22:01
[2024-07-12] VITALS (11 sets, daily range): BP systolic 116–133; BP diastolic 55–78; PULSE 87–99; RESP 16–20; TEMP 97.7–98.8; O2SAT 97–100
[2024-07-12 09:23] LABS: Basophils # (auto) 0 10 ^3/uL (0-0.2); Basophils % (auto) 0.2 % (0.0-2.0); Eosinophils # (auto) 0.1 10 ^3/uL (0-0.8); Eosinophils % (auto) 0.9 % (0.0-7.0); Hematocrit 28.5 % (36.0-46.0); Hemoglobin 9.2 g/dL (12.2-16.2); Lymphocytes # (auto) 1.2 10 ^3/uL (0.4-5.4); Lymphocytes % (auto) 10.3 % (10.0-50.0); Mean Corpuscular Hgb Conc. 32.1 g/dL (32.0-36.0); Mean Corpuscular Volume 77.8 fL (80.0-100.0); Monocytes # (auto) 0.5 10 ^3/uL (0-1.3); Monocytes % (auto) 4.3 % (0.0-12.0); Neutrophils # (auto) 9.6 10 ^3/uL (1.6-8.6); Neutrophils % (auto) 84.3 % (37.0-80.0); Platelet Count (auto) 428 10^3/uL (140-450); Red Blood Cells 3.67 10^6/uL (4.0-5.20); Red Cell Distribution Width 24.3 % (11.8-14.3); White Blood Cell 11.4 10^3/uL (4.4-10.8)
[2024-07-12 09:36] LABS: Chloride 112 mmol/L (98-107); Sodium 144 mmol/L (136-145)
[2024-07-12 09:37] LABS: Anion Gap 9 (5-15); Calcium 8.5 mg/dL (8.7-10.4); Carbon Dioxide 23 mmol/L (20-31)
[2024-07-12 09:42] LABS: BUN/Creatinine Ratio 13.9 (10.0-20.0); Blood Urea Nitrogen 14 mg/dL (9-23); Glucose 136 mg/dL (74-106)
--- NOTE | 2024-07-12 09:49 | DVHPN2 ---
Progress Note Date Seen: Jul 12, 2024 Medical Necessity Reason Pt with a Central, PICC or Fol: Yes The following are medically ne: PICC Line, Morin Catheter Reason for morin catheter: Strict I&O Objective vital signs Vital Sign Date Time Temp Pulse Resp B/P (MAP) Pulse Ox O2 Delivery O2 Flow Rate FiO2 07/12/24 08:00 18 99 Room Air* 0 N/A Nasal Cannula* 07/12/24 05:00 98.1 94 131/70 (90) 98.1 Total Intake and Output 07/11/24 07/11/24 07/12/24 15:00 23:00 07:00 Intake Total 100 ml 600 ml 700 ml Output Total 450 ml Balance 100 ml 150 ml 700 ml medications Current Medications Medications Dose Ordered Sig/Mayela Route Start Time Stop Time Status Last Admin Dose Admin Metoclopramide HCl 5 mg Q6HP PRN IV 06/26/24 12:00 06/28/24 13:57 5 MG Morphine Sulfate 1 mg Q4HPRN PRN IV 06/26/24 12:00 07/07/24 04:41 1 MG Hydralazine HCl 10 mg Q6HP PRN IV 06/26/24 13:15 07/07/24 21:36 10 MG Heparin Sodium (Porcine) 5,000 units Q12HR SC 06/27/24 22:00 07/11/24 22:32 5,000 UNITS Amino Acids 1,000 ml @ 42 mls/hr [id number] IV 06/29/24 20:00 Cancel Amino Acids 0 ml @ 0 mls/hr PER PHARMACY IV 07/01/24 22:00 Cancel Sodium Chloride 10 ml QSHIFT@10,22 IV 07/01/24 22:00 07/12/24 08:59 10 ML Metronidazole 100 ml @ 100 mls/hr Q8H IV 07/01/24 15:00 07/12/24 06:23 100 MLS/HR Ceftriaxone Sodium 50 ml @ 100 mls/hr DAILY@09 IV 07/07/24 11:00 07/12/24 08:59 100 MLS/HR Pantoprazole Sodium 40 mg DAILY@0600 PO 07/11/24 06:00 07/12/24 06:13 40 MG laboratory and microbiology Laboratory Tests 07/12/24 08:53 Test 07/12/24 08:53 Range/Units Serum Glucose 136 H 74-106 mg/dL Problem List/Assessment/Plan Problem List/Assessment/Plan 07/02/24 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 NPO TILL RESUMPTION OF BOWEL ACTIVITY 07/07/24 SURGICALLY. STABLE, WOUND CLEAN AND WELL APPROXIMATED, PASSING FLATUS WILL DC NGT ,LIMIT PO INTAKE TO ICE CHIPS ONLY 07/08/24 abdomen appropriately tender, wound clean and well approximated, labs reviewed, will allow po liquids PASSING FLATUS,NO BM' 07/09/24 had a bowel movement, abdomen non distended, will advance po, 07/10/24 having normal bowel activity, needs morin out, diet as tolerated, check CBC in am, if WBC better after morin removed could be discharged tomorrow 07/11/24 awake,comfortable, cooperative, afebrile, normotensive, wound clean and well approximated, cbc pending, if cbc better than yesterday can be discharged, i need to see her in the office in ten days 07/12/24 FEELS WELL, "NO PAIN", bowel activity normal, no nausea, wound clean and well approximated Plan discussed with: Patient Dietary Evaluation Review Comments: 1) Increased TPN to meet at least 75% of estimated needs 2) Advance pt diet when medically feasible to a 2gm Sodium diet 3) Continue current plan of care Expected Outcomes/Goals: 1) Pt to receive adequate nutrition 2) Pt diet to advance 3) F/U in 2-3 days MELVIN MARTIN MD Jul 12, 2024 09:49
--- NOTE | 2024-07-12 10:01 | DVHPN2 ---
Subjective The patient is seen and examined at bedside. No change overnight. Still complain of abdominal pain. Tolerate full liquid diet today. Reviewed: Care Plan, H&P, Labs, Medications Changes from previous H/P or p: No Changes General: Per HPI Eyes: No Pain, No Vision change, No Conjunctivae inflammation, No Eyelid inflammation, No Other, No Redness ENT: No Ear pain, No Ear discharge, No Nose pain, No Nose discharge, No Nose congestion, No Mouth pain, No Mouth swelling, No Throat pain, No Throat swelling, No Other Cardiovascular: No Chest Pain, No Palpitations, No Orthopnea, No Paroxysmal Noc. Dyspnea, No Edema, No Lt Headedness, No Other Respiratory: No Cough, No Dry, No Shortness of breath, No SOB with excertion, No Wheezing, No Hemoptysis, No Pleuritic Pain, No Sputum, No Other Gastrointestinal: Nausea, Vomiting; No Abdominal Pain, No Diarrhea, No Constipation, No Melena, No Hematochezia, No Other Genitourinary: No Dysuria, No Frequency, No Incontinence, No Hematuria, No Retention, No Other Musculoskeletal: No other, No neck pain, No shoulder pain, No arm pain, No back pain, No hand pain, No leg pain, No foot pain Skin: No Rash, No Lesions, No Jaundice, No Bruising, No Other Objective Vitals Vital Signs Date Time Temp Pulse Resp B/P (MAP) Pulse Ox O2 Delivery O2 Flow Rate FiO2 07/12/24 08:00 18 99 Room Air* 0 N/A Nasal Cannula* 07/12/24 05:00 98.1 94 131/70 (90) 98.1 Intake/Output Intake and Output 07/12/24 07:00 Intake Total 1400 ml Output Total 450 ml Balance 950 ml Intake Oral 500 ml IV Total 300 ml Blood Product 300 ml Other 300 ml Output Urine Total 400 ml Drainage Total 50 ml # Voids 2 # Bowel Movements 1 General Appearance: Alert, Oriented X3, Cooperative, No acute distress HEENT: Atraumatic, PERRLA Lungs: Clear to auscultation, Normal air movement, Other (Mechanical ventilation) Cardiovascular: Normal S1, Normal S2 Abdomen: Normal bowel sounds Genitourinary: No Apparent Abnormalities (Guerra catheter) Neuro: Normal speech, Other (Unable to assess due to sedation) Skin: Dry, Intact Psych/Mental Status: Other (Unable to assess due to sedated) Medications Current Medications Medications Dose Ordered Sig/Mayela Route Start Time Stop Time Status Last Admin Dose Admin Metoclopramide HCl 5 mg Q6HP PRN IV 06/26/24 12:00 06/28/24 13:57 5 MG Morphine Sulfate 1 mg Q4HPRN PRN IV 06/26/24 12:00 07/07/24 04:41 1 MG Hydralazine HCl 10 mg Q6HP PRN IV 06/26/24 13:15 07/07/24 21:36 10 MG Heparin Sodium (Porcine) 5,000 units Q12HR SC 06/27/24 22:00 07/11/24 22:32 5,000 UNITS Amino Acids 1,000 ml @ 42 mls/hr [id number] IV 06/29/24 20:00 Cancel Amino Acids 0 ml @ 0 mls/hr PER PHARMACY IV 07/01/24 22:00 Cancel Sodium Chloride 10 ml QSHIFT@10,22 IV 07/01/24 22:00 07/12/24 08:59 10 ML Metronidazole 100 ml @ 100 mls/hr Q8H IV 07/01/24 15:00 07/12/24 06:23 100 MLS/HR Ceftriaxone Sodium 50 ml @ 100 mls/hr DAILY@09 IV 07/07/24 11:00 07/12/24 08:59 100 MLS/HR Pantoprazole Sodium 40 mg DAILY@0600 PO 07/11/24 06:00 07/12/24 06:13 40 MG Laboratory Results Laboratory Tests 07/12/24 08:53 Chemistry Test 07/12/24 08:53 Calcium Level 8.5 mg/dL (8.7-10.4) L Urinalysis Test 06/26/24 19:12 Urine Color Yellow (Yellow) Urine Clarity Clear (Clear) Urine pH 5.0 (5.0-9.0) Urine Specific [place] 1.020 (1.001-1.035) Urine Protein 1+ (Negative) H Urine Ketones 1+ (Negative) H Urine Blood Negative /uL (Negative) Urine Nitrite Negative (Negative) Urine Bilirubin Negative (Negative) Urine Urobilinogen Normal mg/dL (Negative) Urine Leukocyte Esterase Negative /uL (Negative) Urine RBC 4 /hpf (0 - 4) Urine WBC 1 /hpf (0 - 5) Urine Squamous Epithelial Cells Few /hpf (<5) Urine Bacteria None seen /hpf (None Seen) Urine Hyaline Casts Few /lpf (0 - 2) Urine Mucus Few (None Seen) Urine Creatinine 127.99 mg/dL (30.0-125.0) H Urine Protein/Creatinine Ratio 0.62 Urine Sodium 31 mmol/L (40-220) L Urine Glucose Normal mg/dL (Normal) Urine Total Protein 78.8 mg/dL (1-14) H Microbiology Microbiology Date/Time Source Procedure Growth Status 07/02/24 12:36 Sputum Gram Stain - Final Complete 07/02/24 12:36 Respiratory Culture - Final Escherichia coli Complete 07/02/24 11:41 Nose MRSA Screen - Final Complete Labs and/or images reviewed: Labs reviewed by me Assessment/Plan Assessment/Plan -colon cancer -colonic bowel obstruction -chronic kidney disease stage IIIB -microcytic anemia -acute respiratory failure with mechanical ventilation postoperatively -sacral wound Plan: -events: Patient with positive bowel movement today. Advance diet to full liquid. Continue PT. Long discussion made with the patient regarding the need to change her insurance to a local network. -MRI of the brain is still pending -CT scan of the chest with contrast show: Small bilateral pleural effusions with likely atelectasis in the posterior lung bases, [id number]. Airspace disease is not entirely excluded. -oncology consultation after assessment for metastatic disease. -advance diet per surgery -continue iron supplementation -Continue antibiotic therapy to Rocephin and Flagyl -DC TPN when patient able to eat soft diet up to 60% -physical therapy to get the patient out of bed and ambulate -incentive spirometer q.1 hour while awake -Diet advance per surgeon -PUD prophylaxis -DVT prophylaxis -repeat labs in a.m. This medical document was created using an electronic medical record system with [employer] dictation system. Although this document has been carefully reviewed, there may still be some phonetic and typographical errors. These areas are purely typographical due to imperfections of the software programs, and do not reflect any compromise in the patient's medical care. Plan discussed with: Patient Date of Service: Jul 12, 2024 Billing Provider: TUNDE LOWRY MD Common Visit Codes: [id number] INP/OBS CARE(HIGH) TUNDE LOWRY MD Jul 12, 2024 10:01
--- NOTE | 2024-07-12 22:45 | DVHPN2 ---
Progress Note - Dictate Date Seen: Jul 12, 2024 Medical Necessity Reason Pt with a Central, PICC or Fol: Yes The following are medically ne: PICC Line, Morin Catheter Reason for morin catheter: Strict I&O Subjective Patient seen and examined at bedside. Breathing comfortably on room air. Overnight events reviewed. vital signs Vital Sign Date Time Temp Pulse Resp B/P (MAP) Pulse Ox O2 Delivery O2 Flow Rate FiO2 07/12/24 21:00 97.7 99 19 129/64 (85) 100 97.7 07/12/24 08:00 Room Air* 0 N/A Nasal Cannula* Total Intake and Output 07/11/24 07/11/24 07/12/24 15:00 23:00 07:00 Intake Total 100 ml 600 ml 700 ml Output Total 450 ml Balance 100 ml 150 ml 700 ml medications Current Medications Medications Dose Ordered Sig/Mayela Route Start Time Stop Time Status Last Admin Dose Admin Metoclopramide HCl 5 mg Q6HP PRN IV 06/26/24 12:00 06/28/24 13:57 5 MG Hydralazine HCl 10 mg Q6HP PRN IV 06/26/24 13:15 07/07/24 21:36 10 MG Heparin Sodium (Porcine) 5,000 units Q12HR SC 06/27/24 22:00 07/12/24 22:12 5,000 UNITS Amino Acids 1,000 ml @ 42 mls/hr [id number] IV 06/29/24 20:00 Cancel Amino Acids 0 ml @ 0 mls/hr PER PHARMACY IV 07/01/24 22:00 Cancel Sodium Chloride 10 ml QSHIFT@10,22 IV 07/01/24 22:00 07/12/24 22:08 10 ML Metronidazole 100 ml @ 100 mls/hr Q8H IV 07/01/24 15:00 07/12/24 22:08 100 MLS/HR Ceftriaxone Sodium 50 ml @ 100 mls/hr DAILY@09 IV 07/07/24 11:00 07/12/24 08:59 100 MLS/HR Pantoprazole Sodium 40 mg DAILY@0600 PO 07/11/24 06:00 07/12/24 06:13 40 MG objective Gen.: Patient lying in bed in no apparent distress. Breathing on room air. Head: Normocephalic, atraumatic. Eyes: EOMI/PERRLA. Ears: Normal hearing. Normal anatomy. Neck/trachea: Trachea midline, supple. Nose: Normal external anatomy. Mouth: Moist mucous membranes. Chest: Decreased air entry bilaterally. No wheezing or rhonchi. Cardiovascular: Positive S1, positive S2. Regular rate and rhythm. Abdomen: Positive bowel sounds in all 4 quadrants. Soft, non-tender, non- distended. : Deferred. Rectal: Deferred. Skin: Warm, dry. Intact. Extremities: 2+ radial pulses bilaterally. No lower extremity edema. Neuro: Awake, alert, oriented x3. No gross motor or sensory deficits. Cranial nerves II through XII intact. Gait not assessed. laboratory and microbiology Laboratory Tests 07/12/24 08:53 Test 07/12/24 08:53 Range/Units Serum Glucose 136 H 74-106 mg/dL Assessment/Plan Impression: Acute hypoxic respiratory failure Colon cancer Colonic bowel obstruction Chronic kidney disease Events: Breathing comfortably on room air No respiratory distress. Head of bed elevation Aspiration precautions Continue antibiotics. IS. TPN for nutritional support S/p PRBC on 07/11/24 Hemoglobin stable - continue to monitor Transfuse if less than 7.0 g/dL. Continue PT. GI prophylaxis w/ Protonix. Supportive care. Disposition per hospitalist. Labs and imaging reviewed. Rest of plan as noted below. Plan: S/p extubation on 07/04/24 Supplemental O2 PRN Titrate to keep O2 sats above 92% Continue antibiotics Pain control Avoid oversedation TPN for nutritional support NG tube to low intermittent suction. Monitor output. Surgery recs appreciated. Monitor renal function. Monitor electrolytes. Supplement as necessary. Monitor ins and outs. GI/DVT prophylaxis. Prognosis: Poor given patient's multiple co-morbidities. Rest of plan per hospitalist and other consultants. A total of 51 minutes of clinical care time was spent reviewing the patient record, examining the patient, making a diagnostic and therapeutic plan, discussing this plan with the medical personnel, following up on diagnostic studies and following the patient for clinical stability excluding any and all procedures. At least 50% of this time was spent in direct, [id number] contact. Thank you Cheyanne Villanueva NP, for allowing me to participate in this patient's care. Further recommendations will depend on the patient's clinical course. Please do not hesitate to contact me if you have any questions or concerns. This medical document was created using an electronic medical record system with [employer] dictation system. Although these documentations are being carefully reviewed, there may still be some phonetic and typographical changes. The errors are purely typographical, due to imperfection on the software program, and do not reflect any compromise in the patient's medical care. Dietary Evaluation Review Comments: 1) Increased TPN to meet at least 75% of estimated needs 2) Advance pt diet when medically feasible to a 2gm Sodium diet 3) Continue current plan of care Expected Outcomes/Goals: 1) Pt to receive adequate nutrition 2) Pt diet to advance 3) F/U in 2-3 days Plan discussed with: Patient, Other (YUE Manjarrez) AMANDA TREJO MD Jul 12, 2024 22:45
[2024-07-13] VITALS (8 sets, daily range): BP systolic 119–138; BP diastolic 49–68; PULSE 78–111; RESP 16–20; TEMP 97.7–98.3; O2SAT 18–100
[2024-07-13 06:30] LABS: Basophils # (auto) 0 10 ^3/uL (0-0.2); Eosinophils # (auto) 0.1 10 ^3/uL (0-0.8); Monocytes # (auto) 0.6 10 ^3/uL (0-1.3); Neutrophils # (auto) 7.7 10 ^3/uL (1.6-8.6); Nucleated Red Blood Cells % 0.1 %; Red Blood Cells 3.42 10^6/uL (4.0-5.20)
[2024-07-13 06:32] LABS: Basophils % (auto) 0.2 % (0.0-2.0); Eosinophils % (auto) 1.2 % (0.0-7.0); Hematocrit 26.5 % (36.0-46.0); Hemoglobin 8.9 g/dL (12.2-16.2); Lymphocytes # (auto) 1.4 10 ^3/uL (0.4-5.4); Lymphocytes % (auto) 13.8 % (10.0-50.0); Mean Corpuscular Hemoglobin 25.9 pg (28.0-32.0); Mean Corpuscular Hgb Conc. 33.4 g/dL (32.0-36.0); Mean Corpuscular Volume 77.4 fL (80.0-100.0); Monocytes % (auto) 5.9 % (0.0-12.0); Neutrophils % (auto) 78.9 % (37.0-80.0); Platelet Count (auto) 427 10^3/uL (140-450); Red Cell Distribution Width 24.5 % (11.8-14.3); White Blood Cell 9.8 10^3/uL (4.4-10.8)
--- NOTE | 2024-07-13 10:15 | DVHPN2 ---
Subjective Patient denies any symptoms. Reviewed: Care Plan, H&P, Labs, Medications Changes from previous H/P or p: No Changes General: Per HPI Eyes: No Pain, No Vision change, No Conjunctivae inflammation, No Eyelid inflammation, No Other, No Redness ENT: No Ear pain, No Ear discharge, No Nose pain, No Nose discharge, No Nose congestion, No Mouth pain, No Mouth swelling, No Throat pain, No Throat swelling, No Other Cardiovascular: No Chest Pain, No Palpitations, No Orthopnea, No Paroxysmal Noc. Dyspnea, No Edema, No Lt Headedness, No Other Respiratory: No Cough, No Dry, No Shortness of breath, No SOB with excertion, No Wheezing, No Hemoptysis, No Pleuritic Pain, No Sputum, No Other Gastrointestinal: Nausea, Vomiting; No Abdominal Pain, No Diarrhea, No Constipation, No Melena, No Hematochezia, No Other Genitourinary: No Dysuria, No Frequency, No Incontinence, No Hematuria, No Retention, No Other Musculoskeletal: No other, No neck pain, No shoulder pain, No arm pain, No back pain, No hand pain, No leg pain, No foot pain Skin: No Rash, No Lesions, No Jaundice, No Bruising, No Other Objective Vitals Vital Signs Date Time Temp Pulse Resp B/P (MAP) Pulse Ox O2 Delivery O2 Flow Rate FiO2 07/13/24 09:00 98.2 79 18 134/64 (87) 100 98.2 07/12/24 20:00 Room Air* 0 21 Intake/Output Intake and Output 07/13/24 07:00 Intake Total 1240 ml Output Total 400 ml Balance 840 ml Intake Oral 890 ml IV Total 350 ml Output Urine Total 400 ml # Voids 2 # Bowel Movements 3 General Appearance: Alert, Oriented X3, Cooperative, No acute distress HEENT: Atraumatic, PERRLA Lungs: Clear to auscultation, Normal air movement, Other (Mechanical ventilation) Cardiovascular: Normal S1, Normal S2 Abdomen: Normal bowel sounds Genitourinary: No Apparent Abnormalities (Guerra catheter) Neuro: Normal speech, Other (Unable to assess due to sedation) Skin: Dry, Intact Psych/Mental Status: Other (Unable to assess due to sedated) Medications Current Medications Medications Dose Ordered Sig/Mayela Route Start Time Stop Time Status Last Admin Dose Admin Metoclopramide HCl 5 mg Q6HP PRN IV 06/26/24 12:00 06/28/24 13:57 5 MG Hydralazine HCl 10 mg Q6HP PRN IV 06/26/24 13:15 07/07/24 21:36 10 MG Heparin Sodium (Porcine) 5,000 units Q12HR SC 06/27/24 22:00 07/12/24 22:12 5,000 UNITS Amino Acids 1,000 ml @ 42 mls/hr [id number] IV 06/29/24 20:00 Cancel Amino Acids 0 ml @ 0 mls/hr PER PHARMACY IV 07/01/24 22:00 Cancel Sodium Chloride 10 ml QSHIFT@ IV 07/01/24 22:00 07/12/24 22:08 10 ML Metronidazole 100 ml @ 100 mls/hr Q8H IV 07/01/24 15:00 07/13/24 06:48 100 MLS/HR Ceftriaxone Sodium 50 ml @ 100 mls/hr DAILY@09 IV 07/07/24 11:00 07/12/24 08:59 100 MLS/HR Pantoprazole Sodium 40 mg DAILY@0600 PO 07/11/24 06:00 07/13/24 06:44 40 MG Laboratory Results Laboratory Tests 07/12/24 08:53 07/13/24 05:53 Urinalysis Test 06/26/24 19:12 Urine Color Yellow (Yellow) Urine Clarity Clear (Clear) Urine pH 5.0 (5.0-9.0) Urine Specific [place] 1.020 (1.001-1.035) Urine Protein 1+ (Negative) H Urine Ketones 1+ (Negative) H Urine Blood Negative /uL (Negative) Urine Nitrite Negative (Negative) Urine Bilirubin Negative (Negative) Urine Urobilinogen Normal mg/dL (Negative) Urine Leukocyte Esterase Negative /uL (Negative) Urine RBC 4 /hpf (0 - 4) Urine WBC 1 /hpf (0 - 5) Urine Squamous Epithelial Cells Few /hpf (<5) Urine Bacteria None seen /hpf (None Seen) Urine Hyaline Casts Few /lpf (0 - 2) Urine Mucus Few (None Seen) Urine Creatinine 127.99 mg/dL (30.0-125.0) H Urine Protein/Creatinine Ratio 0.62 Urine Sodium 31 mmol/L (40-220) L Urine Glucose Normal mg/dL (Normal) Urine Total Protein 78.8 mg/dL (1-14) H Microbiology Microbiology Date/Time Source Procedure Growth Status 07/02/24 12:36 Sputum Gram Stain - Final Complete 07/02/24 12:36 Respiratory Culture - Final Escherichia coli Complete 07/02/24 11:41 Nose MRSA Screen - Final Complete Labs and/or images reviewed: Labs reviewed by me, Image(s) reviewed by me Assessment/Plan Assessment/Plan Impression: -colon cancer -colonic bowel obstruction -chronic kidney disease stage IIIB -microcytic anemia -acute respiratory failure with mechanical ventilation postoperatively -sacral wound Plan: -events: CT scan of the head and chest is negative for any metastatic disease. Discussed plan of care with the patient. She states that she has increased her ambulation with physical therapy. Notation by PT pending. Deescalate antibiotic therapy to Augmentin 875 mg p.o. twice a day. Stop Rocephin. -oncology consultation after assessment for metastatic disease. -advance diet per surgery -continue iron supplementation -change antibiotic therapy to Rocephin and Flagyl -DC TPN -physical therapy -incentive spirometer q.1 hour while awake -PUD prophylaxis -DVT prophylaxis -repeat labs in a.m. -discharge planning once patient is able to ambulate greater than 30 ft Total time spent with patient discussing and formulating plan of care: 35 minutes. This medical document was created using an electronic medical record system with [employer] dictation system. Although this document has been carefully reviewed, there may still be some phonetic and typographical errors. These areas are purely typographical due to imperfections of the software programs, and do not reflect any compromise in the patient's medical care. Plan discussed with: Patient, Other (RN) My Orders Orders - MATT DEUTSCH NP Procedure Category Date Status Time Dme: Walker DME 07/13/24 Transmitted 10:09 Date of Service: Jul 13, 2024 Billing Provider: MATT DEUTSCH NP Common Visit Codes: [id number] INP/OBS CARE(HIGH) MATT DEUTSCH NP Jul 13, 2024 10:15
--- NOTE | 2024-07-13 19:49 | DVHPN2 ---
Progress Note - Dictate Date Seen: Jul 13, 2024 Medical Necessity Reason Pt with a Central, PICC or Fol: Yes The following are medically ne: PICC Line Subjective Patient seen and examined at bedside. Breathing comfortably on room air. Overnight events reviewed. vital signs Vital Sign Date Time Temp Pulse Resp B/P (MAP) Pulse Ox O2 Delivery O2 Flow Rate FiO2 07/13/24 17:00 98.2 89 18 119/68 (85) 97 98.2 07/13/24 08:00 Room Air* 0 21 Total Intake and Output 07/12/24 07/12/24 07/13/24 15:00 23:00 07:00 Intake Total 400 ml 340 ml 500 ml Output Total 400 ml Balance 400 ml -60 ml 500 ml medications Current Medications Medications Dose Ordered Sig/Mayela Route Start Time Stop Time Status Last Admin Dose Admin Metoclopramide HCl 5 mg Q6HP PRN IV 06/26/24 12:00 06/28/24 13:57 5 MG Hydralazine HCl 10 mg Q6HP PRN IV 06/26/24 13:15 07/07/24 21:36 10 MG Heparin Sodium (Porcine) 5,000 units Q12HR SC 06/27/24 22:00 07/12/24 22:12 5,000 UNITS Amino Acids 1,000 ml @ 42 mls/hr [id number] IV 06/29/24 20:00 Cancel Amino Acids 0 ml @ 0 mls/hr PER PHARMACY IV 07/01/24 22:00 Cancel Sodium Chloride 10 ml QSHIFT@10,22 IV 07/01/24 22:00 07/13/24 10:00 10 ML Pantoprazole Sodium 40 mg DAILY@0600 PO 07/11/24 06:00 07/13/24 06:44 40 MG Amoxicillin/ Clavulanate Potassium 875 mg Q12HR PO 07/13/24 22:00 07/15/24 10:01 objective Gen.: Patient lying in bed in no apparent distress. Breathing on room air. Head: Normocephalic, atraumatic. Eyes: EOMI/PERRLA. Ears: Normal hearing. Normal anatomy. Neck/trachea: Trachea midline, supple. Nose: Normal external anatomy. Mouth: Moist mucous membranes. Chest: Decreased air entry bilaterally. No wheezing or rhonchi. Cardiovascular: Positive S1, positive S2. Regular rate and rhythm. Abdomen: Positive bowel sounds in all 4 quadrants. Soft, non-tender, non- distended. : Deferred. Rectal: Deferred. Skin: Warm, dry. Intact. Extremities: 2+ radial pulses bilaterally. No lower extremity edema. Neuro: Awake, alert, oriented x3. No gross motor or sensory deficits. Cranial nerves II through XII intact. Gait not assessed. laboratory and microbiology Laboratory Tests 07/13/24 05:53 07/12/24 08:53 Test 07/12/24 08:53 Range/Units Serum Glucose 136 H 74-106 mg/dL Assessment/Plan Impression: Acute hypoxic respiratory failure Colon cancer Colonic bowel obstruction Chronic kidney disease Events: Breathing comfortably on room air No respiratory distress. Out of bed to chair. Continue antibiotics. IS. Head of bed elevation Aspiration precautions TPN for nutritional support S/p PRBC on 07/11/24 Hemoglobin 8.9 g/dL - continue to monitor Transfuse if less than 7.0 g/dL. Continue PT - ambulate with walker. GI prophylaxis w/ Protonix. Supportive care. Patient is stable for discharge from the pulmonary standpoint. Disposition planning per hospitalist. Labs and imaging reviewed. Rest of plan as noted below. Plan: S/p extubation on 07/04/24 Supplemental O2 PRN Titrate to keep O2 sats above 92% Continue antibiotics Pain control Avoid oversedation TPN for nutritional support NG tube to low intermittent suction. Monitor output. Surgery recs appreciated. Monitor renal function. Monitor electrolytes. Supplement as necessary. Monitor ins and outs. GI/DVT prophylaxis. Prognosis: Poor given patient's multiple co-morbidities. Rest of plan per hospitalist and other consultants. A total of 51 minutes of clinical care time was spent reviewing the patient record, examining the patient, making a diagnostic and therapeutic plan, discussing this plan with the medical personnel, following up on diagnostic studies and following the patient for clinical stability excluding any and all procedures. At least 50% of this time was spent in direct, [id number] contact. Thank you Cheyanne Villanueva NP, for allowing me to participate in this patient's care. Further recommendations will depend on the patient's clinical course. Please do not hesitate to contact me if you have any questions or concerns. This medical document was created using an electronic medical record system with Dragon computerized dictation system. Although these documentations are being carefully reviewed, there may still be some phonetic and typographical changes. The errors are purely typographical, due to imperfection on the software program, and do not reflect any compromise in the patient's medical care. Dietary Evaluation Review Comments: 1) Increased TPN to meet at least 75% of estimated needs 2) Advance pt diet when medically feasible to a 2gm Sodium diet 3) Continue current plan of care Expected Outcomes/Goals: 1) Pt to receive adequate nutrition 2) Pt diet to advance 3) F/U in 2-3 days Plan discussed with: Patient, Other (RN Chika) AMANDA TREJO MD Jul 13, 2024 19:49
[2024-07-13] MEDS: AMOXICILLIN/CLAVUL 875 MG TAB PO SCH (22:05)
[2024-07-14 01:00] VITALS: BP 129/64; PULSE 98; RESP 18; TEMP 98.3; O2SAT 99
[2024-07-14 05:00] VITALS: BP 142/73; PULSE 87; RESP 18; TEMP 98.2; O2SAT 100
[2024-07-14 08:00] VITALS: PULSE 88; RESP 17
[2024-07-14 09:00] VITALS: BP 143/75; PULSE 88; RESP 17; TEMP 98; O2SAT 98
--- NOTE | 2024-07-14 10:34 | DVHDS2 ---
Discharge Summary Date of Admission Jun 26, 2024 at 11:49 Date of Discharge: Jul 14, 2024 Admitting Diagnosis Small-bowel obstruction Labs/Diagnostic Data: Laboratory Results Test 07/13/24 05:53 07/12/24 08:53 07/11/24 06:43 07/10/24 05:34 White Blood Count 9.8 10^3/uL (4.4-10.8) Red Blood Count 3.42 10^6/uL (4.0-5.20) Hemoglobin 8.9 g/dL (12.2-16.2) Hematocrit 26.5 % (36.0-46.0) Mean Corpuscular Volume 77.4 fL (80.0-100.0) Mean Corpuscular Hemoglobin 25.9 pg (28.0-32.0) Mean Corpuscular Hemoglobin Concent 33.4 g/dL (32.0-36.0) Red Cell Distribution Width 24.5 % (11.8-14.3) Platelet Count 427 10^3/uL (140-450) Mean Platelet Volume 8.1 fL (6.9-10.8) Neutrophils (%) (Auto) 78.9 % (37.0-80.0) Lymphocytes (%) (Auto) 13.8 % (10.0-50.0) Monocytes (%) (Auto) 5.9 % (0.0-12.0) Eosinophils (%) (Auto) 1.2 % (0.0-7.0) Basophils (%) (Auto) 0.2 % (0.0-2.0) Neutrophils # (Auto) 7.7 10 ^3/uL (1.6-8.6) Lymphocytes # (Auto) 1.4 10 ^3/uL (0.4-5.4) Monocytes # (Auto) 0.6 10 ^3/uL (0-1.3) Eosinophils # (Auto) 0.1 10 ^3/uL (0-0.8) Basophils # (Auto) 0 10 ^3/uL (0-0.2) Nucleated Red Blood Cells 0.1 % Sodium Level 144 mmol/L (136-145) Potassium Level 4.0 mmol/L (3.5-5.1) Chloride Level 112 mmol/L (98-107) Carbon Dioxide Level 23 mmol/L (20-31) Anion Gap 9 (5-15) Blood Urea Nitrogen 14 mg/dL (9-23) Creatinine 1.01 mg/dL (0.550-1.02) Glomerular Filtration Rate Calc 58 mL/min (>90) BUN/Creatinine Ratio 13.9 (10.0-20.0) Serum Glucose 136 mg/dL (74-106) Calcium Level 8.5 mg/dL (8.7-10.4) Platelet Estimate Adequate Hypochromasia (manual) Moderate Anisocytosis (manual) Slight Microcytosis Moderate Stomatocytes Few Estimated GFR () 82 mL/min Estimated GFR (Non- 67 mL/min Phosphorus Level 3.5 mg/dL (2.4-5.1) Magnesium Level 2.0 mg/dL (1.6-2.6) Albumin 2.4 g/dL (3.2-4.8) Test 07/09/24 22:11 07/09/24 06:50 07/06/24 06:01 07/05/24 04:36 POC Glucose 150 mg/dl (70-106) Target Cells Moderate Total Bilirubin 0.3 mg/dL (0.2-1.0) Aspartate Amino Transferase (AST) 18 U/L (13-40) Alanine Aminotransferase (ALT) < 9 U/L (7-40) Alkaline Phosphatase 76 U/L (46-116) Total Protein 4.5 g/dL (5.7-8.2) Differential Total Cells Counted 100.0 (100) Neutrophils % (Manual) 75 (37.0-80.0) Band Neutrophils % (Manual) 3 Lymphocytes % (Manual) 14 (10.0-50.0) Monocytes % (Manual) 7 (0-12) Eosinophils % (Manual) 1 (0-7) Basophils % (Manual) 0 (0.0-2.0) Metamyelocytes % (manual) 0 Myelocytes % (Manual) 0 Promyelocytes % (Manual) 0 Blast Cells % (Manual) 0 Reactive Lymphocytes 0 Smudge Cells 1 /100 WBC Large Platelets Few Ovalocytes Few Cony Cells Few Triglycerides Level 88 mg/dL (< 150) Test 07/04/24 14:05 07/03/24 05:58 07/02/24 12:37 07/01/24 05:54 Blood Gas Specimen Type Arterial Blood Gas Sample Site Right radial Blood Gas Patient Temperature 37.0 Arterial Blood Date Drawn [id number] Arterial Blood pH 7.470 (7.350-7.450) Arterial Blood Partial Pressure CO2 36.5 mmHg (32.0-45.0) Arterial Blood Partial Pressure O2 106.9 mmHg (83.0-108.0) Arterial Blood HCO3 26.0 mmol/L (21.0-28.0) Arterial Blood Oxygen Saturation 97.9 % (94.0-98.0) Arterial Blood Base Excess 2.4 mmol/L (-2.0-3.0) Arterial Blood Oxyhemoglobin 96.8 % (94.0-98.0) Arterial Blood Carboxyhemoglobin 0.8 % (0.5-1.5) Arterial Blood Methemoglobin 0.3 % (0.0-1.5) Angelo Test Modified Blood Gas Total Hemoglobin 10.90 g/dL (12.0-16.0) Blood Gas Modality Vent - cpap Blood Gas Spontaneous Rate 22 FiO2 % 30.0 Blood Gas Pressure Support 8 Blood Gas PEEP or CPAP 5.0 Blood Gas Set Respiration Rate 16.0 Blood Gas Tidal Volume 450.0 Blood Gas Critical Value Read Back Yes Blood Gas Notified Whom Dr. luz hicks Blood Gas Notified Time [id number] Blood Gas Notified By Prothrombin Time 11.1 sec (9.3-11.8) Prothrombin Time INR 1.05 (0.9-1.15) Activated Partial Thromboplast Time 27.3 SEC (24.5-34.5) Test 06/29/24 04:47 06/26/24 19:12 06/26/24 17:11 06/26/24 13:25 Carcinoembryonic Antigen 67.24 ng/mL (<=5.0) Urine Color Yellow (Yellow) Urine Clarity Clear (Clear) Urine pH 5.0 (5.0-9.0) Urine Specific [place] 1.020 (1.001-1.035) Urine Protein 1+ (Negative) Urine Ketones 1+ (Negative) Urine Blood Negative /uL (Negative) Urine Nitrite Negative (Negative) Urine Bilirubin Negative (Negative) Urine Urobilinogen Normal mg/dL (Negative) Urine Leukocyte Esterase Negative /uL (Negative) Urine RBC 4 /hpf (0 - 4) Urine WBC 1 /hpf (0 - 5) Urine Squamous Epithelial Cells Few /hpf (<5) Urine Bacteria None seen /hpf (None Seen) Urine Hyaline Casts Few /lpf (0 - 2) Urine Mucus Few (None Seen) Urine Creatinine 127.99 mg/dL (30.0-125.0) Urine Protein/Creatinine Ratio 0.62 Urine Sodium 31 mmol/L (40-220) Urine Glucose Normal mg/dL (Normal) Urine Total Protein 78.8 mg/dL (1-14) Parathyroid Hormone (Intact) 58.3 pg/mL (18.4-80.1) Influenza Type A Antigen Negative (Negative) Influenza Type B Antigen Negative (Negative) SARS-CoV-2 Antigen (Rapid) Negative (NEGATIVE) Test 06/26/24 09:15 Uric Acid 19.3 mg/dL (3.1-7.8) B-Type Natriuretic Peptide 133.21 pg/mL (0-100) Amylase Level 110 U/L (30-118) Vitamin D 25-Hydroxy 64.7 ng/mL (30.0-100) Other Laboratory Tests 07/13/24 05:53 07/12/24 08:53 Brief Hx & Hospital Course: History of Present Illness 74-year-old female accompanied by brother presented to the ED with chief complaint nausea and vomiting. She reports having nausea and vomiting almost 2- 3 weeks, with associated weight, patient does not know how much. Patient states that she has not been able to keep any fluids or food down in the last week, and yesterday she was not even able to tolerate ice chips without having nausea, when she was vomiting she reports that it was bilious, no hematemesis. Patient states her symptoms started after she had taste did a spoon full of food at a restaurant about 2-3 weeks ago. Patient's last bowel movement was yesterday, she states it was soft and somewhat loose, no report of blood in stool. We will hydrate patient, keep her NPO and consult GI. Patient states she just moved to this area recently and has just chosen her new primary care provider, patient is a poor historian, uncertain what other medication she takes besides carvedilol. Patient does not have abdominal tenderness, no body aches or fever, chills, dizziness, headache, diarrhea. Course of hospitalization: Patient underwent exploratory laparotomy with findings of large colonic mass. Pathology came back for adenocarcinoma. Patient had partial hemicolectomy. History of postoperatively, the patient's recovery history has been uneventful. She has been weaned off TPN, tolerating oral intake, as well as having bowel movements. Patient was had CT scan of her head and chest to rule out metastasis. Oncology consultation has been obtained. The patient was now ambulating greater than 30 ft multiple times a day with physical therapy. The patient is to be discharged today and follow up with Dr. Samuel in 1-2 weeks as well as Oncology in 1-2 weeks. Currently, the patient has [employer] insurance, for which she has been educated on the need to switch to in network as she resides in this area. She reports that her sister has already changed her insurance provider. For with respect to her primary medications for hypertension, they will be renewed until she was follow up with the PCP. The patient will also be made an appointment with the discharge Clinic. All questions answered. Physical examination General: Alert and Oriented x3. No acute distress. Well-nourished. Eyes: EOMI. Anicteric. HENT: Moist mucous membranes. Lungs: Clear to auscultation bilaterally. No accessory muscle use. Cardiovascular: Regular rate and rhythm. No murmur. No JVD. Abdomen: Soft, non-tender and non-distended. No palpable masses. Extremities: No edema. Non-tender. Skin: No rashes or lesions. Warm. Neurologic: No focal neurological deficits. CN II-XII grossly intact, but not individually tested. Psychiatric: Cooperative. Appropriate mood and affect. Total time spent with patient discussing and formulating plan of care: 35 minutes. This medical document was created using an electronic medical record system with [employer] dictation system. Although this document has been carefully reviewed, there may still be some phonetic and typographical errors. These areas are purely typographical due to imperfections of the software programs, and do not reflect any compromise in the patient's medical care. Consults/Reason for consult Oncology: Colon cancer General surgery: Bowel obstruction secondary to colon cancer Gastroenterology: Bowel obstruction Operations or Procedures 07/02/2024: Exploratory laparotomy with hemicolectomy Condition at Discharge: Guarded Final Diagnosis/Problems List Bowel obstruction secondary to colon cancer Secondary Diagnosis: -colon cancer -colonic bowel obstruction -chronic kidney disease stage IIIB -microcytic anemia -acute respiratory failure with mechanical ventilation postoperatively -sacral wound Discharge Disposition: Home Discharge Instruct/Medications Diet: Cardiac 2g Na,low cholest Activity: No Restrictions, As Tolerated Follow Up/Referral: Follow up with Dr. Samuel in 1-2 weeks Follow up with Dr. Zelaya in 1-2 weeks Medications: Continue all previous home medication 36 Discharge Statement: "Patient was advised to return to the ER or call 911 if any headaches, dizziness, shortness of breath, chest pain, abdominal pain, bleeding, fevers, or worsening of medical condition. Patient was counseled about treatment plan, medications, possible side effects, patientverbalized understanding. All questions were answered to the best of my ability. This discharge took greater then 30 minutes in planning, reviewing documentation, counseling the patient, and discussing with other team members." DME: Diagnosis: Colon Cancer ASSESSMENT ASSESSMENT Assessment Bowel obstruction secondary to colon cancer Date of Service: Jul 14, 2024 Billing Provider: MATT DEUTSCH NP Common Visit Codes: [id number] DISCH DAY >30min MATT DEUTSCH NP Jul 14, 2024 10:34
[2024-07-14] MEDS ORDERED: AMLO1TAB23 PO (10:35)
[2024-07-14 10:49] VITALS: BP 145/75; PULSE 84; RESP 16; TEMP 98; O2SAT 98
[2024-07-14 11:15] VITALS: BP 143/75; PULSE 88; RESP 17; TEMP 98; O2SAT 98
--- NOTE | 2024-07-14 11:22 | DVHPN2 ---
Subjective The patient is seen and examined at bedside. No change overnight. Still complain of abdominal pain. Tolerate full liquid diet today. Reviewed: Care Plan, H&P, Labs, Medications Changes from previous H/P or p: No Changes General: Per HPI Eyes: No Pain, No Vision change, No Conjunctivae inflammation, No Eyelid inflammation, No Other, No Redness ENT: No Ear pain, No Ear discharge, No Nose pain, No Nose discharge, No Nose congestion, No Mouth pain, No Mouth swelling, No Throat pain, No Throat swelling, No Other Cardiovascular: No Chest Pain, No Palpitations, No Orthopnea, No Paroxysmal Noc. Dyspnea, No Edema, No Lt Headedness, No Other Respiratory: No Cough, No Dry, No Shortness of breath, No SOB with excertion, No Wheezing, No Hemoptysis, No Pleuritic Pain, No Sputum, No Other Gastrointestinal: Nausea, Vomiting; No Abdominal Pain, No Diarrhea, No Constipation, No Melena, No Hematochezia, No Other Genitourinary: No Dysuria, No Frequency, No Incontinence, No Hematuria, No Retention, No Other Musculoskeletal: No other, No neck pain, No shoulder pain, No arm pain, No back pain, No hand pain, No leg pain, No foot pain Skin: No Rash, No Lesions, No Jaundice, No Bruising, No Other Objective Vitals Vital Signs Date Time Temp Pulse Resp B/P (MAP) Pulse Ox O2 Delivery O2 Flow Rate FiO2 07/13/24 11:15 98.0 80 18 98 07/13/24 09:00 143/76 (97) 07/12/24 20:00 Room Air* 0 21 Intake/Output Intake and Output 07/14/24 07:00 Intake Total 920 ml Output Total 820 ml Balance 100 ml Intake Oral 920 ml Output Urine Total 700 ml Drainage Total 120 ml # Voids 2 # Bowel Movements 2 General Appearance: Alert, Oriented X3, Cooperative, No acute distress HEENT: Atraumatic, PERRLA Lungs: Clear to auscultation, Normal air movement, Other (Mechanical ventilation) Cardiovascular: Normal S1, Normal S2 Abdomen: Normal bowel sounds Genitourinary: No Apparent Abnormalities (Guerra catheter) Neuro: Normal speech, Other (Unable to assess due to sedation) Skin: Dry, Intact Psych/Mental Status: Other (Unable to assess due to sedated) Medications Current Medications Medications Dose Ordered Sig/Mayela Route Start Time Stop Time Status Last Admin Dose Admin Metoclopramide HCl 5 mg Q6HP PRN IV 06/26/24 12:00 06/28/24 13:57 5 MG Hydralazine HCl 10 mg Q6HP PRN IV 06/26/24 13:15 07/07/24 21:36 10 MG Heparin Sodium (Porcine) 5,000 units Q12HR SC 06/27/24 22:00 07/14/24 09:18 5,000 UNITS Amino Acids 1,000 ml @ 42 mls/hr [id number] IV 06/29/24 20:00 Cancel Amino Acids 0 ml @ 0 mls/hr PER PHARMACY IV 07/01/24 22:00 Cancel Sodium Chloride 10 ml QSHIFT@ IV 07/01/24 22:00 07/13/24 22:05 10 ML Pantoprazole Sodium 40 mg DAILY@0600 PO 07/11/24 06:00 07/14/24 05:19 40 MG Amoxicillin/ Clavulanate Potassium 875 mg Q12HR PO 07/13/24 22:00 07/15/24 10:01 07/14/24 09:17 875 MG Laboratory Results Laboratory Tests 07/12/24 08:53 07/13/24 05:53 Urinalysis Test 06/26/24 19:12 Urine Color Yellow (Yellow) Urine Clarity Clear (Clear) Urine pH 5.0 (5.0-9.0) Urine Specific [place] 1.020 (1.001-1.035) Urine Protein 1+ (Negative) H Urine Ketones 1+ (Negative) H Urine Blood Negative /uL (Negative) Urine Nitrite Negative (Negative) Urine Bilirubin Negative (Negative) Urine Urobilinogen Normal mg/dL (Negative) Urine Leukocyte Esterase Negative /uL (Negative) Urine RBC 4 /hpf (0 - 4) Urine WBC 1 /hpf (0 - 5) Urine Squamous Epithelial Cells Few /hpf (<5) Urine Bacteria None seen /hpf (None Seen) Urine Hyaline Casts Few /lpf (0 - 2) Urine Mucus Few (None Seen) Urine Creatinine 127.99 mg/dL (30.0-125.0) H Urine Protein/Creatinine Ratio 0.62 Urine Sodium 31 mmol/L (40-220) L Urine Glucose Normal mg/dL (Normal) Urine Total Protein 78.8 mg/dL (1-14) H Microbiology Microbiology Date/Time Source Procedure Growth Status 07/02/24 12:36 Sputum Gram Stain - Final Complete 07/02/24 12:36 Respiratory Culture - Final Escherichia coli Complete 07/02/24 11:41 Nose MRSA Screen - Final Complete Labs and/or images reviewed: Labs reviewed by me Assessment/Plan Assessment/Plan -colon cancer -colonic bowel obstruction -chronic kidney disease stage IIIB -microcytic anemia -acute respiratory failure with mechanical ventilation postoperatively -sacral wound Plan: - Advance diet to full liquid. Continue PT. Long discussion made with the patient regarding the need to change her insurance to a local network. -MRI of the brain is still pending -CT scan of the chest with contrast show: Small bilateral pleural effusions with likely atelectasis in the posterior lung bases, [id number]. Airspace disease is not entirely excluded. -oncology consultation after assessment for metastatic disease. -advance diet per surgery -continue iron supplementation -Continue antibiotic therapy to Rocephin and Flagyl -DC TPN when patient able to eat soft diet up to 60% -physical therapy to get the patient out of bed and ambulate -incentive spirometer q.1 hour while awake -Diet advance per surgeon -PUD prophylaxis -DVT prophylaxis -repeat labs in a.m. Continuing current management This medical document was created using an electronic medical record system with [employer] dictation system. Although this document has been carefully reviewed, there may still be some phonetic and typographical errors. These areas are purely typographical due to imperfections of the software programs, and do not reflect any compromise in the patient's medical care. Plan discussed with: Patient Date of Service: Jul 13, 2024 Billing Provider: TUNDE LOWRY MD Common Visit Codes: [id number] INP/OBS CARE(HIGH) TUNDE LOWRY MD Jul 14, 2024 11:22
--- NOTE | 2024-07-14 11:22 | DVHPN2 ---
Subjective The patient is seen and examined at bedside. No change overnight. Still complain of abdominal pain. Tolerate full liquid diet today. Reviewed: Care Plan, H&P, Labs, Medications Changes from previous H/P or p: No Changes General: Per HPI Eyes: No Pain, No Vision change, No Conjunctivae inflammation, No Eyelid inflammation, No Other, No Redness ENT: No Ear pain, No Ear discharge, No Nose pain, No Nose discharge, No Nose congestion, No Mouth pain, No Mouth swelling, No Throat pain, No Throat swelling, No Other Cardiovascular: No Chest Pain, No Palpitations, No Orthopnea, No Paroxysmal Noc. Dyspnea, No Edema, No Lt Headedness, No Other Respiratory: No Cough, No Dry, No Shortness of breath, No SOB with excertion, No Wheezing, No Hemoptysis, No Pleuritic Pain, No Sputum, No Other Gastrointestinal: Nausea, Vomiting; No Abdominal Pain, No Diarrhea, No Constipation, No Melena, No Hematochezia, No Other Genitourinary: No Dysuria, No Frequency, No Incontinence, No Hematuria, No Retention, No Other Musculoskeletal: No other, No neck pain, No shoulder pain, No arm pain, No back pain, No hand pain, No leg pain, No foot pain Skin: No Rash, No Lesions, No Jaundice, No Bruising, No Other Objective Vitals Vital Signs Date Time Temp Pulse Resp B/P (MAP) Pulse Ox O2 Delivery O2 Flow Rate FiO2 07/14/24 11:15 98.0 88 17 98 07/14/24 09:00 143/75 (97) 07/13/24 20:00 Room Air* 0 21 Intake/Output Intake and Output 07/14/24 07:00 Intake Total 920 ml Output Total 820 ml Balance 100 ml Intake Oral 920 ml Output Urine Total 700 ml Drainage Total 120 ml # Voids 2 # Bowel Movements 2 General Appearance: Alert, Oriented X3, Cooperative, No acute distress HEENT: Atraumatic, PERRLA Lungs: Clear to auscultation, Normal air movement, Other (Mechanical ventilation) Cardiovascular: Normal S1, Normal S2 Abdomen: Normal bowel sounds Genitourinary: No Apparent Abnormalities (Guerra catheter) Neuro: Normal speech, Other (Unable to assess due to sedation) Skin: Dry, Intact Psych/Mental Status: Other (Unable to assess due to sedated) Medications Current Medications Medications Dose Ordered Sig/Mayela Route Start Time Stop Time Status Last Admin Dose Admin Metoclopramide HCl 5 mg Q6HP PRN IV 06/26/24 12:00 06/28/24 13:57 5 MG Hydralazine HCl 10 mg Q6HP PRN IV 06/26/24 13:15 07/07/24 21:36 10 MG Heparin Sodium (Porcine) 5,000 units Q12HR SC 06/27/24 22:00 07/14/24 09:18 5,000 UNITS Amino Acids 1,000 ml @ 42 mls/hr [id number] IV 06/29/24 20:00 Cancel Amino Acids 0 ml @ 0 mls/hr PER PHARMACY IV 07/01/24 22:00 Cancel Sodium Chloride 10 ml QSHIFT@ IV 07/01/24 22:00 07/13/24 22:05 10 ML Pantoprazole Sodium 40 mg DAILY@0600 PO 07/11/24 06:00 07/14/24 05:19 40 MG Amoxicillin/ Clavulanate Potassium 875 mg Q12HR PO 07/13/24 22:00 07/15/24 10:01 07/14/24 09:17 875 MG Laboratory Results Laboratory Tests 07/12/24 08:53 07/13/24 05:53 Urinalysis Test 06/26/24 19:12 Urine Color Yellow (Yellow) Urine Clarity Clear (Clear) Urine pH 5.0 (5.0-9.0) Urine Specific [place] 1.020 (1.001-1.035) Urine Protein 1+ (Negative) H Urine Ketones 1+ (Negative) H Urine Blood Negative /uL (Negative) Urine Nitrite Negative (Negative) Urine Bilirubin Negative (Negative) Urine Urobilinogen Normal mg/dL (Negative) Urine Leukocyte Esterase Negative /uL (Negative) Urine RBC 4 /hpf (0 - 4) Urine WBC 1 /hpf (0 - 5) Urine Squamous Epithelial Cells Few /hpf (<5) Urine Bacteria None seen /hpf (None Seen) Urine Hyaline Casts Few /lpf (0 - 2) Urine Mucus Few (None Seen) Urine Creatinine 127.99 mg/dL (30.0-125.0) H Urine Protein/Creatinine Ratio 0.62 Urine Sodium 31 mmol/L (40-220) L Urine Glucose Normal mg/dL (Normal) Urine Total Protein 78.8 mg/dL (1-14) H Microbiology Microbiology Date/Time Source Procedure Growth Status 07/02/24 12:36 Sputum Gram Stain - Final Complete 07/02/24 12:36 Respiratory Culture - Final Escherichia coli Complete 07/02/24 11:41 Nose MRSA Screen - Final Complete Assessment/Plan Assessment/Plan -colon cancer -colonic bowel obstruction -chronic kidney disease stage IIIB -microcytic anemia -acute respiratory failure with mechanical ventilation postoperatively -sacral wound Plan: Advance diet per surgeon. Continue PT. Long discussion made with the patient regarding the need to change her insurance to a local network. -MRI of the brain is still pending -CT scan of the chest with contrast show: Small bilateral pleural effusions with likely atelectasis in the posterior lung bases, [id number]. Airspace disease is not entirely excluded. -oncology consultation after assessment for metastatic disease. -advance diet per surgery -continue iron supplementation -Continue antibiotic therapy to Rocephin and Flagyl -DC TPN when patient able to eat soft diet up to 60% -physical therapy to get the patient out of bed and ambulate -incentive spirometer q.1 hour while awake -Diet advance per surgeon -PUD prophylaxis -DVT prophylaxis -repeat labs in a.m. This medical document was created using an electronic medical record system with [employer] dictation system. Although this document has been carefully reviewed, there may still be some phonetic and typographical errors. These areas are purely typographical due to imperfections of the software programs, and do not reflect any compromise in the patient's medical care. Plan discussed with: Patient Date of Service: Jul 14, 2024 Billing Provider: TUNDE LOWRY MD Common Visit Codes: [id number] INP/OBS CARE(HIGH) TUNDE LOWRY MD Jul 14, 2024 11:22
--- NOTE | 2024-07-14 19:14 | DVHPN2 ---
Progress Note - Dictate Date Seen: Jul 14, 2024 Medical Necessity Reason Pt with a Central, PICC or Fol: Yes The following are medically ne: PICC Line Subjective Patient seen and examined at bedside. Breathing comfortably on room air. Overnight events reviewed. vital signs Vital Sign Date Time Temp Pulse Resp B/P (MAP) Pulse Ox O2 Delivery O2 Flow Rate FiO2 07/14/24 11:15 98.0 88 17 98 07/14/24 09:00 143/75 (97) 07/14/24 08:00 Room Air* 0 21 Total Intake and Output 07/13/24 07/13/24 07/14/24 15:00 23:00 07:00 Intake Total 670 ml 250 ml Output Total 700 ml 120 ml Balance -30 ml 130 ml medications Current Medications Medications Dose Ordered Sig/Mayela Route Start Time Stop Time Status Last Admin Dose Admin Amino Acids 1,000 ml @ 42 mls/hr [id number] IV 06/29/24 20:00 Cancel Amino Acids 0 ml @ 0 mls/hr PER PHARMACY IV 07/01/24 22:00 Cancel objective Gen.: Patient lying in bed in no apparent distress. Breathing on room air. Head: Normocephalic, atraumatic. Eyes: EOMI/PERRLA. Ears: Normal hearing. Normal anatomy. Neck/trachea: Trachea midline, supple. Nose: Normal external anatomy. Mouth: Moist mucous membranes. Chest: Decreased air entry bilaterally. No wheezing or rhonchi. Cardiovascular: Positive S1, positive S2. Regular rate and rhythm. Abdomen: Positive bowel sounds in all 4 quadrants. Soft, non-tender, non- distended. : Deferred. Rectal: Deferred. Skin: Warm, dry. Intact. Extremities: 2+ radial pulses bilaterally. No lower extremity edema. Neuro: Awake, alert, oriented x3. No gross motor or sensory deficits. Cranial nerves II through XII intact. Gait not assessed. laboratory and microbiology Laboratory Tests 07/13/24 05:53 07/12/24 08:53 Test 07/12/24 08:53 Range/Units Serum Glucose 136 H 74-106 mg/dL Assessment/Plan Impression: Acute hypoxic respiratory failure Colon cancer Colonic bowel obstruction Chronic kidney disease Events: Breathing comfortably on room air No respiratory distress. Continue antibiotics. IS. Head of bed elevation Aspiration precautions TPN for nutritional support Continue PT - ambulate with walker. GI prophylaxis w/ Protonix. Supportive care. Patient is stable for discharge from the pulmonary standpoint. Disposition planning per hospitalist. Labs and imaging reviewed. Rest of plan as noted below. Plan: S/p extubation on 07/04/24 Supplemental O2 PRN Titrate to keep O2 sats above 92% Continue antibiotics Pain control Avoid oversedation TPN for nutritional support NG tube to low intermittent suction. Monitor output. Surgery recs appreciated. Monitor renal function. Monitor electrolytes. Supplement as necessary. Monitor ins and outs. GI/DVT prophylaxis. Prognosis: Poor given patient's multiple co-morbidities. Rest of plan per hospitalist and other consultants. A total of 53 minutes of clinical care time was spent reviewing the patient record, examining the patient, making a diagnostic and therapeutic plan, discussing this plan with the medical personnel, following up on diagnostic studies and following the patient for clinical stability excluding any and all procedures. At least 50% of this time was spent in direct, [id number] contact. Thank you Cheyanne Villanueva NP, for allowing me to participate in this patient's care. Further recommendations will depend on the patient's clinical course. Please do not hesitate to contact me if you have any questions or concerns. This medical document was created using an electronic medical record system with [employer] computerized dictation system. Although these documentations are being carefully reviewed, there may still be some phonetic and typographical changes. The errors are purely typographical, due to imperfection on the software program, and do not reflect any compromise in the patient's medical care. Dietary Evaluation Review Comments: 1) Increased TPN to meet at least 75% of estimated needs 2) Advance pt diet when medically feasible to a 2gm Sodium diet 3) Continue current plan of care Expected Outcomes/Goals: 1) Pt to receive adequate nutrition 2) Pt diet to advance 3) F/U in 2-3 days Plan discussed with: Patient, Other (YUE Farr) AMANDA TREJO MD Jul 14, 2024 19:14
== END 2024-07-14 12:30 | disposition home or self-care (01) | DRG 329 ==
LOC: ER 08:04 → OVERFLOW 11:49 → CENTRAL 17:36 → ICU CENTRL 07-02 10:45 → TELE-CENTR 07-05 16:10 → CENTRAL 07-10 20:41
PROVIDERS: ADMIT Registered Nurse General Practice; ATTEND Nurse Practitioner Acute Care
PROC: 30233N1 Transfusion of Nonautologous Red Blood Cells into Peripheral Vein, Percutaneous Approach (ICD-10-PCS; 2024-06-27)
PROC: 0D9670Z Drainage of Stomach with Drainage Device, Via Natural or Artificial Opening (ICD-10-PCS; principal; 2024-06-29)
PROC: 05HY33Z Insertion of Infusion Device into Upper Vein, Percutaneous Approach (ICD-10-PCS; 2024-07-01)
PROC: B54MZZA Ultrasonography of Right Upper Extremity Veins, Guidance (ICD-10-PCS; 2024-07-01)
PROC: 0DBL8ZX Excision of Transverse Colon, Via Natural or Artificial Opening Endoscopic, Diagnostic (ICD-10-PCS; 2024-07-01)
PROC: 0DTL0ZZ Resection of Transverse Colon, Open Approach (ICD-10-PCS; 2024-07-02)
PROC: 0BH17EZ Insertion of Endotracheal Airway into Trachea, Via Natural or Artificial Opening (ICD-10-PCS; 2024-07-02)
PROC: 5A1945Z Respiratory Ventilation, 24-96 Consecutive Hours (ICD-10-PCS; 2024-07-02)
PROC: 0DBU0ZZ Excision of Omentum, Open Approach (ICD-10-PCS; 2024-07-02)
PROC: 3E10X8Z Irrigation of Skin and Mucous Membranes using Irrigating Substance (ICD-10-PCS; 2024-07-02)
DX: K56.691 Other complete intestinal obstruction (principal); J96.01 Acute respiratory failure with hypoxia; N17.0 Acute kidney failure with tubular necrosis; C18.4 Malignant neoplasm of transverse colon; E87.0 Hyperosmolality and hypernatremia; K92.2 Gastrointestinal hemorrhage, unspecified; Z20.822 Contact with and (suspected) exposure to COVID-19; E86.0 Dehydration; D50.9 Iron deficiency anemia, unspecified; E83.52 Hypercalcemia; I12.9 Hypertensive chronic kidney disease with stage 1 through stage 4 chronic kidney disease, or unspecified chronic kidney disease; N28.1 Cyst of kidney, acquired; N18.32 Chronic kidney disease, stage 3b; E87.6 Hypokalemia; Z90.710 Acquired absence of both cervix and uterus; Z80.3 Family history of malignant neoplasm of breast; Z82.49 Family history of ischemic heart disease and other diseases of the circulatory system; Z83.3 Family history of diabetes mellitus; Z82.61 Family history of arthritis
CPT/HCPCS: 36415; 36569; 36600; 70470; 71045; 71260; 74176; 74250; 76775; 76937; 80048; 80053; 80069; 81001; 82150; 82306; 82378; 82570; 82805; 82962; 83735; 83880; 83970; 84100; 84156; 84300; 84478; 84550; 85007; 85014; 85018; 85025; 85027; 85610; 85730; 86850; 86900; 86901; 86920; 87070; 87077; 87081; 87186; 87205; 87426; 87804; 93306; 94002; 94003; 97110; 97116; 97163; 97530; G0378; J0131; J1100; J1756; J1815; J2003; J2250; J2405; J2470; J2704; J3480; J3490